=== PATIENT | male | born 1990 | race Two or more races ===

== ENCOUNTER 2018-09-15 16:57 | Inpatient (IN) | payer MEDICAID ==
[~2018-09-15] VITALS: Ht 165.1 cm; Wt 67.1 kg
[~2018-09-15 16:57] MED LIST: ACET-2605 GT; ACET650S26 GT; ALBU2.5V13 HHN; AMIN30LI4 GT; ASCO500S2 GT; BACL10TA GT; BISA-79 GT; CHLO118M MM; DOCU50LI GT; DULO60CA45 GT; ESOM40SU GT; GABA-534 GT; HEPA10009 SQ; IPRA0.2S9 HHN; LACT10SO7 GT; MAGN400O6 GT; MAGN400T6 GT; MECL-102 PO; MERO1VIA3 IV; METH12VI SQ; METO5SOL2 GT; MULT1TAB11 GT; NA P133E RC; NITR0.4T48 SL; POLY17PO4 GT; SACC250C GT; SENN8.6C5 GT
--- NOTE | 2018-09-15 17:00 | NUR ---
PT BIB PA. COMPLAINING OF "FEVER CHILLS". NO SOB NOTED. NO ACUTE DISTRESS NOTED. NO PAIN NOTED. AWAITING MD COLES.
[2018-09-15] MEDS ORDERED: ACETAMINOPHEN 650 MG/SUPP.RECT RC ONE ×2 (17:23→17:30)
[2018-09-15 17:24] LABS: BASOPHILS % (AUTO) 0.2 % (0.0-2.0); HEMATOCRIT 43 % (39-51); HEMOGLOBIN 14.3 g/dL (13.5-17.5); LYMPHOCYTES # (AUTO) 0.5 /CMM (0.8-4.8); LYMPHOCYTES % (AUTO) 1.8 % (20.0-44.0); MEAN CORPUSCULAR HGB CONC 34 g/dl (31.0-36.0); MEAN CORPUSCULAR VOLUME 91 fL (80-96); MONOCYTES # (AUTO) 1.9 /CMM (0.1-1.30); MONOCYTES % (AUTO) 6.9 % (2.0-12.0); NEUTROPHILS # (AUTO) 24.7 /CMM (1.8-8.9); NEUTROPHILS % (AUTO) 91.1 % (43.0-81.0); PLATELET COUNT (AUTO) 338 /CMM (150-450); RED BLOOD CELL COUNT(AUTO) 4.68 MIL/uL (4.5-6.0); WHITE BLOOD COUNT (AUTO) 27.1 K/uL (4.3-11.0)
[2018-09-15 17:30] VITALS: BP 125/73
[2018-09-15] MEDS ORDERED: VANCOMYCIN 1 GM in IV D5W 250 ML IV ONE (17:30)
[2018-09-15] MEDS ORDERED: ALBUTEROL FS 2.5 MG/0.5 ML VIAL.NEB NEB ONE (17:30)
[2018-09-15] MEDS ORDERED: PIPERACILLIN /TAZOBACTAM 3.375 G in IV D5W 50 ML IV ONE (17:30)
[2018-09-15] MEDS ORDERED: IV NS 0.9% 1,000 ML BAG IV ONE (17:30)
--- NOTE | 2018-09-15 17:35 | NUR ---
RT NOTE PT PLACED ON VENT PER MD ORDER. SETTINGS ENDORSED BY PARAMEDICS. ALARMS SET PER PROTOCOL AND AUDIBLE. VENT PLUGGED IN TO RED OUTLET. AMBU BAG AT BED SIDE. NO DISTRESS NOTED. PT HAS PORTEX [address]FF[address] TU[address] PLACE. CUFF INFLATED. PT AWAKE AND ALERT. RN NOTIFIED OF VENTILATOR ALARM ALARMING WHEN PATIENT SPEAKS. Addendum: 09/15/18 at 1739 by ROSALIND HERRERA RT Amended: Links added.
[2018-09-15 17:38] LABS: APPEARANCE,URINE Clear (CLEAR); BILIRUBIN,URINE Negative (NEGATIVE); BLOOD, URINE Large Ery/uL (NEGATIVE); COLOR,URINE Yellow (YELLOW); KETONES,URINE 40 (NEGATIVE); LEUKOCYTE ESTERASE ,URINE Large (NEGATIVE); NITRITE, URINE Positive (NEGATIVE); PROTEIN,URINE 100 mg/dl (NEGATIVE); UGLUCOSE Negative (NEGATIVE); UROBILINOGEN,URINE 0.2 EU/dL (0.2)
[2018-09-15 17:41] LABS: ALANINE AMINOTRANSFERASE 46 U/L (12-78); ALBUMIN 3.7 g/dL (3.4-5.0); ALKALINE PHOSPHATASE 98 U/L (46-116); ASPARTATE AMINOTRANSFERASE 22 U/L (15-37); BILIRUBIN,DIRECT 0.3 mg/dL (0.0-0.2); BILIRUBIN,TOTAL 1.2 mg/dL (0.2-1.0); CALCIUM, SERUM 8.7 mg/dL (8.5-10.1); CARBON DIOXIDE 23 mmol/L (21-32); CHLORIDE 96 mmol/L (98-107); GLUCOSE 100 mg/dL (74-106); POTASSIUM 4.6 mmol/L (3.5-5.1); SODIUM SERUM 129 mmol/L (136-145); TOTAL PROTEIN, SERUM 8.1 g/dL (6.4-8.2); UREA NITROGEN, BLOOD 17 mg/dL (7-18)
[2018-09-15 17:42] LABS: PH,URINE >9.0 (5.0-8.0)
--- NOTE | 2018-09-15 17:45 | NUR ---
LABS DRAWN. URINE COLLECTED. ATBX STARTED AND INFUSING. MRSA SWAB DONE, RAPID INFLUENZA COMPLETED. WILL CONTINUE TO MONITOR.
[2018-09-15] MEDS ORDERED: ALBUTEROL FS 2.5 MG/3 ML VIAL.NEB ONE (17:48)
--- NOTE | 2018-09-15 17:50 | NUR ---
PT TO RADIO.
[2018-09-15 17:54] LABS: BACTERIA,URINE Many /HPF (None Seen); RBC,URINE 21-50 /HPF (0-2); SQUAMOUS EPITHELIAL CELL,UR Few /HPF (None Seen); WBC,URINE 21-50 /HPF (0-3)
[2018-09-15] MEDS ORDERED: MORPHINE SULFATE INJ 4 MG/ML DISP.SYRIN ONE ×2 (18:05→18:07)
[2018-09-15] MEDS ORDERED: KETOROLAC TROMETHAMINE INJ 30 MG/ML VIAL ONE (18:05)
--- NOTE | 2018-09-15 18:17 | NUR ---
RN DF PT C/O GENRALIZED PAIN 7/10 SHIVERING, PT MEDICATED WITH MORPHINE 6MG IVP, TORADOL 30 MG IVP. PT VENTED AC MODE. WILL MONITOR FOR TOLERANCE.
[2018-09-15] MEDS ORDERED: MORPHINE SULFATE INJ 2 MG/ML DISP.SYRIN IV ONE (18:30)
[2018-09-15] MEDS ORDERED: KETOROLAC TROMETHAMINE INJ 30 MG/ML VIAL IV ONE (18:30)
--- NOTE | 2018-09-15 18:30 | NUR ---
Patient is resting comfortably in bed with eyes closed. Easily aroused. VSS
--- NOTE | 2018-09-15 19:16 | NUR ---
RECEIVED REPORT FROM SAVANNAH CARRASCO FOR ISABELLA
--- NOTE | 2018-09-15 19:17 | NUR ---
PT IS ASSIGNED TO [facility]#: [id number], DX: SEPSIS, AND ACCEPTING: LILIANA CESPEDES NP
--- NOTE | 2018-09-15 19:27 | NUR ---
GAVE REPORT TO YAMIL CARRASCO FOR ISABELLA
--- NOTE | 2018-09-15 19:42 | NUR ---
RN NOTES: RECEIVED PT FROM ER. PT ON PORTEX 7 AND VENT SETTINGS AC 12, TV 600, PEEP 5, FI02 40%. PT IS A/OX3 AND ABLE TO SPEAK AND MAKE NEEDS KNOWN. PT HAS SUPRAPUBIC CATH WITH URINE DRAINING. PT ALSO HAS A G TUBE. CURRENTLY CLAMPED. HAS BEEN FLUSHED AND AUSCULTATED WITH DISTENDED ABDOMEN. PT TO BE PLACED ON TELE BOX. PT HAS IV ON JOHN #20G AND IS PATENT AND INTACT. BED KEPT IN LOW, LOCKED POSITION, AND SIDE RAILS X 2UP. WILL CONTINUE TO MONITOR PT. Addendum: 09/15/18 at 2323 by ALETHEA CAR RN G TUBE RESIDUAL NOTED WITH 15ML. WILL CONTINUE TO MONITOR THROUGHOUT SHIFT.
--- NOTE | 2018-09-15 19:47 | NUR ---
TRANSFERRED PT PER ACLS PROTOCOL
[2018-09-15 20:00] VITALS: BP 89/50
[2018-09-15] MEDS ORDERED: ALBUTEROL FS 2.5 MG/0.5 ML VIAL.NEB NEB PRN (20:00)
[2018-09-15] MEDS ORDERED: MAG HYDROX/AL HYDROX/SIMETH 30 ML UDC PO PRN (20:00)
[2018-09-15] MEDS ORDERED: ONDANSETRON HCL/PF 4 MG/2 ML VIAL IVP PRN (20:00)
[2018-09-15] MEDS ORDERED: Z GUARD REMEDY 2 OZ OINT TP PRN (20:00)
[2018-09-15] MEDS ORDERED: IPRATROPIUM NEB FS 0.5 MG/2.5 ML AMPUL.NEB NEB PRN (20:00)
[2018-09-15] MEDS ORDERED: MAGNESIUM CITRATE 296 ML BOTTLE GT ONE (20:00)
[2018-09-15] MEDS ORDERED: ACETAMINOPHEN LIQUID 160 MG/5 ML BOTTLE GT PRN (20:00)
[2018-09-15] MEDS ORDERED: MAGNESIUM HYDROXIDE 30 ML UDC PO PRN (20:00)
[2018-09-15] MEDS: IV NS 0.9% 1,000 ML IV PRN (20:26)
[2018-09-15] MEDS ORDERED: MEROPENEM 1 G VIAL IV ONE (20:52)
[2018-09-15] MEDS: MEROPENEM 1 G in IV NS 0.9% 100 ML IV SCH (21:05)
--- NOTE | 2018-09-15 21:05 | NUR ---
CLINICAL IMPLEMENTATION SPECIALIST NOTES: CHARGE NURSE OVERRODE MERREM 1G. HAD TO MANUALLY ADMINISTER SINCE BAR GUN NOT SCANNING.
[2018-09-15 21:17] VITALS: BP 111/51
--- NOTE | 2018-09-15 21:25 | NUR ---
RN NOTES: SPOKE WITH JAMESON CESPEDES TO CLARIFY. PT IS TO GO TO [facility] HE IS TACHYCARDIC, SEPTIC, AND WILL GO TO [facility]. Addendum: 09/15/18 at 7385 by ALETHEA CAR RN NURSE CHARGE RN NOTIFIED WELL.
[2018-09-15] MEDS: ENOXAPARIN SODIUM 40 MG/0.4 ML DISP.SYRIN SQ SCH (21:30)
--- NOTE | 2018-09-15 22:06 | NUR ---
RN NOTES: SPOKE WITH JAMESON CESPEDES. INFORMED HIM THAT PT IS VERY ANXIOUS. PT STILL HAS A FEVER AND HR ELEVATED IN THE 120S. PER JAMESON FORD, HE WILL ORDER ATIVAN.
[2018-09-15 22:10] VITALS: BP 115/62
[2018-09-15] MEDS: LORAZEPAM INJ 2 MG/ML VIAL IV PRN (22:14)
[2018-09-15 22:40] VITALS: BP 104/71
--- NOTE | 2018-09-15 22:42 | NUR ---
DANILO NOTES: TRANSFERRED PT TO [facility] FLOOR IN STABLE CONDITION. Addendum: 09/15/18 at 2250 by ALETHEA CAR RN TRANSFERRED PT TO [facility] FLOOR WITH NO EVENTS PER JAMESON MONZON.
--- NOTE | 2018-09-15 22:45 | NUR ---
RN NOTES: ENDORSED TO GRAY NURSE, EDIN. VENT SETTINGS REMAIN THE SAME 2 RTS AT BEDSIDE. IV REMAINS INTACT. SUPRAPUBIC CATH REMAINS INTACT WITH YELLOW URINE DRAINING. NO EVENTS OCCURRED UPON TRANSFER.
--- NOTE | 2018-09-15 22:50 | NUR ---
GRAY RN NOTE RECEIVED PT IN [facility] ROOM 102 A/O X 4, ON TRACH/VENT PORTEX 7, AC 12 TV 600 FIO2 40% PEEP 5. TOLERATING THE SETTINGS WELL. SUCTIONED HIM SMALL AMOUNT OF THIN WHITE SECRETION NOTED. ON TELE MONITOR S T HR 121. NO DISTRESS OR DISCOMFORT NOTED. NO S/S PAIN. SL JOHN # 20 G INTACT AND PATENT. SUPRAPUBIC CATH INTACT AND PATENT DRAINING YELLOWISH COLOR URINE. SIDE RAILS UP X 3 AND CALL LIGHT WITHIN REACH. VSS. CONTINUE TO MONITOR HIM. Addendum: 09/15/18 at 2344 by EDIN MCDANIELS RN ABD DISTENDED. GT INTACT AND PATENT, CLAMPED.
[2018-09-15] MEDS: ZOLPIDEM TARTRATE 5 MG TABLET GT PRN (23:30)
[2018-09-15] MEDS: HYDROCODONE/APAP 5/325MG 1 EACH TABLET GT PRN (23:30)
--- NOTE | 2018-09-15 23:37 | NUR ---
GRAY RN NOTE PT ASKING FOR SLEEPING MED AND ALSO C/O PAIN ALL OVER 03/17. AMBIEN 5 MG FOR SLEEP AND NORCO 5/325 MG FOR PAIN VIA GT GIVEN. CONTINUE TO MONITOR HIM.
[2018-09-16] VITALS: BP 104/71
--- NOTE | 2018-09-16 00:37 | NUR ---
GRAY RN NOTE PAIN SUBSIDED 2/10 AND FALL ASLEEP, EASILY AROUSABLE. CONTINUE TO MONITOR HIM.
[2018-09-16] MEDS: HYDROCODONE/APAP 10/325MG 1 EA TABLET GT PRN ×4 (03:15→21:20)
[2018-09-16 04:00] VITALS: BP 87/48
[2018-09-16] MEDS ORDERED: MEROPENEM 1 G VIAL IV ONE (04:43)
[2018-09-16] MEDS ORDERED: VANCOMYCIN 1 GM VIAL ONE (05:26)
[2018-09-16] MEDS: MEROPENEM 1 G in IV NS 0.9% 100 ML IV SCH ×3 (05:26→20:56)
--- NOTE | 2018-09-16 06:35 | NUR ---
GRAY RN NOTE PT IN BED ASLEEP, AROUSABLE. NO DISTRESS OR DISCOMFORT NOTED. DENIES PAIN. IVF INFUSING WELL, NO S/S OF INFILTRATION NOTED. ON TELE MONITOR SR 91. SUPRAPUBIC CATH INTACT AND PATENT DRAINING WELL, YELLOWISH COLOR URINE. GT INTACT AND PATENT, CLAMPED. WILL ENDORSE TO DAY SHIFT NURSE FOR CONTINUE TO CARE.
[2018-09-16 06:55] LABS: BASOPHILS % (AUTO) 0.1 % (0.0-2.0); HEMATOCRIT 33 % (39-51); LYMPHOCYTES # (AUTO) 0.8 /CMM (0.8-4.8); LYMPHOCYTES % (AUTO) 3.4 % (20.0-44.0); MEAN CORPUSCULAR HGB CONC 34 g/dl (31.0-36.0); MEAN CORPUSCULAR VOLUME 92 fL (80-96); MONOCYTES # (AUTO) 1.9 /CMM (0.1-1.30); MONOCYTES % (AUTO) 7.7 % (2.0-12.0); NEUTROPHILS # (AUTO) 21.5 /CMM (1.8-8.9); NEUTROPHILS % (AUTO) 88.8 % (43.0-81.0); PLATELET COUNT (AUTO) 230 /CMM (150-450); RED BLOOD CELL COUNT(AUTO) 3.56 MIL/uL (4.5-6.0); WHITE BLOOD COUNT (AUTO) 24.2 K/uL (4.3-11.0)
--- NOTE | 2018-09-16 07:00 | NUR ---
RN NOTE RECEIVED PT ON BED, VENT/ TRACH DEPENDENT, TRACH CARE DONE, TOLERATING CURRENT VENT SETTING WELL, ON TELE SR HR IN 90'S. NO DISTRESS OR DISCOMFORT NOTED. L UPPER ARM IV SITE G 20 CLEAN ,DRY AND INTACT, SUPRAPUBIC CATH INTACT AND PATENT DRAINING YELLOWISH COLOR URINE. SIDE RAILS UP X 3 AND CALL LIGHT WITHIN REACH.BED LOCKED AND IN LOWEST POSITION , CONTINUE TO MONITOR.
[2018-09-16 07:14] LABS: CALCIUM, SERUM 7.8 mg/dL (8.5-10.1); CREATININE 0.8 mg/dL (0.6-1.3); PHOSPHORUS 3.1 mg/dL (2.5-4.9); POTASSIUM 4.1 mmol/L (3.5-5.1)
[2018-09-16] MEDS: VANCOMYCIN 1.25 GM in IV D5W 500 ML IV SCH ×2 (07:16→17:14)
[2018-09-16] MEDS ORDERED: FEE PK DOSING 1 MIN EA MC ONE (07:33)
[2018-09-16 08:00] VITALS: BP 97/58
--- NOTE | 2018-09-16 09:29 | NUR ---
WOUND CARE CONSULT: PT PRESENTS WITH SACRAL SCARRING WHICH EXTENDS TO BUTTOCKS, LEFT LATERAL FOOT SCAR, RT LATERAL FOOT MOLE/LESION AND CONTRACTED RT UPPER EXTREMITY, PRESENT ON ADMISSION. ABDOMEN IS LARGE AND LARGE AREAS OF SKIN REDNESS NOTED. DEFER TO MD. Xiao TUBE CLAMPED, SUPRAPUBIC CATH NOTED. RECOMMENDATIONS MADE FOR SKIN PROTECTION AND DISCUSSED WITH NURSING STAFF. FIRST STEP LOW AIRLOSS MATTRESS ORDERED. PT IS VENT-DEPENDENT. WILL SEE PRN. CURRENT KEVIN SCORE IS 12. Addendum: 09/16/18 at 0931 by ELEONORA UMANA WNDNU Amended: Links added.
[2018-09-16 12:00] VITALS: BP 100/47
[2018-09-16] MEDS: IV NS 0.9% 1,000 ML IV PRN (13:40)
[2018-09-16] MEDS: LORAZEPAM INJ 2 MG/ML VIAL IV PRN ×2 (13:46→21:16)
[2018-09-16] MEDS: ACETAMINOPHEN 650 MG/20.3 ML UDC GT PRN (14:05)
[2018-09-16 16:00] VITALS: BP 92/47
[2018-09-16] MEDS: LACTOBACILLUS RHAMNOSUS GG 1 EACH CAP.SPRINK GT SCH (16:13)
--- NOTE | 2018-09-16 18:23 | NUR ---
RN NOTES PT STABLE , TRACH CARE DONE , NS AT 125CC/HR RUNNING VIA L UPPER ARM IV , SITE CLEAN, DRY AND INTACT, WILL ENDOSE TO MINER OPERATOR NURSE FOR CONTINUITY OF CARE.
--- NOTE | 2018-09-16 19:07 | NUR ---
SUPERVISOR TILE AND MOTTLE NOTE: RECEIVED PT ON BED ALERT AND ORIENTED X3, VERBALLY RESPONSIVE. NO APPARENT DISTRESS NOTED. NO COMPLAINTS OF PAIN OR DISCOMFORT AT THIS TIME. ON [facility] VENT, SETTINGS ORDERED. NO SOB NOTED. SINUS RHYTHM HR 97 BPM ON TELE MONITOR. IV ON LEFT UPPER ARM #20 INTACT AND PATENT, WITH IVF NS RUNNING AT 125ML/HR, INFUSING WELL. KEPT CLEAN, DRY AND COMFORTABLE. SAFETY AND FALL PRECAUTIONS OBSERVED AND MAINTAINED. CALL LIGHT PLACED WITHIN REACH. WILL CONTINUE TO MONITOR PT.
[2018-09-16 20:00] VITALS: BP 117/61
[2018-09-16] MEDS: ENOXAPARIN SODIUM 40 MG/0.4 ML DISP.SYRIN SQ SCH (20:56)
[2018-09-16] MEDS: ZOLPIDEM TARTRATE 5 MG TABLET GT PRN (23:24)
[2018-09-17] VITALS: BP 117/64
[2018-09-17] MEDS: HYDROCODONE/APAP 10/325MG 1 EA TABLET GT PRN ×4 (00:40→17:02)
[2018-09-17] MEDS: IV NS 0.9% 1,000 ML IV PRN ×2 (03:30→14:14)
[2018-09-17 04:00] VITALS: BP 116/57
[2018-09-17] MEDS: MEROPENEM 1 G in IV NS 0.9% 100 ML IV SCH ×4 (04:41→22:20)
[2018-09-17] MEDS: LORAZEPAM INJ 2 MG/ML VIAL IV PRN ×4 (04:43→23:41)
[2018-09-17] MEDS: VANCOMYCIN 1.25 GM in IV D5W 500 ML IV SCH ×2 (05:32→19:51)
--- NOTE | 2018-09-17 05:40 | NUR ---
CAFETERIA ASSISTANT NOTE: RECEIVED A CALL FROM LAB REGARDING PATIENT'S BLOOD CULTURE PRELIMINARY RESULT GRAM NEGATIVE RODS. SLUBBER TENDER LILIANA CSEPEDES MADE AWARE, NO NEW ORDERS AT THIS TIME.
[2018-09-17 06:07] LABS: BASOPHILS % (AUTO) 0.1 % (0.0-2.0); EOSINOPHILS % (AUTO) 0.4 % (0.0-6.0); HEMATOCRIT 30 % (39-51); HEMOGLOBIN 10.2 g/dL (13.5-17.5); LYMPHOCYTES # (AUTO) 0.6 /CMM (0.8-4.8); LYMPHOCYTES % (AUTO) 5.3 % (20.0-44.0); MEAN CORPUSCULAR HGB CONC 34 g/dl (31.0-36.0); MEAN CORPUSCULAR VOLUME 89 fL (80-96); MONOCYTES # (AUTO) 0.9 /CMM (0.1-1.30); MONOCYTES % (AUTO) 7.3 % (2.0-12.0); NEUTROPHILS # (AUTO) 10.5 /CMM (1.8-8.9); NEUTROPHILS % (AUTO) 86.9 % (43.0-81.0); PLATELET COUNT (AUTO) 192 /CMM (150-450); RED BLOOD CELL COUNT(AUTO) 3.39 MIL/uL (4.5-6.0); WHITE BLOOD COUNT (AUTO) 12.1 K/uL (4.3-11.0)
[2018-09-17 06:21] LABS: CALCIUM, SERUM 7.9 mg/dL (8.5-10.1); CREATININE 0.5 mg/dL (0.6-1.3); MAGNESIUM 2.3 mg/dL (1.8-2.4); PHOSPHORUS 1.2 mg/dL (2.5-4.9); POTASSIUM 3.6 mmol/L (3.5-5.1)
--- NOTE | 2018-09-17 06:47 | NUR ---
RETORT ENGINEER NOTE: NO CHANGES NOTED THROUGHOUT THE SHIFT. NO APPARENT DISTRESS NOTED. DENIES PAIN AND DISCOMFORT AT THIS TIME. NO SOB NOTED. PT REFUSED BED BATH WITNESSED BY DANILO AYALA, OFFERED 3X BUT PT STILL REFUSED AND STATED "I'M TIRED AND SLEEPY RIGHT NOW. COME BACK LATER AT 0800". SUPRAPUBIC CATH INTACT AND PATENT, DRAINED 2000 ML OF CLEAR YELLOW URINE OUTPUT. KEPT CLEAN, DRY AND COMFORTABLE. WILL ENDORSE TO DAY SHIFT RN FOR CONTINUITY OF CARE.
--- NOTE | 2018-09-17 07:00 | NUR ---
RN NOTE: RECEIVED PT ON BED A/Ox3, VENT/TRACH DEPENDENT, TOLERATING CURRENT VENT SETTING WELL, TRACH CARE DONE, NO SOB NOTED, ON TELE SR HR IN 90'S , IV ON LEFT UPPER ARM #20 INTACT AND PATENT, WITH IVF NS RUNNING AT 125ML/HR, SR UP x3, CALL LIGHT WITHIN EASY REACH, BED LOCKED AND IN LOWEST POSITION, KEPT CLEAN, DRY AND COMFORTABLE. SAFETY AND FALL PRECAUTIONS OBSERVED AND MAINTAINED , CONTINUE TO MONITOR.
[2018-09-17 08:00] VITALS: BP 99/48
[2018-09-17] MEDS: LACTOBACILLUS RHAMNOSUS GG 1 EACH CAP.SPRINK GT SCH ×2 (09:19→16:30)
[2018-09-17] MEDS: ACETAMINOPHEN 650 MG/20.3 ML UDC GT PRN (11:31)
[2018-09-17 12:00] VITALS: BP 111/53
[2018-09-17] MEDS ORDERED: CALC-261 GT (14:00)
[2018-09-17] MEDS ORDERED: CRAN3875 GT (14:00)
[2018-09-17] MEDS ORDERED: LEVO750T21 GT (14:00)
[2018-09-17] MEDS ORDERED: ZOLP5TAB8 GT (14:00)
[2018-09-17] MEDS ORDERED: HYDR-4354 GT (14:00)
[2018-09-17] MEDS ORDERED: FAMO20TA8 GT (14:00)
[2018-09-17] MEDS ORDERED: HYDR-3972 GT (14:00)
[2018-09-17] MEDS ORDERED: K PHOS NEUTRAL 250 MG TABLET PO ONE ×2 (14:00→16:30)
[2018-09-17] MEDS ORDERED: METH1TAB30 GT (14:00)
[2018-09-17] MEDS ORDERED: SIME80TA15 GT (14:00)
[2018-09-17] MEDS ORDERED: LORA-259 GT (14:00)
[2018-09-17 16:00] VITALS: BP 110/67
--- NOTE | 2018-09-17 18:14 | NUR ---
RN NOTES PT STABLE, NS AT 125CC/HR RUNNING VIA L UPPER ARM IV SITE , NO COMPLICATION NOTED, TRACH SUCTION DONE, SR UP x3, CALL LIGHT WITHIN EASY REACH, BED LOCKED AND IN LOWEST POSITION, WILL ENDOSE TO RAILWAY TRACK PLANT OPERATOR NURSE FOR CONTINUITY OF CARE .
--- NOTE | 2018-09-17 18:30 | NUR ---
RN NOTES UNABLE TO OBTAIN BLOOD SAMPLE FOR VANCO LEVEL PER LAB , PT IS HARD STICK , WILL ENDOSE TO SKATES OPERATOR NURSE .
--- NOTE | 2018-09-17 19:10 | NUR ---
TELE/RN INITIAL NOTES RECEIVED PT IN BED, A/OX4, WITH INTACT TRACH PORTEX#7, TOLERATING VENT SETTINGS: AC 12; TV 600; FIO2: 40%; PEEP5. SR HR 90S. GT INTACT AND IN PLACED. HOB ELEVATED. SUPRAPUBIC CATH INTACT AND IN PLACED. WITH ONGOING IVF NS AT 125 ML/HR INFUSING WELL ON JOHN G20 IV LINE. SAFETY MEASURES IN PLACED. CALL LIGHT WITHIN EASY REACH. WILL CONT TO MONITOR PER AM SHIFT RN ENDORSEMENT, DUE 1800 VANCO TO BE GIVEN, AWAITING FOR VANCO TROUGH LEVEL FROM LAB.
--- NOTE | 2018-09-17 19:50 | NUR ---
RN NOTES RECEIVED VANCO TROUGH=20, CALLED PHARMACY IF OK TO ADMINISTER VANCO, PER KIERA OK TO ADMINISTER VANCO
[2018-09-17 20:00] VITALS: BP 113/66
[2018-09-17] MEDS: HYDROCODONE/APAP 5/325MG 1 EACH TABLET GT PRN (20:31)
[2018-09-17] MEDS: ZOLPIDEM TARTRATE 5 MG TABLET GT PRN (21:00)
[2018-09-17] MEDS: ENOXAPARIN SODIUM 40 MG/0.4 ML DISP.SYRIN SQ SCH (21:01)
[2018-09-18] VITALS: BP 114/61
[2018-09-18] MEDS: HYDROCODONE/APAP 10/325MG 1 EA TABLET GT PRN ×3 (02:36→23:15)
[2018-09-18 04:00] VITALS: BP 112/65
[2018-09-18] MEDS: IV NS 0.9% 1,000 ML IV PRN ×2 (04:02→16:54)
[2018-09-18] MEDS: MEROPENEM 1 G in IV NS 0.9% 100 ML IV SCH ×3 (04:02→21:05)
[2018-09-18] MEDS: ACETAMINOPHEN 650 MG/20.3 ML UDC GT PRN (04:03)
[2018-09-18] MEDS: VANCOMYCIN 1.25 GM in IV D5W 500 ML IV SCH (05:15)
--- NOTE | 2018-09-18 05:30 | NUR ---
DANILO NOTES RECHECKED BP=98.9 Addendum: 09/18/18 at 0648 by LUCY TIRADO RN CORRECTION RECHECKED TEMP=98.9
--- NOTE | 2018-09-18 06:57 | NUR ---
RN NOTES PT IN STABLE CONDITION. NO ACUTE CHANGES THROUGHOUT SHIFT. SAFETY MEASURES OBSERVED AT ALL TIMES. ALL NEEDS ANTICIPATED. CALL LIGHT WITHIN EASY REACH. ENDORSED TO AM SHIFT RN FOR ISABELLA
--- NOTE | 2018-09-18 07:29 | NUR ---
Received male una pt on a mechanical vent. Pt una is secure. Vent is plugged into a red outlet, alarms are set and audible, and BMV is at bedside. Addendum: 09/18/18 at 0731 by LILY ERICKSON RT Amended: Links added.
--- NOTE | 2018-09-18 07:30 | NUR ---
RN NOTES RECEIVED PT ON BED, ALERT AND ORIENTED X3, ABLE TO MAKE NEEDS KNOWN, NOT ON ANY FORM OF DISTRESS. NO COMPLAINTS OF PAIN OR DISCOMFORT AT THIS TIME. ON [facility] VENT, SETTINGS ORDERED.TOLERATING WELL, NO SOB NOTED. SATING AT 100%, ON TELEMONITOR: SINUS RHYTHM HR 67 BPM ON TELE MONITOR. IVL JOHN G20 INTACT AND IN PLACE, PATENT UPON FLUSHING, WITH ONGOING IVF OF NS AT 125ML/HR, INFUSING WELL. WITH SUPRAPUBIC CATHETER, DRAINING WELL VIA GRAVITY TO CLOUDY, YELLOW, URINE. SAFETY AND FALL PRECAUTIONS OBSERVED AND MAINTAINED. CALL LIGHT PLACED WITHIN REACH. WILL CONTINUE TO AN MONITOR PT. AND WILL ANTICIPATE NEEDS
[2018-09-18 08:00] VITALS: BP 105/64
[2018-09-18 08:12] LABS: BASOPHILS % (AUTO) 0.4 % (0.0-2.0); EOSINOPHILS % (AUTO) 1.4 % (0.0-6.0); HEMATOCRIT 31 % (39-51); HEMOGLOBIN 10.7 g/dL (13.5-17.5); LYMPHOCYTES # (AUTO) 1.2 /CMM (0.8-4.8); LYMPHOCYTES % (AUTO) 16.4 % (20.0-44.0); MEAN CORPUSCULAR HGB CONC 35 g/dl (31.0-36.0); MEAN CORPUSCULAR VOLUME 90 fL (80-96); MONOCYTES # (AUTO) 0.8 /CMM (0.1-1.30); MONOCYTES % (AUTO) 10.9 % (2.0-12.0); NEUTROPHILS # (AUTO) 5.4 /CMM (1.8-8.9); NEUTROPHILS % (AUTO) 70.9 % (43.0-81.0); PLATELET COUNT (AUTO) 191 /CMM (150-450); RED BLOOD CELL COUNT(AUTO) 3.45 MIL/uL (4.5-6.0); WHITE BLOOD COUNT (AUTO) 7.6 K/uL (4.3-11.0)
[2018-09-18 08:23] LABS: CREATININE 0.6 mg/dL (0.6-1.3); PHOSPHORUS 1.1 mg/dL (2.5-4.9)
--- NOTE | 2018-09-18 08:36 | NUR ---
RN NOTES INFORMED DR ADAIR POTASSIUM LEVEL T 2.5, AWAITING RESPONSE
[2018-09-18 08:37] LABS: POTASSIUM 2.5 mmol/L (3.5-5.1)
[2018-09-18] MEDS: LACTOBACILLUS RHAMNOSUS GG 1 EACH CAP.SPRINK GT SCH ×2 (08:38→16:51)
[2018-09-18 09:02] LABS: BAND % (MANUAL) 2 % (0.0-5.0); EOSINOPHILS % (MANUAL) 2 % (0-4); LYMPHOCYTES % (MANUAL) 14 % (16-48); MONOCYTES % (MANUAL) 10 % (0-11.0); NEUTROPHILS % (MANUAL) 72 (42-76)
[2018-09-18] MEDS ORDERED: K PHOS NEUTRAL 250 MG TABLET PO ONE (11:00)
[2018-09-18 12:00] VITALS: BP 121/68
[2018-09-18] MEDS: HYDROCODONE/APAP 5/325MG 1 EACH TABLET GT PRN (13:29)
--- NOTE | 2018-09-18 15:30 | NUR ---
RN NOTES REINFORMED DR ADAIR ABOUT POTASSIUM LEVEL AT 2.5, AWAITING RESPONSE
[2018-09-18 16:00] VITALS: BP_SYST 101; BP_SYST 121; BP_DIAS 62; BP_DIAS 68
[2018-09-18] MEDS: LORAZEPAM INJ 2 MG/ML VIAL IV PRN (16:50)
--- NOTE | 2018-09-18 19:20 | NUR ---
RN NOTES NOTED POTASSIUM ORDER FROM DR ADAIR [id number] MEQ IV AND 40 MEQ PO. ORDER NOTED AND CARRIED OUT
--- NOTE | 2018-09-18 19:26 | NUR ---
RN NOTES ENDORSED PATIENT FOR CONTINUITY OF CARE. PATIENT ON STABLE CONDITION. NO ACUTE CHANGES THROUGHOUT SHIFT. SAFETY MEASURES OBSERVED AT ALL TIMES. ALL NEEDS ANTICIPATED. CALL LIGHT WITHIN EASY REACH.
[2018-09-18] MEDS ORDERED: POTASSIUM CHLORIDE 10 MEQ/50 ML PREMIXED IVPB FOR PERIPHERAL LINE IV ONE (19:30)
--- NOTE | 2018-09-18 19:54 | NUR ---
PT RCVD TRACH PORTEX 7 ON THE VENT WITH NOTED SETTINGS. PT IS AWAKE AND ALERT. SUCTIONED SMALL AMOUNT OF YELLOW/ NATHAN THICK SECRETIONS. VENT PLUGGED INTO RED OUTLET, ALARMS ON AND AUDIBLE, AMBU BAG AT BEDSIDE. TRACH PATENT AND SECURED. NO RESPIRATORY DISTRESS NOTED AT THIS TIME. WILL CONTINUE TO MONITOR.
[2018-09-18] MEDS ORDERED: POTASSIUM CL. PREMIX PERIPHER. 50 ML ONE (19:59)
[2018-09-18 20:00] VITALS: BP 120/74
[2018-09-18] MEDS: POTASSIUM CHLORIDE 20 MEQ TAB.PRT.SR PO SCH (20:01)
[2018-09-18] MEDS: Potassium Chloride 10 MEQ in IV D5W 50 ML IV SCH ×4 (20:04→22:20)
--- NOTE | 2018-09-18 20:10 | NUR ---
GRAY/TIME BROKER PT GIVEN PO POTASSIUM FOR LOW 2.5 POTASSIUMS. ALSO CHARGE NURSE STARTED THE IV POTASSIUM WELL.
[2018-09-18] MEDS ORDERED: POTASSIUM CL. PREMIX PERIPHER. 150 ML ONE (20:50)
--- NOTE | 2018-09-18 21:10 | NUR ---
GRAY/PRESSURE DISPATCHER PT C/O OF SEVER PAIN TO LEG WHERE IV POTASSIUM IS RUNNING. CALLED ICE CREAM DISPENSER FOR PRN ORDER FOR PAIN MEDICATION, MORPHINE 1 MG GIVEN IV Q 4 HRS PRN. CHARGE NURSE AWARE OF ORDERS.
[2018-09-18] MEDS: ENOXAPARIN SODIUM 40 MG/0.4 ML DISP.SYRIN SQ SCH (21:35)
[2018-09-18] MEDS ORDERED: MORPHINE SULFATE INJ 2 MG/ML DISP.SYRIN IV PRN (22:00)
[2018-09-18] MEDS ORDERED: MORPHINE SULFATE INJ 4 MG/ML DISP.SYRIN ONE (22:26)
--- NOTE | 2018-09-18 23:16 | NUR ---
GRAY/COUNTER ROLLER PT C/O OF PAIN RATED 5/10 TO GENERALIZED AREA, GAVE NORCO 10/325 1 TAB FOR THIS. PT WAS TURNED AND REPOSITIONED FOR COMFORT AND CAR.
[2018-09-19] MEDS: LORAZEPAM INJ 2 MG/ML VIAL IV PRN ×3 (00:24→16:12)
--- NOTE | 2018-09-19 00:31 | NUR ---
GRAY/PRIVATE DUTY RN PT COMPLAINED ABOUT AGITATION, ATIVAN WAS GIVEN BY CHARGE NURSE AFTER SHE WAS NOTIFIED. PT WAS TURNED AND REPOSITIONED FOR COMFORT AND CAR.
[2018-09-19 00:33] VITALS: BP 124/70
[2018-09-19] MEDS: ZOLPIDEM TARTRATE 5 MG TABLET GT PRN (01:13)
[2018-09-19] MEDS: IV NS 0.9% 1,000 ML IV PRN (01:13)
--- NOTE | 2018-09-19 01:40 | NUR ---
GRAY/TENSION WORKER PT C/O OF NOT BEING ABLE TO SLEEP, PT HAS A SEEKING ATTITUDE. THE ATIVAN WAS GIVEN VIA G/TUBE THEN PT WAS TURNED AND REPOSTIONED FOR COMFORT AND CARE. WILL CONTINUE TO MONITOR THIS PT.
--- NOTE | 2018-09-19 03:10 | NUR ---
GRAY/HEDIS ANALYST PT REQUESTED TO BE CHANGED, DUE TO A BM. BUT REFUSED A BATH. WILL CONTINUE TO MONITOR THIS PT. PT WAS TURNED AND REPOSITIONED FOR COMFORT AND CARE.
[2018-09-19 04:00] VITALS: BP 111/60
[2018-09-19] MEDS: MEROPENEM 1 G in IV NS 0.9% 100 ML IV SCH ×2 (04:22→14:15)
--- NOTE | 2018-09-19 05:40 | NUR ---
GRAY/PNEUMATIC TOOL OPERATOR PT'S WEIGHT IS 148, PILLOWS WERE STRIP DOWN AND WEIGHT TAKEN.
--- NOTE | 2018-09-19 07:04 | NUR ---
Received awake and alert male trach pt on a mechanical vent. Pt trach is secure. Vent is plugged into a red outlet, alarms are set and audible, and BMV is at bedside. Addendum: 09/19/18 at 0806 by LILY ERICKSON RT Amended: Links added.
[2018-09-19 07:36] LABS: BASOPHILS % (AUTO) 0.5 % (0.0-2.0); EOSINOPHILS % (AUTO) 3.1 % (0.0-6.0); HEMATOCRIT 32 % (39-51); HEMOGLOBIN 11.1 g/dL (13.5-17.5); LYMPHOCYTES # (AUTO) 1.3 /CMM (0.8-4.8); LYMPHOCYTES % (AUTO) 15.8 % (20.0-44.0); MEAN CORPUSCULAR HGB CONC 35 g/dl (31.0-36.0); MEAN CORPUSCULAR VOLUME 88 fL (80-96); MONOCYTES # (AUTO) 1.3 /CMM (0.1-1.30); MONOCYTES % (AUTO) 15.1 % (2.0-12.0); NEUTROPHILS # (AUTO) 5.5 /CMM (1.8-8.9); NEUTROPHILS % (AUTO) 65.5 % (43.0-81.0); PLATELET COUNT (AUTO) 238 /CMM (150-450); RED BLOOD CELL COUNT(AUTO) 3.64 MIL/uL (4.5-6.0); WHITE BLOOD COUNT (AUTO) 8.4 K/uL (4.3-11.0)
[2018-09-19 07:45] LABS: CALCIUM, SERUM 7.9 mg/dL (8.5-10.1); CREATININE 0.5 mg/dL (0.6-1.3); MAGNESIUM 1.7 mg/dL (1.8-2.4); POTASSIUM 3.3 mmol/L (3.5-5.1)
[2018-09-19 08:00] VITALS: BP 119/64
[2018-09-19] MEDS: LACTOBACILLUS RHAMNOSUS GG 1 EACH CAP.SPRINK GT SCH ×2 (08:42→16:13)
[2018-09-19] MEDS: HYDROCODONE/APAP 10/325MG 1 EA TABLET GT PRN ×2 (08:42→12:44)
[2018-09-19] MEDS: POTASSIUM CHLORIDE 20 MEQ TAB.PRT.SR PO SCH (08:42)
[2018-09-19] MEDS ORDERED: POTASSIUM CHLORIDE 20 MEQ TAB.PRT.SR PO ONE (11:30)
[2018-09-19 12:00] VITALS: BP 130/71
[2018-09-19] MEDS ORDERED: BISACODYL SUPP (10 MG) 10 MG/SUPP.RECT SUPP.RECT RC ONE (12:00)
[2018-09-19] MEDS: Magnesium 1GM/D5W 100ML PREMIX 100 ML IV SCH ×2 (12:11→16:13)
[2018-09-19] MEDS ORDERED: MORPHINE SULFATE INJ 4 MG/ML DISP.SYRIN IV PRN (12:30)
[2018-09-19] MEDS ORDERED: MERO1VIA IV (12:41)
[2018-09-19 16:00] VITALS: BP 123/69
--- NOTE | 2018-09-19 19:30 | NUR ---
COMPUTER HARDWARE TECHNICIAN NOTE PATIENT PREPARED FOR DISCHARGE. PAPERWORK COMPLETED AND PRINTED AND SIGNED WITH CHARGE NURSE SINCE PATIENT UNABLE TO SIGN. REPORT CALLED TO DANILO JAMESON AT [facility]. PER GISELL'S REQUEST, IV SITES LEFT IN SINCE PATIENT IS A HARD STICK AND WILL CONTINUE IV ABX AT SNF. PATIENT SUPRAPUBIC CATHETER LEFT IN WELL. PICTURES TAKEN OF SKIN ISSUES AND PLACED IN CHART. ASKED PATIENT ABOUT FLU AND PNEUMONIA VACCINES. SAID HE HAS RECEIVED FLU SHOT THIS SEASON BUT FORGOT DATE. SAID HE WILL NOT WANT PNEUMONIA VACCINE RIGHT NOW. GAVE REPORT TO 2 EMT'S AND RT AT BEDSIDE. PATIENT VITAL SIGNS STABLE, NO COMPLAINT OF PAIN, NO RESPIRATORY DISTRESS NOTED. PATIENT LEFT THE FACILITY ON A GURNEY TO [facility] WITH PAPERWORK ACCOMPANIED BY RT AND 2 EMT'S IN STABLE CONDITION AT 19:10. PATIENT HAD NO BELONGINGS.
== END 2018-09-19 19:12 | DRG 720 ==
LOC: ER 17:01 → TELE 19:22 → TELE1 23:08 → TELE-TD 23:21 → TELE1 09-16 11:10
PROVIDERS: ADMIT Nurse Practitioner Acute Care; ATTEND Student in an Organized Health Care Education/Training Program
PROC: 5A1945Z Respiratory Ventilation, 24-96 Consecutive Hours (ICD-10-PCS; principal; 2018-09-15)
DX: A41.52 Sepsis due to Pseudomonas (principal); R65.21 Severe sepsis with septic shock; Z99.11 Dependence on respirator [ventilator] status; G82.50 Quadriplegia, unspecified; J96.10 Chronic respiratory failure, unspecified whether with hypoxia or hypercapnia; E44.0 Moderate protein-calorie malnutrition; R64 Cachexia; J18.9 Pneumonia, unspecified organism; J96.11 Chronic respiratory failure with hypoxia; Z93.0 Tracheostomy status; E87.1 Hypo-osmolality and hyponatremia; Z93.1 Gastrostomy status; D68.59 Other primary thrombophilia; E78.5 Hyperlipidemia, unspecified; E87.6 Hypokalemia; Z87.440 Personal history of urinary (tract) infections; Z87.442 Personal history of urinary calculi; K59.00 Constipation, unspecified; E86.1 Hypovolemia; Z68.24 Body mass index [BMI] 24.0-24.9, adult; J98.11 Atelectasis; N13.6 Pyonephrosis; N21.0 Calculus in bladder; B96.4 Proteus (mirabilis) (morganii) as the cause of diseases classified elsewhere; B95.1 Streptococcus, group B, as the cause of diseases classified elsewhere; R13.10 Dysphagia, unspecified
CPT/HCPCS: 31720; 36415; 71045-TC; 74022-TC; 80048-TC; 80076-TC; 80202-TC; 81000-TC; 83605-TC; 83735-TC; 84100-TC; 84484-TC; 85025-TC; 85730-TC; 87040-TC; 87070-TC; 87081-TC; 87086-TC; 87186-TC; 87400; 92611-TC; 94002-TC; 94003-TC; 94760-TC; 99082-TC; A4606; A6402; G0378; J1650; J1885; J2060; J2185; J2270; J2543; J3370; J3475; J3480; J7030; J7060; Z7610

== ENCOUNTER 2019-02-11 12:14 | Inpatient (IN) | payer MEDICAID ==
[~2019-02-11] VITALS: Ht 175.3 cm; Wt 65.8 kg
[~2019-02-11 12:14] MED LIST changes: -ACET-2605 GT; -AMIN30LI4 GT; -ASCO500S2 GT; +CALC-261 GT; -CHLO118M MM; +CRAN3875 GT; -DULO60CA45 GT; -ESOM40SU GT; +FAMO20TA8 GT; +HYDR-3972 GT; +HYDR-4354 GT; -LACT10SO7 GT; +LORA-259 GT; +MERO1VIA IV; -MERO1VIA3 IV; -METH12VI SQ; +METH1TAB30 GT; -METO5SOL2 GT; -MULT1TAB11 GT; -SENN8.6C5 GT; +SIME80TA15 GT; +ZOLP5TAB8 GT
--- NOTE | 2019-02-11 12:35 | NUR ---
LUKE COOK FRM [facility] FOR LEUKOCYTOSIS AND FEVER. PATIENT ON MECHANICAL VENT AND TOLERATING CURRENT SETTINGS. PATIENT A/OX2-3, ABLE TO MOUTH WORDS. PLACED ON MONITOR. WAITING FOR MD COLES.
[2019-02-11 13:04] LABS: BASOPHILS # (AUTO) 0.1 /CMM (0.0-0.2); BASOPHILS % (AUTO) 0.4 % (0.0-2.0); EOSINOPHILS % (AUTO) 0.2 % (0.0-6.0); HEMATOCRIT 31 % (39-51); HEMOGLOBIN 10.1 g/dL (13.5-17.5); LYMPHOCYTES # (AUTO) 0.5 /CMM (0.8-4.8); LYMPHOCYTES % (AUTO) 3.6 % (20.0-44.0); MEAN CORPUSCULAR HGB CONC 33 g/dl (31.0-36.0); MEAN CORPUSCULAR VOLUME 93 fL (80-96); MONOCYTES # (AUTO) 1.6 /CMM (0.1-1.30); MONOCYTES % (AUTO) 11.2 % (2.0-12.0); NEUTROPHILS # (AUTO) 12.2 /CMM (1.8-8.9); NEUTROPHILS % (AUTO) 84.6 % (43.0-81.0); PLATELET COUNT (AUTO) 198 /CMM (150-450); RED BLOOD CELL COUNT(AUTO) 3.28 MIL/uL (4.5-6.0); WHITE BLOOD COUNT (AUTO) 14.4 K/uL (4.3-11.0)
[2019-02-11] MEDS ORDERED: ASCO-340 GT (13:13)
[2019-02-11] MEDS ORDERED: BISA10SU61 RC (13:13)
[2019-02-11] MEDS ORDERED: MULT-213 GT (13:13)
[2019-02-11] MEDS ORDERED: AMIN30LI27 GT (13:13)
[2019-02-11 13:15] LABS: CALCIUM, SERUM 9.1 mg/dL (8.5-10.1); CARBON DIOXIDE 20 mmol/L (21-32); CHLORIDE 97 mmol/L (98-107); CREATININE 0.8 mg/dL (0.6-1.3); GLUCOSE 97 mg/dL (74-106); POTASSIUM 4.5 mmol/L (3.5-5.1); SODIUM SERUM 130 mmol/L (136-145); UREA NITROGEN, BLOOD 33 mg/dL (7-18)
[2019-02-11 13:21] LABS: ALANINE AMINOTRANSFERASE 35 U/L (12-78); ALBUMIN 2.7 g/dL (3.4-5.0); ALKALINE PHOSPHATASE 114 U/L (46-116); ASPARTATE AMINOTRANSFERASE 17 U/L (15-37); BILIRUBIN,DIRECT 0.2 mg/dL (0.0-0.2); BILIRUBIN,TOTAL 0.6 mg/dL (0.2-1.0); TOTAL PROTEIN, SERUM 7.6 g/dL (6.4-8.2)
[2019-02-11] MEDS ORDERED: VANCOMYCIN 1 GM in IV D5W 250 ML IV ONE (14:30)
[2019-02-11] MEDS ORDERED: PIPERACILLIN /TAZOBACTAM 3.375 G in IV D5W 50 ML IV ONE (14:30)
[2019-02-11] MEDS ORDERED: MORPHINE SULFATE INJ 10 MG/ML DISP.SYRIN ONE (15:00)
[2019-02-11] MEDS ORDERED: IV NS 0.9% 1,000 ML BAG IV ONE (15:00)
[2019-02-11] MEDS ORDERED: ONDANSETRON HCL/PF 4 MG/2 ML VIAL ONE (15:00)
[2019-02-11] MEDS ORDERED: MORPHINE SULFATE INJ 2 MG/ML DISP.SYRIN IV ONE (15:00)
[2019-02-11] MEDS ORDERED: ONDANSETRON HCL/PF 4 MG/2 ML VIAL IVP ONE (15:00)
--- NOTE | 2019-02-11 15:53 | NUR ---
PATIENT IN BED, ABLE TO MAKE NEEDS KNOWN BY MOUTHING. PATIENT'S IVF INFUSING AND TOLERATING WELL. REPORT GIVEN TO UNIQUE CARRASCO.
--- NOTE | 2019-02-11 16:24 | NUR ---
URINE CATHETER STILL EMPTY, UNABLE TO SEND UA SAMPLE AT THIS TIME, ENDORSED TO UNIQUE CARRASCO. PATIENT TRANSFERRED TO ROOM 104 VIA ACLS PROTOCOL ACCOMPANIED BY RT. PATIENT IN STABLE CONDITION.
--- NOTE | 2019-02-11 16:25 | NUR ---
BUSINESS INVESTORCHEF INSTRUCTOR NOTES RECEIVED PT FROM ER TO ROOM 104 VIA GURNEY.ALERT/ORIENTED X3.TRACH AND VENT DEPENDENT.ON TELE HR IS ST 120;S.NO SOB AND AND ACUTE DISTRESS NOTED.IV LINE IS ON LEFT AC G22 AND RIGHT FOOT G22,SL.IV SITE IS CLEAN,DRY AND INTACT.NO INFILTRATION NOTED.SKIN ASSESSMENT IS DONE AND PICTURE HAS TAKEN.PT IS CLEAN AND DRY.VITAL SIGNS ARE TAKEN .PT IS WITH G TUBE,CLAMPED AND SUPRAPUBIC CATHETER PRESENT WITH NO DRAINAGE NOTED.SAFETY IS MAINTAINED AT ALL TIMES.BED IS IN LOW POSITION AND LOCKED.WILL CONTINUE TO MONITOR THE PT CLOSELY. Addendum: 02/11/19 at 1755 by NAIDA RIVERA RN MECHANICAL VENT SETTINGS AC-12,TV-600,FIO2-40% AND PEEP-5.
[2019-02-11 16:30] VITALS: BP 137/78
[2019-02-11 17:00] VITALS: BP 137/78
--- NOTE | 2019-02-11 17:00 | NUR ---
CALL CENTER NURSE NOTES NOTED WITH TEMP 102.1 F.OFFERED HIM THE ICE PACK AND COLD COMPRESS,PT REFUSED.EXPLAINED THE RISK AND BENEFITS X3.STILL REFUSED.
--- NOTE | 2019-02-11 18:39 | NUR ---
TRIMMER TAILER CLOSING NOTES PT IS LYING ON BED.ALERT/ORIENTED X3,CAN FOLLOW COMMANDS.TRACH AND VENT DEPENDENT.ON TELE HR IS ST 125;S.NO SOB AND AND ACUTE DISTRESS NOTED.IV LINE IS ON LEFT AC G22 AND RIGHT FOOT G22,SL.IV SITE IS CLEAN,DRY AND INTACT.NO INFILTRATION NOTED.STILL REFUSING TO DO COLD COMPRESSION.NO SIGNIFICANT CHANGES NOTED IN THE SHIFT .ENDORSED TO RAG SORTER RN FOR ISABELLA.
--- NOTE | 2019-02-11 18:43 | NUR ---
CUTTER OPERATOR ASBESTOS SHINGLE NOTES CHARGE NURSE PAGED DR.TIM SQUIRES AGAIN TO GET THE MEDICATION ORDERS,WAITING FOR THE CALL BACK.
--- NOTE | 2019-02-11 19:00 | NUR ---
DRILLER OPERATOR NOTE PATIENT RECEIVED IN BED, A/O X 2-3. PATIENT ABLE TO MOUTH WORDS AND VOCALIZE COMMANDS. PATIENT C/O OF PAIN IN THE NECK TIE, GAUZE PLACED FOR COMFORT. PATIENT SKIN FEELS HOT, PATIENT REFUSES TO REMOVE THE BLANKETS. PATIENT TOLERATING VENT SETTINGS. PATIENT HR 126 ST. PATIENT DENIES CHEST PAIN. RN WILL CONTINUE TO MONITOR.
--- NOTE | 2019-02-11 19:23 | NUR ---
PATIENT RECEIVED TRACHED PORTEX 7 ON MECHANICAL VENTILATION WITH NOTED SETTINGS. PT IS ALERT AND AWAKE. AMBU BAG @ BEDSIDE. VENT PLUGGED TO RED OUTLET. ALARMS ON AND AUDIBLE. SUCTIONED SMALL AMOUNT OF WHITE THICK SECRETIONS. PATIENT STABLE AND NO RESPIRATORY DISTRESS NOTED AT THIS TIME. WILL CONTINUE TO MONITOR THE PT.
[2019-02-11] MEDS ORDERED: ALBUTEROL FS 2.5 MG/0.5 ML VIAL.NEB HHN PRN (19:30)
[2019-02-11] MEDS ORDERED: Z GUARD REMEDY 2 OZ OINT TP PRN (19:30)
[2019-02-11] MEDS ORDERED: IPRATROPIUM NEB FS 0.5 MG/2.5 ML AMPUL.NEB HHN PRN (19:30)
[2019-02-11] MEDS ORDERED: ONDANSETRON HCL/PF 4 MG/2 ML VIAL IVP PRN (19:30)
[2019-02-11] MEDS ORDERED: FEE PK DOSING 1 MIN EA MC ONE (19:46)
[2019-02-11 20:00] VITALS: BP 115/62
[2019-02-11] MEDS: MEROPENEM 1 G in IV NS 0.9% 100 ML IV SCH (20:14)
--- NOTE | 2019-02-11 20:15 | NUR ---
INDIRECT SALES EXEC NOTE PATIENT NOTED TO HAVE FEVER. PATIENT REFUSES TO HAVE COVERS DRAWN, PATIENT STATES HE IS COLD. PATIENT EDUCATED ON PURPOSE OF CHILLS. PATIENT REFUSES ICE PACKS. PATIENT GIVEN TYLENOL 650 MG THROUGH GTUBE PER MD ORDER. PATIENT REFUSES COOLING MEASURES. PATIENT GIVEN EDUCATION ON RISKS OF HIGH TEMPERATURE. WILL EVALUATE TEMP IN ONE HOUR. Addendum: 02/11/19 at 2049 by ÁLVARO SHAW RN Amended: Links added.
[2019-02-11] MEDS: HEPARIN SODIUM, PORCINE 5000 UNITS/1 ML VIAL SQ SCH (20:16)
[2019-02-11] MEDS: IV NS 0.9% 1,000 ML IV PRN (20:16)
[2019-02-11] MEDS: ACETAMINOPHEN 325 MG TABLET PO PRN (20:17)
[2019-02-11] MEDS ORDERED: MEROPENEM 1 G in IV NS 0.9% 100 ML IV SCH (21:00)
--- NOTE | 2019-02-11 21:05 | NUR ---
DOPING SUPERVISOR NOTE PARTH NOTIFIED PATIENT HAS NO GTUBE ORDER. PATIENT RECEIVING JEVITY 1.5 FROM THE SENIOR CARE. PATIENT NOTED TO HAVE DISTENDED ABDOMEN. MD AWARE. ORDER GIVEN TO HOLD FEEDING AND REFER TO MORNING.
--- NOTE | 2019-02-11 21:30 | NUR ---
BUSINESS BANKING SALES ASSISTANT NOTE FEVER RECHECKED TRENDING DOWN 101.0 PATIENT OBLIGED TO HAVING COVERS REMOVED.
[2019-02-11] MEDS: VANCOMYCIN 1.25 GM in IV D5W 500 ML IV SCH (22:05)
[2019-02-11] MEDS: ZOLPIDEM TARTRATE 5 MG TABLET GT SCH (22:05)
[2019-02-12] VITALS: BP 116/66
[2019-02-12] MEDS: HYDROCODONE/APAP 10/325MG 1 EA TABLET GT PRN ×5 (00:16→20:51)
--- NOTE | 2019-02-12 00:26 | NUR ---
SURVEILLANCE SYSTEMS ENGINEER NOTE PATIENT C/O OF PAIN AN REQUESTED NORCO, NORCO GIVEN PRN PER MD ORDER. PATIENT URINATED IN DIAPER NO OUTPUT NOTED IN SUPRAPUBIC CATHETER. BLADDER SCAN DONE 50 ML NOTED IN BLADDER. PATIENT REFUSES TO BE CHANGED. RN EXPLAINED RISKS OF LAYING IN WET DIAPER, PATIENT STILL REFUSED. RN NOTIFIED CHARGE JAVY AND MD AWARE. PATIENT C/O OF FEELING COLD, RN EXPLAINED PATIENT HAS FEVER, COOLING MEASURES ARE BEING USED TO BRING FEVER DOWN. PATIENT VERBALIZES UNDERSTANDING.
[2019-02-12] MEDS: ACETAMINOPHEN 325 MG TABLET PO PRN ×2 (03:07→20:27)
--- NOTE | 2019-02-12 03:30 | NUR ---
BAKED AND GRAPHITE INSPECTOR NOTE PATIENT CLEANED AND BATHED. PATIENT VERBAL AND TALKING EXPRESSING PAIN AND DISCOMFORT. TYLENOL GIVEN PER MD ORDER. COOLING MEASURES IMPLEMENTED. PATIENT VERBALIZES UNDERSTANDING IN FOLLOWING NURSES DIRECTIONS. PATIENT FEVER SHOWS S/S OF BREAKING, PATIENT DIAPHORETIC. BS WNL. PATIENT TURNED AND REPOSITIONED AFTER BATHING. DIAPER AND RENETTA NOTED TO BE SOAKED WITH URINE DESPITE CATHETER BAG EMPTY OF URINE. WILL ENDORSE TO AM FOR FOLLOW UP.
[2019-02-12 04:00] VITALS: BP 121/58
[2019-02-12] MEDS: MEROPENEM 1 G in IV NS 0.9% 100 ML IV SCH ×3 (04:03→21:01)
[2019-02-12] MEDS: VANCOMYCIN 1.25 GM in IV D5W 500 ML IV SCH ×3 (06:39→23:36)
--- NOTE | 2019-02-12 07:15 | NUR ---
FRAMING CARPENTER OPENING NOTES RECEIVED BEDSIDE REPORT FROM SLEEP TECH RN. PT IS ASLEEP WITH NO OBVIOUS SIGNS OF PAIN OR DISTRESS NOTED AT PRESENT TIME. ON MONITOR PT O2 SAT IS AT 100%. PT HAS TWO IV ACCESS LINE BOTH RUNNING ANTIBIOTICS. PT HAS A SUPRAPUBIC HOWEVER SLEEP TECH RN STATING THE DIAPER WAS CHANGED 3 TIMES DURING THE NIGHT. PT IS ON A VENT AND VENT SETTINGS SET BY RT. BED IS LOCKED AND IN LOWEST POSITION WITH CALL LIGHT IN REACH. WILL CONTINUE TO MONITOR.
[2019-02-12 07:58] LABS: BASOPHILS % (AUTO) 0.2 % (0.0-2.0); EOSINOPHILS % (AUTO) 0.2 % (0.0-6.0); HEMATOCRIT 32 % (39-51); HEMOGLOBIN 10.8 g/dL (13.5-17.5); LYMPHOCYTES # (AUTO) 0.7 /CMM (0.8-4.8); LYMPHOCYTES % (AUTO) 8.8 % (20.0-44.0); MEAN CORPUSCULAR HGB CONC 34 g/dl (31.0-36.0); MEAN CORPUSCULAR VOLUME 92 fL (80-96); MONOCYTES # (AUTO) 1.1 /CMM (0.1-1.30); MONOCYTES % (AUTO) 13.9 % (2.0-12.0); NEUTROPHILS % (AUTO) 76.9 % (43.0-81.0); PLATELET COUNT (AUTO) 171 /CMM (150-450); RED BLOOD CELL COUNT(AUTO) 3.48 MIL/uL (4.5-6.0); WHITE BLOOD COUNT (AUTO) 7.8 K/uL (4.3-11.0)
[2019-02-12 08:00] VITALS: BP 116/71
[2019-02-12 08:19] LABS: ALANINE AMINOTRANSFERASE 27 U/L (12-78); ALBUMIN 2.4 g/dL (3.4-5.0); ALKALINE PHOSPHATASE 107 U/L (46-116); ASPARTATE AMINOTRANSFERASE 14 U/L (15-37); BILIRUBIN,TOTAL 0.7 mg/dL (0.2-1.0); CALCIUM, SERUM 8.8 mg/dL (8.5-10.1); CARBON DIOXIDE 16 mmol/L (21-32); CHLORIDE 99 mmol/L (98-107); CREATININE 0.6 mg/dL (0.6-1.3); GLUCOSE 146 mg/dL (74-106); MAGNESIUM 1.7 mg/dL (1.8-2.4); PHOSPHORUS 1.7 mg/dL (2.5-4.9); POTASSIUM 3.2 mmol/L (3.5-5.1); SODIUM SERUM 132 mmol/L (136-145); UREA NITROGEN, BLOOD 17 mg/dL (7-18)
[2019-02-12] MEDS: FAMOTIDINE (20 MG) 20 MG TABLET GT SCH ×2 (08:31→16:42)
[2019-02-12] MEDS: SIMETHICONE 80 MG TAB.CHEW GT SCH (08:31)
[2019-02-12] MEDS: BACLOFEN (10 MG) 10 MG TABLET GT SCH ×3 (08:31→16:42)
[2019-02-12 08:32] LABS: IRON, SERUM 17 ug/dl (50-175); TOTAL IRON BINDING CAPACITY 172 ug/dl (250-450)
[2019-02-12] MEDS: GABAPENTIN 300 MG CAPSULE GT SCH ×3 (08:32→16:42)
[2019-02-12] MEDS: ACIDOPHILUS/BULGARICUS 1 EACH TAB.CHEW GT SCH ×3 (08:32→16:42)
[2019-02-12] MEDS: PROSOURCE / PROSTAT (PYXIS) 30 ML UDC GT SCH (08:34)
[2019-02-12] MEDS: HEPARIN SODIUM, PORCINE 5000 UNITS/1 ML VIAL SQ SCH ×2 (08:35→09:00)
--- NOTE | 2019-02-12 08:48 | NUR ---
WOUND CARE CONSULT: PT PRESENTS WITH SACRAL SCARRING AND BILATERAL HEEL INTACT DEEP TISSUE INJURIES, PRESENT ON ADMISSION. PT NOTED TO HAVE PROFOUND LEAKAGE AROUND SUPRAPUBIC CATH AND PT INCONTINENT OF LIQUID STOOL. UPPER EXTREMITIES CONTRACTED. RECOMMENDATIONS MADE FOR SKIN PROTECTION AND WOUND CARE. DISCUSSED WITH NURSING STAFF. FIRST STEP LOW AIRLOSS MATTRESS ORDERED. WILL SEE PRShelby. IN AGREEMENT WITH PLAN OF CARE. DEFER TO MD FOR SUPRAPUBIC CATH. CURRENT KEVIN SCORE IS 11. Addendum: 02/12/19 at 0851 by ELEONORA UMANA WNDNU Amended: Links added.
[2019-02-12 09:36] LABS: CHOLESTEROL 87 mg/dL (<200); LDL 37 mg/dL (0-99); THYROID STIMULATING HORMONE 0.185 uIU/mL (0.358-3.74); TRIGLYCERIDES 224 mg/dL (30-150)
[2019-02-12 09:44] LABS: HDL CHOLESTEROL < 10 mg/dL (40-60)
[2019-02-12] MEDS: POTASSIUM CL. PREMIX PERIPHER. 50 ML IV SCH ×2 (10:58→12:15)
[2019-02-12] MEDS: LORAZEPAM INJ 2 MG/ML VIAL IV PRN (11:17)
[2019-02-12 12:00] VITALS: BP 100/57
[2019-02-12] MEDS ORDERED: NEUTRA PHOS 1 POWD.PACKET GT ONE (12:00)
[2019-02-12] MEDS: Magnesium 1GM/D5W 100ML PREMIX 100 ML IV SCH ×2 (12:16→13:40)
[2019-02-12 16:00] VITALS: BP_SYST 110; BP_SYST 111; BP_DIAS 54; BP_DIAS 66
[2019-02-12] MEDS: SOD FERRIC GLUC 125 MG in IV NS 0.9% 100 ML IV SCH (18:42)
--- NOTE | 2019-02-12 19:22 | NUR ---
RN CLOSING NOTES REPORT GIVEN TO RADIO DIVISION LIEUTENANT NURSE. PT IS ASLEEP IN BED. NO OBVIOUS SIGNS OF PAIN OR SOB AT PRESENT TIME. BED IS LOCKED AND IN LOWEST POSITION. CONTINUITY OF CARE ENDORSED TO RADIO DIVISION LIEUTENANT RN.
--- NOTE | 2019-02-12 19:55 | NUR ---
RN INITIAL NOTES: RECEIVED REPORT FROM OUMOU CARRASCO. PT IN BED, A/O X3 ABLE TO MAKE NEEDS KNOWN, ABLE TO COMMUNICATE. MECH VENT TRACHE DEPENDENT, VENT SETTINGS TOLERATED. AMBU BAG PRESENT AT BED SIDE. TELE SINUS RHYTHM HR 98. NEEDS URINE FOR UA C&S, DAY RN UNABLE TO COLLECT. TO START WITH JEVITY 1.2 AT 20CC/HR, WILL CHECK NOURISHMENT ROOM FOR FEEDING. PT NOTED WITH ABDOMINAL DISTENTION, HARD TO TOUCH, DENIES ANY PAIN UPON PALPATION OF THE ABDOMEN, AWARE OF THE ABDL XR RESULT. ON CONTINUOUS PULSE OXIMETER. IV ACCESS PATENT AND FLUSHING WELL, ON HL. PT HAS SUPRAPUBIC CATHETER IN PLACED, NOTED LEAKING, PER REPORT DR SQUIRES NOTIFIED AND WILL FIX THE CATHETER IN AM. ALSO PER REPORT PT BEEN SPIKING FEVER, AWARE, PT ON IV ATB. BLE OFFLOADED. SAFETY PRECAUTIONS FOR FALL INITIATED, CALL LIGHT IN REACH, WILL CONTINUE MONITORING PT.
[2019-02-12 20:00] VITALS: BP 103/60
--- NOTE | 2019-02-12 20:28 | NUR ---
PRN TYLENOL: PT TEMP 101.7, COOLING MEASURES PROVIDED, REMOVED EXCESS THICK BLANKET, WILL CONTINUE TO MONITOR.
--- NOTE | 2019-02-12 20:51 | NUR ---
PRN NORCO: PT C/O 05/17 GENERALIZED PAIN, REQUESTING FOR NORCO, PRN NORCO ADMINISTERED VIA GTUBE, WILL CONTINUE TO MONITOR AND REASSESS
--- NOTE | 2019-02-12 20:58 | NUR ---
RN NOTES: PT REFUSED ICE PACK AND INSITING TO GET HIS BLANKET BACK, EDUCATE PT REGARDING COOLING MEASURES, AND HOW IT HELP IN LOWERING BODY TEMP TO NORMAL, BUT PT REFUSED, TAX MANAGER PUBLIC MADE AWARE
[2019-02-12] MEDS: IV NS 0.9% 1,000 ML IV PRN (21:04)
--- NOTE | 2019-02-12 21:17 | NUR ---
RN NOTES: PT IN BED, APPEARS COMFORTABLE. RESPIRATION EVEN AND UNLABORED. TOLERATED MECH VENT SETTING WELL. NORCO, TYLENOL AND IV ATB ADMINISTERED. REPORT GIVEN TO HARRIET CARRASCO FOR CONTINUITY OF CARE.
--- NOTE | 2019-02-12 21:30 | NUR ---
RN MILITARY NOTE: RECEIVED REPORT FROM MITZY, NO ACUTE DISTRESS NOTED. BREATHING EVEN AND UNLABORED, VENT SETTINGS IN PLACE. IV TO RIGHT FOOT IN PLACE. G-TUBE IN PLACE. BED LOCKED AND IN LOWEST POSITION, CALL LIGHT IN REACH. WILL CONTINUE TO MONITOR.
[2019-02-12] MEDS: ZOLPIDEM TARTRATE 5 MG TABLET GT SCH (22:09)
[2019-02-13] VITALS (7 sets, daily range): BP systolic 97–135; BP diastolic 56–82
[2019-02-13] MEDS: JEVITY 1.2 CAL 1,000 ML BOTTLE GT PRN (01:10)
[2019-02-13] MEDS: HYDROCODONE/APAP 10/325MG 1 EA TABLET GT PRN ×5 (01:30→21:00)
--- NOTE | 2019-02-13 01:35 | NUR ---
MS RN NOTE: PATIENT COMPLAINS OF GENERALIZED PAIN 8/10, NORCO 10/325MG VIA GT GIVEN PER MD ORDER. WILL CONTINUE TO MONITOR.
[2019-02-13] MEDS: MEROPENEM 1 G in IV NS 0.9% 100 ML IV SCH ×3 (05:07→21:00)
--- NOTE | 2019-02-13 05:45 | NUR ---
RETAIL ASSOCIATE NOTE: PATIENT COMPLAINS OF GENERALIZED PAIN 8/10, NORCO 10/325MG VIA GT GIVEN PER MD ORDER. WILL CONTINUE TO MONITOR.
--- NOTE | 2019-02-13 05:48 | NUR ---
PATIENT RECEIVED ON TRACH TO VENT WITH SETTINGS OF AC 12, 600 VT, 40%, +5. SUCTIONED WITH LAVAGE FOR MINIMAL, THIN, YELLOW SECRETIONS. AMBU BAG AT BEDSIDE. VENT AND PULSE OXIMETER ALARMS AUDIBLE AND VISIBLE. VENT PLUGGED INTO RED OUTLET. Addendum: 02/13/19 at 0550 by NICO MITCHELL RT Amended: Links added.
--- NOTE | 2019-02-13 06:05 | NUR ---
JOB SETTER NOTE: PAIENT RESTING IN BED, NO ACUTE DISTRESS NOTED. BREATHING EVEN AND UNLABORED, VENT SETTINGS IN PLACE. IV TO RIGHT FOOT IN PLACE. G-TUBE IN PLACE, INFUSING JEVITY 1.2, WITH 5ML OF RESIDUAL, FEEDING INCREASED UP TO 30ML/HR, HOB ELEVATED. FLEXISEAL IN PLACE, NO BOWEL NOTED. SUPRAPUBIC CATHETER IN PLACE, STILL LEAKING. BED LOCKED AND IN LOWEST POSITION, CALL LIGHT IN REACH. WILL ENDORSE TO DAY NURSE TO CONTINUE WITH PLAN OF CARE.
--- NOTE | 2019-02-13 07:20 | NUR ---
CUSTOM SHOEMAKER OPENING NOTES RECEIVED REPORT FROM AIR MOVING TECHNICIAN RN. PT IS RESTING IN BED ON A VENT WITH G-TUBE FEEDING RUNNING AT 30 ML/HR. PT HAS A FLEXISEAL CONNECTED AND INTACT. PT HAS A SUPRAPUBIC CATHETER STILL LEAKING WAITING ON MD TO REPLACE CATHETER. PT HAS A 22 GAUGE IV RUNNING MERREM. NO OBVIOUS SIGNS OF PAIN OR SOB AT PRESENT TIME. ON TELE MONITOR PT IS SR. WILL CONTINUE TO MONITOR.
[2019-02-13] MEDS: VANCOMYCIN 1.25 GM in IV D5W 500 ML IV SCH ×2 (07:58→16:09)
[2019-02-13] MEDS: LORAZEPAM INJ 2 MG/ML VIAL IV PRN ×2 (08:18→15:39)
[2019-02-13] MEDS: FAMOTIDINE (20 MG) 20 MG TABLET GT SCH ×2 (09:20→17:20)
[2019-02-13] MEDS: SIMETHICONE 80 MG TAB.CHEW GT SCH (09:21)
[2019-02-13] MEDS: BACLOFEN (10 MG) 10 MG TABLET GT SCH ×3 (09:21→17:21)
[2019-02-13] MEDS: ACIDOPHILUS/BULGARICUS 1 EACH TAB.CHEW GT SCH ×3 (09:21→17:21)
[2019-02-13] MEDS: GABAPENTIN 300 MG CAPSULE GT SCH ×3 (09:21→17:21)
[2019-02-13] MEDS: PROSOURCE / PROSTAT (PYXIS) 30 ML UDC GT SCH (09:22)
[2019-02-13] MEDS: HEPARIN SODIUM, PORCINE 5000 UNITS/1 ML VIAL SQ SCH ×2 (09:23→21:02)
[2019-02-13 11:05] LABS: ABG BASE EXCESS -1.4 mmol/L; ABG OXYGEN SATURATION 98.5 % (92.0-98.5); ABG PCO2 34.8 mmHg (35.0-45.0); ABG PH 7.429 (7.350-7.450); ABG PO2 125.8 mmHg (75.0-100.0); AaDO2 119.4 mmHg; COHb 0.2 % (0.5-1.5); MetHb 0.5 % (0.0-1.5); O2Hb 97.8 % (94.0-97.0); PEEP,BG 5 cm H2O; SITE, ABG Right Radial; VT, ABG 600 mL
[2019-02-13 12:58] LABS: BASOPHILS % (AUTO) 0.2 % (0.0-2.0); EOSINOPHILS % (AUTO) 0.8 % (0.0-6.0); HEMATOCRIT 30 % (39-51); HEMOGLOBIN 10.2 g/dL (13.5-17.5); LYMPHOCYTES # (AUTO) 0.8 /CMM (0.8-4.8); MEAN CORPUSCULAR HGB CONC 34 g/dl (31.0-36.0); MEAN CORPUSCULAR VOLUME 91 fL (80-96); MONOCYTES % (AUTO) 18.6 % (2.0-12.0); NEUTROPHILS # (AUTO) 7.7 /CMM (1.8-8.9); NEUTROPHILS % (AUTO) 72.4 % (43.0-81.0); PLATELET COUNT (AUTO) 240 /CMM (150-450); RED BLOOD CELL COUNT(AUTO) 3.28 MIL/uL (4.5-6.0); WHITE BLOOD COUNT (AUTO) 10.6 K/uL (4.3-11.0)
[2019-02-13 13:08] LABS: CALCIUM, SERUM 8.7 mg/dL (8.5-10.1); CREATININE 0.5 mg/dL (0.6-1.3); MAGNESIUM 1.7 mg/dL (1.8-2.4); PHOSPHORUS 1.1 mg/dL (2.5-4.9); POTASSIUM 3.1 mmol/L (3.5-5.1)
[2019-02-13 13:28] LABS: LYMPHOCYTES % (MANUAL) 12 % (16-48); MONOCYTES % (MANUAL) 15 % (0-11.0); NEUTROPHILS % (MANUAL) 73 (42-76)
[2019-02-13] MEDS ORDERED: NEUTRA PHOS 1 POWD.PACKET GT ONE (14:30)
--- NOTE | 2019-02-13 15:00 | NUR ---
RN NOTES PT REFUSING NEUTRA PHOS PACKET. MOUTHING HE DOES NOT WANT IT.
[2019-02-13] MEDS: SOD FERRIC GLUC 125 MG in IV NS 0.9% 100 ML IV SCH (18:26)
--- NOTE | 2019-02-13 18:31 | NUR ---
RT Pt received trach'd and on [facility] vent w ordered settings. Alarms are set and audible. Pt trach is secure and patent. Bvm at [facility]. Pt sx'd w no adverse reactions. No respiratory distress noted t/o shift. Addendum: 02/13/19 at 1832 by JOSÉ MATIAS RT Amended: Links added.
--- NOTE | 2019-02-13 18:47 | NUR ---
PT REFUSED FOR IV TO BE REMOVED IN LEFT HAND. PT STATING HE JUST WANTS TO SLEEP.
--- NOTE | 2019-02-13 19:13 | NUR ---
RN CLOSING NOTES GAVE BEDSIDE REPORT TO OPTICAL LABORATORY MANAGER RN. PT HAS BEEN UNCOMPLYING WITH SOME MEDICATIONS. PT IS RESTING AND NO OBVIOUS SIGNS OF SOB OR PAIN NOTED AT PRESENT TIME. BED IS LOCKED AND IN LOWEST POSITION. FLEXISEAL IS INTACT AND FILLED WITH AIR. PT IS NOT HAVING A BOWEL MOVEMENT. SUPRAPUBIC DRAINING TO GRAVITY. R FOOT IV 22 GAUGE RUNNING FERRELICIT. WILL ENDORSE CONTINUITY OF CARE TO OPTICAL LABORATORY MANAGER RN.
--- NOTE | 2019-02-13 19:54 | NUR ---
PT RCVD FOSTER'D ON MECHANICAL VENT WITH CHARTED SETTINGS. SX DONE. PT TRACH IS PATENT AND SECURE. VENT PLUGGED INTO RED OUTLET. ALARMS ARE ON AND AUDIBLE. AMBU BAG AT BEDSIDE. WILL CONTINUE TO MONITOR. Addendum: 02/13/19 at 1954 by PAMELA WASHINGTON RT Amended: Links added.
--- NOTE | 2019-02-13 20:34 | NUR ---
PUNCHER AND FASTENER INITIAL NOTES RECEIVED PT ON A VENT, WELL TOLERATED, AOX3, ABLE TO MAKE NEEDS KNOWN, WITH G-TUBE FEEDING RUNNING AT 30 ML/HR, TO REACH GOAL @ 60 CC/HR. PT HAS A FLEXISEAL CONNECTED AND INTACT. PT HAS A SUPRAPUBIC CATHETER STILL LEAKING WAITING ON MD TO REPLACE CATHETER. PT HAS A 22 GAUGE IV ,WELL SECURED. C/O PAIN WITH FACIAL GRIMANCING NO SIGN OF DISTRESS. ON TELE MONITOR PT IS SR. WILL CONTINUE TO MONITOR.
[2019-02-13] MEDS: ZOLPIDEM TARTRATE 5 MG TABLET GT SCH (21:11)
[2019-02-14] MEDS: VANCOMYCIN 1.25 GM in IV D5W 500 ML IV SCH (00:08)
[2019-02-14 00:16] VITALS: BP 99/62
[2019-02-14] MEDS: HYDROCODONE/APAP 10/325MG 1 EA TABLET GT PRN ×5 (02:38→21:14)
[2019-02-14 04:00] VITALS: BP 97/55
[2019-02-14] MEDS: LORAZEPAM INJ 2 MG/ML VIAL IV PRN ×2 (04:07→15:32)
[2019-02-14] MEDS: MEROPENEM 1 G in IV NS 0.9% 100 ML IV SCH ×3 (04:08→21:09)
[2019-02-14 05:19] LABS: APPEARANCE,URINE CLOUDY (CLEAR); BILIRUBIN,URINE NEGATIVE (NEGATIVE); BLOOD, URINE 3+ Ery/uL (NEGATIVE); COLOR,URINE YELLOW (YELLOW); KETONES,URINE NEGATIVE (NEGATIVE); LEUKOCYTE ESTERASE ,URINE 2+ (NEGATIVE); NITRITE, URINE NEGATIVE (NEGATIVE); PH,URINE 6.5 (5.0-8.0); PROTEIN,URINE 2+ mg/dl (NEGATIVE); UGLUCOSE NEGATIVE (NEGATIVE); UROBILINOGEN,URINE 0.2 EU/dL (0.2)
[2019-02-14 05:27] LABS: BACTERIA,URINE Rare /HPF (None Seen); MUCUS,URINE Few /LPF (None Seen); SQUAMOUS EPITHELIAL CELL,UR Few /HPF (None Seen); YEAST,URINE Moderate /HPF (None Seen)
[2019-02-14 05:28] LABS: URINE AMORPHOUS URATE Few /HPF (None Seen)
--- NOTE | 2019-02-14 06:16 | NUR ---
CIVIL ENGINEER'S AIDE CLOSING NOTES ENDORSED PT ON A VENT, WELL TOLERATED, AOX3, ABLE TO MAKE NEEDS KNOWN, WITH G-TUBE FEEDING RUNNING AT 40 ML/HR, TO REACH GOAL @ 60 CC/HR. FLEXISEAL OUT DURING ADL'S, WITH ABD' DISTENSION, FLATUS RELEASED, NOTED WITH FOAMED LARGE BM, UNABLE TO COLLECT FOR C-DIFF DOES NOT MEAT. PT HAS A SUPRAPUBIC CATHETER STILL LEAKING WAITING ON MD TO REPLACE CATHETER. PT HAS A 22 GAUGE IV ,WELL SECURED. C/O PAIN WITH FACIAL GRIMANCING NO SIGN OF DISTRESS. ON TELE MONITOR PT IS ST ON THE MONITOR. WILL CONTINUE TO MONITOR.
[2019-02-14 07:16] LABS: CALCIUM, SERUM 8.2 mg/dL (8.5-10.1); CREATININE 0.4 mg/dL (0.6-1.3); PHOSPHORUS 2.1 mg/dL (2.5-4.9)
--- NOTE | 2019-02-14 07:25 | NUR ---
RN OPENING NOTES RECEIVED REPORT FROM PROCESS MANUFACTURING ENGINEER RN.PT IS ON VENT SETTINGS BY RT. PT SHOWS NO OBVIOUS SIGNS OF SOB OR PAIN AT PRESENT MOMENT. PT IS ON G-TUBE FEEDING AT 40 ML/HR. PT IS RESTING IN BED WITH BED LOCKED AND IN LOWEST POSITION. HEELS ARE OFFLOADED AND PT WAS RECENTLY REPOSITIONED. PT HAS IV IN RIGHT FOOT RUNNING NS AT 100 ML/HR. WILL CONTINUE TO MONITOR.
[2019-02-14 08:00] VITALS: BP 111/50
[2019-02-14] MEDS: BACLOFEN (10 MG) 10 MG TABLET GT SCH ×3 (09:16→16:58)
[2019-02-14] MEDS: GABAPENTIN 300 MG CAPSULE GT SCH ×3 (09:16→16:58)
[2019-02-14] MEDS: PROSOURCE / PROSTAT (PYXIS) 30 ML UDC GT SCH (09:16)
[2019-02-14] MEDS: ACIDOPHILUS/BULGARICUS 1 EACH TAB.CHEW GT SCH ×3 (09:16→16:58)
[2019-02-14] MEDS: SIMETHICONE 80 MG TAB.CHEW GT SCH (09:16)
[2019-02-14] MEDS: FAMOTIDINE (20 MG) 20 MG TABLET GT SCH ×2 (09:16→16:57)
[2019-02-14] MEDS: HEPARIN SODIUM, PORCINE 5000 UNITS/1 ML VIAL SQ SCH ×2 (09:20→21:11)
--- NOTE | 2019-02-14 09:27 | NUR ---
PT RECEIVED TRACHED ON MECHANICAL VENT W/ NOTED SETTINGS PER MD. VENT IN RED OUTLET, VENT ALARMS CHECKED AND AUDIBLE. PT SX'ED AND LAVAGED PRN. TRACH TUBE PATENT, SECURED, CLEAN AND DRY. NO RESP DISTRESS NOTED. PLAN IS CONTINUE CARE UNDER CURRENT MD ORDERS AND MONITOR FOR CHANGES. Addendum: 02/14/19 at 0927 by PAUL LINN RT Amended: Links added.
[2019-02-14] MEDS: POTASSIUM CHLORIDE 20 MEQ POWDER PACKET GT SCH ×2 (10:41→11:47)
[2019-02-14 12:00] VITALS: BP 101/59
[2019-02-14] MEDS: JEVITY 1.2 CAL 1,000 ML BOTTLE GT PRN (12:58)
[2019-02-14] MEDS ORDERED: K PHOS NEUTRAL 250 MG TABLET PO ONE (13:00)
[2019-02-14] MEDS: SOD FERRIC GLUC 125 MG in IV NS 0.9% 100 ML IV SCH (14:39)
[2019-02-14 16:00] VITALS: BP 98/57
[2019-02-14] MEDS: IV NS 0.9% 1,000 ML IV PRN (18:34)
--- NOTE | 2019-02-14 18:42 | NUR ---
RN CLOSING TELE NOTES GAVE REPORT TO CHIEF LOCK OPERATOR RN.PT IS ON VENT SETTINGS BY RT. PT SHOWS NO OBVIOUS SIGNS OF SOB OR PAIN AT PRESENT MOMENT. PT IS ON G-TUBE FEEDING AT 50 ML/HR. PT IS RESTING IN BED WITH BED LOCKED AND IN LOWEST POSITION. HEELS ARE OFFLOADED AND PT WAS RECENTLY REPOSITIONED. PT HAS IV IN RIGHT FOOT RUNNING NS AT 100 ML/HR. WILL ENDORSE CONTINUITY OF CARE TO CHIEF LOCK OPERATOR RN.
--- NOTE | 2019-02-14 19:50 | NUR ---
INDUSTRIAL BOILERMAKER INITIAL NOTES RECEIVED PT ON A VENT, WELL TOLERATED, AOX3, ABLE TO MAKE NEEDS KNOWN, WITH G-TUBE FEEDING RUNNING AT 50 ML/HR, TO REACH GOAL @ 60 CC/HR. PT HAS A SUPRAPUBIC CATHETER STILL LEAKING WAITING ON MD TO REPLACE CATHETER. PT HAS A 22 GAUGE IV ,WELL SECURED. C/O PAIN WITH FACIAL GRIMANCING NO SIGN OF DISTRESS. ON TELE MONITOR PT IS SR. WILL CONTINUE TO MONITOR. Addendum: 02/14/19 at 1952 by LYLE PATEL RN INDUSTRIAL BOILERMAKER INITIAL NOTES RECEIVED PT ON A VENT, WELL TOLERATED, AOX3, ABLE TO MAKE NEEDS KNOWN, WITH G-TUBE FEEDING RUNNING AT 50 ML/HR, TO REACH GOAL @ 60 CC/HR. PT HAS A SUPRAPUBIC CATHETER IN TACT. WAITING . PT HAS A 22 GAUGE IV ,WELL SECURED. C/O PAIN WITH FACIAL GRIMANCING NO SIGN OF DISTRESS. ON TELE MONITOR PT IS SR. WILL CONTINUE TO MONITOR.
--- NOTE | 2019-02-14 19:59 | NUR ---
PT RCVD TRACH'D ON MECHANICAL VENT WITH CHARTED SETTINGS. SX DONE. PT TRACH IS PATENT AND SECURE. VENT PLUGGED INTO RED OUTLET. ALARMS ARE ON AND AUDIBLE. AMBU BAG AT BEDSIDE. WILL CONTINUE TO MONITOR. Addendum: 02/14/19 at 1958 by PAMELA WASHINGTON RT Amended: Links added.
[2019-02-14 20:22] VITALS: BP 104/54
[2019-02-14] MEDS: ZOLPIDEM TARTRATE 5 MG TABLET GT SCH (21:12)
[2019-02-15 00:30] VITALS: BP 112/79
[2019-02-15] MEDS: HYDROCODONE/APAP 10/325MG 1 EA TABLET GT PRN ×3 (02:27→14:23)
[2019-02-15] MEDS: LORAZEPAM INJ 2 MG/ML VIAL IV PRN ×2 (04:20→17:41)
[2019-02-15] MEDS: MEROPENEM 1 G in IV NS 0.9% 100 ML IV SCH ×2 (04:22→13:52)
[2019-02-15] MEDS: JEVITY 1.2 CAL 1,000 ML BOTTLE GT PRN (04:39)
[2019-02-15 06:00] VITALS: BP 108/52
--- NOTE | 2019-02-15 07:04 | NUR ---
RN CLOSING TELE NOTES: PT IS ON VENT SETTINGS BY RT. PT SHOWS NO OBVIOUS SIGNS OF SOB OR PAIN AT PRESENT MOMENT. PT IS ON G-TUBE FEEDING AT 45 ML/HR. GOAL IS 60 ML/HR. PT IS RESTING IN BED WITH BED LOCKED AND IN LOWEST POSITION. HEELS ARE OFFLOADED AND PT WAS RECENTLY REPOSITIONED. PT HAS IV IN RIGHT FOOT RUNNING NS AT 100 ML/HR. ALL MEDICATIONS GIVEN DURING MY SHIFT. COMFORT MEASURES GIVEN. ABDOMEN DISTENDED, ONE BM THROUGHOUT SHIFT. PT IS STABLE AND VITALS WNL. WILL ENDORSE CONTINUITY OF CARE TO AM SHIFT RN.
[2019-02-15 07:30] LABS: CALCIUM, SERUM 8.3 mg/dL (8.5-10.1); CREATININE 0.5 mg/dL (0.6-1.3)
--- NOTE | 2019-02-15 07:30 | NUR ---
FIELD GEOLOGIST NOTES PT IN BED, TRACH ON VENT SETTINGS MD ORDERED. SUCTIONED SMALL AMT OF CLEAR THIN SECRETIONS. PT REQUESTING WATER BY MOUTH; C/O PAIN. ON TELE SB-ST WITH ELEVATED TWAVES. PT ABLE TO COMMUNICATE NEEDS/MOUTHS WORDS. NO S/SX OF RESP DISTRESS NOTED. JEVITY RUNNING AT 45ML/HR. NO RESIDUAL. RT FOOT IV SITE #22 C/D/P/I AND RUNNING NS @100ML/HR. PT IS AFEBRILE. HEELS FLOATED. BED IN LOCKED/LOWEST POSITION. CALL LIGHT IN REACH. WILL CONT TO MONITOR.
[2019-02-15 08:00] VITALS: BP 97/69
[2019-02-15] MEDS ORDERED: VANCOMYCIN 1 GM in IV D5W 250 ML IV SCH (08:00)
[2019-02-15] MEDS: ACIDOPHILUS/BULGARICUS 1 EACH TAB.CHEW GT SCH ×3 (08:12→17:40)
[2019-02-15] MEDS: BACLOFEN (10 MG) 10 MG TABLET GT SCH ×3 (08:12→17:41)
[2019-02-15] MEDS: SIMETHICONE 80 MG TAB.CHEW GT SCH (08:13)
[2019-02-15] MEDS: GABAPENTIN 300 MG CAPSULE GT SCH ×3 (08:13→17:41)
[2019-02-15] MEDS: FAMOTIDINE (20 MG) 20 MG TABLET GT SCH ×2 (08:13→17:41)
[2019-02-15] MEDS: HEPARIN SODIUM, PORCINE 5000 UNITS/1 ML VIAL SQ SCH (08:16)
[2019-02-15] MEDS: PROSOURCE / PROSTAT (PYXIS) 30 ML UDC GT SCH (09:42)
[2019-02-15] MEDS: POTASSIUM CHLORIDE 20 MEQ TAB.PRT.SR PO SCH ×3 (09:44→18:05)
[2019-02-15 12:00] VITALS: BP 108/70
[2019-02-15] MEDS: SOD FERRIC GLUC 125 MG in IV NS 0.9% 100 ML IV SCH (14:00)
[2019-02-15] MEDS ORDERED: MERO1VIA3 IV (14:15)
--- NOTE | 2019-02-15 16:22 | NUR ---
CHRIS CARRASCO NOTES CALLED IN REPORT TO DANILO FORMAN AT [facility]. PT SCHEDULED FOR ARTIFICIAL STONE SETTER AT 1700 Addendum: 02/15/19 at 1759 by BEATRIZ WISE RN PER DANILO AT [facility]: LEAVE IV IN PLACE ON RT FOOT SINCE PT WILL BE CONTINUING IV ABX AT FACILITY.
--- NOTE | 2019-02-15 17:55 | NUR ---
PULVERIZER NOTES SPOKE TO MARCOS IN PHARMACY, REGARDING FERLICIT. PT HAS DISCHARGE ORDERS; AWAITING TRANSPORTATION. WILL NOT BE GIVING FERLICIT IN CASE AMBULANCE ARRIVES.
--- NOTE | 2019-02-15 18:22 | NUR ---
INFORMATION AND REFERRAL DIRECTOR NOTES PT DISCHARGED; IV IN PLACE, SUPRAPUBIC CATHETER IN PLACE/DRAINED, TELE BOX REMOVED. RT AT BEDSIDE. GT DISCONNECTED. ANDREW, FAMILY IN [place], CALLED AND NOTIFIED OF TRANSFER. ALL NEEDS ATTENDED TO.
== END 2019-02-15 18:26 | DRG 720 ==
LOC: ER 12:15 → TELE1 14:54
PROVIDERS: ADMIT Nurse Practitioner Acute Care; ATTEND Nurse Practitioner Acute Care
PROC: 5A1955Z Respiratory Ventilation, Greater than 96 Consecutive Hours (ICD-10-PCS; principal; 2019-02-11)
DX: A41.59 Other Gram-negative sepsis (principal); Z99.11 Dependence on respirator [ventilator] status; G82.50 Quadriplegia, unspecified; J18.9 Pneumonia, unspecified organism; J96.10 Chronic respiratory failure, unspecified whether with hypoxia or hypercapnia; E87.2 Acidosis; Z93.0 Tracheostomy status; E87.1 Hypo-osmolality and hyponatremia; E83.42 Hypomagnesemia; E83.39 Other disorders of phosphorus metabolism; E87.6 Hypokalemia; E88.09 Other disorders of plasma-protein metabolism, not elsewhere classified; R13.10 Dysphagia, unspecified; D63.8 Anemia in other chronic diseases classified elsewhere; B96.1 Klebsiella pneumoniae [K. pneumoniae] as the cause of diseases classified elsewhere; Z16.12 Extended spectrum beta lactamase (ESBL) resistance; Z87.442 Personal history of urinary calculi; Z87.891 Personal history of nicotine dependence; G62.9 Polyneuropathy, unspecified; F41.9 Anxiety disorder, unspecified; Z93.1 Gastrostomy status; K56.7 Ileus, unspecified; Z87.440 Personal history of urinary (tract) infections
CPT/HCPCS: 31720; 36415; 36600; 71045-TC; 74018; 80048-TC; 80053-TC; 80061-TC; 80076-TC; 80202-TC; 81000-TC; 82803-TC; 82962-TC; 83540-TC; 83605-TC; 83735-TC; 84100-TC; 84402; 84403; 84443-TC; 84484-TC; 85025-TC; 85730-TC; 87040-TC; 87081-TC; 87086-TC; 87186-TC; 93307-TC; 94002-TC; 94003-TC; 94760-TC; 94762-TC; 99082-TC; G0378; J1644; J2060; J2185; J2270; J2405; J2543; J2916; J3370; J3475; J3480; J7030; J7040; J7060

== ENCOUNTER 2019-04-20 05:28 | Inpatient (IN) | payer MEDICAID ==
[~2019-04-20] VITALS: Ht 175.3 cm; Wt 61.2 kg
[~2019-04-20 05:28] MED LIST changes: +AMIN30LI27 GT; +ASCO-340 GT; -LORA-259 GT; -MAGN400T6 GT; +MECL-102 GT; -MECL-102 PO; -MERO1VIA IV; +MERO1VIA3 IV; +MULT-213 GT; -POLY17PO4 GT
[2019-04-20] MEDS ORDERED: HYDROMORPHONE 1 MG/1 ML DISP.SYRIN IV ONE (06:00)
[2019-04-20] MEDS ORDERED: ONDANSETRON HCL/PF 4 MG/2 ML VIAL IVP ONE (06:00)
[2019-04-20] MEDS ORDERED: ONDANSETRON HCL/PF 4 MG/2 ML VIAL ONE (06:13)
[2019-04-20] MEDS ORDERED: HYDROMORPHONE 1 MG/1 ML DISP.SYRIN ONE ×2 (06:13→09:06)
[2019-04-20 06:17] LABS: BASOPHILS # (AUTO) 0.1 /CMM (0.0-0.2); BASOPHILS % (AUTO) 0.5 % (0.0-2.0); EOSINOPHILS % (AUTO) 2.6 % (0.0-6.0); HEMATOCRIT 39 % (39-51); HEMOGLOBIN 13.1 g/dL (13.5-17.5); LYMPHOCYTES # (AUTO) 0.9 /CMM (0.8-4.8); MEAN CORPUSCULAR HGB CONC 34 g/dl (31.0-36.0); MEAN CORPUSCULAR VOLUME 93 fL (80-96); MONOCYTES # (AUTO) 0.8 /CMM (0.1-1.30); MONOCYTES % (AUTO) 6.2 % (2.0-12.0); NEUTROPHILS # (AUTO) 11.2 /CMM (1.8-8.9); NEUTROPHILS % (AUTO) 83.7 % (43.0-81.0); PLATELET COUNT (AUTO) 429 /CMM (150-450); RED BLOOD CELL COUNT(AUTO) 4.13 MIL/uL (4.5-6.0); WHITE BLOOD COUNT (AUTO) 13.4 K/uL (4.3-11.0)
[2019-04-20 06:27] LABS: CALCIUM, SERUM 10.4 mg/dL (8.5-10.1); CARBON DIOXIDE 12 mmol/L (21-32); CHLORIDE 94 mmol/L (98-107); CREATININE 1.3 mg/dL (0.6-1.3); GLUCOSE 67 mg/dL (74-106); POTASSIUM 4.6 mmol/L (3.5-5.1); SODIUM SERUM 130 mmol/L (136-145); UREA NITROGEN, BLOOD 43 mg/dL (7-18)
[2019-04-20 06:36] LABS: APPEARANCE,URINE Cloudy (CLEAR); BILIRUBIN,URINE Negative (NEGATIVE); BLOOD, URINE Moderate Ery/uL (NEGATIVE); COLOR,URINE Yellow (YELLOW); KETONES,URINE >=160 (NEGATIVE); LEUKOCYTE ESTERASE ,URINE Small (NEGATIVE); NITRITE, URINE Negative (NEGATIVE); PH,URINE 5.5 (5.0-8.0); PROTEIN,URINE 100 mg/dl (NEGATIVE); UGLUCOSE Negative (NEGATIVE); UROBILINOGEN,URINE 0.2 EU/dL (0.2)
[2019-04-20 06:44] LABS: ALANINE AMINOTRANSFERASE 44 U/L (12-78); ALBUMIN 3.9 g/dL (3.4-5.0); ALKALINE PHOSPHATASE 115 U/L (46-116); ASPARTATE AMINOTRANSFERASE 21 U/L (15-37); BILIRUBIN,DIRECT 0.1 mg/dL (0.0-0.2); BILIRUBIN,TOTAL 0.5 mg/dL (0.2-1.0); TOTAL PROTEIN, SERUM 9.7 g/dL (6.4-8.2)
[2019-04-20] MEDS ORDERED: CEFE2VIA3 IV (07:47)
[2019-04-20] MEDS ORDERED: VIT500LI GT (07:47)
[2019-04-20] MEDS ORDERED: ACET650S26 GT (07:47)
[2019-04-20] MEDS ORDERED: LACT-96 GT (07:47)
[2019-04-20] MEDS ORDERED: HEPA50008 SQ (07:47)
[2019-04-20 07:50] LABS: BACTERIA,URINE Many /HPF (None Seen); SQUAMOUS EPITHELIAL CELL,UR Few /HPF (None Seen); WBC,URINE TOO NUMEROUS TO COUN /HPF (0-3); YEAST,URINE Moderate /HPF (None Seen)
[2019-04-20 08:22] LABS: ABG BASE EXCESS -19.6 mmol/L; ABG OXYGEN SATURATION 98.5 % (92.0-98.5); ABG PCO2 26.4 mmHg (35.0-45.0); ABG PH 7.117 (7.350-7.450); ABG PO2 171.8 mmHg (75.0-100.0); AaDO2 47.1 mmHg; COHb 0.1 % (0.5-1.5); MetHb 0.5 % (0.0-1.5); O2Hb 97.9 % (94.0-97.0); PEEP,BG 5 cm H2O; SITE, ABG Right Radial; VT, ABG 600 mL
[2019-04-20] MEDS ORDERED: IV NS 0.9% 1,000 ML BAG IV ONE (08:30)
[2019-04-20] MEDS ORDERED: VANCOMYCIN 1 GM in IV D5W 250 ML IV ONE (08:30)
[2019-04-20] MEDS ORDERED: MEROPENEM 1 G in IV NS 0.9% 100 ML IV ONE (08:30)
[2019-04-20] MEDS ORDERED: IV NS 0.9% 1,000 ML IV PRN (08:43)
[2019-04-20] MEDS ORDERED: ACETAMINOPHEN 325 MG TABLET PO PRN (09:00)
[2019-04-20] MEDS ORDERED: MAG HYDROX/AL HYDROX/SIMETH 30 ML UDC PO PRN (09:00)
[2019-04-20] MEDS ORDERED: HYDROMORPHONE INJ 0.5 MG/0.5 ML SYRINGE IV ONE (09:30)
[2019-04-20] MEDS ORDERED: LORAZEPAM INJ 2 MG/ML VIAL IV ONE (09:30)
[2019-04-20] MEDS ORDERED: LORAZEPAM 1 MG TABLET PO ONE (09:30)
[2019-04-20] MEDS ORDERED: LORAZEPAM INJ 2 MG/ML VIAL ONE (09:47)
[2019-04-20] MEDS: FLUCONAZOLE IN NS 100 MG in PREMIX 1 EA IV SCH ×2 (10:21)
[2019-04-20] MEDS: ENOXAPARIN SODIUM 40 MG/0.4 ML DISP.SYRIN SQ SCH (10:23)
[2019-04-20] MEDS ORDERED: FEE PK DOSING 1 MIN EA MC ONE (10:46)
[2019-04-20] MEDS ORDERED: VANCOMYCIN 1 GM in IV D5W 250 ML IV SCH (11:00)
[2019-04-20] MEDS: NEXIUM 40 MG VIAL IV SCH (11:23)
[2019-04-20] MEDS ORDERED: MEROPENEM 1 G in IV NS 0.9% 100 ML IV SCH (13:00)
[2019-04-20] MEDS: MEROPENEM 1 G in IV NS 0.9% 100 ML IV SCH ×2 (13:09→20:22)
[2019-04-20] MEDS: MORPHINE SULFATE INJ 2 MG/ML DISP.SYRIN IV PRN ×3 (13:22→22:40)
[2019-04-20] MEDS: LORAZEPAM 1 MG TABLET GT PRN ×2 (14:52→21:12)
[2019-04-20 16:00] VITALS: BP 118/56
[2019-04-20 20:00] VITALS: BP 108/57
[2019-04-20 20:24] VITALS: BP 108/57
[2019-04-21] VITALS (11 sets, daily range): BP systolic 101–140; BP diastolic 44–84
[2019-04-21] MEDS: MORPHINE SULFATE INJ 2 MG/ML DISP.SYRIN IV PRN ×3 (02:53→19:49)
[2019-04-21] MEDS ORDERED: KETOROLAC TROMETHAMINE 15 MG/ML VIAL IV PRN (03:30)
[2019-04-21] MEDS ORDERED: KETOROLAC TROMETHAMINE INJ 30 MG/ML VIAL IV PRN (03:34)
[2019-04-21] MEDS: MEROPENEM 1 G in IV NS 0.9% 100 ML IV SCH ×3 (04:17→21:01)
[2019-04-21] MEDS: ALBUTEROL FS 2.5 MG/0.5 ML VIAL.NEB NEB PRN (04:50)
[2019-04-21] MEDS: ENOXAPARIN SODIUM 40 MG/0.4 ML DISP.SYRIN SQ SCH (09:02)
[2019-04-21] MEDS: NEXIUM 40 MG VIAL IV SCH (09:02)
[2019-04-21] MEDS: LORAZEPAM 1 MG TABLET GT PRN ×2 (09:03→21:10)
[2019-04-21] MEDS: FLUCONAZOLE IN NS 100 MG in PREMIX 1 EA IV SCH ×2 (09:20)
[2019-04-21 09:23] LABS: CALCIUM, SERUM 9.9 mg/dL (8.5-10.1); CREATININE 1.6 mg/dL (0.6-1.3); MAGNESIUM 2.2 mg/dL (1.8-2.4); PHOSPHORUS 4.5 mg/dL (2.5-4.9); POTASSIUM 3.9 mmol/L (3.5-5.1)
[2019-04-21 09:38] LABS: BASOPHILS % (AUTO) 0.3 % (0.0-2.0); EOSINOPHILS % (AUTO) 0.3 % (0.0-6.0); HEMATOCRIT 40 % (39-51); HEMOGLOBIN 12.7 g/dL (13.5-17.5); LYMPHOCYTES # (AUTO) 0.6 /CMM (0.8-4.8); LYMPHOCYTES % (AUTO) 4.2 % (20.0-44.0); MEAN CORPUSCULAR HGB CONC 32 g/dl (31.0-36.0); MEAN CORPUSCULAR VOLUME 94 fL (80-96); MONOCYTES # (AUTO) 1.7 /CMM (0.1-1.30); MONOCYTES % (AUTO) 11.5 % (2.0-12.0); NEUTROPHILS # (AUTO) 12.3 /CMM (1.8-8.9); NEUTROPHILS % (AUTO) 83.7 % (43.0-81.0); PLATELET COUNT (AUTO) 317 /CMM (150-450); RED BLOOD CELL COUNT(AUTO) 4.19 MIL/uL (4.5-6.0); WHITE BLOOD COUNT (AUTO) 14.6 K/uL (4.3-11.0)
[2019-04-21] MEDS ORDERED: VANCOMYCIN 1 GM in IV D5W 250 ML IV SCH (10:00)
[2019-04-21 12:00] LABS: ABG BASE EXCESS -24.9 mmol/L; ABG OXYGEN SATURATION 98.9 % (92.0-98.5); ABG PCO2 17.5 mmHg (35.0-45.0); ABG PH 7.017 (7.350-7.450); ABG PO2 191.9 mmHg (75.0-100.0); AaDO2 37.3 mmHg; COHb 0.5 % (0.5-1.5); MetHb 0.4 % (0.0-1.5); SITE, ABG Left Radial
[2019-04-21] MEDS ORDERED: Z GUARD REMEDY 2 OZ OINT TP PRN (12:30)
[2019-04-21] MEDS: IV NS 0.9% 1,000 ML IV PRN (12:52)
[2019-04-21] MEDS: Z GUARD REMEDY 2 OZ OINT TP SCH (12:59)
[2019-04-21] MEDS ORDERED: SODIUM BICARBONATE SYR 50 MEQ/50 ML DISP.SYRIN IV STA (13:18)
[2019-04-21] MEDS: Sodium Acetate 150 MEQ in IV D5W 1,000 ML IV PRN ×2 (14:01→21:02)
[2019-04-21 17:19] LABS: ABG BASE EXCESS -13.8 mmol/L; ABG OXYGEN SATURATION 98.6 % (92.0-98.5); ABG PCO2 20.3 mmHg (35.0-45.0); ABG PH 7.324 (7.350-7.450); ABG PO2 183.8 mmHg (75.0-100.0); AaDO2 42.2 mmHg; COHb 0.3 % (0.5-1.5); MetHb 0.6 % (0.0-1.5); O2Hb 97.7 % (94.0-97.0); SITE, ABG Left Radial; VENT MODE, BG AC 24 600 35% +5
[2019-04-22] VITALS (24 sets, daily range): BP systolic 100–146; BP diastolic 45–89
[2019-04-22] MEDS: MORPHINE SULFATE INJ 2 MG/ML DISP.SYRIN IV PRN (03:17)
[2019-04-22] MEDS: MAGNESIUM HYDROXIDE 30 ML UDC PO PRN ×2 (03:26→21:23)
[2019-04-22] MEDS: ONDANSETRON HCL/PF 4 MG/2 ML VIAL IVP PRN ×3 (03:26→18:25)
[2019-04-22] MEDS: MEROPENEM 1 G in IV NS 0.9% 100 ML IV SCH ×2 (04:38→12:19)
[2019-04-22] MEDS: IV NS 0.9% 1,000 ML IV PRN ×2 (04:38→13:23)
[2019-04-22 04:55] LABS: ALBUMIN 2.8 g/dL (3.4-5.0); BILIRUBIN,DIRECT 0.1 mg/dL (0.0-0.2); BILIRUBIN,TOTAL 0.8 mg/dL (0.2-1.0); CALCIUM, SERUM 8.7 mg/dL (8.5-10.1); CREATININE 1.7 mg/dL (0.6-1.3)
[2019-04-22 05:03] LABS: POTASSIUM 1.9 mmol/L (3.5-5.1)
[2019-04-22 05:39] LABS: HEMOGLOBIN 10.7 g/dL (13.5-17.5); RED BLOOD CELL COUNT(AUTO) 3.38 MIL/uL (4.5-6.0); WHITE BLOOD COUNT (AUTO) 10.5 K/uL (4.3-11.0)
[2019-04-22 05:40] LABS: BASOPHILS % (AUTO) 0.4 % (0.0-2.0); EOSINOPHILS % (AUTO) 1.9 % (0.0-6.0); HEMATOCRIT 30 % (39-51); LYMPHOCYTES % (AUTO) 8.4 % (20.0-44.0); MEAN CORPUSCULAR HGB CONC 35 g/dl (31.0-36.0); MEAN CORPUSCULAR VOLUME 89 fL (80-96); MONOCYTES % (AUTO) 16.8 % (2.0-12.0); NEUTROPHILS % (AUTO) 72.5 % (43.0-81.0); PLATELET COUNT (AUTO) 303 /CMM (150-450)
[2019-04-22] MEDS: LORAZEPAM 1 MG TABLET GT PRN ×3 (06:14→21:23)
[2019-04-22] MEDS ORDERED: POTASSIUM CHLORIDE 20 MEQ POWDER PACKET GT SCH (06:30)
[2019-04-22 08:49] LABS: LYMPHOCYTES % (MANUAL) 4 % (16-48); MONOCYTES % (MANUAL) 12 % (0-11.0); NEUTROPHILS % (MANUAL) 84 (42-76)
[2019-04-22] MEDS: ENOXAPARIN SODIUM 40 MG/0.4 ML DISP.SYRIN SQ SCH (09:03)
[2019-04-22] MEDS: NEXIUM 40 MG VIAL IV SCH (09:03)
[2019-04-22] MEDS: Z GUARD REMEDY 2 OZ OINT TP SCH (09:05)
[2019-04-22] MEDS ORDERED: Magnesium 1GM/D5W 100ML PREMIX 100 ML IV SCH (09:16)
[2019-04-22] MEDS: FLUCONAZOLE IN NS 100 MG in PREMIX 1 EA IV SCH ×2 (10:27)
[2019-04-22] MEDS ORDERED: BISACODYL SUPP (10 MG) 10 MG/SUPP.RECT SUPP.RECT RC PRN (11:00)
[2019-04-22] MEDS: MORPHINE SULFATE INJ 4 MG/ML DISP.SYRIN IV PRN ×2 (11:27→18:39)
[2019-04-22] MEDS ORDERED: POTASSIUM CHLORIDE 20 MEQ POWDER PACKET GT ONE (13:00)
[2019-04-22] MEDS: SIMETHICONE 80 MG TAB.CHEW PO PRN (18:16)
[2019-04-22] MEDS: Potassium Chloride 40 MEQ in IV NS 0.9% 1,000 ML IV PRN (18:26)
[2019-04-22] MEDS: VORICONAZOLE 200 MG TABLET PO SCH (21:08)
[2019-04-23] VITALS (17 sets, daily range): BP systolic 94–127; BP diastolic 50–80
[2019-04-23] MEDS ORDERED: VANCOMYCIN 1 GM in IV D5W 250 ML IV SCH ×2
[2019-04-23] MEDS: ONDANSETRON HCL/PF 4 MG/2 ML VIAL IVP PRN (00:09)
[2019-04-23] MEDS: MORPHINE SULFATE INJ 4 MG/ML DISP.SYRIN IV PRN ×4 (00:09→18:31)
[2019-04-23] MEDS: HYDROCODONE/APAP 5/325MG 1 EACH TABLET GT PRN ×3 (02:04→20:52)
[2019-04-23] MEDS: LORAZEPAM 1 MG TABLET GT PRN ×3 (03:34→22:14)
[2019-04-23] MEDS: Potassium Chloride 40 MEQ in IV NS 0.9% 1,000 ML IV PRN ×3 (03:34→22:47)
[2019-04-23 04:57] LABS: BASOPHILS # (AUTO) 0.1 /CMM (0.0-0.2); BASOPHILS % (AUTO) 0.5 % (0.0-2.0); EOSINOPHILS % (AUTO) 2.4 % (0.0-6.0); HEMATOCRIT 24 % (39-51); HEMOGLOBIN 8.9 g/dL (13.5-17.5); LYMPHOCYTES # (AUTO) 1.6 /CMM (0.8-4.8); LYMPHOCYTES % (AUTO) 16.3 % (20.0-44.0); MEAN CORPUSCULAR HGB CONC 37 g/dl (31.0-36.0); MEAN CORPUSCULAR VOLUME 87 fL (80-96); MONOCYTES # (AUTO) 1.3 /CMM (0.1-1.30); MONOCYTES % (AUTO) 13.5 % (2.0-12.0); NEUTROPHILS # (AUTO) 6.6 /CMM (1.8-8.9); NEUTROPHILS % (AUTO) 67.3 % (43.0-81.0); PLATELET COUNT (AUTO) 264 /CMM (150-450); RED BLOOD CELL COUNT(AUTO) 2.75 MIL/uL (4.5-6.0); WHITE BLOOD COUNT (AUTO) 9.9 K/uL (4.3-11.0)
[2019-04-23 05:07] LABS: CALCIUM, SERUM 8.3 mg/dL (8.5-10.1); CREATININE 1.2 mg/dL (0.6-1.3); MAGNESIUM 1.9 mg/dL (1.8-2.4); POTASSIUM 3.5 mmol/L (3.5-5.1)
[2019-04-23] MEDS: NEXIUM 40 MG VIAL IV SCH (08:50)
[2019-04-23] MEDS: VORICONAZOLE 200 MG TABLET PO SCH ×2 (08:50→20:52)
[2019-04-23] MEDS ORDERED: POTASSIUM CHLORIDE 20 MEQ POWDER PACKET GT ONE (09:00)
[2019-04-23] MEDS: ENOXAPARIN SODIUM 40 MG/0.4 ML DISP.SYRIN SQ SCH (09:00)
[2019-04-23] MEDS: Z GUARD REMEDY 2 OZ OINT TP SCH (09:01)
[2019-04-23 09:47] LABS: ABG BASE EXCESS -5.6 mmol/L; ABG OXYGEN SATURATION 98.2 % (92.0-98.5); ABG PCO2 20.3 mmHg (35.0-45.0); ABG PH 7.512 (7.350-7.450); COHb 0.3 % (0.5-1.5); MetHb 0.6 % (0.0-1.5); O2Hb 97.3 % (94.0-97.0); PEEP,BG 5 cm H2O; SITE, ABG Right Radial; VT, ABG 600 mL
[2019-04-23] MEDS: SIMETHICONE 80 MG TAB.CHEW PO PRN (18:31)
[2019-04-24] VITALS: BP 133/81
[2019-04-24] MEDS ORDERED: TEMAZEPAM 15 MG CAPSULE PO PRN (01:30)
[2019-04-24 04:00] VITALS: BP 123/69
[2019-04-24] MEDS: HYDROCODONE/APAP 5/325MG 1 EACH TABLET GT PRN ×2 (04:46→12:30)
[2019-04-24] MEDS: ALBUTEROL FS 2.5 MG/0.5 ML VIAL.NEB NEB PRN (05:51)
[2019-04-24 06:22] LABS: BASOPHILS # (AUTO) 0.1 /CMM (0.0-0.2); BASOPHILS % (AUTO) 0.8 % (0.0-2.0); EOSINOPHILS % (AUTO) 4.3 % (0.0-6.0); HEMATOCRIT 28 % (39-51); HEMOGLOBIN 9.6 g/dL (13.5-17.5); LYMPHOCYTES # (AUTO) 1.9 /CMM (0.8-4.8); LYMPHOCYTES % (AUTO) 23.2 % (20.0-44.0); MEAN CORPUSCULAR HGB CONC 35 g/dl (31.0-36.0); MEAN CORPUSCULAR VOLUME 90 fL (80-96); MONOCYTES # (AUTO) 0.9 /CMM (0.1-1.30); MONOCYTES % (AUTO) 11.3 % (2.0-12.0); NEUTROPHILS # (AUTO) 4.9 /CMM (1.8-8.9); NEUTROPHILS % (AUTO) 60.4 % (43.0-81.0); PLATELET COUNT (AUTO) 305 /CMM (150-450); RED BLOOD CELL COUNT(AUTO) 3.07 MIL/uL (4.5-6.0); WHITE BLOOD COUNT (AUTO) 8.1 K/uL (4.3-11.0)
[2019-04-24] MEDS: Potassium Chloride 40 MEQ in IV NS 0.9% 1,000 ML IV PRN ×2 (06:29→15:19)
[2019-04-24 06:51] LABS: CALCIUM, SERUM 8.7 mg/dL (8.5-10.1); CREATININE 0.8 mg/dL (0.6-1.3); POTASSIUM 4.5 mmol/L (3.5-5.1)
[2019-04-24 08:00] VITALS: BP 112/59
[2019-04-24] MEDS: VORICONAZOLE 200 MG TABLET PO SCH (08:36)
[2019-04-24] MEDS: NEXIUM 40 MG VIAL IV SCH (08:36)
[2019-04-24] MEDS: ENOXAPARIN SODIUM 40 MG/0.4 ML DISP.SYRIN SQ SCH (08:37)
[2019-04-24] MEDS: Z GUARD REMEDY 2 OZ OINT TP SCH (08:37)
[2019-04-24] MEDS: MORPHINE SULFATE INJ 4 MG/ML DISP.SYRIN IV PRN (09:17)
[2019-04-24] MEDS ORDERED: VORI200T PO (09:44)
[2019-04-24 12:00] VITALS: BP 122/84
[2019-04-24] MEDS: LORAZEPAM 1 MG TABLET GT PRN (15:24)
[2019-04-24 16:00] VITALS: BP 129/78
== END 2019-04-24 18:55 | DRG 720 ==
LOC: ER 05:28 → TELE 09:03 → ICU 04-21 13:17 → TELE-TD 04-23 14:00 → TELE1 04-24 11:10
PROVIDERS: ADMIT Nurse Practitioner Acute Care; ATTEND Family Medicine
PROC: 5A1955Z Respiratory Ventilation, Greater than 96 Consecutive Hours (ICD-10-PCS; principal; 2019-04-20)
PROC: 05H633Z Insertion of Infusion Device into Left Subclavian Vein, Percutaneous Approach (ICD-10-PCS; 2019-04-21)
DX: A41.9 Sepsis, unspecified organism (principal); J96.20 Acute and chronic respiratory failure, unspecified whether with hypoxia or hypercapnia; N17.0 Acute kidney failure with tubular necrosis; Z99.11 Dependence on respirator [ventilator] status; R53.2 Functional quadriplegia; Z93.0 Tracheostomy status; R13.10 Dysphagia, unspecified; K59.00 Constipation, unspecified; N21.0 Calculus in bladder; Z93.1 Gastrostomy status; E83.52 Hypercalcemia; E87.2 Acidosis; J96.21 Acute and chronic respiratory failure with hypoxia; L85.3 Xerosis cutis; M21.372 Foot drop, left foot; M21.371 Foot drop, right foot; Z74.01 Bed confinement status; Z87.440 Personal history of urinary (tract) infections; Z87.442 Personal history of urinary calculi; Z87.891 Personal history of nicotine dependence; N13.6 Pyonephrosis; M24.571 Contracture, right ankle; M24.572 Contracture, left ankle; L89.610 Pressure ulcer of right heel, unstageable; B37.49 Other urogenital candidiasis; L90.5 Scar conditions and fibrosis of skin; S91.301A Unspecified open wound, right foot, initial encounter; X58.XXXA Exposure to other specified factors, initial encounter; Y93.9 Activity, unspecified; Y92.129 Unspecified place in nursing home as the place of occurrence of the external cause
CPT/HCPCS: 31720; 36415; 36600; 71045-TC; 80048-TC; 80076-TC; 80202-TC; 81000-TC; 82803-TC; 83605-TC; 83735-TC; 84100-TC; 84132-TC; 84484-TC; 85025-TC; 85730-TC; 87040-TC; 87081-TC; 87086-TC; 92526; 92611-TC; 94002-TC; 94003-TC; 94760-TC; 94762-TC; 99082-TC; A4216; A4623; A6402; A6403; A7526; G0378; J1170; J1450; J1650; J1885; J2060; J2185; J2270; J2405; J3370; J3475; J3480; J3490; J7030; J7050; J7060; J7070

== ENCOUNTER 2021-05-29 21:44 | Inpatient (IN) | payer MEDICAID ==
[~2021-05-29] VITALS: Ht 175.3 cm; Wt 53.5 kg
[~2021-05-29 21:44] MED LIST changes: -ASCO-340 GT; +CEFE2VIA3 IV; -HEPA10009 SQ; +HEPA50008 SQ; +LACT-96 GT; -MECL-102 GT; +MECL-159 GT; -MERO1VIA3 IV; -METH1TAB30 GT; +METH1TAB69 GT; +VIT500LI GT; +VORI200T PO
--- NOTE | 2021-05-29 21:50 | NUR ---
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 Pt aaox4 breathing evenly and unlabored. Upon assessment, pt has contracted upper extremities, suprapubic catheter, and gtube. Pt attached to monitor and pox. MD at bedside. pt given blanket and calllight within reach
--- NOTE | 2021-05-29 22:08 | NUR ---
urine sent to lab
--- NOTE | 2021-05-29 22:10 | NUR ---
RT NOTE PT ARRIVED TO [facility] TRACH AND VENTED. TRACH SIZE IS PORTEX 7 CUFFED. PT PLACED ON MECHANICAL VENTILATOR ON SETTINGS OF AC16 VT550 ENR217% PEEP+5. PATIENT SUCTIONED FOR SMALL,YELLOW, THICK SECRETIONS. PT IS AWAKE WITH NO SIGNS OF SOB NOTED. TRACH IS PATENT AND SECURE. ALARMS ARE SET AND AUDIBLE. VENT IS PLUGGED INTO RED OUTLET. AMBU BAG AND BACK UP TRACH AT PATIENT BEDSIDE. WAITING FOR FURTHER ORDERS. WILL CONTINUE TO MONITOR PATIENT. Addendum: 05/29/21 at 2213 by LUIS HANSEN RT Amended: Links added.
[2021-05-29 22:29] LABS: BASOPHILS # (AUTO) 0.1 K/uL (0.0-0.2); BASOPHILS % (AUTO) 0.7 % (0.0-2.0); EOSINOPHILS % (AUTO) 1.8 % (0.0-6.0); HEMATOCRIT 37 % (39-51); LYMPHOCYTES # (AUTO) 1.5 K/uL (0.8-4.8); LYMPHOCYTES % (AUTO) 9.2 % (20.0-44.0); MEAN CORPUSCULAR HGB CONC 33 g/dl (31.0-36.0); MEAN CORPUSCULAR VOLUME 89 fL (80-96); MONOCYTES # (AUTO) 0.9 K/uL (0.1-1.30); MONOCYTES % (AUTO) 5.7 % (2.0-12.0); NEUTROPHILS # (AUTO) 13.1 K/uL (1.8-8.9); NEUTROPHILS % (AUTO) 82.6 % (43.0-81.0); PLATELET COUNT (AUTO) 365 K/uL (150-450); RED BLOOD CELL COUNT(AUTO) 4.15 MIL/uL (4.5-6.0); WHITE BLOOD COUNT (AUTO) 15.9 K/uL (4.3-11.0)
[2021-05-29] MEDS ORDERED: IV NS 0.9% 1,000 ML BAG IV ONE (22:30)
[2021-05-29 22:31] LABS: BILIRUBIN,URINE NEGATIVE (NEGATIVE); COLOR,URINE YELLOW (YELLOW); LEUKOCYTE ESTERASE ,URINE MODERATE (NEGATIVE); NITRITE, URINE NEGATIVE (NEGATIVE); PROTEIN,URINE 100 mg/dl (NEGATIVE); UGLUCOSE NEGATIVE (NEGATIVE); UROBILINOGEN,URINE 0.2 EU/dL (0.2)
--- NOTE | 2021-05-29 22:33 | NUR ---
blair maharaj, sister [phone]
[2021-05-29 22:46] LABS: CALCIUM, SERUM 9.1 mg/dL (8.5-10.1); CREATININE 0.6 mg/dL (0.6-1.3); POTASSIUM 4.3 mmol/L (3.5-5.1)
[2021-05-29 23:00] LABS: BILIRUBIN,DIRECT 0.1 mg/dL (0.0-0.2); BILIRUBIN,TOTAL 0.3 mg/dL (0.2-1.0); TOTAL PROTEIN, SERUM 8.2 g/dL (6.4-8.2)
[2021-05-29 23:17] LABS: BACTERIA,URINE Many /HPF (None Seen); SQUAMOUS EPITHELIAL CELL,UR Rare /HPF (None Seen)
[2021-05-29 23:18] LABS: URINE AMORPHOUS PHOSPHATES Few /HPF (None Seen)
[2021-05-29 23:20] LABS: OCCULT BLOOD STOOL POSITIVE (NEGATIVE)
[2021-05-29] MEDS ORDERED: CEFTRIAXONE 1GM BAG (ER ONLY) 50 ML IV ONE (23:30)
[2021-05-29] MEDS ORDERED: ONDANSETRON HCL/PF 4 MG/2 ML VIAL ONE (23:33)
[2021-05-29] MEDS ORDERED: MORPHINE SULFATE INJ 4 MG/ML DISP.SYRIN ONE (23:34)
[2021-05-30] MEDS ORDERED: ONDANSETRON HCL/PF 4 MG/2 ML VIAL IV ONE
[2021-05-30] MEDS ORDERED: MORPHINE SULFATE INJ 10 MG/ML DISP.SYRIN IV ONE
--- NOTE | 2021-05-30 00:15 | NUR ---
Patient is resting comfortably in bed with eyes closed. Easily aroused. VSS
[2021-05-30] MEDS ORDERED: ONDANSETRON HCL/PF 4 MG/2 ML VIAL IVP PRN ×2 (01:30)
[2021-05-30] MEDS ORDERED: MAG HYDROX/AL HYDROX/SIMETH 30 ML UDC PO PRN ×2 (01:30)
[2021-05-30] MEDS ORDERED: Z GUARD REMEDY 2 OZ OINT TP PRN ×2 (01:30)
[2021-05-30] MEDS ORDERED: ZOLPIDEM TARTRATE 5 MG TABLET PO PRN ×2 (01:30)
[2021-05-30] MEDS ORDERED: ACETAMINOPHEN 325 MG TABLET PO PRN ×2 (01:30)
[2021-05-30] MEDS ORDERED: MAGNESIUM HYDROXIDE 30 ML UDC PO PRN ×2 (01:30)
--- NOTE | 2021-05-30 01:45 | NUR ---
[facility]SA SWAB COLLECTED AND SENT TO LAB. PATIENT'S BELONGINGS LIST DONE.
--- NOTE | 2021-05-30 02:36 | NUR ---
Patient is resting comfortably in bed with eyes closed. Easily aroused. VSS
[2021-05-30] MEDS ORDERED: ACETAMINOPHEN 325 MG TABLET ONE (04:08)
--- NOTE | 2021-05-30 04:40 | NUR ---
lab at bedside
[2021-05-30 05:29] LABS: CHOLESTEROL 116 mg/dL (<200); HDL CHOLESTEROL 38 mg/dL (40-60); LDL 56 mg/dL (0-99); TRIGLYCERIDES 170 mg/dL (30-150)
[2021-05-30] MEDS: MORPHINE SULFATE INJ 4 MG/ML DISP.SYRIN IV PRN ×4 (05:30→22:21)
[2021-05-30] MEDS ORDERED: MORPHINE SULFATE INJ 4 MG/ML DISP.SYRIN ONE (05:35)
--- NOTE | 2021-05-30 07:20 | NUR ---
PT ASSESSED ON BED AWAKE AND ALERT, NOT IN RESPIRATORY DISTRESS, V/S STABLE, KEPT RESTED AND COMFORTABLE. WILL CONTINUE TO MONITOR.
--- NOTE | 2021-05-30 07:50 | NUR ---
ROOM GIVEN 113-1
--- NOTE | 2021-05-30 08:01 | NUR ---
REPORT GIVEN TO DANILO TYLER FOR ISABELLA.
[2021-05-30] MEDS ORDERED: IPRA4AER IH ×2 (08:04)
[2021-05-30] MEDS ORDERED: HYDR-3895 GT (08:04)
[2021-05-30] MEDS ORDERED: MELA3TAB41 GT (08:04)
[2021-05-30] MEDS ORDERED: TRAZ-182 PO (08:04)
[2021-05-30] MEDS ORDERED: POLY15DR40 EACHEYE (08:04)
[2021-05-30] MEDS ORDERED: LORA-259 GT (08:04)
[2021-05-30] MEDS ORDERED: BISA10SU11 RC (08:04)
[2021-05-30] MEDS ORDERED: OMEP20CA15 GT (08:04)
[2021-05-30] MEDS ORDERED: CHLO473M5 MM (08:04)
[2021-05-30] MEDS ORDERED: CHLO118L6 TP (08:04)
[2021-05-30] MEDS ORDERED: SENN-261 GT (08:04)
[2021-05-30] MEDS ORDERED: METO-295 GT (08:04)
[2021-05-30] MEDS ORDERED: CEFEPIME 1 GM in IV D5W 50 ML IV SCH (08:30)
--- NOTE | 2021-05-30 08:30 | NUR ---
ADMISSION NOTE CACHORRO CALLED FROM ED AT 0800 AND GAVE REPORT, PT ARRIVED ON UNIT AT 0830. PT DELIVERED VIA ED MADDI, C/O 10/10 PAIN SCALE BREATHING EVEN AND UNLABORED ON TRACH ON VENT. ED STAFF TRANSFERRED PT, UNIT STAFF TO PROVIDE MICHELINE CARE AND CHANGE OF LINEN SHORTLY. ADMISSION TO START [place].
[2021-05-30] MEDS: PANTOPRAZOLE 40 MG VIAL IV SCH ×2 (08:55→20:03)
[2021-05-30] MEDS: IV NS 0.9% 1,000 ML IV PRN ×2 (08:55→22:40)
[2021-05-30] MEDS: CEFEPIME 2 GM in IV D5W 100 ML IV SCH ×2 (08:59→20:03)
[2021-05-30] MEDS ORDERED: PANTOPRAZOLE 40 MG VIAL IV SCH ×2 (09:00)
--- NOTE | 2021-05-30 11:39 | NUR ---
FOLDER AND NOTCHER COMMUNICATION RN SPOKE TO FOLDER AND NOTCHER, STATED PT IS EXPERIENCING ANXIETY. FOLDER AND NOTCHER GAVE ORDER, ATIVAN 1MG IV Q6H PRN ANXIETY. RN READ BACK ORDER TO CONFIRM AND WILL ENTER DIRECTED.
[2021-05-30 12:00] VITALS: BP 95/64
[2021-05-30] MEDS: LORAZEPAM INJ 2 MG/ML VIAL IV PRN ×2 (12:00→20:03)
[2021-05-30 16:00] VITALS: BP 100/65
--- NOTE | 2021-05-30 19:12 | NUR ---
NURSES NOTE PT FOUND IN BED DISPLAYING NO S/S OF ACUTE DISTRESS, PT CURRENTLY ENDORSES NO PAIN AND IS BREATHING EVEN AND UNLABORED ON 40% FIO2 TRACH VENT. PT IS A&OX4. SR ON MONITOR. PEG CLAMPED, SUPRAPUBIC F/C BELOW PATIENT, PATIENT AND DRAINING BY GRAVITY. SAFETY MEASURES IN PLACE, BED LOCKED AND IN LOWEST POSITION, SIDE RAILS UPX3, CALL LIGHT WITHIN REACH, BED ALARM ARMED. ALL MEDICATIONS GIVEN, CONTINUITY OF CARE ENDORSED TO NIGHT RN.
--- NOTE | 2021-05-30 19:39 | NUR ---
RN NOTE PATIENT IN BED RESTING COMFORTABLY. ALERT AND ORIENTED X4. ON TRACH TO VENT, TOLERATING SETTINGS WELL. NO SIGNS OF ACUTE RESPIRATORY DISTRESS. IV ACCESS ON LEFT HAND #20 PATENT. NO SIGNS OF INFILTRATION. DENIES ANY PAIN. NOTED WITH SUPRAPUBIC CATHETER DRAINING YELLOW URINE VIA GRAVITY. NOTED WITH CLAMPED G-TUBE. BED LOCKED AND IN LOWEST POSITION. CALL LIGHT WITHIN REACH.
[2021-05-30 20:00] VITALS: BP 92/68
[2021-05-30] MEDS ORDERED: CEFTRIAXONE 1 G in IV D5W 50 ML IV SCH (23:00)
[2021-05-31] VITALS: BP 111/70
[2021-05-31] MEDS: MORPHINE SULFATE INJ 4 MG/ML DISP.SYRIN IV PRN ×2 (03:48→19:57)
[2021-05-31 04:00] VITALS: BP 104/68
--- NOTE | 2021-05-31 06:16 | NUR ---
RT NOTE PT REC'D TRACHED ON [facility] VENT ON AC MODE. PT SHOWS NO SIGNS OF RESP DISTRESS OR SOB. Pt is awake and alert. TRACH IS PATENT AND SECURED. pt sx'd for mod amt of pale yellow secretions. ALARMS ARE SET AND AUDIBLE. VENT PLUGGED INTO RED OUTLET. AMBU BAG BEDSIDE. WILL CONTINUE TO MONITOR CLOSELY. Addendum: 05/31/21 at 0617 by CLARK ALEGRIA RT Amended: Links added.
[2021-05-31 06:39] LABS: BASOPHILS % (AUTO) 0.3 % (0.0-2.0); EOSINOPHILS % (AUTO) 0.8 % (0.0-6.0); HEMATOCRIT 29 % (39-51); HEMOGLOBIN 9.4 g/dL (13.5-17.5); LYMPHOCYTES # (AUTO) 1.7 K/uL (0.8-4.8); LYMPHOCYTES % (AUTO) 12.7 % (20.0-44.0); MEAN CORPUSCULAR HGB CONC 33 g/dl (31.0-36.0); MEAN CORPUSCULAR VOLUME 89 fL (80-96); MONOCYTES # (AUTO) 1.2 K/uL (0.1-1.30); MONOCYTES % (AUTO) 8.7 % (2.0-12.0); NEUTROPHILS # (AUTO) 10.4 K/uL (1.8-8.9); NEUTROPHILS % (AUTO) 77.5 % (43.0-81.0); PLATELET COUNT (AUTO) 264 K/uL (150-450); RED BLOOD CELL COUNT(AUTO) 3.21 MIL/uL (4.5-6.0); WHITE BLOOD COUNT (AUTO) 13.5 K/uL (4.3-11.0)
--- NOTE | 2021-05-31 06:51 | NUR ---
RN NOTE PATIENT ALERT AND ORIENTED X4. ON TRACH TO VENT, TOLERATING SETTINGS WELL. NO SIGNS OF ACUTE RESPIRATORY DISTRESS. IV ACCESS ON LEFT HAND #20 PATENT RUNNING IV NS @ 75ML/HR. DENIES ANY PAIN. SUPRAPUBIC CATHETER DRAINING YELLOW URINE VIA GRAVITY OUTPUT 550CC. G-TUBE CLAMPED. NOTED WITH MINIMAL BRIGHT BLOOD ON RECTUM LAST NIGHT. BED LOCKED AND IN LOWEST POSITION. CALL LIGHT WITHIN REACH. WILL ENDORSE TO AM SHIFT.
[2021-05-31 07:20] LABS: CALCIUM, SERUM 8.9 mg/dL (8.5-10.1); CREATININE 0.5 mg/dL (0.6-1.3); MAGNESIUM 1.8 mg/dL (1.8-2.4); PHOSPHORUS 3.3 mg/dL (2.5-4.9); POTASSIUM 3.8 mmol/L (3.5-5.1)
--- NOTE | 2021-05-31 07:30 | NUR ---
RN NOTE PATIENT AWAKE IN BED, ALERT AND ORIENTED X4 ABLE TO VERBALIZE NEEDS, PATIENT ON TRACHEOSTOMY WITH MECHANICAL VENTILATION TOLERATING WELL, O2 SAT OF 99%, PATIENT IV SITE LEFT HAND PATENT INFUSING WELL, IV NS @ 75 CC/HR, GT CLAMPED AT THIS TIME, WILL CONTINUE TO MONITOR FOR GI BLEEDING, CALL LIGHT WITHIN REACH, SAFETY MEASURES OBSERVED BED WHEELS LOCK.
--- NOTE | 2021-05-31 07:50 | NUR ---
RN NOTE MORNING LABS BLOOD SUGAR LEVEL OF 67, RECHECK WITH ACCU CHECK MACHINE BS OF 67, NOTIFIED DR. HOLLY GONZALEZ ORDERED START ON D5 NS @75CC/HR. ORDERS NOTED AND CARRIED OUT.
[2021-05-31 08:00] VITALS: BP 102/62
[2021-05-31] MEDS: LORAZEPAM INJ 2 MG/ML VIAL IV PRN ×2 (08:12→21:35)
[2021-05-31] MEDS ORDERED: IV D5/ 0.9% NACL 1,000 ML IV STA (08:15)
--- NOTE | 2021-05-31 09:34 | NUR ---
RN NOTE NOTIFIED PHARMACY THAT VIAL WAS DISPOSED BEFORE SCANNING OF ATIVAN WITNESS EDILIA CARRASCO, ADMINISTERED .5 ML ORDERED, AND DISPOSING VIAL BEFORE SCANNING
--- NOTE | 2021-05-31 09:34 | NUR ---
RN NOTE NOTIFIED PHARMACY THAT VIAL WAS DISPOSED BEFORE SCANNING OF ATIVAN WITNESSED BY OLGA LIDIA CARRASCO, ADMINISTERED .5 ML ORDERED,
[2021-05-31] MEDS: PANTOPRAZOLE 40 MG VIAL IV SCH ×2 (09:57→20:00)
[2021-05-31] MEDS: CEFEPIME 2 GM in IV D5W 100 ML IV SCH ×2 (09:57→20:01)
--- NOTE | 2021-05-31 10:29 | NUR ---
RN NOTE RECHECK BLOOD SUGAR BY ACCU CHECK BLOOD SUGAR IS GREATER THAN 90. PATIENT IS A/O X4 SEEN BY JAMESON RIVAS, UPDATED REGARDING PATIENT STATUS AND BLOOD SUGAR
[2021-05-31 12:00] VITALS: BP 110/63
--- NOTE | 2021-05-31 12:15 | NUR ---
RN NOTE EVELYN MCACLL NOTIFIED REGARDING PATIENT HGB OF 12 YESTERDAY AND 9.4 TODAY, PATIENT IS OBSERVED WITH BLACK AND BRIGHT RED BLOOD BM.
[2021-05-31 16:00] VITALS: BP 110/63
--- NOTE | 2021-05-31 16:18 | NUR ---
RN NOTE DR. BARRERA ORDERED TYPE AND SCREEN AND HEMOGRAM, INFUSE 1 UNIT PRBC IF HGB <8. ORDERS NOTED AND CLARIFIED.
[2021-05-31 18:04] LABS: HEMATOCRIT 29 % (39-51); HEMOGLOBIN 9.8 g/dL (13.5-17.5); MEAN CORPUSCULAR HGB CONC 33 g/dl (31.0-36.0); MEAN CORPUSCULAR VOLUME 89 fL (80-96); PLATELET COUNT (AUTO) 322 K/uL (150-450); RED BLOOD CELL COUNT(AUTO) 3.32 MIL/uL (4.5-6.0); WHITE BLOOD COUNT (AUTO) 16.9 K/uL (4.3-11.0)
--- NOTE | 2021-05-31 18:59 | NUR ---
RN NOTE PATIENT AWAKE IN BED, ALERT AND ORIENTED X4 ABLE TO VERBALIZE NEEDS, PATIENT ON TRACHEOSTOMY WITH MECHANICAL VENTILATION TOLERATING WELL, O2 SAT OF 99%, PATIENT IV SITE LEFT HAND PATENT INFUSING WELL, IV D5 @ 75 CC/HR, LEFT UPPER ARM MIDLINE NEWLY INSERTED, SUPRAPUBIC CATHETER DRAINING WELL NO HEMATURIA, GT CLAMPED AT THIS TIME, WILL CONTINUE TO MONITOR FOR GI BLEEDING, ON H AND H Q6H ORDERED, BLOOD TRANSFUSING <8HGB CALL LIGHT WITHIN REACH, SAFETY MEASURES OBSERVED BED WHEELS LOCK. WILL ENDORSE TO NOC SHIFT.
--- NOTE | 2021-05-31 19:30 | NUR ---
RN OPENING NOTES: RECEIVED PT A/OX4 IN BED RESTING/SLEEPING COMFORTABLY. PATIENT IN NO S/SX OF ACUTE DISTRESS AT THIS TIME. NO SOB NOTED. PATIENT'S BREATHING IS EVEN AND UNLABORED. PATIENT ON MECHANICAL VENT; SETTINGS PRESCRIBED; PT TOLERATED WELL. AMBU BAG AT BED SIDE ALARMS SET PER PROTOCOL AND AUDIBLE. VENT PLUGGED IN TO RED OUTLET. PATIENT ON TELE MONITORING READING SINUS TACHY HR IS @100s AT THE TIME OF RECEIVED. PATIENT CURRENTLY ON NPO;PT HAS G TUBE FLUSHING AND PATENT; SITE NOTED TO BE INFLAMED AND REDDISH. NOTED RESIDUAL OF 50CC OF CLOUDY WHITE FLUIDS; GTUBE CLAMPED AT THIS TIME. DRESSING IS SECURED BUT NEEDS CHANGE; DRESSING CHANGE DONE. NOTED IV SITE ON L HAND #20 AND R UA MIDLINE #18 ;BOTH PATENT, INTACT AND FLUSHING WELL; NO S/S OF INFECTION OR INFILTRATION. WITH IV FLUID RUNNING ORDERED. GROSSMAN CATH IN PLACE, MODERATE URINE OUTPUT NOTED. SAFETY MEASURES HAVE BEEN PROVIDED AND IMPLEMENTED. PATIENT BED ALARM IS ON. HEAD OF BED ELEVATED. BED IS LOCKED, IN LOWEST POSITION AND SIDE RAILS UP. CALL LIGHT WITHIN REACH OF THE PATIENT. APPLICABLE ISOLATION PRECAUTIONS IN PLACE. WILL CONTINUE TO MONITOR AND REASSESS FOR ANY CHANGES AND WILL CARRY OUT ANY ONGOING AND ACTIVE MD ORDER.
[2021-05-31 20:00] VITALS: BP 124/83
[2021-05-31 23:31] LABS: HEMATOCRIT 28 % (39-51); HEMOGLOBIN 9.5 g/dL (13.5-17.5); MEAN CORPUSCULAR HGB CONC 34 g/dl (31.0-36.0); MEAN CORPUSCULAR VOLUME 88 fL (80-96); PLATELET COUNT (AUTO) 356 K/uL (150-450); RED BLOOD CELL COUNT(AUTO) 3.18 MIL/uL (4.5-6.0); WHITE BLOOD COUNT (AUTO) 18.7 K/uL (4.3-11.0)
[2021-06-01] VITALS: BP 148/98
--- NOTE | 2021-06-01 00:12 | NUR ---
DANILO NOTES NOTED PT'S TEMP @ 100.4@000O; COOLING MEASURES DONE. INFORMED FERMIN GONZALEZ ABOUT RECENT TEMP OF PT, ADVISED MD THAT PT HAS BEEN DX FOR GI BLEED AND HAD BEEN PASSING BLOODY STOOL. FERMIN GONZALEZ SAID WE CANT GIVE TYLENOL SUPP AT THIS TIME AND JUST GIVE TYLENOL PRN VIA GTUBE. DANILO AKCNOWLEDGED. JIMMIE CARRASCO MADE AWARE. Addendum: 06/01/21 at 0118 by IHSAN HERNANDEZ RN @0115 pt's TEMP IS NOW AT 98.9 AFTER PROVIDING COOLING MEASURES. JIMMIE CARRASCO MADE AWARE. WILL CONTINUE RENDERING COOLING MEASURES AND CONTINUE TO MONITOR.
--- NOTE | 2021-06-01 00:35 | NUR ---
RN NOTES PRIMARY RN AND SUGARCANE RESEARCH TECHNICIAN @BEDSIDE , DIESEL BUS MECHANIC ADVISED THAT PT'S GTUBE WAS OUT. INFORMED ONCALL MD (DR. KIM) ABOUT CURRENT STATUS; G TUBE OUT; RESIDUAL TAKEN 70CC OF WHITE CLOUDY FLUID; WAS ADVISED TO KEEP GTUBE IN AND SECURE WITH TAPE. ORDERED KUB XRAY STAT TO CONFIRM PLACEMENT OF GTUBE. NO MEDS VIA GTUBE FOR NOW. DR. KIM ALSO MENTIONED TO DO COOLING MEASURES FOR FOR FEVER WE CANT USE GTUBE AT THIS TIME. RN ACKNOWLEDGED. WILL CONTINUE TO MONITOR AND ASSESS THROUGHOUT THE SHIFT.
[2021-06-01] MEDS ORDERED: DIATR MEGLU/DIATRIZOATE SODIUM 30 ML BOTTLE (GASTROGRAPHIN) ONE (00:56)
[2021-06-01] MEDS: MORPHINE SULFATE INJ 4 MG/ML DISP.SYRIN IV PRN ×4 (01:25→20:09)
[2021-06-01 04:00] VITALS: BP 143/87
[2021-06-01] MEDS: LORAZEPAM INJ 2 MG/ML VIAL IV PRN ×4 (05:58→23:44)
--- NOTE | 2021-06-01 07:00 | NUR ---
RN CLOSING NOTE: PATIENT REMAINS IN ROOM IN NO SIGNS OF RESPIRATORY DISTRESS, PATIENT STILL ON MECH VENT WITH SETTINGS PRESCRIBED ;TOLERATING WELL SATURATING @ >95% SP02. SAFETY MEASURES IMPLEMENTED, BED IN LOWEST POSITION, LOCKED, SIDE RAILS UP, CALL LIGHT WITHIN REACH. ALL NEEDS AND ORDERS ADDRESSED DURING THE SHIFT. IV ACCESS MAINTAINED INTACT, SECURED AND FLUSHING WELL. ALL DUE MEDS GIVEN ORDERED & SCHEDULED ; PATIENT TOLERATED WELL. PATIENT KEPT CLEAN AND COMFORTABLE WITHIN THE SHIFT. PATIENT ENDORSED TO INCOMING SHIFT RN WITH STABLE VITAL SIGN AND FOR CONTINUITY OF CARE.
[2021-06-01 07:29] LABS: BASOPHILS # (AUTO) 0.1 K/uL (0.0-0.2); BASOPHILS % (AUTO) 0.3 % (0.0-2.0); EOSINOPHILS % (AUTO) 0.5 % (0.0-6.0); HEMATOCRIT 27 % (39-51); HEMOGLOBIN 8.9 g/dL (13.5-17.5); LYMPHOCYTES # (AUTO) 1.3 K/uL (0.8-4.8); LYMPHOCYTES % (AUTO) 8.6 % (20.0-44.0); MEAN CORPUSCULAR HGB CONC 34 g/dl (31.0-36.0); MEAN CORPUSCULAR VOLUME 88 fL (80-96); MONOCYTES # (AUTO) 1.7 K/uL (0.1-1.30); MONOCYTES % (AUTO) 11.2 % (2.0-12.0); NEUTROPHILS % (AUTO) 79.4 % (43.0-81.0); PLATELET COUNT (AUTO) 288 K/uL (150-450); RED BLOOD CELL COUNT(AUTO) 3.01 MIL/uL (4.5-6.0); WHITE BLOOD COUNT (AUTO) 15.1 K/uL (4.3-11.0)
[2021-06-01 07:38] LABS: CALCIUM, SERUM 8.7 mg/dL (8.5-10.1); CREATININE 0.5 mg/dL (0.6-1.3); POTASSIUM 3.1 mmol/L (3.5-5.1)
--- NOTE | 2021-06-01 07:39 | NUR ---
RN OPENING NOTE Pt is A/O X 4, on mechanical vent, no respiratory distress, no SOB. NPO, denies any distress. Enteral feeding on hold, Left hand/JACLYN Midline in place. Safety precautions implemented, bed locked in lowest position, call light within reach.
[2021-06-01 08:00] VITALS: BP 116/54
[2021-06-01] MEDS: PANTOPRAZOLE 40 MG VIAL IV SCH ×2 (08:42→20:09)
[2021-06-01] MEDS: CEFEPIME 2 GM in IV D5W 100 ML IV SCH ×2 (08:43→20:09)
[2021-06-01] MEDS: POTASSIUM CL. PREMIX PERIPHER. 50 ML IV SCH ×4 (11:33→15:18)
[2021-06-01 12:00] VITALS: BP 109/69
[2021-06-01] MEDS ORDERED: TRAZODONE 50 MG TABLET PO PRN (13:00)
[2021-06-01] MEDS ORDERED: HYDROCODONE/APAP 5/325MG TABLET GT PRN (13:00)
[2021-06-01] MEDS ORDERED: POLYVINYL ALCOHOL 15 ML BOTTLE EACHEYE PRN (13:00)
[2021-06-01] MEDS ORDERED: HOME MED MISCELLANEOUS XX SCH ×5 (13:00)
[2021-06-01] MEDS ORDERED: MAGNESIUM HYDROXIDE 30 ML UDC GT PRN (13:00)
[2021-06-01] MEDS ORDERED: BISACODYL SUPP (10 MG) 10 MG/SUPP.RECT SUPP.RECT RC PRN (13:00)
[2021-06-01] MEDS ORDERED: ACETAMINOPHEN 650 MG/20.3 ML UDC GT PRN (13:00)
[2021-06-01] MEDS ORDERED: HYDROCODONE/APAP 10/325MG TABLET GT PRN (13:00)
[2021-06-01] MEDS ORDERED: NA PHOS,M-B/NA PHOS,DI-BA 1 EA ENEMA RC PRN (13:00)
[2021-06-01] MEDS ORDERED: ALBUTEROL FS 2.5 MG/0.5 ML VIAL.NEB NEB PRN (14:00)
[2021-06-01] MEDS ORDERED: IPRATROPIUM NEB FS 0.5 MG/2.5 ML AMPUL.NEB NEB PRN (14:00)
[2021-06-01 14:47] LABS: HEMATOCRIT 26 % (39-51); HEMOGLOBIN 8.7 g/dL (13.5-17.5); MEAN CORPUSCULAR HGB CONC 33 g/dl (31.0-36.0); MEAN CORPUSCULAR VOLUME 88 fL (80-96); PLATELET COUNT (AUTO) 251 K/uL (150-450); RED BLOOD CELL COUNT(AUTO) 2.97 MIL/uL (4.5-6.0); WHITE BLOOD COUNT (AUTO) 15.4 K/uL (4.3-11.0)
[2021-06-01] MEDS ORDERED: JEVITY 1.2 CAL 1,000 ML BOTTLE GT PRN (15:00)
[2021-06-01] MEDS: SIMETHICONE 80 MG TAB.CHEW GT SCH ×3 (15:18→20:09)
[2021-06-01 16:00] VITALS: BP 106/77
[2021-06-01] MEDS: CHLORHEXIDINE GLUCONATE 15 ML UDC MM SCH (16:29)
[2021-06-01] MEDS: MECLIZINE HCL 25 MG TABLET GT SCH (16:29)
[2021-06-01] MEDS ORDERED: METHENAMINE MANDELATE 1 GM TABLET PO SCH (17:00)
--- NOTE | 2021-06-01 19:01 | NUR ---
RN Closing notes Patient awake and alert, able to verbalize needs. Patient still on vent via trach as ordered and tolerating current vent settings well. No SOB, denies pain at this time. Patient's GTF restarted per MD's order; Jevity 1.2 @ 25ml/hr, increase by 10ml/hr Q4H with target rate of 50ml/hr as tolerated. GT meds also restarted per MD's order. Patient able to tolerate GTF at this time, no GT residuals noted, GT placement checked and verified via auscultation. Patient's IV access; Left hand and RUE midline both patent and flushing well with intact dressing. All needs met, turned and repositioned Q2H. Call light within easy reach. Will endorse care to incoming RN for continuity of care.
--- NOTE | 2021-06-01 19:45 | NUR ---
RN NOTE PATIENT IN BED ALERT AND ORIENTED X4. ABLE TO MAKE NEEDS KNOWN. ON TRACH TO VENT TOLERATING SETTINGS WELL. NO SIGNS OF ACUTE DISTRESS. ONGOING G-TUBE JEVITY @ 25ML/HR. WITH 5 CC RESIDUAL. IV ACCESS ON LEFT HAND AND LEFT UPPER ARM MIDLINE, PATENT AND INTACT. BED LOCKED AND IN LOWEST POSITION. CALL LIGHT WITHIN REACH. ALL NEEDS ANTICIPATED.
[2021-06-01 20:00] VITALS: BP 134/82
[2021-06-01] MEDS: IPRATROPIUM NEB FS 0.5 MG/2.5 ML AMPUL.NEB NEB SCH ×2 (20:06→20:08)
[2021-06-01] MEDS: ALBUTEROL FS 2.5 MG/0.5 ML VIAL.NEB NEB SCH ×2 (20:06→20:07)
[2021-06-01] MEDS ORDERED: hydrOXYzine PAMOATE 25 MG CAPSULE GT SCH (22:00)
[2021-06-01] MEDS ORDERED: SENNOSIDES 8.6 MG TABLET GT SCH (22:00)
--- NOTE | 2021-06-01 23:34 | NUR ---
ENDORSED TO SOTERO FOR CONTINUATION OF CARE.
[2021-06-02] VITALS: BP 115/75
[2021-06-02] MEDS: MORPHINE SULFATE INJ 4 MG/ML DISP.SYRIN IV PRN ×3 (01:39→15:10)
--- NOTE | 2021-06-02 01:39 | NUR ---
oyster planter Notes Patient was given 4mg of Morphine IV for 10/10 pain. Will continue to monitor the patient.
[2021-06-02] MEDS: ALBUTEROL FS 2.5 MG/0.5 ML VIAL.NEB NEB SCH ×3 (02:35→13:31)
[2021-06-02] MEDS: IPRATROPIUM NEB FS 0.5 MG/2.5 ML AMPUL.NEB NEB SCH ×3 (02:35→13:31)
[2021-06-02 04:00] VITALS: BP 115/70
[2021-06-02] MEDS: LORAZEPAM INJ 2 MG/ML VIAL IV PRN ×2 (06:01→12:35)
[2021-06-02 06:34] LABS: BASOPHILS # (AUTO) 0.1 K/uL (0.0-0.2); BASOPHILS % (AUTO) 0.5 % (0.0-2.0); EOSINOPHILS % (AUTO) 1.4 % (0.0-6.0); HEMATOCRIT 27 % (39-51); HEMOGLOBIN 9.1 g/dL (13.5-17.5); LYMPHOCYTES # (AUTO) 0.9 K/uL (0.8-4.8); LYMPHOCYTES % (AUTO) 6.6 % (20.0-44.0); MEAN CORPUSCULAR HGB CONC 34 g/dl (31.0-36.0); MEAN CORPUSCULAR VOLUME 87 fL (80-96); MONOCYTES # (AUTO) 1.5 K/uL (0.1-1.30); MONOCYTES % (AUTO) 10.6 % (2.0-12.0); NEUTROPHILS # (AUTO) 11.6 K/uL (1.8-8.9); NEUTROPHILS % (AUTO) 80.9 % (43.0-81.0); PLATELET COUNT (AUTO) 239 K/uL (150-450); RED BLOOD CELL COUNT(AUTO) 3.06 MIL/uL (4.5-6.0); WHITE BLOOD COUNT (AUTO) 14.4 K/uL (4.3-11.0)
[2021-06-02 06:49] LABS: CALCIUM, SERUM 8.3 mg/dL (8.5-10.1); CREATININE 0.5 mg/dL (0.6-1.3); POTASSIUM 3.8 mmol/L (3.5-5.1)
--- NOTE | 2021-06-02 07:42 | NUR ---
RN OPENING NOTE Pt is Awake, A/O X 4, on mechanical ventilator tolerating settings well, no respiratory distress, no SOB, tele reading sinus tach-rhytm. Enteral feeding ongoing tolerating well, HOB maintained at fowlers position. F/C in place, draining urine. safety precautions implemented, bed locked in lowest position, call light within reach.
[2021-06-02 08:00] VITALS: BP 107/57
[2021-06-02] MEDS: CHLORHEXIDINE GLUCONATE 15 ML UDC MM SCH ×2 (08:33→16:52)
[2021-06-02] MEDS: PANTOPRAZOLE 40 MG VIAL IV SCH (08:34)
[2021-06-02] MEDS: MECLIZINE HCL 25 MG TABLET GT SCH ×2 (08:35→16:52)
[2021-06-02] MEDS: SIMETHICONE 80 MG TAB.CHEW GT SCH ×3 (08:40→16:52)
[2021-06-02] MEDS: CEFEPIME 2 GM in IV D5W 100 ML IV SCH (08:44)
[2021-06-02] MEDS ORDERED: DOCUSATE SODIUM LIQ 100 MG/10 ML UDC GT SCH (09:00)
[2021-06-02] MEDS ORDERED: ASCORBIC ACID 500 MG TABLET GT SCH (09:00)
[2021-06-02] MEDS ORDERED: MULTIVITAMINS,THERAGRAN 1 UDTAB TABLET GT SCH (09:00)
[2021-06-02] MEDS ORDERED: CALCIUM CARB 250MG /VITAMIN D 1 UDTAB PO SCH (09:00)
[2021-06-02] MEDS ORDERED: CHLORHEXIDINE GLUCONATE 4% 118 ML BOTTLE TP SCH (09:00)
[2021-06-02] MEDS ORDERED: JEVITY 1.2 CAL 1,000 ML BOTTLE GT PRN (09:09)
[2021-06-02 12:00] VITALS: BP 130/79
[2021-06-02 16:00] VITALS: BP 113/69
--- NOTE | 2021-06-02 18:07 | NUR ---
PHYSICIAN SCIENTIST NOTE [place] [facility] [place] [facility], pertinent info sent, Spoke with Meg gave report. Pt is alert and oriented x 3-4, tolerating settings well, changed dressings and provided PM Care prior to departure, patient has Left hand IV and JACLYN Midline flushing well patent, will continue ABx at SNF. Gtube and f/c in place. Left in stable condition.
[2021-06-02] MEDS ORDERED: ZOLPIDEM TARTRATE 5 MG TABLET PO PRN ×2 (21:00→22:00)
== END 2021-06-02 17:50 | DRG 720 ==
LOC: ER 21:46 → TRANSITION 23:35 → TELE1 05-30 08:20
PROVIDERS: ADMIT Student in an Organized Health Care Education/Training Program; ATTEND Nurse Practitioner Acute Care
PROC: 5A1945Z Respiratory Ventilation, 24-96 Consecutive Hours (ICD-10-PCS; principal; 2021-05-29)
PROC: 05H633Z Insertion of Infusion Device into Left Subclavian Vein, Percutaneous Approach (ICD-10-PCS; 2021-05-31)
PROC: B547ZZA Ultrasonography of Left Subclavian Vein, Guidance (ICD-10-PCS; 2021-05-31)
DX: A41.9 Sepsis, unspecified organism (principal); J96.20 Acute and chronic respiratory failure, unspecified whether with hypoxia or hypercapnia; R53.2 Functional quadriplegia; Z99.11 Dependence on respirator [ventilator] status; Z93.0 Tracheostomy status; K92.2 Gastrointestinal hemorrhage, unspecified; N39.0 Urinary tract infection, site not specified; Z87.442 Personal history of urinary calculi; R13.10 Dysphagia, unspecified; Z87.891 Personal history of nicotine dependence; Z20.822 Contact with and (suspected) exposure to COVID-19; Z93.1 Gastrostomy status; Z87.440 Personal history of urinary (tract) infections; M21.371 Foot drop, right foot; M21.372 Foot drop, left foot; E87.6 Hypokalemia; N20.0 Calculus of kidney; Z74.01 Bed confinement status; G80.9 Cerebral palsy, unspecified; D64.9 Anemia, unspecified
CPT/HCPCS: 31720; 36410; 36415; 71045-TC; 74018; 80048-TC; 80061-TC; 80076-TC; 81001; 82272-TC; 83605-TC; 83735-TC; 84100-TC; 84484-TC; 85025-TC; 85027-TC; 85730-TC; 86850-TC; 87040-TC; 87081-TC; 87086-TC; 92526; 92611-TC; 94002-TC; 94003-TC; 94760-TC; 94762-TC; 94799-TC; 99082-TC; A4217; A6403; C9113; C9803; G0378; J0692; J0696; J2060; J2270; J2405; J3480; J7030; J7042; J7050; J7060; J8597; Q0177; Q9963; U0003

== ENCOUNTER 2021-08-31 16:37 | Inpatient (IN) | payer MEDICAID, OTHER ==
[~2021-08-31] VITALS: Ht 175.3 cm; Wt 58.1 kg
[~2021-08-31 16:37] MED LIST changes: -ALBU2.5V13 HHN; -AMIN30LI27 GT; -BISA-79 GT; +BISA10SU11 RC; -CEFE2VIA3 IV; +CHLO118L6 TP; +CHLO473M5 MM; -FAMO20TA8 GT; -GABA-534 GT; +HYDR-3895 GT; -IPRA0.2S9 HHN; +IPRA4AER IH; +LORA-259 GT; +MELA3TAB41 GT; +METO-295 GT; +POLY15DR40 EACHEYE; +SENN-261 GT; +TRAZ-182 GT; -VORI200T PO
--- NOTE | 2021-08-31 16:50 | NUR ---
BIB RA C/O BLOOD IN STOOL, GENERALIZED ABDOMINAL PAIN, NAUSEA X YESTERDAY. FEVER 100.0 F, TACHYCARDIC HR 118. ALL OTHER VS STABLE. AAOX4, NONAMBULATORY, QUADRIPLEGIC, ON MECHANICAL VENTILATION. ON MONITOR.
--- NOTE | 2021-08-31 16:55 | NUR ---
PT TOLERATING VENT SETTINGS WELL SATTING AT 100%: FIO2: 40% PEEP 5 TV 550 RR 16
[2021-08-31] MEDS ORDERED: ACET-2605 GT (17:05)
[2021-08-31] MEDS ORDERED: PANT40SU2 GT (17:05)
[2021-08-31] MEDS ORDERED: TRAM50TA2 GT (17:05)
--- NOTE | 2021-08-31 17:29 | NUR ---
Blood sample obtained and sent to lab
[2021-08-31] MEDS ORDERED: IV NS 0.9% 1,000 ML BAG IV ONE ×2 (17:30→18:30)
--- NOTE | 2021-08-31 17:31 | NUR ---
Unable to obtained urine sample at this time. Will try again.
--- NOTE | 2021-08-31 17:35 | NUR ---
PT TAKEN TO CT
[2021-08-31 17:41] LABS: BASOPHILS # (AUTO) 0.2 K/uL (0.0-0.2); BASOPHILS % (AUTO) 0.8 % (0.0-2.0); EOSINOPHILS % (AUTO) 0.1 % (0.0-6.0); HEMATOCRIT 34 % (39-51); LYMPHOCYTES # (AUTO) 1.9 K/uL (0.8-4.8); LYMPHOCYTES % (AUTO) 7.2 % (20.0-44.0); MEAN CORPUSCULAR HGB CONC 32 g/dl (31.0-36.0); MEAN CORPUSCULAR VOLUME 83 fL (80-96); MONOCYTES # (AUTO) 2.2 K/uL (0.1-1.30); MONOCYTES % (AUTO) 8.2 % (2.0-12.0); NEUTROPHILS # (AUTO) 22.2 K/uL (1.8-8.9); NEUTROPHILS % (AUTO) 83.7 % (43.0-81.0); PLATELET COUNT (AUTO) 453 K/uL (150-450); RED BLOOD CELL COUNT(AUTO) 4.05 MIL/uL (4.5-6.0); WHITE BLOOD COUNT (AUTO) 26.6 K/uL (4.3-11.0)
--- NOTE | 2021-08-31 17:45 | NUR ---
PT BACK FROM CT
--- NOTE | 2021-08-31 17:54 | NUR ---
IV FLUIDS RUNNING
[2021-08-31 18:03] LABS: CALCIUM, SERUM 9.4 mg/dL (8.5-10.1); CARBON DIOXIDE 21 mmol/L (21-32); CHLORIDE 94 mmol/L (98-107); CREATININE 0.5 mg/dL (0.6-1.3); GLUCOSE 103 mg/dL (74-106); SODIUM SERUM 129 mmol/L (136-145); UREA NITROGEN, BLOOD 18 mg/dL (7-18)
[2021-08-31 18:09] LABS: ALANINE AMINOTRANSFERASE 60 U/L (12-78); ALBUMIN 3.3 g/dL (3.4-5.0); ALKALINE PHOSPHATASE 152 U/L (46-116); ASPARTATE AMINOTRANSFERASE 38 U/L (15-37); BILIRUBIN,DIRECT 0.2 mg/dL (0.0-0.2); LIPASE 20 U/L (73-393); TOTAL PROTEIN, SERUM 8.9 g/dL (6.4-8.2)
[2021-08-31] MEDS ORDERED: MORPHINE SULFATE INJ 2 MG/ML DISP.SYRIN ONE ×2 (18:13→20:35)
[2021-08-31] MEDS ORDERED: PIPERACILLIN /TAZOBACTAM 3.375 G in IV D5W 50 ML IV ONE (18:30)
[2021-08-31] MEDS ORDERED: MORPHINE SULFATE INJ 2 MG/ML DISP.SYRIN IV ONE ×2 (18:30→21:00)
--- NOTE | 2021-08-31 18:38 | NUR ---
CALLED PHARMACY FOR JILLIAN
--- NOTE | 2021-08-31 18:41 | NUR ---
URINE SAMPLE OBTAINED AND SENT TO LAB
[2021-08-31 19:02] LABS: BILIRUBIN,URINE NEGATIVE (NEGATIVE); COLOR,URINE YELLOW (YELLOW); LEUKOCYTE ESTERASE ,URINE SMALL (NEGATIVE); NITRITE, URINE POSITIVE (NEGATIVE); PH,URINE 7.5 (5.0-8.0); PROTEIN,URINE 100 mg/dl (NEGATIVE); UGLUCOSE NEGATIVE (NEGATIVE); UROBILINOGEN,URINE 0.2 EU/dL (0.2)
--- NOTE | 2021-08-31 19:39 | NUR ---
COVID SWAB SENT TO LAB
[2021-08-31 19:47] LABS: BACTERIA,URINE 3+ /HPF (None Seen); SQUAMOUS EPITHELIAL CELL,UR 0-2 /HPF (None Seen); TRIPLE PHOSPHATE CRYSTAL,UR Moderate /HPF (None Seen)
--- NOTE | 2021-08-31 19:48 | NUR ---
DR. FLANAGAN ON THE PHONE WITH DR SLATER.
--- NOTE | 2021-08-31 20:05 | NUR ---
GOT BED 119-2
--- NOTE | 2021-08-31 20:34 | NUR ---
YAMILET WADDELL BROTHER UPDATE:
--- NOTE | 2021-08-31 20:49 | NUR ---
PT AFEBRILE T 98.5. SKIN WARM AND DRY TO TOUCH
--- NOTE | 2021-08-31 21:06 | NUR ---
RECTAL EXAM DONE BY DR. FLANAGAN
--- NOTE | 2021-08-31 21:53 | NUR ---
REPORT GIVEN TO JAKE CARRASCO FOR ISABELLA
[2021-08-31 22:30] VITALS: BP 105/67
--- NOTE | 2021-08-31 22:30 | NUR ---
RN ADMITTING NOTE RECEIVED PATIENT FROM ER VIA GURNEY ACCOMPANIED BY 2 ER STAFF AND TRANSFERRED TO BED VIA 2 PERSON ASSIST. PT IS AO X 4, IN NO SIGN OF ACUTE DISTRESS, RESPIRATIONS EVEN AND UNLABORED, SATURATION AT 100% ON TRACH PORTEX 7 TO MECHANICAL VENTILATOR WITH PRESCRIBED SETTINGS: AC 16, TV 550, FIO2 40%, PEEP 5. COMPREHENSIVE PHYSICAL ASSESSMENT AND PATIENT CARE DONE. REDNESS NOTED AT SACRUM AND B HEELS, AND A WOUND ON THE R BIG TOE. NOTED IV LINE AT LAC 20G, PATENT AND FLUSHING WELL, NO S/S OF INFECTION OR INFILTRATION NOTED. GTUBE IN PLACE, POSITIVE PLACEMENT NOTED. SUPRAPUBIC CATHETER CONNECTED TO URINE BAG IN PLACE, DRAINING TO A CLOUDY YELLOW OUTPUT, WITH SOME SEDIMENTS. BUE AND BLE ARE SPASTIC/CONTRACTED. SAFETY MEASURES AND ISOLATION PRECAUTION IN PLACE, CALL LIGHT WITHIN REACH OF PATIENT, BED ON LOWEST POSITION, SIDE RAILS UP X 3. WILL CONTINUE MONITOR AND ASSESS THROUGHOUT THE SHIFT. WILL CARRY OUT MD ORDERS ACCORDINGLY.
--- NOTE | 2021-08-31 22:38 | NUR ---
PT TRANSFERRED TO [facility] 119-1 VIA ACLS PROTOCOL WITH RT. ALL BELONGINGS WITH PT. VSS.
[2021-08-31] MEDS ORDERED: Z GUARD REMEDY 2 OZ OINT TP PRN (23:30)
[2021-08-31] MEDS ORDERED: MAG HYDROX/AL HYDROX/SIMETH 30 ML UDC PO PRN (23:30)
[2021-08-31] MEDS ORDERED: BISACODYL SUPP (10 MG) 10 MG/SUPP.RECT SUPP.RECT RC PRN (23:30)
[2021-08-31] MEDS ORDERED: JEVITY 1.2 CAL 1,000 ML BOTTLE GT PRN (23:30)
[2021-08-31] MEDS ORDERED: PIPERACILLIN /TAZOBACTAM 2.25 G VIAL IV ONE (23:43)
--- NOTE | 2021-08-31 23:45 | NUR ---
RN NOTE TELEPHONE CALL FROM [facility] OF LAB RELAYED CRITICAL LAB VALUE OF 2.6 FOR LACTIC ACID FROM 2.[address] KAPLAN WAS NOTIFIED, ACKNOWLEDGED WITH NO NEW ORDERS.
[2021-09-01] VITALS: BP 104/59
[2021-09-01] MEDS ORDERED: PIPERACILLIN /TAZOBACTAM 4.5 G in IV D5W 50 ML IV SCH
[2021-09-01] MEDS ORDERED: IPRATROPIUM NEB FS 0.5 MG/2.5 ML AMPUL.NEB NEB PRN
[2021-09-01] MEDS ORDERED: ALBUTEROL FS 2.5 MG/0.5 ML VIAL.NEB NEB PRN
[2021-09-01] MEDS: PIPERACILLIN /TAZOBACTAM 4.5 G in IV D5W 50 ML IV SCH ×2 (00:01→06:37)
[2021-09-01] MEDS: TRAZODONE 50 MG TABLET GT PRN (01:29)
[2021-09-01] MEDS: HYDROCODONE/APAP 5/325MG TABLET PO PRN ×3 (03:34→16:59)
[2021-09-01 04:00] VITALS: BP 91/52
[2021-09-01] MEDS ORDERED: PIPERACILLIN /TAZOBACTAM 3.375 G VIAL IV ONE (06:27)
[2021-09-01] MEDS: LORAZEPAM 1 MG TABLET GT PRN ×2 (06:43→13:01)
--- NOTE | 2021-09-01 07:46 | NUR ---
RN OPENING NOTE PATIENT RECEIVED IN BED, RESTING. PATIENT ON MECHANICAL VENTILATOR WITH 40% FIO2 WITH NO SIGNS OF LABORED BREATHING AT THIS TIME. GROSSMAN CATHETER ON, PATENT AND DRAINING URINE. G TUBE IN PLACE, NO FEEDING SCHEDULED AT THIS TIME. LEFT AC 20G IN PLACE, PATENT WITH NO SIGNS OF INFILTRATION. BED LOCKED AND IN LOWEST POSITION, CALL LIGHT WITHIN REACH, 3 SIDE RAILS UP. ALL SAFETY MEASURES IMPLEMENTED. NO SIGNS OF DISTRESS NOTED AT THIS TIME. WILL CONTINUE TO MONITOR.
[2021-09-01 08:02] LABS: BASOPHILS # (AUTO) 0.1 K/uL (0.0-0.2); BASOPHILS % (AUTO) 0.4 % (0.0-2.0); EOSINOPHILS % (AUTO) 0.8 % (0.0-6.0); HEMATOCRIT 28 % (39-51); LYMPHOCYTES # (AUTO) 2.2 K/uL (0.8-4.8); LYMPHOCYTES % (AUTO) 11.4 % (20.0-44.0); MEAN CORPUSCULAR HGB CONC 33 g/dl (31.0-36.0); MEAN CORPUSCULAR VOLUME 84 fL (80-96); MONOCYTES % (AUTO) 10.6 % (2.0-12.0); NEUTROPHILS # (AUTO) 14.7 K/uL (1.8-8.9); NEUTROPHILS % (AUTO) 76.8 % (43.0-81.0); PLATELET COUNT (AUTO) 314 K/uL (150-450); WHITE BLOOD COUNT (AUTO) 19.2 K/uL (4.3-11.0)
[2021-09-01 08:07] LABS: CALCIUM, SERUM 8.2 mg/dL (8.5-10.1); CREATININE 0.5 mg/dL (0.6-1.3); MAGNESIUM 2.2 mg/dL (1.8-2.4); PHOSPHORUS 3.1 mg/dL (2.5-4.9); POTASSIUM 4.3 mmol/L (3.5-5.1)
[2021-09-01 08:51] LABS: THYROID STIMULATING HORMONE 0.553 uIU/mL (0.358-3.74)
[2021-09-01] MEDS: HEPARIN SODIUM, PORCINE 5000 UNITS/1 ML VIAL SQ SCH ×2 (08:58→21:00)
[2021-09-01] MEDS: CHLORHEXIDINE GLUCONATE 15 ML UDC MM SCH ×2 (09:00→16:58)
[2021-09-01] MEDS: SIMETHICONE 80 MG TAB.CHEW GT SCH (09:00)
[2021-09-01] MEDS: BACLOFEN (10 MG) 10 MG TABLET GT SCH ×3 (10:02→16:59)
[2021-09-01] MEDS: PANTOPRAZOLE 40 MG/PACK PACK GT SCH ×2 (10:02→21:29)
[2021-09-01 10:52] VITALS: BP 93/53
[2021-09-01 12:00] VITALS: BP 100/59
[2021-09-01] MEDS: ZOSYN IVPB 3.375 G in IV D5W 50ml IV SCH ×3 (12:51→23:53)
[2021-09-01] MEDS ORDERED: NA PHOS,M-B/NA PHOS,DI-BA 1 EA ENEMA RC ONE (14:00)
--- NOTE | 2021-09-01 14:27 | NUR ---
RN NOTE PATIENT HAD A BLOODY BM, MD AWARE. STILL ORDERED TO PROCEED WITH THE ENEMA. WILL CONTINUE TO MONITOR.
[2021-09-01] MEDS: ACETAMINOPHEN 325 MG TABLET PO PRN ×3 (15:04→21:30)
[2021-09-01] MEDS ORDERED: ANESTHESIA TRAY IN PYXIS 1 EA TRAY MC ONE (15:14)
[2021-09-01 16:00] VITALS: BP 103/64
--- NOTE | 2021-09-01 18:31 | NUR ---
RN CLOSING NOTE PATIENT IN BED, AWAKE, A&OX4. PATIENT ON MECHANICAL VENTILATOR WITH 40% FIO2 WITH NO SIGNS OF LABORED BREATHING AT THIS TIME. GROSSMAN CATHETER ON, PATENT AND DRAINING URINE. G TUBE IN PLACE, NO FEEDING SCHEDULED AT THIS TIME. LEFT AC 20G IN PLACE, PATENT WITH NO SIGNS OF INFILTRATION. BED LOCKED AND IN LOWEST POSITION, CALL LIGHT WITHIN REACH, 3 SIDE RAILS UP. ALL SAFETY MEASURES IMPLEMENTED. NO SIGNS OF DISTRESS NOTED AT THIS TIME. ALL NEEDS ATTENDED DURING SHIFT. 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
--- NOTE | 2021-09-01 19:00 | NUR ---
RN NOTE RECEIVED PATIENT IN BED, ON SEMI WELLS'S, AO X 4, IN NO S/SX OF ACUTE DISTRESS AT THIS TIME. SATURATION AT 100% ON TRACH PORTEX 7 TO MECHANICAL VENTILATOR WITH PRESCRIBED SETTINGS: AC 16, TV 550, FIO2 40%, PEEP 5. ST ON THE MONITOR, HR IS 107. NNOTED IV LINE AT LAC 20G, PATENT AND FLUSHING WELL, NO S/S OF INFECTION OR INFILTRATION NOTED. GTUBE IN PLACE, POSITIVE PLACEMENT NOTED. SUPRAPUBIC CATHETER CONNECTED TO URINE BAG IN PLACE, DRAINING TO A CLOUDY YELLOW OUTPUT, WITH SOME SEDIMENTS. BUE AND BLE ARE SPASTIC/CONTRACTED. SAFETY MEASURES AND ISOLATION PRECAUTION IN PLACE, CALL LIGHT WITHIN REACH OF PATIENT, BED ON LOWEST POSITION, SIDE RAILS UP X 3. WILL CONTINUE MONITOR AND ASSESS THROUGHOUT THE SHIFT.
[2021-09-01 20:00] VITALS: BP 109/66
[2021-09-01] MEDS: ZOLPIDEM TARTRATE 5 MG TABLET GT SCH ×2 (21:28)
[2021-09-01] MEDS: SENNOSIDES 8.6 MG TABLET GT SCH (21:29)
[2021-09-01] MEDS ORDERED: ZOLPIDEM TARTRATE 5 MG TABLET GT SCH (22:00)
[2021-09-01] MEDS: JEVITY 1.2 CAL 1,000 ML BOTTLE GT PRN (22:54)
[2021-09-02] VITALS: BP 103/78
[2021-09-02] MEDS: TRAZODONE 50 MG TABLET GT PRN (01:57)
[2021-09-02] MEDS: ONDANSETRON HCL/PF 4 MG/2 ML VIAL IVP PRN ×3 (02:56→21:39)
[2021-09-02 04:00] VITALS: BP 105/64
[2021-09-02] MEDS: HYDROCODONE/APAP 5/325MG TABLET PO PRN ×3 (04:04→17:50)
[2021-09-02] MEDS: LORAZEPAM 1 MG TABLET GT PRN ×2 (05:02→15:02)
[2021-09-02] MEDS: ZOSYN IVPB 3.375 G in IV D5W 50ml IV SCH ×4 (05:35→23:19)
[2021-09-02] MEDS: ACETAMINOPHEN 325 MG TABLET PO PRN ×2 (05:54→21:42)
--- NOTE | 2021-09-02 07:26 | NUR ---
RN OPENING NOTE PATIENT RECEIVED IN BED, RESTING. PATIENT ON MECHANICAL VENTILATOR WITH 40% FIO2 WITH NO SIGNS OF LABORED BREATHING AT THIS TIME. GROSSMAN CATHETER ON, PATENT AND DRAINING URINE. G TUBE IN PLACE, RUNNING JEVITY 1.2 AT 50CC/HR. LEFT AC 20G IN PLACE. BED LOCKED AND IN LOWEST POSITION, CALL LIGHT WITHIN REACH, 3 SIDE RAILS UP. ALL SAFETY MEASURES IMPLEMENTED. NO SIGNS OF DISTRESS NOTED AT THIS TIME. WILL CONTINUE TO MONITOR.
[2021-09-02 08:00] VITALS: BP 100/58
[2021-09-02] MEDS: HEPARIN SODIUM, PORCINE 5000 UNITS/1 ML VIAL SQ SCH ×2 (08:37→21:00)
[2021-09-02] MEDS: SIMETHICONE 80 MG TAB.CHEW GT SCH (08:39)
[2021-09-02] MEDS: PANTOPRAZOLE 40 MG/PACK PACK GT SCH ×2 (08:39→21:42)
[2021-09-02] MEDS: BACLOFEN (10 MG) 10 MG TABLET GT SCH ×3 (08:39→17:50)
[2021-09-02] MEDS: CHLORHEXIDINE GLUCONATE 15 ML UDC MM SCH ×2 (08:39→17:50)
--- NOTE | 2021-09-02 11:28 | NUR ---
RN NOTE BLOOD CULTURE SHOWS GRAM POSITIVE COCCI IN [place], DOCTOR MANA NOTIFIED. NO NEW ORDER AT THIS TIME. WILL CONTINUE TO MONITOR.
[2021-09-02 12:00] VITALS: BP 90/54
[2021-09-02] MEDS ORDERED: DIATR MEGLU/DIATRIZOATE SODIUM 120 ML BOTTLE (GASTROGRAPHIN) ONE (15:03)
[2021-09-02] MEDS ORDERED: DIATR MEGLU/DIATRIZOATE SODIUM 30 ML BOTTLE (GASTROGRAPHIN) ONE (15:03)
[2021-09-02 16:00] VITALS: BP 102/67
[2021-09-02] MEDS ORDERED: IOHEXOL-300 100 ML VIAL IV ONE (17:18)
[2021-09-02] MEDS ORDERED: IV NS 0.9% 250 ML IV ONE (17:19)
--- NOTE | 2021-09-02 18:47 | NUR ---
RN CLOSING NOTE PATIENT IN BED, AWAKE, A&OX3. PATIENT ON MECHANICAL VENTILATOR WITH 40% FIO2 WITH NO SIGNS OF LABORED BREATHING AT THIS TIME. GROSSMAN CATHETER ON, PATENT AND DRAINING URINE. G TUBE IN PLACE. LEFT AC 20G IN PLACE. BED LOCKED AND IN LOWEST POSITION, CALL LIGHT WITHIN REACH, 3 SIDE RAILS UP. ALL SAFETY MEASURES IMPLEMENTED. NO SIGNS OF DISTRESS NOTED AT THIS TIME. ALL NEEDS ATTENDED DURING SHIFT, ALL MEDICATION ADMINISTERED IN TIME. WILL ENDORSE TO MANAGER WELDING NURSE.
--- NOTE | 2021-09-02 19:50 | NUR ---
RN OPENING NOTE REC'D PT ON SAME VENT SETTINGS BEFORE, PORTEX 7 AC 16 VT 550 FIO2 30 PEEP 5. PT TOLERATING WELL. NO DISTRESS NOTED. PT A/O X4, DENIES PAIN, AT THIS TIME. PT SINUS TACH ON LEAD SOFTWARE ENGINEER, IV SITE INTACT. FLUSHED. NO S/S OF INFILTRATION NOTED. PT GTUBE CHECKED FOR PLACEMENT, 0 RESIDUAL. FLUSHED, PT IS BED BOUND, WILL T/R Q2H AND OFFLOAD. SAFETY MEASURES IN PLACE. HOB ELEVATED SIDE RAILS UP X2, BED LOCKED IN LOWEST POSITION. WILL CONT TO MONITOR CLOSELY.
[2021-09-02 20:00] VITALS: BP 98/66
[2021-09-02] MEDS: ZOLPIDEM TARTRATE 5 MG TABLET GT SCH (21:43)
[2021-09-02] MEDS: SENNOSIDES 8.6 MG TABLET GT SCH (21:43)
[2021-09-03] VITALS: BP 90/59
[2021-09-03 04:00] VITALS: BP 98/58
[2021-09-03] MEDS: HYDROCODONE/APAP 5/325MG TABLET PO PRN ×3 (04:09→21:20)
[2021-09-03] MEDS: ONDANSETRON HCL/PF 4 MG/2 ML VIAL IVP PRN ×2 (04:18→11:08)
[2021-09-03] MEDS: ZOSYN IVPB 3.375 G in IV D5W 50ml IV SCH ×4 (05:23→23:26)
[2021-09-03 06:37] LABS: CALCIUM, SERUM 8.6 mg/dL (8.5-10.1); CREATININE 0.5 mg/dL (0.6-1.3); MAGNESIUM 1.9 mg/dL (1.8-2.4); PHOSPHORUS 2.1 mg/dL (2.5-4.9); POTASSIUM 3.3 mmol/L (3.5-5.1)
[2021-09-03] MEDS: LORAZEPAM 1 MG TABLET GT PRN ×2 (06:44→15:35)
[2021-09-03 06:53] LABS: BASOPHILS # (AUTO) 0.1 K/uL (0.0-0.2); BASOPHILS % (AUTO) 0.7 % (0.0-2.0); EOSINOPHILS % (AUTO) 2.5 % (0.0-6.0); HEMATOCRIT 24 % (39-51); HEMOGLOBIN 7.8 g/dL (13.5-17.5); LYMPHOCYTES # (AUTO) 1.4 K/uL (0.8-4.8); LYMPHOCYTES % (AUTO) 11.5 % (20.0-44.0); MEAN CORPUSCULAR HGB CONC 33 g/dl (31.0-36.0); MEAN CORPUSCULAR VOLUME 84 fL (80-96); MONOCYTES # (AUTO) 1.3 K/uL (0.1-1.30); MONOCYTES % (AUTO) 10.5 % (2.0-12.0); NEUTROPHILS # (AUTO) 9.3 K/uL (1.8-8.9); NEUTROPHILS % (AUTO) 74.8 % (43.0-81.0); PLATELET COUNT (AUTO) 415 K/uL (150-450); RED BLOOD CELL COUNT(AUTO) 2.87 MIL/uL (4.5-6.0); WHITE BLOOD COUNT (AUTO) 12.5 K/uL (4.3-11.0)
--- NOTE | 2021-09-03 07:25 | NUR ---
RN OPENING NOTES RECEIVED RESTING IN BED. AWAKE. TRACH CONNECTED TO VENT, SETTINGS: AC:16, TV: 550, FIO2: 40% AND PEEP OF 5. TOLERATING VENT SETTINGS WELL. NO SOB OR ANY S/S OF ACUTE RESPIRATORY DISTRESS NOTED. TELE MONITOR READING ST. FOR MIDLINE INSERTION. GT IN PLACE. POSITIVE PLACEMENT CHECKED BY AUSCULTATION. NO RESIDUAL. TF ON HOLD. SAFETY MEASURES IMPLEMENTED. CALL LIGHT WITHIN REACH. BED LOCKED AND IN LOWEST POSITION WITH SIDE RAILS UP X2. HOB ELEVATED, BED ALARM ON. WILL CONTINUE TO MONITOR.
--- NOTE | 2021-09-03 07:36 | NUR ---
RN CLOSING NOTE NO SIGNIFICANT CHANGES IN PT CONDITION. PT HAD BOWEL MOVEMENT, MUCOID BLOODY, PT HX NOTED. NO DISTRESS NOTED. VSS. ENDORSED TO DAY SHIFT RN FOR CONTINUATION OF CARE.
[2021-09-03 08:00] VITALS: BP 108/67
[2021-09-03] MEDS ORDERED: NEUTRA PHOS 1 POWD.PACKET GT ONE (09:00)
[2021-09-03] MEDS ORDERED: POTASSIUM CHLORIDE 20 MEQ POWDER PACKET GT SCH (09:00)
[2021-09-03] MEDS: CHLORHEXIDINE GLUCONATE 15 ML UDC MM SCH ×2 (09:02→16:32)
[2021-09-03] MEDS: PANTOPRAZOLE 40 MG/PACK PACK GT SCH ×2 (09:02→21:17)
[2021-09-03] MEDS: BACLOFEN (10 MG) 10 MG TABLET GT SCH ×3 (09:02→16:31)
[2021-09-03] MEDS: SIMETHICONE 80 MG TAB.CHEW GT SCH (09:02)
[2021-09-03 12:00] VITALS: BP 108/62
--- NOTE | 2021-09-03 15:00 | NUR ---
RN NOTES NOTED BLOODY STOOL. MADE AWARE. DC HEPARIN. ORDER CARRIED OUT.
[2021-09-03 16:00] VITALS: BP 104/52
--- NOTE | 2021-09-03 19:10 | NUR ---
RN NOTES RECEIVED REPORT FROM MORNING NURSE. PATIENT A/O X 4. NO DISTRESS NO SOB NOTED.PATIENT ON TRACH CONNECTED TO MV WITH PRESCRIBED SETTINGS. WITH IV ACCESS AT JACLYN MIDLINE PATENT FLUSHES WELL. WITH SUPRA PUBIC CATHETER PATENT CONNECTED TO URINE BAG DRAINING YELLOWISH URINE OUTPUT. WITH GT PATENT NO RESIDUAL NOTED USING FOR MRDICATION ADMINISTRATION. PATIENT REFUSED GT FEEDING MD IS AWARE. ALL SAFETY MEASURES IN PLACE, CALL LIGHT WITHIN REACH, HOB ELEVATED, WILL CONTINUE TO MONITOR.
--- NOTE | 2021-09-03 19:31 | NUR ---
RN CLOSING NOTES NO SIGNIFICANT CHANGES THROUGHOUT THE SHIFT. ALL DUE MEDS GIVEN. NEEDS ATTENDED. KEPT CLEAN AND COMFORTABLE. SAFETY MEASURES IMPLEMENTED. ENDORSED TO NIGHT RN FOR ISABELLA.
[2021-09-03 20:00] VITALS: BP 109/73
[2021-09-03] MEDS: ZOLPIDEM TARTRATE 5 MG TABLET GT SCH (22:21)
[2021-09-03] MEDS: ACETAMINOPHEN 325 MG TABLET PO PRN (22:22)
[2021-09-03] MEDS: SENNOSIDES 8.6 MG TABLET GT SCH (22:22)
[2021-09-03] MEDS: TRAZODONE 50 MG TABLET GT PRN (23:25)
[2021-09-04] VITALS: BP 109/74
[2021-09-04] MEDS: LORAZEPAM 1 MG TABLET GT PRN ×2 (02:25→17:21)
[2021-09-04] MEDS: HYDROCODONE/APAP 5/325MG TABLET PO PRN ×3 (03:26→22:57)
[2021-09-04 04:00] VITALS: BP 106/76
[2021-09-04] MEDS: ZOSYN IVPB 3.375 G in IV D5W 50ml IV SCH ×4 (05:30→23:01)
[2021-09-04] MEDS: ACETAMINOPHEN 325 MG TABLET PO PRN ×2 (06:08→21:25)
--- NOTE | 2021-09-04 06:48 | NUR ---
RN NOTES PATIENT REMAINS STABLE THE WHOLE SHIFT. NO SIGNIFICANT CHANGES IN HEALTH CONDITION. ALL DUE MEDS GIVEN ORDERED, GT FEEDING STILL ON HOLD ALL MEDICATION GIVEN VIA GT. ALL SAFETY MEASURES IN PLACE, HOB ELEVATED AT ALL TIMES. CALL LIGHT WITHIN REACH. ALL NEEDS ATTENDED. WILL ENDORSED.
[2021-09-04 08:00] VITALS: BP 94/64
[2021-09-04] MEDS: BACLOFEN (10 MG) 10 MG TABLET GT SCH ×3 (09:07→17:21)
[2021-09-04] MEDS: SIMETHICONE 80 MG TAB.CHEW GT SCH (09:07)
[2021-09-04] MEDS: PANTOPRAZOLE 40 MG/PACK PACK GT SCH ×2 (09:07→21:25)
[2021-09-04] MEDS: CHLORHEXIDINE GLUCONATE 15 ML UDC MM SCH ×2 (09:07→17:21)
[2021-09-04] MEDS ORDERED: IV NS 0.9% 250 ML IV ONE (09:47)
[2021-09-04] MEDS ORDERED: IOHEXOL-300 100 ML VIAL IV ONE (09:47)
[2021-09-04 12:00] VITALS: BP 119/71
[2021-09-04 12:05] LABS: BASOPHILS # (AUTO) 0.1 K/uL (0.0-0.2); BASOPHILS % (AUTO) 0.7 % (0.0-2.0); EOSINOPHILS % (AUTO) 1.8 % (0.0-6.0); HEMATOCRIT 22 % (39-51); HEMOGLOBIN 7.3 g/dL (13.5-17.5); LYMPHOCYTES # (AUTO) 0.9 K/uL (0.8-4.8); LYMPHOCYTES % (AUTO) 12.6 % (20.0-44.0); MEAN CORPUSCULAR HGB CONC 33 g/dl (31.0-36.0); MEAN CORPUSCULAR VOLUME 83 fL (80-96); MONOCYTES # (AUTO) 0.7 K/uL (0.1-1.30); MONOCYTES % (AUTO) 10.1 % (2.0-12.0); NEUTROPHILS # (AUTO) 5.4 K/uL (1.8-8.9); NEUTROPHILS % (AUTO) 74.8 % (43.0-81.0); PLATELET COUNT (AUTO) 383 K/uL (150-450); RED BLOOD CELL COUNT(AUTO) 2.69 MIL/uL (4.5-6.0); WHITE BLOOD COUNT (AUTO) 7.2 K/uL (4.3-11.0)
[2021-09-04 12:47] LABS: CALCIUM, SERUM 7.9 mg/dL (8.5-10.1); CREATININE 0.4 mg/dL (0.6-1.3); MAGNESIUM 1.8 mg/dL (1.8-2.4); PHOSPHORUS 2.9 mg/dL (2.5-4.9); POTASSIUM 3.1 mmol/L (3.5-5.1)
[2021-09-04 16:00] VITALS: BP 102/67
[2021-09-04 20:00] VITALS: BP 119/73
--- NOTE | 2021-09-04 20:20 | NUR ---
RN NOTE PATIENT ALERT AND ORIENTED X4. ON TRACH TO VENT, TOLERATING SETTINGS WELL. WITH SUPRAPUBIC CATH, DRAINING URINE VIA GRAVITY. G-TUBE RUNNING JEVITY 1.2 @ 50CC/HR, NO RESIDUAL NOTED. JOHN MIDLINE INTACT, FLUSHING WELL. BED LOCKED AND IN LOWEST POSITION. CALL LIGHT WITHIN REACH. ALL NEEDS ANTICIPATED.
[2021-09-04] MEDS: ZOLPIDEM TARTRATE 5 MG TABLET GT SCH (21:25)
[2021-09-04] MEDS: SENNOSIDES 8.6 MG TABLET GT SCH (21:25)
[2021-09-05] VITALS: BP 98/68
[2021-09-05] MEDS: LORAZEPAM 1 MG TABLET GT PRN ×3 (02:47→21:02)
[2021-09-05 04:00] VITALS: BP 96/63
[2021-09-05] MEDS: ZOSYN IVPB 3.375 G in IV D5W 50ml IV SCH ×4 (05:17→23:33)
--- NOTE | 2021-09-05 07:33 | NUR ---
RN NOTE PATIENT ALERT AND ORIENTED X4. ON TRACH TO VENT, TOLERATING SETTINGS WELL. WITH SUPRAPUBIC CATH, DRAINING URINE VIA GRAVITY. G-TUBE RUNNING JEVITY 1.2 @ 50CC/HR, NO RESIDUAL NOTED. JOHN MIDLINE INTACT, FLUSHING WELL. ALL DUE MEDS GIVEN ORDERED AND TOLERATED WELL. NOTED WITH X2 BLOODY MUCOID STOOL. KEPT CLEAN AND DRY.BED LOCKED AND IN LOWEST POSITION. CALL LIGHT WITHIN REACH. ENDORSED TO AM SHIFT. Addendum: 09/05/21 at 0737 by HARLAN RIVERA RN PATIENT REFUSED JEVITY 1.2 FEEDING THROUGH OUT THE NIGHT. RISKS AND BENEFITS EXPLAINED. STILL STRONGLY REFUSED.
--- NOTE | 2021-09-05 07:41 | NUR ---
RN OPENING NOTES; RECEIVED PT IN BED IN SUPINE POS. PT A/OX4, MECH VENT NOTED, WITH SETTINGS ORDERED. NO C/O PAIN AT THIS TIME. NO SOB OR DISTRESS NOTED. PT REFUSED JEVITY GTUBE FEEDING, RN WILL CONTINUE TO EDUCATE AND EXPLAIN THE BENEFITS OF FEEDING. JOHN MIDLINE NOTED, FLUSHED, PATENT WITH NO SIGNS OF INFILTRATION. ALL SAFETY MEASURES RENDERED, BED LOCKED, IN LOWEST POS. SIDE RAILS UP X3, WITH CALL LIGHT WITHIN REACH. WILL CONTINUE TO MONITOR.
[2021-09-05 08:00] VITALS: BP 110/69
[2021-09-05] MEDS: PANTOPRAZOLE 40 MG/PACK PACK GT SCH ×2 (08:07→20:39)
[2021-09-05] MEDS: HYDROCODONE/APAP 5/325MG TABLET PO PRN ×2 (08:07→16:48)
[2021-09-05] MEDS: SIMETHICONE 80 MG TAB.CHEW GT SCH (08:07)
[2021-09-05] MEDS: BACLOFEN (10 MG) 10 MG TABLET GT SCH ×3 (08:07→16:16)
[2021-09-05] MEDS: CHLORHEXIDINE GLUCONATE 15 ML UDC MM SCH ×2 (08:08→16:17)
--- NOTE | 2021-09-05 10:11 | NUR ---
RN NOTES; OFFERED JEVITY 1.2 FEEDING. PT STILL REFUSED. EDUCATION DONE, RN WILL CONTINUE TO OFFER AGAIN. WILL CONTINUE TO MONITOR.
--- NOTE | 2021-09-05 11:23 | NUR ---
WOUND CARE CONSULT: REVIEWED CHART, NURSING DOCUMENTATION AND PHOTOS WHICH INDICATE RT GREAT TOE WOUND/DISCOLORATION AND SACRAL SCARRING, PRESENT ON ADMISSION. DR PFEIFFER NOTIFIED OF DPM CONSULT REQUEST. RECOMMENDATIONS MADE FOR SKIN PROTECTION INCLUDING FIRST STEP LOW AIRLOSS MATTRESS. DISCUSSED WITH NURSING STAFF. MD IN AGREEMENT WITH PLAN OF CARE.
[2021-09-05 12:00] VITALS: BP 97/62
[2021-09-05] MEDS: ONDANSETRON HCL/PF 4 MG/2 ML VIAL IVP PRN (12:51)
[2021-09-05 16:00] VITALS: BP 108/72
[2021-09-05 16:55] LABS: BASOPHILS # (AUTO) 0.1 K/uL (0.0-0.2); BASOPHILS % (AUTO) 0.6 % (0.0-2.0); EOSINOPHILS % (AUTO) 1.5 % (0.0-6.0); HEMATOCRIT 24 % (39-51); LYMPHOCYTES # (AUTO) 1.5 K/uL (0.8-4.8); LYMPHOCYTES % (AUTO) 17.8 % (20.0-44.0); MEAN CORPUSCULAR HGB CONC 33 g/dl (31.0-36.0); MEAN CORPUSCULAR VOLUME 82 fL (80-96); MONOCYTES # (AUTO) 0.9 K/uL (0.1-1.30); MONOCYTES % (AUTO) 10.5 % (2.0-12.0); NEUTROPHILS % (AUTO) 69.6 % (43.0-81.0); PLATELET COUNT (AUTO) 531 K/uL (150-450); RED BLOOD CELL COUNT(AUTO) 2.94 MIL/uL (4.5-6.0); WHITE BLOOD COUNT (AUTO) 8.6 K/uL (4.3-11.0)
[2021-09-05 17:33] LABS: CALCIUM, SERUM 8.3 mg/dL (8.5-10.1); CREATININE 0.5 mg/dL (0.6-1.3); MAGNESIUM 1.9 mg/dL (1.8-2.4); PHOSPHORUS 2.4 mg/dL (2.5-4.9); POTASSIUM 2.9 mmol/L (3.5-5.1)
--- NOTE | 2021-09-05 18:31 | NUR ---
RN CLOSING NOTES; PT A/OX4, NO SOB NOTED, NO C/O PAIN AT THIS TIME. NO DISTRESS NOTED. PT ON [facility] VENT WITH SETTINGS ORDERED. ALL MEDICATION GIVEN AND TOLERATED WELL. PT KEPT CLEAN, DRY, AND COMFORTABLE. ALL SAFETY MEASURES RENDERED, BED IN LOWEST POS. LOCKED WITH CALL LIGHT WITHIN REACH. NO SIGNIFICANT CHANGES IN PT HEALTH STATUS DURING SHIFT. WILL ENDORSE TO EXTENSION WORKER. PT IN STABLE CONDITION.
--- NOTE | 2021-09-05 19:20 | NUR ---
RN NOTE RECEIVED PATIENT IN BED RESTING ON MECHANICAL VENT A/O X3 VERBALLY RESPONSIVE OBTUNDED BILATERAL UPPER EXTREMITIES DEFORMITIES,IV SITE IS ON LEFT UPPER ARM MIDLINE INTACT PATENT ON G-TUBE FEEDING JEVITY 1.2 50CC/HR CHECKED PLACEMENT IN PLACE NO RESIDUAL NOTED ON SUPRAPUBIC CATHETER IN PLACE URINE DRAINING YELLOW BY GRAVITY SAFETY MEASURE IMPLEMENT HEAD OF THE BED ELEVATED CALL LIGHT WITHIN REACH CONTINUE TO MONITOR.
[2021-09-05 19:28] LABS: BAND % (MANUAL) 4 % (0.0-5.0); EOSINOPHILS % (MANUAL) 1 % (0-4); LYMPHOCYTES % (MANUAL) 11 % (16-48); MONOCYTES % (MANUAL) 7 % (0-11.0); NEUTROPHILS % (MANUAL) 77 (42-76)
[2021-09-05 20:00] VITALS: BP 103/43
--- NOTE | 2021-09-05 20:00 | NUR ---
RN NOTE CHECKED LABS NOTIFIED POTASSIUM 2.[address] CURRAN AND RECEIVED ORDER POTASSIUM 40MEQ BY GT AND 20 MEQ IV NOTED AND CARRIED OUT.
[2021-09-05] MEDS: POTASSIUM CL. PREMIX PERIPHER. 50 ML IV SCH ×2 (20:39→21:32)
[2021-09-05] MEDS ORDERED: POTASSIUM CHLORIDE 20 MEQ POWDER PACKET GT ONE (21:00)
[2021-09-05] MEDS: SENNOSIDES 8.6 MG TABLET GT SCH (22:06)
[2021-09-05] MEDS: ZOLPIDEM TARTRATE 5 MG TABLET GT SCH (22:06)
[2021-09-06] VITALS: BP 101/62
[2021-09-06 04:00] VITALS: BP 153/98
[2021-09-06] MEDS: ZOSYN IVPB 3.375 G in IV D5W 50ml IV SCH ×3 (05:21→17:22)
[2021-09-06] MEDS: LORAZEPAM 1 MG TABLET GT PRN ×3 (06:43→21:22)
--- NOTE | 2021-09-06 06:56 | NUR ---
RN NOTE PATIENT REMAINS ON ALERT ORIENTED X4 ON MECHANICAL VENT BILATERAL LOWER AND UPPER EXTREMITIES CONTRACTED,NO SOB NOT ACUTE DISTRESS NOTED ALL DUE MEDS GIVEN MD ORDERED REPOSITIONED EVERY 2 HOURS KEPT CLEAN AND DRY ALL THE TIME,KEPT COMFORTABLE HEAD OF THE BED ELEVATED ENDORSE NEXT COMING SHIFT FOR CONTINUATION OF CARE.
--- NOTE | 2021-09-06 07:20 | NUR ---
RN NOTES PATIENT IS RESTING IN BED, AWAKE AND VERBALLY RESPONSIVE. ON TRACH/VENT W/ SETTINGS TOLERATED BY PATIENT. SUPRAPUBIC CATH IN PLACE DRAINING YELLOW-COLORED URINE. IV LINE INTACT AND PATENT. SAFETY MEASURES IN PLACE. WILL CONTINUE TO MONITOR.
[2021-09-06 08:00] VITALS: BP 104/71
[2021-09-06] MEDS: CHLORHEXIDINE GLUCONATE 15 ML UDC MM SCH ×2 (09:26→16:03)
[2021-09-06] MEDS: BACLOFEN (10 MG) 10 MG TABLET GT SCH ×3 (09:26→16:04)
[2021-09-06] MEDS: SIMETHICONE 80 MG TAB.CHEW GT SCH (09:26)
[2021-09-06] MEDS: PANTOPRAZOLE 40 MG/PACK PACK GT SCH ×2 (09:26→21:22)
[2021-09-06] MEDS: HYDROCODONE/APAP 5/325MG TABLET PO PRN ×2 (09:34→16:04)
--- NOTE | 2021-09-06 11:50 | NUR ---
RN NOTES PATIENT WAS SEEN BY DR. KIM W/ ORDERS NOTED; PATIENT MADE AWARE OF PLAN OF CARE.
[2021-09-06 12:00] VITALS: BP 111/62
[2021-09-06 16:00] VITALS: BP 109/65
[2021-09-06 16:31] LABS: BASOPHILS # (AUTO) 0.1 K/uL (0.0-0.2); BASOPHILS % (AUTO) 0.6 % (0.0-2.0); EOSINOPHILS % (AUTO) 1.5 % (0.0-6.0); HEMATOCRIT 26 % (39-51); HEMOGLOBIN 8.5 g/dL (13.5-17.5); LYMPHOCYTES # (AUTO) 1.8 K/uL (0.8-4.8); LYMPHOCYTES % (AUTO) 17.1 % (20.0-44.0); MEAN CORPUSCULAR HGB CONC 33 g/dl (31.0-36.0); MEAN CORPUSCULAR VOLUME 81 fL (80-96); MONOCYTES # (AUTO) 1.1 K/uL (0.1-1.30); MONOCYTES % (AUTO) 10.7 % (2.0-12.0); NEUTROPHILS # (AUTO) 7.4 K/uL (1.8-8.9); NEUTROPHILS % (AUTO) 70.1 % (43.0-81.0); PLATELET COUNT (AUTO) 635 K/uL (150-450); RED BLOOD CELL COUNT(AUTO) 3.16 MIL/uL (4.5-6.0); WHITE BLOOD COUNT (AUTO) 10.5 K/uL (4.3-11.0)
[2021-09-06 16:40] LABS: CALCIUM, SERUM 8.6 mg/dL (8.5-10.1); CREATININE 0.5 mg/dL (0.6-1.3); MAGNESIUM 1.8 mg/dL (1.8-2.4); PHOSPHORUS 2.1 mg/dL (2.5-4.9); POTASSIUM 3.1 mmol/L (3.5-5.1)
[2021-09-06] MEDS ORDERED: Sodium Phosphate 30 MMOL in IV NS 0.9% 250 ML IV SCH (17:30)
--- NOTE | 2021-09-06 18:22 | NUR ---
RN NOTES PATIENT REQUESTED FOR FEEDING TO BE OFF FOR NOW. MD MADE AWARE OF PATIENT'S BM W/ BLOODY STOOL. ORDER FOR 1PRBC NOTED.
--- NOTE | 2021-09-06 19:30 | NUR ---
RN OPENING NOTE RECEIVED PATIENT IN BED. A/OX4. ON MECHANICAL VETN PORTEX #7, AC 16, TV 550, FIO2 30% PEEP 5. NO RESP DISTRESS. NO C/O PAIN AT THIS TIME. TELE MONITOR READS SINUS RHTYHM. IN NO APPARENT DISTRESS. IV ACCESS IN JACLYN MIDLINE RUNNING NA-PHOS @43. GTUBE IS PRESENT PATIENT IS REFUSING GTUBE FEEDING D/T HE DOES NO WANT ANY MORE BLOODY BM. SUBPRAPUBIC CATH IS PRESENT, DRAINING TO GRAVITY. URINE IS YELLOW. BED IS LOW AND LOCKED, HOB ELEVATED IN SMEI WELLS, SIDE RIALS UP X2, CALL LIGHT WITHIN REACH.
[2021-09-06 20:00] VITALS: BP 101/68
[2021-09-06] MEDS: SENNOSIDES 8.6 MG TABLET GT SCH (21:23)
[2021-09-06] MEDS: ACETAMINOPHEN 325 MG TABLET PO PRN (22:55)
[2021-09-06] MEDS: ZOLPIDEM TARTRATE 5 MG TABLET GT SCH (22:56)
[2021-09-07] VITALS (13 sets, daily range): BP systolic 92–114; BP diastolic 57–84
[2021-09-07] MEDS: ZOSYN IVPB 3.375 G in IV D5W 50ml IV SCH ×4 (00:19→17:14)
--- NOTE | 2021-09-07 01:50 | NUR ---
RN NOTES, STARTED BLOOD INFUSION AT THIS TIME, WILL CONTINUE TO MONITOR CLOSELY FOR ANY S/S OF ALLERGIC REACTION.
--- NOTE | 2021-09-07 02:05 | NUR ---
RN NOTES, AFTER 15MIN THAT BLOOD INFUSING , PATIENT TOLERATED WELL NO S/S OF ANY ALLERGIC REACTION, VS STABLE, NO ABNORMALITY NOTED, WILL CONTINUE TO MONITOR CLOSELY.
--- NOTE | 2021-09-07 05:07 | NUR ---
DONE BLOOD TRANSFUSION AT 0445. NO ALLERGIC REACTIONS NOTED. VITAL SIGNS REMAIN STABLE. NO FEVER, NO RASH OR HIVES NOTED. NO CHANGE IN CONDITIONS. WILL CONTINUE TO MONITOR
[2021-09-07] MEDS: HYDROCODONE/APAP 5/325MG TABLET PO PRN ×2 (05:54→17:08)
--- NOTE | 2021-09-07 07:45 | NUR ---
RN OPENING NOTES Patient seen comfortably lying in bed, no apparent distress noted, respirations even and unlabored, no SOB, no grimacing. Call light left within reach, safety precautions in place, brakes locked, side rails up X 2, will monitor closely for any changes.
[2021-09-07] MEDS: PANTOPRAZOLE 40 MG/PACK PACK GT SCH ×2 (08:01→21:41)
[2021-09-07] MEDS: SIMETHICONE 80 MG TAB.CHEW GT SCH (08:01)
[2021-09-07] MEDS: BACLOFEN (10 MG) 10 MG TABLET GT SCH ×3 (08:01→16:02)
[2021-09-07] MEDS: CHLORHEXIDINE GLUCONATE 15 ML UDC MM SCH ×2 (08:02→16:03)
--- NOTE | 2021-09-07 08:27 | NUR ---
RN CLOSING NOTE PATIENT RESTING IN BED. A/OX4. ON MECHANICAL VENT. NO CHANGES IN SETTINGS. NO RESP DISTRESS. PRN ORCO GIVEN FOR ABDOMINAL PAIN. PATIENT IS SINUS RHTYHM. NO DISTRESS. JACLYN MIDLINE SALINE LOCKED, S/P 1 UNIT PRBC. GTUBE IS REMAINS CLAMPED. PATIENT DID HAVE ONE BRIGHT RED BLOODY BM. SUBPRAPUBIC CATH OUTPUT 250CC. BED REMAINS LOW AND LOCKED, HOB ELEVATED IN SMEI WELLS, SIDE RIALS UP X2, CALL LIGHT WITHIN REACH. WILL ENDORSE TO ONCOMING SHIFT.
[2021-09-07 08:29] LABS: BASOPHILS # (AUTO) 0.1 K/uL (0.0-0.2); BASOPHILS % (AUTO) 0.5 % (0.0-2.0); EOSINOPHILS % (AUTO) 1.4 % (0.0-6.0); HEMATOCRIT 30 % (39-51); HEMOGLOBIN 9.9 g/dL (13.5-17.5); LYMPHOCYTES # (AUTO) 1.4 K/uL (0.8-4.8); LYMPHOCYTES % (AUTO) 12.8 % (20.0-44.0); MEAN CORPUSCULAR HGB CONC 33 g/dl (31.0-36.0); MEAN CORPUSCULAR VOLUME 83 fL (80-96); NEUTROPHILS # (AUTO) 8.5 K/uL (1.8-8.9); NEUTROPHILS % (AUTO) 76.3 % (43.0-81.0); PLATELET COUNT (AUTO) 587 K/uL (150-450); RED BLOOD CELL COUNT(AUTO) 3.64 MIL/uL (4.5-6.0); WHITE BLOOD COUNT (AUTO) 11.1 K/uL (4.3-11.0)
[2021-09-07 08:42] LABS: CALCIUM, SERUM 8.4 mg/dL (8.5-10.1); CREATININE 0.5 mg/dL (0.6-1.3); POTASSIUM 2.9 mmol/L (3.5-5.1)
[2021-09-07] MEDS ORDERED: POTASSIUM CHLORIDE 20 MEQ POWDER PACKET NG ONE (11:00)
[2021-09-07] MEDS ORDERED: NEUTRA PHOS 1 POWD.PACKET NG ONE (12:00)
[2021-09-07] MEDS: LORAZEPAM 1 MG TABLET GT PRN (13:20)
--- NOTE | 2021-09-07 18:36 | NUR ---
RN CLOSING NOTES Patient lying in bed, AO X 4, respirations even and unlabored, no SOB, no dizziness, no palpitations, no apparent distress noted, denies any pain or discomfort, no grimacing. All medications given via gtube per MD order, tolerating well. Gtube remained in place, patent and intact. Placement checked before medication administration by auscultation and gastric residuals (10ml). Suprapubic catheter draining clear yellowish urine free from any sediments, no hematuria, and no unusual odor noted in urine, denies any bladder pain or discomfort, bladder non distended during shift. Patient on monitoring for blood in stool,, had one episode of having bright red blood in stool, surgery CUSTOMS APPRAISER aware, denies dizziness, skin warm to touch, no pallor or cyanosis noted. All needs anticipated, kept clean and dry, call light left within reach, safety precautions in place, brakes locked, side rails up X 2, will endorse to next shift for continuity of care.
[2021-09-07 19:08] LABS: BILIRUBIN,URINE SMALL (NEGATIVE); COLOR,URINE YELLOW (YELLOW); LEUKOCYTE ESTERASE ,URINE TRACE (NEGATIVE); NITRITE, URINE NEGATIVE (NEGATIVE); PROTEIN,URINE TRACE mg/dl (NEGATIVE); UGLUCOSE NEGATIVE (NEGATIVE); UROBILINOGEN,URINE 0.2 EU/dL (0.2)
[2021-09-07 19:15] LABS: BACTERIA,URINE 1+ /HPF (None Seen)
[2021-09-07 19:16] LABS: YEAST,URINE Moderate /HPF (None Seen)
--- NOTE | 2021-09-07 20:04 | NUR ---
RT NOTE PT RECEIVED AWAKE/ALERT TRACHED ON MECHANICAL VENTILATION. CUFF INFLATED. SUCTION DONE, TRACH SECURED AND PATENT. VENT PLUGGED TO RED OUTLET. ALARMS ON AND AUDIBLE. CONT. PULSE OX CONNECTED. NO SOB NOTED AT THIS TIME. Addendum: 09/07/21 at 2005 by JESSIKA MILLER RT Amended: Links added.
[2021-09-07] MEDS: TOBRAMYCIN SULFATE OPHTH OINT 3.5 GM TUBE LEFTEYE SCH (20:52)
[2021-09-07] MEDS: SENNOSIDES 8.6 MG TABLET GT SCH (21:41)
[2021-09-07] MEDS: ACETAMINOPHEN 325 MG TABLET PO PRN (21:41)
[2021-09-07] MEDS: ZOLPIDEM TARTRATE 5 MG TABLET GT SCH (21:42)
[2021-09-08] VITALS: BP 105/65
[2021-09-08] MEDS: ZOSYN IVPB 3.375 G in IV D5W 50ml IV SCH ×4 (00:15→17:10)
[2021-09-08] MEDS: HYDROCODONE/APAP 5/325MG TABLET PO PRN ×4 (01:35→21:14)
[2021-09-08] MEDS: TRAZODONE 50 MG TABLET GT PRN (01:36)
[2021-09-08] MEDS: LORAZEPAM 1 MG TABLET GT PRN ×3 (02:31→19:37)
[2021-09-08 04:00] VITALS: BP 104/57
[2021-09-08 08:00] VITALS: BP 100/63
--- NOTE | 2021-09-08 08:02 | NUR ---
RN OPENING NOTE PATIENT RECEIVED IN BED, RESTING. PATIENT WITH TRACHEOSTOMY TUBE IN PLACE AND VENTILATOR WITH FIO2 AT 30%. SUPRAPUBIC CATHETER IN PLACE, PATENT AND DRAINING URINE. LEFT UA MIDLINE IN PLACE, PATENT WITH NO SIGNS OF INFILTRATION. BED LOCKED AND IN LOWEST POSITION, CALL LIGHT WITHIN REACH, 3 SIDE RAILS UP. WILL CONTINUE TO MONITOR.
[2021-09-08] MEDS: TOBRAMYCIN SULFATE OPHTH OINT 3.5 GM TUBE LEFTEYE SCH ×3 (09:00→16:19)
[2021-09-08] MEDS: PANTOPRAZOLE 40 MG/PACK PACK GT SCH ×2 (09:34→21:13)
[2021-09-08] MEDS: BACLOFEN (10 MG) 10 MG TABLET GT SCH ×3 (09:34→16:19)
[2021-09-08] MEDS: CHLORHEXIDINE GLUCONATE 15 ML UDC MM SCH ×2 (09:34→16:19)
[2021-09-08] MEDS: SIMETHICONE 80 MG TAB.CHEW GT SCH (09:34)
[2021-09-08] MEDS: JEVITY 1.2 CAL 1,000 ML BOTTLE GT PRN (11:41)
[2021-09-08 12:00] VITALS: BP 103/69
[2021-09-08 16:00] VITALS: BP 88/41
[2021-09-08 16:09] LABS: BASOPHILS # (AUTO) 0.1 K/uL (0.0-0.2); BASOPHILS % (AUTO) 0.7 % (0.0-2.0); EOSINOPHILS % (AUTO) 2.3 % (0.0-6.0); HEMATOCRIT 31 % (39-51); HEMOGLOBIN 10.3 g/dL (13.5-17.5); LYMPHOCYTES # (AUTO) 1.6 K/uL (0.8-4.8); LYMPHOCYTES % (AUTO) 16.2 % (20.0-44.0); MEAN CORPUSCULAR HGB CONC 33 g/dl (31.0-36.0); MEAN CORPUSCULAR VOLUME 83 fL (80-96); MONOCYTES % (AUTO) 9.8 % (2.0-12.0); PLATELET COUNT (AUTO) 644 K/uL (150-450); RED BLOOD CELL COUNT(AUTO) 3.73 MIL/uL (4.5-6.0); WHITE BLOOD COUNT (AUTO) 9.8 K/uL (4.3-11.0)
[2021-09-08 16:19] LABS: CALCIUM, SERUM 8.2 mg/dL (8.5-10.1); CREATININE 0.5 mg/dL (0.6-1.3); PHOSPHORUS 2.4 mg/dL (2.5-4.9); POTASSIUM 3.2 mmol/L (3.5-5.1)
--- NOTE | 2021-09-08 18:52 | NUR ---
RN CLOSING NOTE PATIENT IN BED, AWAKE, A&OX4. PATIENT WITH TRACHEOSTOMY TUBE, MECHANICAL VENTILATOR ON WITH FIO2 AT 30%. SUPRAPUBIC CATHETER IN PLACE, PATENT AND DRAINING URINE. G TUBE IN PLACE, PATENT WITH RUNNING JEVITY 1.2 AT 50 CC/HR. LEFT UPPER ARM MIDLINE IN PLACE, PATENT WITH NO SIGNS OF INFILTRATION. ALL NEEDS ATTENDED DURING SHIFT. NO SIGNS OF DISTRESS NOTED AT THIS TIME. BED LOCKED AND IN LOWEST POSITION, CALL LIGHT WITHIN REACH, 3 SIDE RAILS UP. WILL ENDORSE TO THERMOSTAT MACHINE TENDER NURSE.
--- NOTE | 2021-09-08 19:40 | NUR ---
RN NOTES RECEIVED PATIENT WHILE IN BED, AWAKE, A&OX4. PATIENT WITH TRACHEOSTOMY TUBE, MECHANICAL VENTILATOR ON WITH FIO2 AT 30%. SUPRAPUBIC CATHETER IN PLACE, PATENT AND DRAINING URINE. G TUBE IN PLACE, PATENT WITH RUNNING JEVITY 1.2 AT 50 CC/HR. LEFT UPPER ARM MIDLINE IN PLACE, PATENT WITH NO SIGNS OF INFILTRATION. BED LOCKED AND IN LOWEST POSITION, CALL LIGHT WITHIN REACH, 3 SIDE RAILS UP. WILL CONTINUE TO MONITOR FOR ANY CHANGES.
[2021-09-08 20:00] VITALS: BP 121/69
[2021-09-08] MEDS: ZOLPIDEM TARTRATE 5 MG TABLET GT SCH (21:14)
[2021-09-08] MEDS: SENNOSIDES 8.6 MG TABLET GT SCH (21:16)
[2021-09-09] VITALS: BP 112/68
[2021-09-09] MEDS ORDERED: POTASSIUM PHOSPHATE MM 7.5 MMOL in IV NS 0.9% 100 ML IV SCH
[2021-09-09] MEDS: ZOSYN IVPB 3.375 G in IV D5W 50ml IV SCH ×5 (00:11→23:38)
--- NOTE | 2021-09-09 00:45 | NUR ---
0045 Dr. Worrell was notified that new order for Potassium Phosphate is not available in our [facility], asked if he wanted to change medication to GT route, per Dr. Worrell ok to give medication in AM once pharmacy in to prepare. Order noted. [facility] notified of change of time c/o Luicnda.
[2021-09-09] MEDS: HYDROCODONE/APAP 5/325MG TABLET PO PRN ×3 (02:36→20:02)
[2021-09-09] MEDS: TRAZODONE 50 MG TABLET GT PRN ×2 (02:36→22:45)
[2021-09-09 04:00] VITALS: BP 104/62
[2021-09-09] MEDS: LORAZEPAM 1 MG TABLET GT PRN ×2 (04:38→15:49)
--- NOTE | 2021-09-09 06:58 | NUR ---
RN CLOSING NOTES WILL ENDORSE TO DAY SHIFT NURSE WHILE IN BED, AWAKE, A&OX4. PATIENT WITH TRACHEOSTOMY TUBE, MECHANICAL VENTILATOR ON WITH FIO2 AT 30%. SUPRAPUBIC CATHETER IN PLACE, PATENT AND DRAINING URINE. G TUBE IN PLACE, PATENT WITH RUNNING JEVITY 1.2 AT 50 CC/HR. LEFT UPPER ARM MIDLINE IN PLACE, PATENT WITH NO SIGNS OF INFILTRATION. BED LOCKED AND IN LOWEST POSITION, CALL LIGHT WITHIN REACH, 3 SIDE RAILS UP. WILL ENDORSE TO DAY SHIFT NURSE FOR ISABELLA.
--- NOTE | 2021-09-09 07:25 | NUR ---
RN OPENING NOTES RECEIVED PT IN BED. A/O X4. TRACH OF PORTEX 7 [facility]. SETTINGS AC:16, TV:550, FIO2:30% PEEP 5, TOLERATING VENT SETTINGS WELL. NO SOB OR ANY S/SX OF ACUTE DISTRESS AT THIS TIME. SATURATION @100%. SR ON THE MONITOR. IV ACCESS JOHN MIDLINE INTACT, PATENT AND FLUSHED. SAFETY MEASURES IMPLEMENTED. CALL LIGHT WITHIN REACH. BED ALARM IS ON. BED LOCKED AND IN LOWEST POSITION WITH SIDE RAILS UP X3. WILL CONTINUE TO MONITOR.
[2021-09-09 07:51] LABS: BASOPHILS # (AUTO) 0.1 K/uL (0.0-0.2); BASOPHILS % (AUTO) 0.5 % (0.0-2.0); EOSINOPHILS % (AUTO) 3.3 % (0.0-6.0); HEMATOCRIT 34 % (39-51); LYMPHOCYTES # (AUTO) 2.7 K/uL (0.8-4.8); MEAN CORPUSCULAR HGB CONC 33 g/dl (31.0-36.0); MEAN CORPUSCULAR VOLUME 84 fL (80-96); MONOCYTES # (AUTO) 1.4 K/uL (0.1-1.30); MONOCYTES % (AUTO) 11.9 % (2.0-12.0); NEUTROPHILS # (AUTO) 7.2 K/uL (1.8-8.9); NEUTROPHILS % (AUTO) 61.3 % (43.0-81.0); PLATELET COUNT (AUTO) 674 K/uL (150-450); RED BLOOD CELL COUNT(AUTO) 3.99 MIL/uL (4.5-6.0); WHITE BLOOD COUNT (AUTO) 11.8 K/uL (4.3-11.0)
[2021-09-09 07:57] LABS: CALCIUM, SERUM 8.7 mg/dL (8.5-10.1); CREATININE 0.5 mg/dL (0.6-1.3); POTASSIUM 3.2 mmol/L (3.5-5.1)
[2021-09-09 08:00] VITALS: BP 142/75
[2021-09-09] MEDS: SIMETHICONE 80 MG TAB.CHEW GT SCH (08:45)
[2021-09-09] MEDS: CHLORHEXIDINE GLUCONATE 15 ML UDC MM SCH ×2 (08:45→17:08)
[2021-09-09] MEDS: POTASSIUM PHOSPHATE MM 7.5 MMOL in IV NS 0.9% 100 ML IV SCH ×2 (08:45→11:10)
[2021-09-09] MEDS: BACLOFEN (10 MG) 10 MG TABLET GT SCH ×3 (08:45→17:08)
[2021-09-09] MEDS: PANTOPRAZOLE 40 MG/PACK PACK GT SCH ×2 (08:45→21:35)
[2021-09-09] MEDS: TOBRAMYCIN SULFATE OPHTH OINT 3.5 GM TUBE LEFTEYE SCH ×2 (08:58→17:06)
[2021-09-09] MEDS: POTASSIUM CHLORIDE 20 MEQ POWDER PACKET GT SCH ×2 (11:10→12:05)
[2021-09-09 12:00] VITALS: BP 136/75
[2021-09-09 16:00] VITALS: BP 135/79
--- NOTE | 2021-09-09 18:55 | NUR ---
RN CLOSING NOTES NO SIGNIFICANT CHANGES THROUGHOUT THE SHIFT. NO SOB. DENIES PAIN. ALL DUE MEDS GIVEN. NEEDS ATTENDED. KEPT CLEAN AND COMFORTABLE. SAFETY MEASURES IN PLACE. CALL LIGHT WITHIN REACH. WILL ENDORSE TO NIGHT RN FOR ISABELLA.
[2021-09-09 20:00] VITALS: BP 121/72
--- NOTE | 2021-09-09 20:27 | NUR ---
RN OPENING NOTES: PATIENT RECEIVED IN BED ALERT, ORIENTED X4 AND VERBALLY RESPONSIVE. TRACHEOSTOMY TUBE ON PLACE AND CONNECTED WITH [facility] VENT SETTING ON AC:16, TV:522, FIO2:30%, PEER:5. PATIENT TOLERATED WELL. O2 SAT 100%. C/O GENERALIZED BODY PAIN, 10/10 PAIN SCALE. NORCO GIVEN VIA GTUBE. IV ACCESS ON JOHN MIDLINE INTACT AND PATENT. ALL SAFETY PROTOCOL MEASURES PROVIDED. BED IN LOW POSITION AND LOCKED. SIDE RAILS ARE UP. PLACE CALL LIGHT WITH IN REACH. WILL CONTINUE TO MONITOR Addendum: 09/09/21 at 2233 by NAT GRIFFITH RN ADDENDUM PATIENT'S GTUBE FEEDING IS OFF. OFFER TO THE PATIENT TO TURN ON BUT REFUSED. RISK AND BENEFIT EXPLAINED TO THE PATIENT. HE MENTIONED THAT HE WANT TO TURN ON THE FEEDING TUBE LATER. WILL CONTINUE TO OFFER. Addendum: 09/10/21 at 0416 by NAT GRIFFITH RN ADDENDUM VENT RATE: AC: 16, TV: 550, FIO2: 30%, PEEP:5.
[2021-09-09] MEDS: ZOLPIDEM TARTRATE 5 MG TABLET GT SCH (21:35)
[2021-09-09] MEDS: SENNOSIDES 8.6 MG TABLET GT SCH (21:50)
--- NOTE | 2021-09-09 22:50 | NUR ---
RN NOTES: PATIENT RECEIVED HIS ROUTINE AMBIEN 5 MG 2 TABS FOR INSOMNIA BUT STILL C/O UNABLE TO SLEEP. TRAZADONE 50 MG TAB GIVEN PRN ORDER PER PATIENT'S REQUEST
[2021-09-09] MEDS: ACETAMINOPHEN 325 MG TABLET PO PRN (23:37)
--- NOTE | 2021-09-09 23:43 | NUR ---
RN NOTES: TYLENOL 325 MG 2 TABS GIVEN FOR C/O MILD GENERALIZED BODY PAIN VIA GTUBE. PATIENT TOLERATED WELL
[2021-09-10] VITALS: BP 92/59
[2021-09-10] MEDS: LORAZEPAM 1 MG TABLET GT PRN ×3 (01:39→19:46)
--- NOTE | 2021-09-10 01:49 | NUR ---
RN OTES: C/O RESTLESSNESS, ATIVAN 1 MG TAB GIVEN PER PRN ORDER. PATIENT TOLERATED WELL. NO FACIAL GRIMACING NOTED. NO RESPIRATORY DISTRESS
[2021-09-10 04:00] VITALS: BP 95/62
[2021-09-10] MEDS: ZOSYN IVPB 3.375 G in IV D5W 50ml IV SCH ×3 (05:22→17:12)
[2021-09-10] MEDS: HYDROCODONE/APAP 5/325MG TABLET PO PRN ×2 (06:36→17:12)
--- NOTE | 2021-09-10 07:25 | NUR ---
RN CLOSING NOTES: PATIENT IN BED ALERT, ORIENTED X4 AND VERBALLY RESPONSIVE. TRACH TUBE ON PLACE AND CONNECTED WITH [facility] VENT SETTING ON AC:16, TV:550, FIO2:30%, PEER:5. O2 SAT 100%. C/O GENERALIZED BODY PAIN, 7/10 PAIN SCALE. NORCO GIVEN AT 6:36 AM VIA GTUBE. FLUSHED EXTRA FLUID TO INCREASE FLUID INTAKE. ALL DUE MEDS GIVEN. ZOSYN GIVEN TWICE VIA JOHN MIDLINE. STILL REFUSING THE GTUBE FEEDING. REQUEST HIM SEVERAL TIME BUT STRONGLY REFUSED. MENTIONED HE WILL WAIT UNTIL MORNING. ALL SAFETY PROTOCOL MEASURES PROVIDED. BED IN LOW POSITION AND LOCKED. ALL SIDE RAILS ARE UP TO PREVENT ANY INJURY. . PLACE CALL LIGHT WITH IN REACH. WILL ENDORSE TO MORNING SHIFT RN.
[2021-09-10 07:53] LABS: CREATININE 0.5 mg/dL (0.6-1.3); POTASSIUM 3.4 mmol/L (3.5-5.1)
[2021-09-10 08:00] VITALS: BP 115/65
[2021-09-10] MEDS ORDERED: POTASSIUM CHLORIDE 20 MEQ POWDER PACKET GT ONE (09:00)
[2021-09-10] MEDS: CHLORHEXIDINE GLUCONATE 15 ML UDC MM SCH ×2 (09:48→17:12)
[2021-09-10] MEDS: BACLOFEN (10 MG) 10 MG TABLET GT SCH ×3 (09:48→17:12)
[2021-09-10] MEDS: SIMETHICONE 80 MG TAB.CHEW GT SCH (09:48)
[2021-09-10] MEDS: PANTOPRAZOLE 40 MG/PACK PACK GT SCH ×2 (09:48→21:28)
[2021-09-10] MEDS: TOBRAMYCIN SULFATE OPHTH OINT 3.5 GM TUBE LEFTEYE SCH ×2 (09:49→17:11)
[2021-09-10 12:00] VITALS: BP 103/56
[2021-09-10 16:00] VITALS: BP 106/63
[2021-09-10 17:25] LABS: HEMATOCRIT 35 % (39-51); MEAN CORPUSCULAR HGB CONC 31 g/dl (31.0-36.0); MEAN CORPUSCULAR VOLUME 85 fL (80-96); PLATELET COUNT (AUTO) 686 K/uL (150-450); RED BLOOD CELL COUNT(AUTO) 4.12 MIL/uL (4.5-6.0)
[2021-09-10 20:00] VITALS: BP 97/62
--- NOTE | 2021-09-10 20:19 | NUR ---
RT NOTE PT RECEIVED TRACHED WITH PORTEX 7 CUFFED. CUFF DEFLATED, PT RECEIVING ADEQUATE VOLUMES. VENT PLUGGED TO RED OUTLET. ALARMS ON AND AUDIBLE. PT CONNECTED TO CONT. PULSE OX. NO RESPIRATORY DISTRESS NOTED AT THIS TIME. WILL CONTINUE TO MONITOR CLOSELY. Addendum: 09/10/21 at 2020 by JESSIKA MILLER RT Amended: Links added.
[2021-09-10] MEDS: SENNOSIDES 8.6 MG TABLET GT SCH (21:27)
[2021-09-10] MEDS: ZOLPIDEM TARTRATE 5 MG TABLET GT SCH (21:29)
[2021-09-10] MEDS: ACETAMINOPHEN 325 MG TABLET PO PRN (21:34)
[2021-09-11] VITALS: BP 93/66
[2021-09-11] MEDS: HYDROCODONE/APAP 5/325MG TABLET PO PRN ×2 (02:18→11:23)
[2021-09-11] MEDS: ZOSYN IVPB 3.375 G in IV D5W 50ml IV SCH ×5 (02:18→23:59)
[2021-09-11] MEDS: TRAZODONE 50 MG TABLET GT PRN ×2 (02:18→23:58)
[2021-09-11 04:00] VITALS: BP 99/75
[2021-09-11] MEDS: LORAZEPAM 1 MG TABLET GT PRN ×3 (05:26→22:32)
[2021-09-11] MEDS: JEVITY 1.2 CAL 1,000 ML BOTTLE GT SCH (05:27)
--- NOTE | 2021-09-11 07:25 | NUR ---
RN NOTE PATIENT OBSERVED IN BED AWAKE, ALERT AND ORIENTED X 4, ABLE TO VERBALIZE NEEDS, ON TRACHEOSTOMY WITH MECHANICAL VENTILATOR TOLERATING WELL, ON TELEMONITOR AT THIS TIME, G-TUBE NOTED PATENT UPON ASSESSMENT, LEFT UPPER ARM MIDLINE PATENT FLUSHING WELL, SAFETY MEASURES OBSERVED CALL LIGHT WITHIN REACH, WILL CONTINUE TO MONITOR.
[2021-09-11 08:00] VITALS: BP 106/67
[2021-09-11 08:37] LABS: BASOPHILS # (AUTO) 0.1 K/uL (0.0-0.2); BASOPHILS % (AUTO) 0.5 % (0.0-2.0); EOSINOPHILS % (AUTO) 1.9 % (0.0-6.0); HEMATOCRIT 33 % (39-51); HEMOGLOBIN 11.3 g/dL (13.5-17.5); LYMPHOCYTES # (AUTO) 1.6 K/uL (0.8-4.8); MEAN CORPUSCULAR HGB CONC 34 g/dl (31.0-36.0); MEAN CORPUSCULAR VOLUME 82 fL (80-96); MONOCYTES % (AUTO) 10.8 % (2.0-12.0); NEUTROPHILS # (AUTO) 6.7 K/uL (1.8-8.9); NEUTROPHILS % (AUTO) 69.8 % (43.0-81.0); PLATELET COUNT (AUTO) 648 K/uL (150-450); RED BLOOD CELL COUNT(AUTO) 4.09 MIL/uL (4.5-6.0); WHITE BLOOD COUNT (AUTO) 9.7 K/uL (4.3-11.0)
[2021-09-11 08:47] LABS: CALCIUM, SERUM 8.6 mg/dL (8.5-10.1); CREATININE 0.5 mg/dL (0.6-1.3); POTASSIUM 3.4 mmol/L (3.5-5.1)
[2021-09-11 08:49] LABS: THYROID STIMULATING HORMONE 0.754 uIU/mL (0.358-3.74)
[2021-09-11] MEDS: CHLORHEXIDINE GLUCONATE 15 ML UDC MM SCH ×2 (09:12→16:56)
[2021-09-11] MEDS: PANTOPRAZOLE 40 MG/PACK PACK GT SCH ×2 (09:12→21:36)
[2021-09-11] MEDS: BACLOFEN (10 MG) 10 MG TABLET GT SCH ×3 (09:12→16:56)
[2021-09-11] MEDS: SIMETHICONE 80 MG TAB.CHEW GT SCH (09:12)
[2021-09-11] MEDS: TOBRAMYCIN SULFATE OPHTH OINT 3.5 GM TUBE LEFTEYE SCH ×2 (09:12→16:56)
[2021-09-11] MEDS ORDERED: POTASSIUM CHLORIDE 20 MEQ POWDER PACKET GT ONE (10:00)
--- NOTE | 2021-09-11 11:20 | NUR ---
RN NOTE PER MD OK TO GIVE NORCO 1 TAB NOW.
[2021-09-11 12:00] VITALS: BP 108/67
--- NOTE | 2021-09-11 13:00 | NUR ---
RN NOTE 1 EPISODE OF BRIGHT RED BM. CBC ORDERED BUSINESS SALES CONSULTANT MALIK PERAZA.
--- NOTE | 2021-09-11 14:12 | NUR ---
RN NOTES PT A/O X4, ABLE TO MAKE OWN DECISION, UNABLE TO SIGN, VERBALLY GIVEN CONSENT FOR CT GUIDED NEEDLE OF SIGMOID COLON
[2021-09-11 14:20] LABS: BASOPHILS % (AUTO) 0.4 % (0.0-2.0); EOSINOPHILS % (AUTO) 1.1 % (0.0-6.0); HEMATOCRIT 34 % (39-51); LYMPHOCYTES # (AUTO) 1.6 K/uL (0.8-4.8); LYMPHOCYTES % (AUTO) 14.4 % (20.0-44.0); MEAN CORPUSCULAR HGB CONC 33 g/dl (31.0-36.0); MEAN CORPUSCULAR VOLUME 82 fL (80-96); MONOCYTES # (AUTO) 1.2 K/uL (0.1-1.30); MONOCYTES % (AUTO) 10.3 % (2.0-12.0); NEUTROPHILS # (AUTO) 8.4 K/uL (1.8-8.9); NEUTROPHILS % (AUTO) 73.8 % (43.0-81.0); PLATELET COUNT (AUTO) 666 K/uL (150-450); RED BLOOD CELL COUNT(AUTO) 4.09 MIL/uL (4.5-6.0); WHITE BLOOD COUNT (AUTO) 11.4 K/uL (4.3-11.0)
[2021-09-11 16:00] VITALS: BP 99/61
--- NOTE | 2021-09-11 18:45 | NUR ---
RN NOTE PATIENT OBSERVED IN BED AWAKE, ALERT AND ORIENTED X 4, ABLE TO VERBALIZE NEEDS, ON TRACHEOSTOMY WITH MECHANICAL VENTILATOR TOLERATING WELL, ON TELEMONITOR SR AT THIS TIME, G-TUBE NOTED PATENT UPON ASSESSMENT, VERBAL CONSENT FOR CT GUIDED NEEDLE BIOPSY OF THE SIGMOID COLON, NPO POST MIDNIGHT, ON ATB THERAPY NO ASE NOTED, LEFT UPPER ARM MIDLINE PATENT FLUSHING WELL, SAFETY MEASURES OBSERVED CALL LIGHT WITHIN REACH, ENDORSE TO NOC SHIFT.
--- NOTE | 2021-09-11 19:40 | NUR ---
RN OPENING NOTES RECEIVED PATIENT IN BED ALERT AND VERBALLY RESPONSIVE, A/O X 4, RESPIRATORY EVEN AND UNLABORED, NO SOB NOTED AT THIS TIME. ON TRACHEOSTOMY WITH MECHANICAL VENTILATOR TOLERATING WELL. NOTED WITH GTUBE, INPLACED PATENT NO RESIDUAL NOTED AND FLUSHED. NOTED WITH JOHN MIDLINE, PATENT AND FLUSHING WELL, NO S/S OF INFECTION OR INFILTRATION. SAFETY MEASURES IMPLEMENTED. PATIENT BED ALARM IS ON. HEAD OF BED ELEVATED. BED IS LOCKED, IN LOWEST POSITION AND SIDE RAILS UP. CALL LIGHT WITHIN REACH OF THE PATIENT.
[2021-09-11 20:00] VITALS: BP 115/67
[2021-09-11] MEDS: ZOLPIDEM TARTRATE 5 MG TABLET GT SCH (21:35)
[2021-09-11] MEDS: ACETAMINOPHEN 325 MG TABLET PO PRN (21:35)
[2021-09-11] MEDS: SENNOSIDES 8.6 MG TABLET GT SCH (21:36)
[2021-09-12] VITALS: BP 113/68
[2021-09-12] MEDS: HYDROCODONE/APAP 5/325MG TABLET PO PRN ×4 (00:42→22:08)
[2021-09-12 04:00] VITALS: BP 124/80
[2021-09-12] MEDS: ZOSYN IVPB 3.375 G in IV D5W 50ml IV SCH ×4 (06:05→23:58)
--- NOTE | 2021-09-12 07:09 | NUR ---
RN CLOSING NOTES PATIENT SLEEPING IN BED ALERT AND VERBALLY RESPONSIVE, A/O X 4, RESPIRATORY EVEN AND UNLABORED, NO SOB NOTED AT THIS TIME. ON TRACHEOSTOMY WITH MECHANICAL VENTILATOR TOLERATING WELL. PT. NPO POST MID NIGHT FOR CT GUIDED NEEDLE BIOPSY OF THE SIGMOID COLON. SAFETY MEASURES IMPLEMENTED. PATIENT BED ALARM IS ON. HEAD OF BED ELEVATED. BED IS LOCKED, IN LOWEST POSITION AND SIDE RAILS UP. CALL LIGHT WITHIN REACH OF THE PATIENT.
--- NOTE | 2021-09-12 07:58 | NUR ---
RN NOTES PATIENT RECEIVED AWAKE IN BED ALERT AND VERBALLY RESPONSIVE, A/O X 4, RESPIRATORY EVEN AND UNLABORED, NO SOB NOTED AT THIS TIME. SINUS RHYTHM, ON TRACHEOSTOMY WITH MECHANICAL VENTILATOR TOLERATING WELL. PT. NPO POST MID NIGHT FOR CT GUIDED NEEDLE BIOPSY OF THE SIGMOID COLON. SAFETY MEASURES OBSERVED. PATIENT BED ALARM IS ON. HEAD OF BED ELEVATED. BED IS LOCKED, IN LOWEST POSITION AND SIDE RAILS UP. CALL LIGHT WITHIN REACH OF THE PATIENT. WILL CONTINUE TO ASSESS, MONITOR AND ISABELLA
[2021-09-12 08:00] VITALS: BP 121/77
[2021-09-12 08:06] LABS: IMMUNOGLOBULIN A, SERUM 354 mg/dL (90-386); IMMUNOGLOBULIN G, SERUM 1193 mg/dL (603-1613); IMMUNOGLOBULIN M, SERUM 114 mg/dL (20-172)
[2021-09-12] MEDS: TOBRAMYCIN SULFATE OPHTH OINT 3.5 GM TUBE LEFTEYE SCH ×2 (08:22→17:22)
[2021-09-12 08:25] LABS: BASOPHILS # (AUTO) 0.1 K/uL (0.0-0.2); BASOPHILS % (AUTO) 0.6 % (0.0-2.0); EOSINOPHILS % (AUTO) 1.6 % (0.0-6.0); HEMATOCRIT 34 % (39-51); HEMOGLOBIN 11.3 g/dL (13.5-17.5); LYMPHOCYTES # (AUTO) 1.7 K/uL (0.8-4.8); LYMPHOCYTES % (AUTO) 15.2 % (20.0-44.0); MEAN CORPUSCULAR HGB CONC 33 g/dl (31.0-36.0); MEAN CORPUSCULAR VOLUME 83 fL (80-96); MONOCYTES # (AUTO) 1.4 K/uL (0.1-1.30); MONOCYTES % (AUTO) 12.5 % (2.0-12.0); NEUTROPHILS # (AUTO) 7.7 K/uL (1.8-8.9); NEUTROPHILS % (AUTO) 70.1 % (43.0-81.0); PLATELET COUNT (AUTO) 605 K/uL (150-450); RED BLOOD CELL COUNT(AUTO) 4.13 MIL/uL (4.5-6.0)
[2021-09-12 08:38] LABS: CALCIUM, SERUM 8.7 mg/dL (8.5-10.1); CREATININE 0.4 mg/dL (0.6-1.3); POTASSIUM 3.8 mmol/L (3.5-5.1)
[2021-09-12] MEDS: PANTOPRAZOLE 40 MG/PACK PACK GT SCH ×2 (08:44→21:04)
[2021-09-12] MEDS: BACLOFEN (10 MG) 10 MG TABLET GT SCH ×3 (08:44→17:22)
[2021-09-12] MEDS: SIMETHICONE 80 MG TAB.CHEW GT SCH (08:44)
[2021-09-12] MEDS: CHLORHEXIDINE GLUCONATE 15 ML UDC MM SCH ×2 (09:27→17:22)
[2021-09-12] MEDS: LORAZEPAM INJ 2 MG/ML VIAL IV PRN ×2 (11:04→19:42)
[2021-09-12 12:00] VITALS: BP 119/78
--- NOTE | 2021-09-12 14:07 | NUR ---
RN NOTE PATIENT RETURNED FROM CT, PER CT RN, UNABLE TO PERFORM CT GUIDED NEEDLE BIOPSY, NO MASS FOUND ON THE ABDOMEN. Addendum: 09/12/21 at 1409 by EDILIA MORALES RN RN NOTE PATIENT RETURNED FROM CT, PER CT RN, UNABLE TO PERFORM CT GUIDED NEEDLE BIOPSY, NO MASS FOUND ON THE ABDOMEN. DR. KIM NOTIFIED.
[2021-09-12 16:00] VITALS: BP 125/79
--- NOTE | 2021-09-12 19:02 | NUR ---
RN NOTE PATIENT OBSERVED IN BED AWAKE, ALERT AND ORIENTED X 4, ABLE TO VERBALIZE NEEDS, ON TRACHEOSTOMY WITH MECHANICAL VENTILATOR TOLERATING WELL, ON TELEMONITOR SR AT THIS TIME, G-TUBE NOTED PATENT UPON ASSESSMENT, CT GUIDED NEEDLE BIOPSY NOT DONE NO VISIBLE MASS, VERBAL CONSENT FOR CT ABDOMEN AND PELVIC WITH CONTRAST, NPO POST MIDNIGHT, ON ATB THERAPY NO ASE NOTED, LEFT UPPER ARM MIDLINE PATENT FLUSHING WELL, SAFETY MEASURES OBSERVED CALL LIGHT WITHIN REACH, ENDORSE TO NOC SHIFT.
--- NOTE | 2021-09-12 19:30 | NUR ---
INFORMATION RESOURCE CONSULTANT OPENING NOTES: RECEIVED PATIENT FROM DAY SHIFT, PATIENT IN BED, A/O X4, ON VENTILATOR: TRACH # P7, AC: 16, TV: 550, FIO2: 30, PEEP: 5. TELE MONITOR SHOWS NSR, PATIENT NPO PAST MIDNIGHT, JEVITY 1.2 60 CC/HR ON HOLD, JACLYN MIDLINE PATENT AND INTACT, NO SIGNS OF SOB, NO DISTRESS NOTED, BED AT LOWEST POSITION, BRAKES LOCKED AND IN PLACE, SIDE RAILS UP X2, CALL LIGHT WITHIN REACH, WILL CONTINUE TO MONITOR AND IMPLEMENT NURSING INTERVENTIONS NECESSARY.
[2021-09-12 20:00] VITALS: BP 103/72
[2021-09-12] MEDS: ZOLPIDEM TARTRATE 5 MG TABLET GT SCH (21:03)
[2021-09-12] MEDS: SENNOSIDES 8.6 MG TABLET GT SCH (21:03)
[2021-09-12] MEDS: ACETAMINOPHEN 325 MG TABLET PO PRN (21:03)
[2021-09-12] MEDS: ONDANSETRON HCL/PF 4 MG/2 ML VIAL IVP PRN (21:08)
[2021-09-12] MEDS: TRAZODONE 50 MG TABLET GT PRN (22:08)
[2021-09-13] VITALS: BP 106/81
[2021-09-13] MEDS: HYDROCODONE/APAP 5/325MG TABLET PO PRN ×3 (02:53→19:29)
[2021-09-13 04:00] VITALS: BP 103/67
[2021-09-13] MEDS: ZOSYN IVPB 3.375 G in IV D5W 50ml IV SCH (05:24)
[2021-09-13 06:22] LABS: *SPE A/G RATIO 0.8 (0.7-1.7); *SPE ALPHA-1-GLOBULIN 0.4 g/dL (0.0-0.4); *SPE ALPHA-2-GLOBULIN 0.9 g/dL (0.4-1.0); *SPE BETA GLOBULIN 1.1 g/dL (0.7-1.3); *SPE M-SPIKE Not Observed g/dL (Not Observed)
--- NOTE | 2021-09-13 07:06 | NUR ---
[facility] CLOSING NOTES: PATIENT IN BED, A/O X4, ON VENTILATOR SETTINGS: TRACH # P7, AC: 16, tv; 550, FIO2: 30, PEEP: 5, SATURATING 99%, PATIENT NPO FOR PROCEDURE SINCE MIDNIGHT, JEVITY 1.2 @ 60 CC/HR WAS PAUSED, JACLYN MIDLINE IS PATENT AND INTACT, BED AT LOWEST POSITION, BRAKES LOCKED AND IN PLACE, SIDE RAILS UP X2, CALL LIGHT WITHIN REACH, WILL CONTINUE TO MONITOR AND ENDORSE TO DAY SHIFT NURSE.
--- NOTE | 2021-09-13 07:29 | NUR ---
RN OPENING NOTE. RECEIVE REPORT FROM PIEROGI MAKER NURSE. PATIENT IN STABLE CONDITION AT TIME OF REPORT. PATIENT ON VENT. SETTING: AC 16, TV550, FIO2 30, PEEP 5. A/O X4. PATIENT IS BEDBOUND AND SACRAL WOUND PRESENT. WILL FOLLOW UP WITH AM LABS AND DOCTOR ORDERS. PROPER ISOLATION PRECAUTION IN PLACE. ALL SAFETY MEASURE IN PLACE. BED ON LOWEST POSITION WITH HOB ELEVATED. CALL LIGHT WITHIN REACH. WILL CONTINUE TO MONITOR.
[2021-09-13] MEDS: LORAZEPAM INJ 2 MG/ML VIAL IV PRN ×2 (07:56→16:44)
[2021-09-13 08:00] VITALS: BP 122/70
[2021-09-13 09:03] LABS: BASOPHILS % (AUTO) 0.4 % (0.0-2.0); EOSINOPHILS % (AUTO) 0.6 % (0.0-6.0); HEMATOCRIT 37 % (39-51); HEMOGLOBIN 12.3 g/dL (13.5-17.5); LYMPHOCYTES # (AUTO) 1.3 K/uL (0.8-4.8); LYMPHOCYTES % (AUTO) 11.9 % (20.0-44.0); MEAN CORPUSCULAR HGB CONC 33 g/dl (31.0-36.0); MEAN CORPUSCULAR VOLUME 82 fL (80-96); MONOCYTES # (AUTO) 1.3 K/uL (0.1-1.30); MONOCYTES % (AUTO) 11.8 % (2.0-12.0); NEUTROPHILS # (AUTO) 8.1 K/uL (1.8-8.9); NEUTROPHILS % (AUTO) 75.3 % (43.0-81.0); PLATELET COUNT (AUTO) 610 K/uL (150-450); RED BLOOD CELL COUNT(AUTO) 4.53 MIL/uL (4.5-6.0); WHITE BLOOD COUNT (AUTO) 10.8 K/uL (4.3-11.0)
[2021-09-13] MEDS: FERROUS SULFATE UDC 300 MG/5 ML UDC GT SCH (09:20)
[2021-09-13] MEDS: PANTOPRAZOLE 40 MG/PACK PACK GT SCH ×2 (09:21→21:01)
[2021-09-13] MEDS: SIMETHICONE 80 MG TAB.CHEW GT SCH (09:21)
[2021-09-13] MEDS: BACLOFEN (10 MG) 10 MG TABLET GT SCH ×3 (09:21→16:05)
[2021-09-13] MEDS: TOBRAMYCIN SULFATE OPHTH OINT 3.5 GM TUBE LEFTEYE SCH ×2 (09:22→16:12)
[2021-09-13] MEDS: CHLORHEXIDINE GLUCONATE 15 ML UDC MM SCH ×2 (09:22→16:05)
[2021-09-13 09:50] LABS: CALCIUM, SERUM 9.4 mg/dL (8.5-10.1); CREATININE 0.5 mg/dL (0.6-1.3); POTASSIUM 3.6 mmol/L (3.5-5.1)
[2021-09-13] MEDS: FLUCONAZOLE (100 MG) 100 MG TABLET PO SCH (11:11)
[2021-09-13] MEDS ORDERED: IOHEXOL-300 100 ML VIAL IV ONE (11:35)
[2021-09-13] MEDS ORDERED: IV NS 0.9% 250 ML IV ONE (11:35)
[2021-09-13 12:00] VITALS: BP 123/62
[2021-09-13 16:00] VITALS: BP 116/70
[2021-09-13] MEDS: JEVITY 1.2 CAL 1,000 ML BOTTLE GT SCH (16:11)
--- NOTE | 2021-09-13 19:17 | NUR ---
RN CLOSING NOTE PATIENT REMAIN IN STABLE CONDITION WITH NO SIGN OF DISTRESS THROUGH OUT SHIFT. HAD CT WITH CONTRAST DONE TO VERIFY COLON SHALINI. NO MASS WAS PRESENT. DOCTOR BELIEVE IT WAS HEMATOMA THAT HAVE RESOLVE. PATIENT HAVE BEEN STARTED ON TUBE FEEDING WITH 1.2 JEVITY AT 60ML/HR. PROPER PRECAUTION IN PLACE. ALL SAFETY MEASURE IN PLACE. BED ON LOWEST POSITION WITH HOB ELEVATED. 3 SIDE RAIL UP. CALL LIGHT WITHIN REACH. WILL CONTINUE TO MONITOR AND GIVE REPORT TO COMPUTER ENGINEERING TECHNOLOGIST NURSE.
--- NOTE | 2021-09-13 19:20 | NUR ---
RECEIVED PT ON BED AWAKE ON TRACH/VENT SETTING PER MD FIO2 30% PEEP 5 SPO2 98% NO SIGN OF RESPIRATORY DISTRESS, PT IS ALERT ORIENTED X3 CAN VERBALIZED NEEDS, TELE MONITOR READS SINUS TACHY 100'S HAVE GTUBE ON PLACE WITH ONGOING JEVITY @ 60ML/HR 0 RESIDUAL, HAVE SUPRAPUBIC CATHETER WITH YELLOW URINE DRAINING VIA GRAVITY, BED ON LOWEST POSITION AND LOCKED SIDE RAILS UP X2 CALL LIGHT WITHIN REACH WILL CONT TO MONITOR
[2021-09-13 20:00] VITALS: BP 90/63
[2021-09-13] MEDS: ACETAMINOPHEN 325 MG TABLET PO PRN (21:01)
[2021-09-13] MEDS: SENNOSIDES 8.6 MG TABLET GT SCH (21:02)
[2021-09-13] MEDS: ZOLPIDEM TARTRATE 5 MG TABLET GT SCH (21:02)
[2021-09-13] MEDS: TRAZODONE 50 MG TABLET GT PRN (22:23)
--- NOTE | 2021-09-13 23:02 | NUR ---
trazodone wasted due to pt is already sleeping he requested to me to give him trazodone but when i come back to his room he is already sleeping charge nurse made aware
--- NOTE | 2021-09-13 23:05 | NUR ---
REPORT GIVEN TO TELLY CARRASCO FOR ISABELLA
--- NOTE | 2021-09-13 23:10 | NUR ---
RECEIVED PT ON BED AWAKE ON TRACH/VENT SETTING PER MD FIO2 30% PEEP 5 SPO2 98% NO SIGN OF RESPIRATORY DISTRESS, PT IS ALERT ORIENTED X4 CAN VERBALIZED NEEDS, TELE MONITOR READS SINUS TACHY 100'S HAS GTUBE IN PLACE WITH ONGOING JEVITY @ 60ML/HR 0 RESIDUAL, JEVITY PAUSED, HAS SUPRAPUBIC CATHETER WITH YELLOW URINE DRAINING VIA GRAVITY, BED ON LOWEST POSITION AND LOCKED SIDE RAILS UP X2 CALL LIGHT WITHIN REACH WILL CONT TO MONITOR
[2021-09-14] VITALS: BP 90/67
[2021-09-14] MEDS: LORAZEPAM INJ 2 MG/ML VIAL IV PRN ×3 (01:37→20:41)
[2021-09-14] MEDS: HYDROCODONE/APAP 5/325MG TABLET PO PRN ×2 (01:53→09:22)
[2021-09-14 04:00] VITALS: BP_SYST 107; BP_SYST 108; BP_DIAS 69; BP_DIAS 72
--- NOTE | 2021-09-14 06:49 | NUR ---
CABLE TOOL OPERATOR CLOSING NOTES: PATIENT IN BED, A/O X4, TELE MONITOR SHOWS NSR, ON VENT: SETTINGS - TRACH # [id number], AC: 16, TV: 550, FIO2: 30, PEEP: 5, SATURATING 99%, JACLYN MIDLINE PATENT AND INTACT, NO SOB, NO DISTRESS NOTED, BED AT LOWEST POSITION, BRAKES LOCKED AND IN POSITION, SIDE RAILS UP X2, CALL LIGHT WITHIN REACH, WILL CONTINUE TO MONITOR AND IMPLEMENT NURSING INTERVENTIONS, WILL ENDORSE TO DAY SHIFT NURSE.
--- NOTE | 2021-09-14 07:19 | NUR ---
RN OPENING NOTE PATIENT IN STABLE CONDITION AT TIME OF REPORT WITH NO SIGN OF DISTRESS. VENT SETTING: TRACH #P7, AC 16, TV 550, FIO2 30, PEEP 5. O2 SAT 99%. WILL FOLLOW UP DOCTORS ORDERS. PROPER ISOLATION PRECAUTION IN PLACE. ALL SAFETY MEASURE IN PLACE. BED IN LOWEST POSITION WITH HOB ELEVATED AND 3 SIDE RAIL UP. CALL LIGHT WITHIN REACH. WILL CONTINUE TO MONITOR.
[2021-09-14 08:00] VITALS: BP 124/70
[2021-09-14 08:55] LABS: BASOPHILS # (AUTO) 0.1 K/uL (0.0-0.2); BASOPHILS % (AUTO) 0.6 % (0.0-2.0); EOSINOPHILS % (AUTO) 1.5 % (0.0-6.0); HEMATOCRIT 40 % (39-51); LYMPHOCYTES # (AUTO) 2.1 K/uL (0.8-4.8); LYMPHOCYTES % (AUTO) 18.8 % (20.0-44.0); MEAN CORPUSCULAR HGB CONC 33 g/dl (31.0-36.0); MEAN CORPUSCULAR VOLUME 82 fL (80-96); MONOCYTES # (AUTO) 1.4 K/uL (0.1-1.30); MONOCYTES % (AUTO) 12.4 % (2.0-12.0); NEUTROPHILS # (AUTO) 7.5 K/uL (1.8-8.9); NEUTROPHILS % (AUTO) 66.7 % (43.0-81.0); PLATELET COUNT (AUTO) 609 K/uL (150-450); RED BLOOD CELL COUNT(AUTO) 4.85 MIL/uL (4.5-6.0); WHITE BLOOD COUNT (AUTO) 11.2 K/uL (4.3-11.0)
[2021-09-14 09:01] LABS: CALCIUM, SERUM 9.2 mg/dL (8.5-10.1); CREATININE 0.5 mg/dL (0.6-1.3); MAGNESIUM 2.1 mg/dL (1.8-2.4); PHOSPHORUS 3.5 mg/dL (2.5-4.9)
[2021-09-14] MEDS: BACLOFEN (10 MG) 10 MG TABLET GT SCH ×3 (09:07→17:31)
[2021-09-14] MEDS: FERROUS SULFATE UDC 300 MG/5 ML UDC GT SCH (09:07)
[2021-09-14] MEDS: SIMETHICONE 80 MG TAB.CHEW GT SCH (09:07)
[2021-09-14] MEDS: PANTOPRAZOLE 40 MG/PACK PACK GT SCH ×2 (09:07→21:10)
[2021-09-14] MEDS: CHLORHEXIDINE GLUCONATE 15 ML UDC MM SCH ×2 (09:07→17:31)
[2021-09-14] MEDS: TOBRAMYCIN SULFATE OPHTH OINT 3.5 GM TUBE LEFTEYE SCH (09:08)
[2021-09-14] MEDS: FLUCONAZOLE (100 MG) 100 MG TABLET PO SCH (09:08)
[2021-09-14] MEDS: MAGNESIUM HYDROXIDE 30 ML UDC PO PRN (09:27)
[2021-09-14] MEDS: JEVITY 1.2 CAL 1,000 ML BOTTLE GT SCH (11:23)
[2021-09-14 12:00] VITALS: BP 115/59
[2021-09-14 16:00] VITALS: BP 108/69
--- NOTE | 2021-09-14 18:40 | NUR ---
RN CLOSING NOTE PATIENT HAD NO SIGNIFICANT CHANGES THROUGHOUT THE SHIFT. NO SOB OR ANY DISTRESS NOTED. TUBE FEEDING RUNNING WITH 1.2 JEVITY AT 60ML/HR, PATIENT TOLERATING WELL. ALL NEEDS MET. BED IN LOWEST POSITION, BED LOCKED WITH HOB ELEVATED. 3 SIDE RAIL UP. CALL LIGHT WITHIN REACH. WILL CONTINUE TO MONITOR AND GIVE REPORT TO EARTH OBSERVATIONS CHIEF SCIENTIST NURSE.
--- NOTE | 2021-09-14 19:20 | NUR ---
RN NOTES RECEIVED PATIENT WHILE IN BED, AWAKE, A&OX4. PATIENT WITH TRACHEOSTOMY TUBE, MECHANICAL VENTILATOR ON WITH FIO2 AT 30%, O2 SAT AT THIS TIME IS 100%. SUPRAPUBIC CATHETER IN PLACE, PATENT AND DRAINING URINE. G TUBE IN PLACE, PATENT WITH RUNNING JEVITY 1.2 AT 60 CC/HR. LEFT UPPER ARM MIDLINE IN PLACE, PATENT WITH NO SIGNS OF INFILTRATION. NO SIGNIFICANT FINDINGS UPON INITIAL NURSING ASSESSMENTS. BED LOCKED AND IN LOWEST POSITION, CALL LIGHT WITHIN REACH, 3 SIDE RAILS UP. WILL CONTINUE TO MONITOR FOR ANY CHANGES.
--- NOTE | 2021-09-14 19:56 | NUR ---
RT NOTE PT RECEIVED TRACHED ON MECHANICAL VENTILATION. PORTEX [address] CUFF DEFLATED, PT STILL RECEIVING ADEQUATE VOLUMES. AMBU BAG @ BEDSIDE. CONT. PULSE OX CONNECTED. VENT PLUGGED TO RED OUTLET. SUCTION DONE, SMALL THICK WHITE SECRETIONS NOTED. NO RESPIRATORY DISTRESS NOTED AT THIS TIME. WILL CONTINUE TO MONITOR. Addendum: 09/14/21 at 8 by JESSIKA MILLER RT Amended: Links added.
[2021-09-14 20:00] VITALS: BP 109/68
[2021-09-14] MEDS: SENNOSIDES 8.6 MG TABLET GT SCH (21:09)
[2021-09-14] MEDS: ACETAMINOPHEN 325 MG TABLET PO PRN (21:10)
[2021-09-14] MEDS: ZOLPIDEM TARTRATE 5 MG TABLET GT SCH (21:10)
[2021-09-15] VITALS: BP_SYST 108; BP_SYST 90; BP_DIAS 50; BP_DIAS 68
[2021-09-15] MEDS: HYDROCODONE/APAP 5/325MG TABLET PO PRN ×3 (00:11→19:59)
[2021-09-15] MEDS: TRAZODONE 50 MG TABLET GT PRN ×2 (00:11→23:01)
[2021-09-15 04:00] VITALS: BP 99/67
[2021-09-15] MEDS: ONDANSETRON HCL/PF 4 MG/2 ML VIAL IVP PRN ×2 (06:04→19:59)
[2021-09-15] MEDS: LORAZEPAM INJ 2 MG/ML VIAL IV PRN ×3 (06:05→23:24)
--- NOTE | 2021-09-15 07:00 | NUR ---
RN CLOSING NOTES WILL ENDORSE TO DAY SHIFT NURSE WHILE PATIENT IS IN BED, AWAKE, A&OX4. PATIENT WITH TRACHEOSTOMY TUBE, MECHANICAL VENTILATOR ON WITH FIO2 AT 30%, O2 SAT AT THIS TIME IS 100%. SUPRAPUBIC CATHETER IN PLACE, PATENT AND DRAINING URINE. G TUBE IN PLACE, PATENT, JEVITY 1.2 AT 60 CC/HR HAS BEEN STOPPED PER PATIENT'S WHISHES. LEFT UPPER ARM MIDLINE IN PLACE, PATENT WITH NO SIGNS OF INFILTRATION. NO SIGNIFICANT FINDINGS UPON ALL NURSING ASSESSMENTS. BED LOCKED AND IN LOWEST POSITION, CALL LIGHT WITHIN REACH, 3 SIDE RAILS UP. WILL ENDORSE TO DAY SHIFT NURSE FOR ISABELLA.
--- NOTE | 2021-09-15 07:40 | NUR ---
CLERK OPERATOR NOTE PATIENT IN BED , ALERT ORIENTED, WITH TRACH TO VENT SETTING ORDERED, WITH G TUBE FEEDING ORDERED, JOHN, NO SOB NOTED AT THIS WITH GROSSMAN CATH TO GRAVITY WITH YELLOW COLOR URINE NOTED ,BED IN LOWEST AND LOCKED POSITION , WILL CONT TO MONITOR TIME , Addendum: 09/15/21 at 0919 by DUYEN SOMERS RN CORRECTION WITH SUPRAPUBIC CATH IN PLACE
[2021-09-15 08:00] VITALS: BP 128/65
[2021-09-15] MEDS: FERROUS SULFATE UDC 300 MG/5 ML UDC GT SCH (08:38)
[2021-09-15] MEDS: PANTOPRAZOLE 40 MG/PACK PACK GT SCH ×2 (08:39→21:26)
[2021-09-15] MEDS: FLUCONAZOLE (100 MG) 100 MG TABLET PO SCH (08:39)
[2021-09-15] MEDS: BACLOFEN (10 MG) 10 MG TABLET GT SCH ×3 (08:40→16:33)
[2021-09-15] MEDS: SIMETHICONE 80 MG TAB.CHEW GT SCH (08:40)
[2021-09-15] MEDS: CHLORHEXIDINE GLUCONATE 15 ML UDC MM SCH ×2 (08:40→16:33)
--- NOTE | 2021-09-15 09:30 | NUR ---
OPERATING ROOM SURGICAL TECHNOLOGIST NOTE ST AT BEDSIDE, PER ST NOT NEED PMV VALVE PATIENT STATED TOLERATE TO EAT WELL
--- NOTE | 2021-09-15 10:00 | NUR ---
ROSE GRADER NOTE ROUND MADE ALL NEEDS ATTENDED TURN REPOSITION, NOT IN DISTRESS
[2021-09-15 12:00] VITALS: BP 122/71
--- NOTE | 2021-09-15 12:29 | NUR ---
TRUCK HOP NOT SILK WORKER AT BEDSIDE PATINT HAVE LUNCH ABLE TO EAT SOFT DIET
--- NOTE | 2021-09-15 14:32 | NUR ---
telephone collector note feels anxious bp 105/70 saturation 96% Ativan 10 mg ivp given as ordered
--- NOTE | 2021-09-15 15:00 | NUR ---
telephone solicitor note dr fish at bedside undated patient condition
[2021-09-15 15:16] LABS: BASOPHILS # (AUTO) 0.1 K/uL (0.0-0.2); BASOPHILS % (AUTO) 0.7 % (0.0-2.0); EOSINOPHILS % (AUTO) 1.7 % (0.0-6.0); HEMATOCRIT 34 % (39-51); HEMOGLOBIN 11.1 g/dL (13.5-17.5); LYMPHOCYTES # (AUTO) 1.4 K/uL (0.8-4.8); LYMPHOCYTES % (AUTO) 17.9 % (20.0-44.0); MEAN CORPUSCULAR HGB CONC 33 g/dl (31.0-36.0); MEAN CORPUSCULAR VOLUME 83 fL (80-96); MONOCYTES % (AUTO) 12.6 % (2.0-12.0); NEUTROPHILS # (AUTO) 5.2 K/uL (1.8-8.9); NEUTROPHILS % (AUTO) 67.1 % (43.0-81.0); PLATELET COUNT (AUTO) 536 K/uL (150-450); RED BLOOD CELL COUNT(AUTO) 4.14 MIL/uL (4.5-6.0); WHITE BLOOD COUNT (AUTO) 7.8 K/uL (4.3-11.0)
[2021-09-15] MEDS: JEVITY 1.2 CAL 1,000 ML BOTTLE GT SCH (15:26)
[2021-09-15 15:35] LABS: CALCIUM, SERUM 8.4 mg/dL (8.5-10.1); CREATININE 0.6 mg/dL (0.6-1.3); PHOSPHORUS 2.3 mg/dL (2.5-4.9); POTASSIUM 4.1 mmol/L (3.5-5.1)
[2021-09-15 16:00] VITALS: BP 101/61
--- NOTE | 2021-09-15 19:29 | NUR ---
RN NOTES RECEIVED PATIENT WHILE IN BED, AWAKE, A&OX4. PATIENT IS ABLE TO VERBALIZE NEEDS. PATIENT WITH TRACHEOSTOMY TUBE, MECHANICAL VENTILATOR ON WITH FIO2 AT 30%, O2 SAT AT THIS TIME IS 99%. SUPRAPUBIC CATHETER IN PLACE, PATENT AND DRAINING URINE. G TUBE IN PLACE, PATENT WITH RUNNING JEVITY 1.2 AT 60 CC/HR. LEFT UPPER ARM MIDLINE IN PLACE, PATENT WITH NO SIGNS OF INFILTRATION. NO SIGNIFICANT FINDINGS UPON INITIAL NURSING ASSESSMENTS. BED LOCKED AND IN LOWEST POSITION, CALL LIGHT WITHIN REACH, 3 SIDE RAILS UP. WILL CONTINUE TO MONITOR FOR ANY CHANGES.
--- NOTE | 2021-09-15 19:56 | NUR ---
PT RECEIVED TRACHED PORTEX 7 WITH CUFF DEFLATED ON MECHANICAL VENTILATION WITH THE SETTINGS OF AC 16,VT 550,FIO2 30% PEEP 5. PT STILL RECEIVING SUFFICIENT VOLUMES. AMBU BAG @ BEDSIDE. CONT. PULSE OX CONNECTED. VENT PLUGGED TO RED OUTLET. SUCTION DONE, SMALL THICK WHITE SECRETIONS NOTED. NO RESPIRATORY DISTRESS NOTED AT THIS TIME. WILL CONTINUE TO MONITOR T/O SHIFT.
[2021-09-15 20:00] VITALS: BP 129/78
[2021-09-15] MEDS: ZOLPIDEM TARTRATE 5 MG TABLET GT SCH (21:25)
[2021-09-15] MEDS: MAGNESIUM HYDROXIDE 30 ML UDC PO PRN (21:25)
[2021-09-15] MEDS: SENNOSIDES 8.6 MG TABLET GT SCH (21:26)
[2021-09-16] VITALS: BP 108/68
[2021-09-16] MEDS: HYDROCODONE/APAP 5/325MG TABLET PO PRN ×3 (02:23→19:46)
[2021-09-16 04:00] VITALS: BP 113/68
--- NOTE | 2021-09-16 06:28 | NUR ---
RN NOTES WILL ENDORSE PATIENT TO DAY SHIFT NURSE WHILE PATIENT IS AWAKE, A&OX4. PATIENT IS ABLE TO VERBALIZE NEEDS. PATIENT WITH TRACHEOSTOMY TUBE, MECHANICAL VENTILATOR ON WITH FIO2 AT 30%, O2 SAT AT THIS TIME IS 100%. SUPRAPUBIC CATHETER IN PLACE, PATENT AND DRAINING URINE, 180 ML OF URINE OUTPUT FOR THE SHIFT. G TUBE IN PLACE, PATENT, JEVITY 1.2 AT 60 CC/HR WAS STOPPED AT 2215 PER PATIENTS WISHES. LEFT UPPER ARM MIDLINE IN PLACE, PATENT WITH NO SIGNS OF INFILTRATION. NO SIGNIFICANT FINDINGS UPON ALL NURSING ASSESSMENTS. BED LOCKED AND IN LOWEST POSITION, CALL LIGHT WITHIN REACH, 3 SIDE RAILS UP. WILL ENDORSE TO DAY SHIFT NURSE FOR ISABELLA.
[2021-09-16 07:39] LABS: BASOPHILS # (AUTO) 0.1 K/uL (0.0-0.2); BASOPHILS % (AUTO) 0.6 % (0.0-2.0); EOSINOPHILS % (AUTO) 1.5 % (0.0-6.0); HEMATOCRIT 37 % (39-51); HEMOGLOBIN 11.7 g/dL (13.5-17.5); LYMPHOCYTES # (AUTO) 1.5 K/uL (0.8-4.8); LYMPHOCYTES % (AUTO) 12.2 % (20.0-44.0); MEAN CORPUSCULAR HGB CONC 32 g/dl (31.0-36.0); MEAN CORPUSCULAR VOLUME 83 fL (80-96); MONOCYTES # (AUTO) 1.3 K/uL (0.1-1.30); MONOCYTES % (AUTO) 10.3 % (2.0-12.0); NEUTROPHILS # (AUTO) 9.3 K/uL (1.8-8.9); NEUTROPHILS % (AUTO) 75.4 % (43.0-81.0); PLATELET COUNT (AUTO) 483 K/uL (150-450); RED BLOOD CELL COUNT(AUTO) 4.39 MIL/uL (4.5-6.0); WHITE BLOOD COUNT (AUTO) 12.4 K/uL (4.3-11.0)
--- NOTE | 2021-09-16 07:44 | NUR ---
RN OPENING NOTE RECEIVE REPORT FROM SUPERVISOR VARNISH NURSE. PATIENT IN STABLE CONDITION AT TIME OF REPORT WITH NO SIGN OF DISTRESS. ON VENT, SETTINGS; TRACH# P7, AC 16, TV 550, FIO2 30%, PEEP 5. JOHN MIDLINE FLUSH AND HEP LOCK. TUBE FEEDING WAS STOP PER SUPERVISOR VARNISH DUE TO PATIENT COMPLAIN OF FEELING PRESSURE IN ABDOMEN. WILL ASSES ABDOMEN BEFORE RESTARTING TUBE FEEDING. PROPER ISOLATION PRECAUTION IN PLACE. ALL SAFETY MEASURE IN PLACE. BED ON LOWEST POSITION WITH HOB ELEVATED AND 3 SIDE RAIL UP. CALL LIGHT WITHIN REACH. WILL CONTINUE TO MONITOR.
[2021-09-16 08:00] VITALS: BP 115/69
[2021-09-16 08:02] LABS: CREATININE 0.4 mg/dL (0.6-1.3); MAGNESIUM 2.2 mg/dL (1.8-2.4); PHOSPHORUS 2.7 mg/dL (2.5-4.9); POTASSIUM 4.4 mmol/L (3.5-5.1)
[2021-09-16] MEDS: PANTOPRAZOLE 40 MG/PACK PACK GT SCH ×2 (08:45→20:56)
[2021-09-16] MEDS: FLUCONAZOLE (100 MG) 100 MG TABLET PO SCH (08:47)
[2021-09-16] MEDS: SIMETHICONE 80 MG TAB.CHEW GT SCH (08:47)
[2021-09-16] MEDS: BACLOFEN (10 MG) 10 MG TABLET GT SCH ×3 (08:48→16:28)
[2021-09-16] MEDS: FERROUS SULFATE UDC 300 MG/5 ML UDC GT SCH (08:48)
[2021-09-16] MEDS: CHLORHEXIDINE GLUCONATE 15 ML UDC MM SCH ×2 (08:48→16:28)
[2021-09-16 12:00] VITALS: BP 117/55
[2021-09-16] MEDS: LORAZEPAM INJ 2 MG/ML VIAL IV PRN ×2 (12:37→22:31)
[2021-09-16 16:00] VITALS: BP 117/75
--- NOTE | 2021-09-16 16:30 | NUR ---
RN NOTE RECHECK TEMPERATURE: 98.9
--- NOTE | 2021-09-16 19:08 | NUR ---
RN CLOSING NOTE PATIENT IN STABLE CONDITION WITH NO SIGN OF DISTRESS THROUGH OUT SHIFT. REMAIN ON SAME VENT SETTING. O2 SAT 98% AND ABOVE. PATIENT WAS CLEAN AND REPOSITION PER PROTOCOL. BISACODYL SUPP WAS GIVEN. PATIENT HAD 1 LARGE BOWEL MOVEMENT. PROPER ISOLATION PRECAUTION IN PLACE. ALL SAFETY MEASURE IN PLACE. BED ON LOWEST POSITION WITH HOB ELEVATED AND 3 SIDE RAIL UP. CALL LIGHT WITHIN REACH. WILL CONTINUE TO MONITOR AND GIVE REPORT TO SAP TECHNICAL DEVELOPER NURSE.
--- NOTE | 2021-09-16 19:30 | NUR ---
TELE/RN OPENING NOTE RECEIVED PATIENT RESTING IN BED. AWAKE, ALERT AND ORIENTED X 4. ABLE TO MAKE NEEDS KNOWN. C/O PAIN TO AURELIA. SHOULDERS AND NECK - WILL ADMINISTER PRN PAIN MEDICATION PER ORDERS. CONTINUES ON MECHANICAL VENT WITH PORTEX 7 TRACH. [facility] VENT SETTINGS ARE AC 16, TV 550, FI02 30%, PEEP 5. PATIENT TOLERATING SETTINGS WELL WITH NO S/SX OF RESPIRATORY DISTRESS NOTED. IV ACCESS TO LEFT UPPER ARM MIDLINE #18G INTACT, PATENT AND SALINE LOCKED. G-TUBE IN PLACE WITH DRESSING C/D/I. NO RESIDUAL NOTED AT THIS TIME. PATIENT STATES HIS ABDOMEN FEELS BETTER AFTER LARGE BM, BUT PATIENT CONTINUES TO REFUSE TUBE FEEDING. STATES HE DOES NOT WANT IT AT THIS TIME. CONTINUES ON MECHANICAL SOFT DIET WITH NO S/SX OF ASPIRATION NOTED. SUPRAPUBIC GROSSMAN CATH IN PLACE DRAINING CLEAR, YELLOW URINE TO GRAVITY. CALL LIGHT WITHIN REACH. ASPIRATION, FALL AND SAFETY PRECAUTIONS MAINTAINED. WILL CONTINUE TO MONITOR.
[2021-09-16 20:00] VITALS: BP 105/78
[2021-09-16] MEDS: ZOLPIDEM TARTRATE 5 MG TABLET GT SCH (21:12)
[2021-09-16] MEDS: SENNOSIDES 8.6 MG TABLET GT SCH (21:13)
--- NOTE | 2021-09-16 23:00 | NUR ---
TELE/RN NOTE ATTEMPTED TO RESTART TUBE FEED BUT PATIENT CONTINUES TO REFUSED STATING "I DON'T WANT IT". PATIENT CONTINUES ON MECHANICAL SOFT DIET FOR ORAL GRATIFICATION . WILL CONTINUE TO MONITOR.
[2021-09-16] MEDS: TRAZODONE 50 MG TABLET GT PRN (23:52)
[2021-09-17] VITALS: BP 102/81
[2021-09-17 04:00] VITALS: BP 97/79
[2021-09-17] MEDS: HYDROCODONE/APAP 5/325MG TABLET PO PRN ×3 (05:30→16:29)
--- NOTE | 2021-09-17 06:40 | NUR ---
TELE/RN CLOSING NOTE PATIENT CURRENTLY RESTING IN BED. AWAKE, ALERT AND ORIENTED X 4. ABLE TO MAKE NEEDS KNOWN. DENIES PAIN AT THIS TIME. CONTINUES ON MECHANICAL VENT WITH PORTEX 7 TRACH. [facility] VENT SETTINGS ARE AC 16, TV 550, FI02 30%, PEEP 5. PATIENT TOLERATING SETTINGS WELL WITH NO S/SX OF RESPIRATORY DISTRESS NOTED. IV ACCESS TO LEFT UPPER ARM MIDLINE #18G INTACT, PATENT AND SALINE LOCKED. G-TUBE IN PLACE WITH DRESSING C/D/I. NO RESIDUAL NOTED AT THIS TIME. PATIENT CONTINUES TO REFUSED TUBE FEEDING. CONTINUES ON MECHANICAL SOFT DIET FOR ORAL GRATIFICATION WITH NO S/SX OF ASPIRATION NOTED. SUPRAPUBIC GROSSMAN CATH IN PLACE DRAINING CLEAR, YELLOW URINE TO GRAVITY. CALL LIGHT WITHIN REACH. ASPIRATION, FALL AND SAFETY PRECAUTIONS MAINTAINED. WILL ENDORSE PLAN OF CARE TO ONCOMING SHIFT.
[2021-09-17 07:30] LABS: BASOPHILS # (AUTO) 0.1 K/uL (0.0-0.2); BASOPHILS % (AUTO) 0.8 % (0.0-2.0); HEMATOCRIT 30 % (39-51); LYMPHOCYTES # (AUTO) 1.7 K/uL (0.8-4.8); LYMPHOCYTES % (AUTO) 18.5 % (20.0-44.0); MEAN CORPUSCULAR HGB CONC 33 g/dl (31.0-36.0); MEAN CORPUSCULAR VOLUME 83 fL (80-96); MONOCYTES # (AUTO) 1.2 K/uL (0.1-1.30); MONOCYTES % (AUTO) 12.4 % (2.0-12.0); NEUTROPHILS # (AUTO) 6.2 K/uL (1.8-8.9); NEUTROPHILS % (AUTO) 65.3 % (43.0-81.0); PLATELET COUNT (AUTO) 435 K/uL (150-450); RED BLOOD CELL COUNT(AUTO) 3.59 MIL/uL (4.5-6.0); WHITE BLOOD COUNT (AUTO) 9.4 K/uL (4.3-11.0)
[2021-09-17 07:32] LABS: CREATININE 0.5 mg/dL (0.6-1.3); PHOSPHORUS 3.3 mg/dL (2.5-4.9); POTASSIUM 4.3 mmol/L (3.5-5.1)
--- NOTE | 2021-09-17 07:46 | NUR ---
RN OPENING NOTE RECEIVE PT AWAKE IN BED, VERBALLY RESPONSIVE. PATIENT IN STABLE CONDITION WITH NO SIGN OF DISTRESS. ON VENT WITH SETTINGS, TRACH# P7, AC 16, TV 550, FIO2 30%, PEEP 5. JOHN MIDLINE IN PLACE. GT IN PLACE WITH TUBE FEEDING OFF REQUESTED BY PT FOR ABD DISCOMFORT. WILL FURTHER ASSESS ABD. ALL SAFETY MEASURE FOLLOWED. BED ON LOWEST POSITION WITH HOB ELEVATED AND 3 SIDE RAIL UP. CALL LIGHT WITHIN REACH. WILL CONTINUE TO MONITOR.
[2021-09-17 08:00] VITALS: BP 108/70
[2021-09-17] MEDS: FLUCONAZOLE (100 MG) 100 MG TABLET PO SCH (08:43)
[2021-09-17] MEDS: FERROUS SULFATE UDC 300 MG/5 ML UDC GT SCH (08:43)
[2021-09-17] MEDS: CHLORHEXIDINE GLUCONATE 15 ML UDC MM SCH ×2 (08:43→16:25)
[2021-09-17] MEDS: SIMETHICONE 80 MG TAB.CHEW GT SCH (08:43)
[2021-09-17] MEDS: BACLOFEN (10 MG) 10 MG TABLET GT SCH ×3 (08:43→16:25)
[2021-09-17] MEDS: PANTOPRAZOLE 40 MG/PACK PACK GT SCH (08:43)
[2021-09-17] MEDS: LORAZEPAM INJ 2 MG/ML VIAL IV PRN ×2 (08:59→18:29)
[2021-09-17 12:00] VITALS: BP 102/74
[2021-09-17 16:00] VITALS: BP 116/73
[2021-09-17 18:59] LABS: BILIRUBIN,URINE NEGATIVE (NEGATIVE); COLOR,URINE YELLOW (YELLOW); LEUKOCYTE ESTERASE ,URINE SMALL (NEGATIVE); NITRITE, URINE NEGATIVE (NEGATIVE); PROTEIN,URINE NEGATIVE (NEGATIVE); UGLUCOSE NEGATIVE (NEGATIVE)
--- NOTE | 2021-09-17 19:10 | NUR ---
RN NOTES RECEIVED REPORT FROM MORNING RN. PATIENT IS A/O X4. NOT IN DISTRESS NO SOB AT THIS TIME. PATIENT ON TRACH SHILEY # 7 INTACT CONNECTED TO MV WITH PRECRIBED SETTINGS TOLERATING WELL SATING AT 98%. WITH GT INTACT FLUSHES WELL. WITH SUPRA PUBIC CATHETER PATENT DRAINING YELLOWISH URINE OUTPUT. VITAL SIGNS TAKEN AND RECORDED. AFEBRILE. ALL SAFETY MEASURES IN PLACE AT ALL TIMES. CALL LIGHT WITHIN REACH. HOB ELEVATED. BED ON LOWEST POSITION AND LOCKED. FOR POSSIBLE D/C TONIGHT.
[2021-09-17 19:29] LABS: BACTERIA,URINE 3+ /HPF (None Seen); SQUAMOUS EPITHELIAL CELL,UR 0-2 /HPF (None Seen)
[2021-09-17 19:30] LABS: YEAST,URINE Few /HPF (None Seen)
[2021-09-17 20:00] VITALS: BP 132/76
--- NOTE | 2021-09-17 20:30 | NUR ---
RN NOTES PATIENT D/C BACK TO [facility]. REPORT GIVEN TO EMT AND RT. PAPER WORKS GIVEN ALL BELONGINGS GIVEN TO PATIENT. PATIENT TRANSFER TO [facility]. RT CONNECTED TO [employer] WITH PRESCRIBE SETTINGS. PATIENT REMAINS STABLE. LEFT AT THE FACILITY @ 2044.
== END 2021-09-17 20:44 | DRG 246 ==
LOC: ER 16:41 → TELE1 22:00
PROVIDERS: ATTEND Student in an Organized Health Care Education/Training Program
PROC: 5A1955Z Respiratory Ventilation, Greater than 96 Consecutive Hours (ICD-10-PCS; 2021-08-31)
PROC: 0DBN8ZX Excision of Sigmoid Colon, Via Natural or Artificial Opening Endoscopic, Diagnostic (ICD-10-PCS; principal; 2021-09-01)
PROC: 05H633Z Insertion of Infusion Device into Left Subclavian Vein, Percutaneous Approach (ICD-10-PCS; 2021-09-03)
PROC: B547ZZA Ultrasonography of Left Subclavian Vein, Guidance (ICD-10-PCS; 2021-09-03)
PROC: 0HBRXZZ Excision of Toe Nail, External Approach (ICD-10-PCS; 2021-09-07)
PROC: 30233N1 Transfusion of Nonautologous Red Blood Cells into Peripheral Vein, Percutaneous Approach (ICD-10-PCS; 2021-09-07)
DX: K55.9 Vascular disorder of intestine, unspecified (principal); J96.10 Chronic respiratory failure, unspecified whether with hypoxia or hypercapnia; E87.2 Acidosis; R53.2 Functional quadriplegia; E87.1 Hypo-osmolality and hyponatremia; E83.39 Other disorders of phosphorus metabolism; D63.8 Anemia in other chronic diseases classified elsewhere; Z99.11 Dependence on respirator [ventilator] status; Z93.0 Tracheostomy status; R65.10 Systemic inflammatory response syndrome (SIRS) of non-infectious origin without acute organ dysfunction; Z20.822 Contact with and (suspected) exposure to COVID-19; Z93.1 Gastrostomy status; Z93.59 Other cystostomy status; E86.1 Hypovolemia; Z87.891 Personal history of nicotine dependence; M21.372 Foot drop, left foot; M21.371 Foot drop, right foot; B37.49 Other urogenital candidiasis; E87.6 Hypokalemia; F41.9 Anxiety disorder, unspecified; Z87.442 Personal history of urinary calculi; Z87.440 Personal history of urinary (tract) infections; R13.10 Dysphagia, unspecified; N21.0 Calculus in bladder; N26.1 Atrophy of kidney (terminal); L60.0 Ingrowing nail; R58 Hemorrhage, not elsewhere classified; D64.9 Anemia, unspecified; N13.6 Pyonephrosis; D75.839 Thrombocytosis, unspecified; E88.09 Other disorders of plasma-protein metabolism, not elsewhere classified; J98.11 Atelectasis; N31.9 Neuromuscular dysfunction of bladder, unspecified; Z74.01 Bed confinement status; M79.674 Pain in right toe(s); M24.571 Contracture, right ankle; M24.572 Contracture, left ankle; K29.70 Gastritis, unspecified, without bleeding; Q63.8 Other specified congenital malformations of kidney
CPT/HCPCS: 31720; 36410; 36415; 45330; 71045-TC; 71260-TC; 80048-TC; 80061-TC; 80076-TC; 81001; 82378; 82728-TC; 82784; 83540-TC; 83605-TC; 83615-TC; 83690-TC; 83735-TC; 84100-TC; 84155; 84165; 84443-TC; 84484-TC; 85025-TC; 85027-TC; 85610-TC; 85730-TC; 86334; 86706; 86803; 86850-TC; 87040-TC; 87081-TC; 87086-TC; 87186-TC; 87340; 88305-TC; 92526; 92611-TC; 94003-TC; 94760-TC; 94762-TC; 94799-TC; 99082-TC; A4623; A6253; A6403; A7526; A9563; G0378; J2060; J2270; J2405; J2543; J2704; J3480; J3490; J7030; J7050; J7060; P9016; Q9963; Q9967; U0003

== ENCOUNTER 2021-10-23 17:58 | Inpatient (IN) | payer OTHER ==
[~2021-10-23] VITALS: Ht 175.3 cm; Wt 56.7 kg
[~2021-10-23 17:58] MED LIST changes: +ACET-2605 GT; -CRAN3875 GT; -DOCU50LI GT; -HYDR-3895 GT; -HYDR-3972 GT; -HYDR-4354 GT; -MAGN400O6 GT; -MELA3TAB41 GT; -METH1TAB69 GT; -METO-295 GT; -NITR0.4T48 SL; +PANT40SU2 GT; -POLY15DR40 EACHEYE; -SACC250C GT; +TRAM50TA2 GT
--- NOTE | 2021-10-23 18:00 | NUR ---
JOVANY 76 FROM [facility] C/O FEVER X 7 DAYS, BLOOD IN THE STOOL AND LOW BP 90 SYSTOLIC. FAMILY READINESS SUPPORT ASSISTANT TRACH; ON VENT SETTINGS: RR 16, TV 550, FIO2 40%. PEAK FLOW 70 AT SPO2 100%. PT A/OX3. GT INTACT. SUPRAPUBIC F/C INTACT AND DRAINING YELLOW URINE. FAMILY READINESS SUPPORT ASSISTANT JOHN PICCLINE #18G S/L; PATENT AND INTACT. CONNECTED PT TO POX AND MONITOR.
--- NOTE | 2021-10-23 18:16 | NUR ---
BLOOD DRAWN AND GIVEN TO LAB
--- NOTE | 2021-10-23 18:17 | NUR ---
KELSEY GONZALEZ AT PT'S BEDSIDE
[2021-10-23] MEDS ORDERED: LACT-209 GT (18:19)
[2021-10-23] MEDS ORDERED: CRAN3875 GT (18:19)
[2021-10-23] MEDS ORDERED: MAG30ORA GT (18:19)
[2021-10-23] MEDS ORDERED: FERR300L GT (18:19)
[2021-10-23] MEDS ORDERED: HYDR-3972 GT (18:19)
[2021-10-23] MEDS ORDERED: ASCO-352 GT (18:19)
[2021-10-23] MEDS ORDERED: MAGN400O6 GT (18:19)
[2021-10-23] MEDS ORDERED: CEFTRIAXONE 1GM BAG (ER ONLY) 50 ML IV ONE ×2 (18:29→18:30)
[2021-10-23] MEDS ORDERED: IV NS 0.9% 1,000 ML BAG IV ONE (18:30)
--- NOTE | 2021-10-23 18:31 | NUR ---
SEWING PATTERN LAYOUT TECHNICIAN AT PT'S BEDSIDE
[2021-10-23 18:48] LABS: CARBON DIOXIDE 18 mmol/L (21-32); CHLORIDE 99 mmol/L (98-107); CREATININE 0.6 mg/dL (0.6-1.3); GLUCOSE 144 mg/dL (74-106); UREA NITROGEN, BLOOD 11 mg/dL (7-18)
--- NOTE | 2021-10-23 18:49 | NUR ---
COVID SWABS DONE AND SENT TO LAB
[2021-10-23 18:50] LABS: POTASSIUM 2.8 mmol/L (3.5-5.1)
[2021-10-23 18:51] LABS: SODIUM SERUM 132 mmol/L (136-145)
[2021-10-23 18:54] LABS: ALANINE AMINOTRANSFERASE 32 U/L (12-78); ALBUMIN 2.3 g/dL (3.4-5.0); ALKALINE PHOSPHATASE 86 U/L (46-116); ASPARTATE AMINOTRANSFERASE 39 U/L (15-37); BILIRUBIN,DIRECT 0.2 mg/dL (0.0-0.2); BILIRUBIN,TOTAL 0.4 mg/dL (0.2-1.0); TOTAL PROTEIN, SERUM 6.1 g/dL (6.4-8.2)
[2021-10-23] MEDS ORDERED: ACETAMINOPHEN 650 MG/20.3 ML UDC ONE (18:59)
[2021-10-23] MEDS ORDERED: IV PREMIX D5 1/2NS + KCL 1,000 ML IV ONE ×2 (18:59→19:00)
[2021-10-23] MEDS: ACETAMINOPHEN 650 MG/20 ML UDC- SA PATIENTS-FEVER ONLY GT PRN (19:15)
[2021-10-23 19:34] LABS: BILIRUBIN,URINE NEGATIVE (NEGATIVE); COLOR,URINE YELLOW (YELLOW); LEUKOCYTE ESTERASE ,URINE MODERATE (NEGATIVE); NITRITE, URINE POSITIVE (NEGATIVE); PH,URINE 6.5 (5.0-8.0); PROTEIN,URINE TRACE mg/dl (NEGATIVE); UGLUCOSE NEGATIVE (NEGATIVE); UROBILINOGEN,URINE 0.2 EU/dL (0.2)
[2021-10-23 19:46] LABS: BASOPHILS % (AUTO) 0.6 % (0.0-2.0); EOSINOPHILS % (AUTO) 2.1 % (0.0-6.0); HEMATOCRIT 22 % (39-51); HEMOGLOBIN 7.3 g/dL (13.5-17.5); LYMPHOCYTES # (AUTO) 0.8 K/uL (0.8-4.8); LYMPHOCYTES % (AUTO) 11.7 % (20.0-44.0); MEAN CORPUSCULAR HGB CONC 32 g/dl (31.0-36.0); MEAN CORPUSCULAR VOLUME 84 fL (80-96); MONOCYTES # (AUTO) 1.1 K/uL (0.1-1.30); MONOCYTES % (AUTO) 16.9 % (2.0-12.0); NEUTROPHILS # (AUTO) 4.6 K/uL (1.8-8.9); NEUTROPHILS % (AUTO) 68.7 % (43.0-81.0); PLATELET COUNT (AUTO) 360 K/uL (150-450); RED BLOOD CELL COUNT(AUTO) 2.68 MIL/uL (4.5-6.0); WHITE BLOOD COUNT (AUTO) 6.6 K/uL (4.3-11.0)
[2021-10-23 20:05] LABS: BACTERIA,URINE 4+ /HPF (None Seen); SQUAMOUS EPITHELIAL CELL,UR 0-2 /HPF (None Seen); WBC,URINE 21-50 /HPF (0-3)
[2021-10-23 20:18] LABS: BAND % (MANUAL) 12 % (0.0-5.0); EOSINOPHILS % (MANUAL) 3 % (0-4); LYMPHOCYTES % (MANUAL) 12 % (16-48); MONOCYTES % (MANUAL) 16 % (0-11.0); NEUTROPHILS % (MANUAL) 57 (42-76)
[2021-10-23] MEDS ORDERED: MAGNESIUM HYDROXIDE 30 ML UDC PO PRN (22:30)
[2021-10-23] MEDS ORDERED: Z GUARD REMEDY 4 OZ OINT TP PRN (22:30)
[2021-10-23] MEDS ORDERED: Medication Not On Formulary EA (Ipratropium/Albuterol Sulfate (Combivent Respimat 20-100 IH PRN (22:30)
[2021-10-23] MEDS ORDERED: NA PHOS,M-B/NA PHOS,DI-BA 1 EA ENEMA RC PRN (22:30)
[2021-10-23] MEDS ORDERED: MAGNESIUM HYDROXIDE 30 ML UDC GT PRN (22:30)
[2021-10-23] MEDS ORDERED: BISACODYL SUPP (10 MG) 10 MG/SUPP.RECT SUPP.RECT RC PRN (22:30)
[2021-10-23] MEDS ORDERED: MAG HYDROX/AL HYDROX/SIMETH 30 ML UDC GT PRN (22:30)
[2021-10-23] MEDS ORDERED: ACETAMINOPHEN ES 500 MG TABLET GT PRN (22:30)
[2021-10-23] MEDS ORDERED: ZOLPIDEM TARTRATE 5 MG TABLET PO PRN (22:30)
[2021-10-23] MEDS ORDERED: MAG HYDROX/AL HYDROX/SIMETH 30 ML UDC PO PRN (22:30)
[2021-10-23] MEDS ORDERED: ACETAMINOPHEN 325 MG TABLET PO PRN (22:30)
[2021-10-23] MEDS ORDERED: ZOLPIDEM TARTRATE 5 MG TABLET GT SCH (22:48)
[2021-10-23] MEDS ORDERED: HYDROCODONE/APAP 5/325MG TABLET ONE (22:58)
[2021-10-23] MEDS: IV NS 0.9% 1,000 ML IV SCH (23:24)
[2021-10-23] MEDS: HYDROCODONE/APAP 5/325MG TABLET GT PRN (23:25)
[2021-10-23] MEDS ORDERED: VANCOMYCIN 1 GM in IV D5W 250ml IV ONE (23:30)
[2021-10-23] MEDS ORDERED: ZOLPIDEM TARTRATE 10 MG TABLET ONE (23:39)
[2021-10-24] MEDS ORDERED: Medication Not On Formulary EA (Ipratropium/Albuterol Sulfate (Combivent Respimat 20-100 IH SCH
[2021-10-24] MEDS ORDERED: VANCOMYCIN 1 GM VIAL ONE (00:20)
[2021-10-24] MEDS ORDERED: LORAZEPAM 1 MG TABLET ONE ×2 (01:55→10:58)
[2021-10-24] MEDS ORDERED: ACETAMINOPHEN 325 MG TABLET ONE (01:55)
[2021-10-24] MEDS: ACETAMINOPHEN 650 MG/20 ML UDC- SA PATIENTS-FEVER ONLY GT PRN (02:02)
[2021-10-24] MEDS: LORAZEPAM 1 MG TABLET GT PRN ×3 (02:02→18:32)
--- NOTE | 2021-10-24 03:59 | NUR ---
PATIENT HAD A LARGE BM. CHANGED AND PUT A DIAPER
[2021-10-24] MEDS ORDERED: MEROPENEM 1 G in IV NS 0.9% 100 ML IV SCH (05:00)
[2021-10-24] MEDS ORDERED: MEROPENEM 1 G VIAL IV ONE (05:01)
[2021-10-24] MEDS ORDERED: IPRATROPIUM NEB FS 0.5 MG/2.5 ML AMPUL.NEB NEB PRN (07:30)
[2021-10-24] MEDS ORDERED: ALBUTEROL FS 2.5 MG/0.5 ML VIAL.NEB NEB PRN (07:30)
--- NOTE | 2021-10-24 07:30 | NUR ---
ASSESSED PT ON BED ASLEEP, EASILY AROUSABLE, ON VENT VIA TRACH, V/S STABLE, KEPT RESTED AND COMFORTABLE. WILL CONTINUE TO MONITOR.
[2021-10-24 07:50] LABS: BASOPHILS % (AUTO) 0.3 % (0.0-2.0); EOSINOPHILS % (AUTO) 0.1 % (0.0-6.0); HEMATOCRIT 23 % (39-51); HEMOGLOBIN 7.5 g/dL (13.5-17.5); LYMPHOCYTES # (AUTO) 0.6 K/uL (0.8-4.8); LYMPHOCYTES % (AUTO) 6.3 % (20.0-44.0); MEAN CORPUSCULAR HGB CONC 32 g/dl (31.0-36.0); MEAN CORPUSCULAR VOLUME 83 fL (80-96); MONOCYTES # (AUTO) 1.8 K/uL (0.1-1.30); MONOCYTES % (AUTO) 18.5 % (2.0-12.0); NEUTROPHILS # (AUTO) 7.2 K/uL (1.8-8.9); NEUTROPHILS % (AUTO) 74.8 % (43.0-81.0); PLATELET COUNT (AUTO) 391 K/uL (150-450); RED BLOOD CELL COUNT(AUTO) 2.81 MIL/uL (4.5-6.0); WHITE BLOOD COUNT (AUTO) 9.6 K/uL (4.3-11.0)
[2021-10-24 07:54] LABS: CALCIUM, SERUM 7.9 mg/dL (8.5-10.1); CREATININE 0.5 mg/dL (0.6-1.3); MAGNESIUM 1.5 mg/dL (1.8-2.4); PHOSPHORUS 1.7 mg/dL (2.5-4.9)
[2021-10-24] MEDS ORDERED: IPRATROPIUM NEB FS 0.5 MG/2.5 ML AMPUL.NEB ONE ×2 (07:58→14:39)
[2021-10-24] MEDS ORDERED: ALBUTEROL FS 2.5 MG/0.5 ML VIAL.NEB ONE ×2 (07:58→14:39)
--- NOTE | 2021-10-24 07:58 | NUR ---
RT AT BEDSIDE FOR BREATHING TX.
[2021-10-24] MEDS: IPRATROPIUM NEB FS 0.5 MG/2.5 ML AMPUL.NEB NEB SCH ×2 (08:05→14:40)
[2021-10-24] MEDS: ALBUTEROL FS 2.5 MG/0.5 ML VIAL.NEB NEB SCH ×2 (08:05→14:40)
[2021-10-24 08:09] LABS: POTASSIUM 2.7 mmol/L (3.5-5.1)
[2021-10-24] MEDS ORDERED: ACETAMINOPHEN 650 MG/20.3 ML UDC ONE (08:21)
[2021-10-24] MEDS ORDERED: HYDROCODONE/APAP 5/325MG TABLET ONE (08:22)
[2021-10-24] MEDS: HYDROCODONE/APAP 5/325MG TABLET GT PRN ×2 (08:35→17:16)
[2021-10-24] MEDS: ACETAMINOPHEN 650 MG/20.3 ML UDC GT PRN ×2 (08:36→20:48)
[2021-10-24] MEDS ORDERED: Medication Not On Formulary EA (Cran/Vitc/Mannose/Inulin/Brom (Uti-Stat Liquid) 3,875 MG GT SCH (09:00)
[2021-10-24] MEDS: BACLOFEN (10 MG) 10 MG TABLET GT SCH ×3 (09:00→17:16)
[2021-10-24] MEDS: FERROUS SULFATE UDC 300 MG/5 ML UDC GT SCH (09:00)
[2021-10-24] MEDS ORDERED: PANTOPRAZOLE 40 MG/PACK PACK GT SCH (09:00)
[2021-10-24] MEDS ORDERED: MULTIVITAMIN LIQ 5 ML UDC GT SCH (09:00)
[2021-10-24] MEDS: ASCORBIC ACID 500 MG TABLET GT SCH (09:00)
[2021-10-24] MEDS: MULTIVITAMINS,THERAGRAN 1 UDTAB TABLET GT SCH (09:00)
[2021-10-24] MEDS: SIMETHICONE 80 MG TAB.CHEW GT SCH (09:00)
[2021-10-24] MEDS: HEPARIN SODIUM, PORCINE 5000 UNITS/1 ML VIAL SQ SCH ×2 (09:05→20:50)
[2021-10-24] MEDS: VANCOMYCIN HCL 0.75 GM in IV D5W 250 ML IV SCH ×2 (09:09→18:11)
[2021-10-24] MEDS: IV NS 0.9% 1,000 ML IV SCH ×2 (09:09→18:37)
[2021-10-24] MEDS: CHLORHEXIDINE GLUCONATE 15 ML UDC MM SCH ×2 (09:15→17:16)
[2021-10-24] MEDS ORDERED: BACLOFEN (10 MG) 10 MG TABLET ONE ×2 (09:27→13:21)
[2021-10-24] MEDS ORDERED: HEPARIN SODIUM, PORCINE 5000 UNITS/1 ML VIAL ONE (09:27)
[2021-10-24] MEDS ORDERED: MULTIVIT W/MINERALS 1 TAB TABLET ONE (09:27)
[2021-10-24] MEDS ORDERED: FERROUS SULFATE UDC 300 MG/5 ML UDC ONE (09:27)
[2021-10-24] MEDS ORDERED: PANTOPRAZOLE 40 MG/PACK PACK ONE (09:28)
[2021-10-24] MEDS ORDERED: SIMETHICONE 80 MG TAB.CHEW ONE (09:28)
[2021-10-24] MEDS ORDERED: ASCORBIC ACID 500 MG TABLET ONE (09:28)
[2021-10-24] MEDS ORDERED: ONDANSETRON HCL/PF 4 MG/2 ML VIAL ONE (09:51)
[2021-10-24] MEDS: ONDANSETRON HCL/PF 4 MG/2 ML VIAL IVP PRN (09:58)
[2021-10-24] MEDS ORDERED: POTASSIUM CL. PREMIX PERIPHER. 200 ML ONE (10:53)
[2021-10-24] MEDS: POTASSIUM CHLORIDE 10 MEQ/50 ML PREMIXED IVPB FOR PERIPHERAL LINE IV SCH ×6 (11:06→16:00)
[2021-10-24 11:35] LABS: BAND % (MANUAL) 10 % (0.0-5.0); LYMPHOCYTES % (MANUAL) 10 % (16-48); METAMYELOCYTES % 1 % (0-0); MONOCYTES % (MANUAL) 15 % (0-11.0); MYELOCYTES % 1 % (0-0); NEUTROPHILS % (MANUAL) 63 (42-76)
[2021-10-24] MEDS: MEROPENEM 1 G in IV NS 0.9% 100 ML IV SCH ×2 (13:00→20:48)
[2021-10-24] MEDS ORDERED: K PHOS NEUTRAL 250 MG TABLET PO ONE (13:00)
[2021-10-24] MEDS ORDERED: K PHOS NEUTRAL 250 MG TABLET ONE (13:20)
[2021-10-24] MEDS ORDERED: MAGNESIUM OXIDE 400 MG TABLET PO ONE (14:00)
--- NOTE | 2021-10-24 14:00 | NUR ---
EPISODE OF BLOODY STOOL. MD AWARE.
[2021-10-24] MEDS ORDERED: POTASSIUM CL. PREMIX PERIPHER. 50 ML ONE (14:09)
[2021-10-24] MEDS ORDERED: ALBUTEROL SULFATE 8 GM HFA.AER.AD IH PRN (15:30)
[2021-10-24] MEDS ORDERED: IPRATROPIUM BROMIDE 14 GM INHALER (or 12.9 GM) IH PRN (15:30)
--- NOTE | 2021-10-24 16:00 | NUR ---
REPORT GIVEN TO DANILO ROCHA FOR ISABELLA. WITH ONGOING IVF NORMAL SALIN AND POTASSIUM 10MEQ DRIP INFUSING WELL.
--- NOTE | 2021-10-24 16:40 | NUR ---
RN ADMITTING NOTES RECEIVED PATIENT FROM ED. PATIENT ON VENT/TRACH TOLERATING WELL SETTINGS: TV-550, FIO2-40% PEEP 5 RATE 16. BREATHING EVEN AND UNLABORED. VITAL SIGNS 100.2, HH-117, RR-16, O2-100%, BP-100/61. NO SOB OR ANY ACUTE DISTRESS NOTED. PICC LINE ON JOHN PATENT AND INTACT. PATIENT ON GT, PATENT AND INTACT. PATIENT HAS SUPRAPUBIC PATENT AND DRAINING WELL. NOTED WITH WOUND/ INGROWN NAIL ON RIGHT BIG TOE AND BRUISE ON RIGHT FOOT, PHOTO TAKEN AND PUT IN CHART. ALL APPLICABLE ISOLATION PRECUATIONS IN PLACE. ALL SAFETY MEASURES IN PLACE. HOB ELEVATED BED LOCKED AND IN LOWEST POSITION CALL LIGHT WITH REACH. SIDERAILS UP. WILL CONTINUE TO MONITOR PATIENT ACCORDINGLY. Addendum: 10/24/21 at 195 by HANNAH NETTLES RN REPORT RECEIVED FROM ИРИНА. PER ИРИНА, HE HUNG LAST DOSE OF POTASSIUM, JUST NEEDS TO LET IT INFUSE.
[2021-10-24] MEDS: ALBUTEROL SULFATE 8 GM HFA.AER.AD IH SCH (19:30)
[2021-10-24] MEDS: IPRATROPIUM BROMIDE 14 GM INHALER (or 12.9 GM) IH SCH (19:30)
--- NOTE | 2021-10-24 19:54 | NUR ---
RN OPENING NOTES RECEIVED PATIENT WHILE PATIENT IN BED, A/O X4 ABLE TO VERBALIZE NEEDS THROUGH FACIAL EXPRESSIONS AND "YES OR NO" QUESTIONS. PATIENT ON VENT/TRACH TOLERATING WELL SETTINGS: TV-550, FIO2-40% PEEP 5 RATE 16. BREATHING EVEN AND UNLABORED. PICC LINE ON JOHN PATENT, INTACT. PATIENT ON GT, PATENT AND INTACT. PATIENT HAS SUPRAPUBIC PATENT AND DRAINING WELL. ALL APPLICABLE ISOLATION PRECAUTIONS IN PLACE. ALL SAFETY MEASURES IN PLACE. WILL CONTINUE TO MONITOR PATIENT.
[2021-10-24 20:00] VITALS: BP 110/59
--- NOTE | 2021-10-24 20:05 | NUR ---
RN CLOSING NOTES PATIENT REMAINS AT STABLE CONDITION THROUGHOUT SHIFT. ON VENT/TRACH, TOLERATING SETTINGS WELL. BREATHING EVEN AND UNLABORED. NO SOB OR ANY ACUTE DISTRESS NOTED. IV ACCESS ON JOHN PICC LINE PATENT AND INTACT INFUSING NS AT 100 ML/HR. ALL DUE MEDS GIVEN ORDERED. ALL NEEDS ATTENDED. KEPT PATIENT CLEAN, DRY AND COMFORTABLE. ALL APPLICABLE ISOLATION PRECAUTIONS MAINTAINED. ALL SAFETY MEASURES MAINTAINED. HOB ELEVATED BED LOCKED AND IN LOWEST POSITION WITH SIDERAILS UP CALL LIGHT WITHIN REACH. ENDORSED TO ONCOMING NURSE FOR ISABELLA.
--- NOTE | 2021-10-24 20:45 | NUR ---
RN NOTES PATIENT NOTED WITH BLOODY STOOL IN MODERATE AMOUNTS. NO DISTRESS NOTED ON THE PATIENT. VITAL SIGNS WITHIN NORMAL LIMITS: BP 112/68, HR 117, TEMP 98.3, O2 SAT 99%. DR. KIM WAS MADE AWARE, DECIDED TO PROCEED WITH SCHEDULED HEPARIN SQ ADMINISTRATION. NO BLEEDING NOTED ON SITE. WILL CONTINUE TO MONITOR PATIENT.
[2021-10-24] MEDS: PANTOPRAZOLE 40 MG VIAL IV SCH (20:48)
[2021-10-24] MEDS: TRAZODONE 50 MG TABLET GT PRN (20:48)
[2021-10-24] MEDS: ZOLPIDEM TARTRATE 10 MG TABLET GT SCH (22:35)
[2021-10-24] MEDS: SENNOSIDES 8.6 MG TABLET GT SCH (22:35)
[2021-10-25] VITALS: BP 96/58
[2021-10-25] MEDS: HYDROCODONE/APAP 5/325MG TABLET GT PRN ×5 (00:21→23:54)
[2021-10-25] MEDS: IPRATROPIUM BROMIDE 14 GM INHALER (or 12.9 GM) IH SCH ×4 (01:30→20:09)
[2021-10-25] MEDS: ALBUTEROL SULFATE 8 GM HFA.AER.AD IH SCH ×4 (01:30→20:10)
[2021-10-25] MEDS: VANCOMYCIN HCL 0.75 GM in IV D5W 250 ML IV SCH ×3 (01:44→17:00)
[2021-10-25] MEDS: LORAZEPAM 1 MG TABLET GT PRN ×3 (02:53→20:38)
[2021-10-25 04:00] VITALS: BP 100/60
[2021-10-25] MEDS: IV NS 0.9% 1,000 ML IV SCH ×2 (04:45→14:19)
[2021-10-25] MEDS: MEROPENEM 1 G in IV NS 0.9% 100 ML IV SCH ×3 (05:51→20:38)
[2021-10-25] MEDS: FERROUS SULFATE UDC 300 MG/5 ML UDC GT SCH (08:10)
[2021-10-25] MEDS: SIMETHICONE 80 MG TAB.CHEW GT SCH (08:11)
[2021-10-25] MEDS: ASCORBIC ACID 500 MG TABLET GT SCH (08:11)
[2021-10-25] MEDS: BACLOFEN (10 MG) 10 MG TABLET GT SCH ×3 (08:13→16:06)
[2021-10-25] MEDS: CHLORHEXIDINE GLUCONATE 15 ML UDC MM SCH ×2 (08:13→16:07)
[2021-10-25] MEDS: PANTOPRAZOLE 40 MG VIAL IV SCH ×2 (08:14→20:38)
[2021-10-25] MEDS: HEPARIN SODIUM, PORCINE 5000 UNITS/1 ML VIAL SQ SCH ×2 (08:15→21:00)
[2021-10-25] MEDS: MULTIVITAMINS,THERAGRAN 1 UDTAB TABLET GT SCH (08:15)
[2021-10-25 08:21] LABS: BASOPHILS % (AUTO) 0.2 % (0.0-2.0); EOSINOPHILS % (AUTO) 0.3 % (0.0-6.0); HEMATOCRIT 22 % (39-51); HEMOGLOBIN 7.3 g/dL (13.5-17.5); LYMPHOCYTES # (AUTO) 0.9 K/uL (0.8-4.8); LYMPHOCYTES % (AUTO) 14.6 % (20.0-44.0); MEAN CORPUSCULAR HGB CONC 33 g/dl (31.0-36.0); MEAN CORPUSCULAR VOLUME 83 fL (80-96); MONOCYTES # (AUTO) 0.7 K/uL (0.1-1.30); MONOCYTES % (AUTO) 12.1 % (2.0-12.0); NEUTROPHILS # (AUTO) 4.4 K/uL (1.8-8.9); NEUTROPHILS % (AUTO) 72.8 % (43.0-81.0); PLATELET COUNT (AUTO) 382 K/uL (150-450); RED BLOOD CELL COUNT(AUTO) 2.67 MIL/uL (4.5-6.0); WHITE BLOOD COUNT (AUTO) 6.1 K/uL (4.3-11.0)
[2021-10-25 08:28] LABS: CALCIUM, SERUM 7.9 mg/dL (8.5-10.1); CREATININE 0.4 mg/dL (0.6-1.3); MAGNESIUM 1.9 mg/dL (1.8-2.4); PHOSPHORUS 1.8 mg/dL (2.5-4.9)
--- NOTE | 2021-10-25 08:30 | NUR ---
RN CLOSING NOTES ENDORSED PATIENT WHILE PATIENT IN BED, A/O X4 ABLE TO VERBALIZE NEEDS THROUGH FACIAL EXPRESSIONS AND "YES OR NO" QUESTIONS, CONGOLESE SPEAKING BUT UNDERSTAND A LITTLE MEXICAN. PATIENT ON VENT/TRACH TOLERATING SETTINGS WELL: TV-550, FIO2-50% PEEP 5 RATE 16. BREATHING EVEN AND UNLABORED. PICC LINE ON JOHN PATENT, INTACT. PATIENT ON GT, PATENT AND INTACT. PATIENT HAS SUPRAPUBIC GROSSMAN, PATENT AND DRAINING WELL. ALL APPLICABLE ISOLATION PRECAUTIONS IN PLACE. ALL SAFETY MEASURES IN PLACE. ALL DUE MEDS GIVEN AND ALL NEEDS ATTENDED TO. ENDORSED TO AM NURSE FOR ISABELLA.
--- NOTE | 2021-10-25 09:07 | NUR ---
WOUND CARE CONSULT: REVIEWED CHART, NURSING DOCUMENTATION AND PHOTOS WHICH INDICATE DISCOLORATION TO RT FOOT AND GREAT TOE, PRESENT ON ADMISSION. DR PFEIFFER CALLED FOR DPM CONSULT. RECOMMENDATIONS MADE FOR SKIN PROTECTION. DISCUSSED WITH NURSING STAFF. MD IN AGREEMENT WITH PLAN OF CARE.
[2021-10-25 10:00] VITALS: BP 101/58
--- NOTE | 2021-10-25 10:09 | NUR ---
patient positve bleeding in stool,pt. refused to get his heparin shot, notified.
--- NOTE | 2021-10-25 10:09 | NUR ---
unable to give vanco ,lab still pending vanco through level still pending.
[2021-10-25 10:34] LABS: POTASSIUM 2.5 mmol/L (3.5-5.1)
--- NOTE | 2021-10-25 10:46 | NUR ---
k 2.5 md notified ,awaits k replacement.
[2021-10-25] MEDS: POTASSIUM CL. PREMIX PERIPHER. 50 ML IV SCH ×4 (11:47→14:17)
[2021-10-25] MEDS: JEVITY 1.2 CAL 1,000 ML BOTTLE GT SCH (12:07)
--- NOTE | 2021-10-25 12:12 | NUR ---
unable to start gtube no pump available.
[2021-10-25 12:22] VITALS: BP 100/60
[2021-10-25] MEDS ORDERED: K PHOS NEUTRAL 250 MG TABLET PO ONE (13:00)
[2021-10-25 16:04] VITALS: BP 106/65
--- NOTE | 2021-10-25 16:25 | NUR ---
patient bloody stool again md notified.
--- NOTE | 2021-10-25 17:40 | NUR ---
no acute distress,vss,send stool to lab for ob.
--- NOTE | 2021-10-25 19:38 | NUR ---
RN OPENING NOTES RECEIVED CARE OF PATIENT, PATIENT IN DISTRESS. PATIENT IS AGGITATED AND EXPRESSES SEVERE PAIN. WILL ADMINISTER ATIVAN PRN AND WILL CLOSELY MONITOR PATIENT. NO SIGNIFICANT FINDINGS UPON INITIAL NURSING ASSESSMENTS. ALL APPLICABLE ISOLATION PRECAUTIONS IN PLACE. ALL SAFETY MEASURES IN PLACE.
[2021-10-25 20:00] VITALS: BP 101/62
[2021-10-25 20:02] LABS: OCCULT BLOOD STOOL POSITIVE (NEGATIVE)
[2021-10-25] MEDS: ZOLPIDEM TARTRATE 10 MG TABLET GT SCH (21:09)
[2021-10-25] MEDS: SENNOSIDES 8.6 MG TABLET GT SCH (21:10)
[2021-10-25] MEDS: ACETAMINOPHEN 650 MG/20.3 ML UDC GT PRN (21:10)
--- NOTE | 2021-10-25 21:15 | NUR ---
2115 CRITICAL BLOOD CULTURE RESULT POSITIVE FOR GRAM POSITIVE COCCI REPORTED TO DR. ADAIR WITH NO ORDER MADE.
[2021-10-26] VITALS (13 sets, daily range): BP systolic 97–131; BP diastolic 51–68
[2021-10-26] MEDS: IV NS 0.9% 1,000 ML IV SCH ×3 (01:04→21:25)
[2021-10-26] MEDS: TRAZODONE 50 MG TABLET GT PRN ×2 (01:21→23:28)
[2021-10-26] MEDS: VANCOMYCIN HCL 0.75 GM in IV D5W 250 ML IV SCH ×3 (01:22→16:16)
[2021-10-26] MEDS: ACETAMINOPHEN 650 MG/20.3 ML UDC GT PRN ×2 (02:52→23:29)
[2021-10-26] MEDS: IPRATROPIUM BROMIDE 14 GM INHALER (or 12.9 GM) IH SCH ×4 (03:56→20:07)
[2021-10-26] MEDS: ALBUTEROL SULFATE 8 GM HFA.AER.AD IH SCH ×4 (03:56→20:07)
[2021-10-26] MEDS: HYDROCODONE/APAP 5/325MG TABLET GT PRN ×4 (04:05→21:29)
[2021-10-26] MEDS: MEROPENEM 1 G in IV NS 0.9% 100 ML IV SCH ×3 (05:35→23:28)
[2021-10-26] MEDS: LORAZEPAM 1 MG TABLET GT PRN ×3 (05:35→13:34)
--- NOTE | 2021-10-26 06:46 | NUR ---
RN CLOSING NOTES WILL ENDORSE PATIENT WHILE PATIENT IN BED, A/O X4. PATIENT EXPRESSED SEVERE PAIN AND DISCOMFORT THROUGHOUT THE NIGHT, PRN NORCO AND ATIVAN ADMINISTERED FOR PAIN CONTROL AND Q1H REPOSITIONED PATIENT FOR COMFORT. ON VENT/TRACH TOLERATING SETTINGS WELL: TV-550, FIO2-50% PEEP 5 RATE 16. BREATHING EVEN AND UNLABORED, O2 SAT 97%. PATIENT HAD TWO BLOODY STOOLS, NO SIGNS OF DISTRESS NOTED ON PATIENT. ALL APPLICABLE ISOLATION PRECAUTIONS IN PLACE. ALL SAFETY MEASURES IN PLACE. ALL DUE MEDS GIVEN AND ALL NEEDS ATTENDED TO. WILL ENDORSE TO AM NURSE FOR ISABELLA.
[2021-10-26] MEDS: HEPARIN SODIUM, PORCINE 5000 UNITS/1 ML VIAL SQ SCH ×2 (09:00→21:00)
[2021-10-26] MEDS: PANTOPRAZOLE 40 MG VIAL IV SCH ×2 (09:28→21:29)
[2021-10-26] MEDS: SIMETHICONE 80 MG TAB.CHEW GT SCH (09:29)
[2021-10-26] MEDS: CHLORHEXIDINE GLUCONATE 15 ML UDC MM SCH ×2 (09:29→16:12)
[2021-10-26] MEDS: BACLOFEN (10 MG) 10 MG TABLET GT SCH ×3 (09:29→16:12)
[2021-10-26] MEDS: MULTIVITAMINS,THERAGRAN 1 UDTAB TABLET GT SCH (09:29)
[2021-10-26] MEDS: ASCORBIC ACID 500 MG TABLET GT SCH (09:29)
[2021-10-26] MEDS: FERROUS SULFATE UDC 300 MG/5 ML UDC GT SCH (09:29)
--- NOTE | 2021-10-26 10:29 | NUR ---
PER [facility] COVID NEGATIVE.
[2021-10-26 13:36] LABS: BASOPHILS % (AUTO) 0.1 % (0.0-2.0); EOSINOPHILS % (AUTO) 0.2 % (0.0-6.0); LYMPHOCYTES # (AUTO) 0.6 K/uL (0.8-4.8); LYMPHOCYTES % (AUTO) 5.1 % (20.0-44.0); MEAN CORPUSCULAR HGB CONC 33 g/dl (31.0-36.0); MEAN CORPUSCULAR VOLUME 81 fL (80-96); MONOCYTES # (AUTO) 0.8 K/uL (0.1-1.30); MONOCYTES % (AUTO) 6.7 % (2.0-12.0); NEUTROPHILS % (AUTO) 87.9 % (43.0-81.0); PLATELET COUNT (AUTO) 465 K/uL (150-450); RED BLOOD CELL COUNT(AUTO) 2.48 MIL/uL (4.5-6.0); WHITE BLOOD COUNT (AUTO) 11.4 K/uL (4.3-11.0)
[2021-10-26] MEDS: JEVITY 1.2 CAL 1,000 ML BOTTLE GT SCH (13:48)
[2021-10-26 13:55] LABS: CALCIUM, SERUM 7.5 mg/dL (8.5-10.1); CREATININE 0.3 mg/dL (0.6-1.3); MAGNESIUM 1.6 mg/dL (1.8-2.4); PHOSPHORUS 1.9 mg/dL (2.5-4.9)
[2021-10-26 13:56] LABS: POTASSIUM 2.4 mmol/L (3.5-5.1)
[2021-10-26] MEDS ORDERED: JEVITY 1.2 CAL 1,000 ML BOTTLE GT PRN (14:00)
[2021-10-26 14:41] LABS: HEMOGLOBIN 6.5 g/dL (13.5-17.5)
[2021-10-26 14:42] LABS: HEMATOCRIT 20 % (39-51)
[2021-10-26] MEDS: POTASSIUM CL. PREMIX PERIPHER. 50 ML IV SCH ×3 (15:16→18:52)
[2021-10-26] MEDS ORDERED: NEUTRA PHOS 1 POWD.PACKET GT ONE (16:00)
--- NOTE | 2021-10-26 19:24 | NUR ---
RN CLOSING NOTES WILL ENDORSE PATIENT WHILE PATIENT IN BED, A/O X4. PATIENT EXPRESSED SEVERE PAIN AND DISCOMFORT THROUGHOUT THE SHIFT, PRN NORCO AND ATIVAN ADMINISTERED FOR PAIN CONTROL AND Q1H REPOSITIONED PATIENT FOR COMFORT. ON VENT/TRACH TOLERATING SETTINGS WELL: TV-550, FIO2-50% PEEP 5 RATE 16. BREATHING EVEN AND UNLABORED, O2 SAT 97%. PATIENT HAD ONE BLOODY STOOLS. START JAVITY 1.2 FEEDING AT 10CC/HR PER MD ORDER. POTASSIUM REPLACED, ALL APPLICABLE ISOLATION PRECAUTIONS IN PLACE. ALL SAFETY MEASURES IN PLACE. ALL DUE MEDS GIVEN AND ALL NEEDS ATTENDED TO. WILL ENDORSE TO NIGHT NURSE FOR ISABELLA.
--- NOTE | 2021-10-26 19:30 | NUR ---
RN OPENING NOTES RECEIVED CARE OF PATIENT WHILE PATIENT IN BED, A/O X4, ABLE TO EXPRESS NEEDS THROUGH FACIAL EXPRESSIONS. PATIENT EXPRESSED SEVERE PAIN AND DISCOMFORT, REPOSITIONED PATIENT FOR COMFORT. ON VENT/TRACH TOLERATING SETTINGS WELL: TV-550, FIO2-50% PEEP 5 RATE 16. BREATHING EVEN AND UNLABORED, O2 SAT 99%. JEVITY 1.2 FEEDING AT 10CC/HR PER MD ORDER, TOLERATING WELL. BLOOD IS READY FOR PICKUP AT BLOOD BANK, PATIENT WILL RECEIVE BLOOD TRANSFUSION DUE TO 6.5 Hgb LEVEL. PATIENT VITAL SIGNS ARE WITHIN EXPECTED RANGES, NO SIGNIFICANT FINDINGS UPON INITIAL NURSING ASSESSMENTS. ALL SAFETY MEASURES IN PLACE. WILL CONTINUE TO MONITOR PATIENT.
--- NOTE | 2021-10-26 20:55 | NUR ---
RN NOTES BLOOD TRANSFUSION BEGAN AT 2049, PATIENT A/O X4, NO SINGS OF DISTRESS NOTED. VITAL SIGNS PRIOR TO STAR OF TRANSFUSION: TEMP: 99, HR 113, SPO2 99%, BP 111/57. ALL HOSPITAL PROTOCOLS FOLLOWED. BLOOD VERIFIED BY TWO RN'S PRIOR TO TRANSFUSION. WILL CLOSELY MONITOR PATIENT.
[2021-10-26] MEDS: ZOLPIDEM TARTRATE 10 MG TABLET GT SCH (21:28)
[2021-10-26] MEDS: SENNOSIDES 8.6 MG TABLET GT SCH (21:29)
--- NOTE | 2021-10-26 23:45 | NUR ---
RN NOTES BLOOD FULLY TRANSFUSED AT 2340, NO SIGNS OF COMPLICATIONS THROUGHOUT TRANSFUSION. VITAL SIGNS STAYED WITHIN EXPECTED RANGES THROUGHOUT TRANSFUSION. PATIENT EXPRESSES NO SIGNS OF DISTRESS. HOSPITAL PROTOCOLS FOLLOWED THROUGHOUT TRANSFUSION. WILL CONTINUE TO MONITOR PATIENT POST TRANSFUSION PERIOD.
[2021-10-27] VITALS: BP 96/50
[2021-10-27] MEDS ORDERED: POTASSIUM CL. PREMIX PERIPHER. 50 ML ONE (00:18)
[2021-10-27] MEDS: POTASSIUM CL. PREMIX PERIPHER. 50 ML IV SCH ×6 (00:18→15:32)
[2021-10-27] MEDS: IPRATROPIUM BROMIDE 14 GM INHALER (or 12.9 GM) IH SCH ×4 (01:43→20:08)
[2021-10-27] MEDS: ALBUTEROL SULFATE 8 GM HFA.AER.AD IH SCH ×4 (01:43→20:08)
[2021-10-27] MEDS: VANCOMYCIN HCL 0.75 GM in IV D5W 250 ML IV SCH ×3 (02:07→17:00)
[2021-10-27] MEDS: LORAZEPAM 1 MG TABLET GT PRN ×2 (02:07→13:52)
[2021-10-27 04:00] VITALS: BP 97/46
[2021-10-27] MEDS: HYDROCODONE/APAP 5/325MG TABLET GT PRN ×3 (05:05→18:12)
[2021-10-27] MEDS: MEROPENEM 1 G in IV NS 0.9% 100 ML IV SCH ×3 (05:05→20:55)
[2021-10-27] MEDS: ACETAMINOPHEN 650 MG/20.3 ML UDC GT PRN ×3 (06:33→21:26)
[2021-10-27] MEDS: IV NS 0.9% 1,000 ML IV SCH ×2 (06:34→16:52)
--- NOTE | 2021-10-27 07:01 | NUR ---
RN CLOSING NOTES WILL ENDORSE CARE OF PATIENT WHILE PATIENT IN BED, A/O X4, ABLE TO EXPRESS NEEDS THROUGH FACIAL EXPRESSIONS. PATIENT EXPRESSED SEVERE PAIN AND DISCOMFORT THROUGHOUT SHIFT, REPOSITIONED PATIENT FOR COMFORT AND ADMINISTERED NORCO AND ATIVAN PRN. ON VENT/TRACH TOLERATING SETTINGS WELL: TV-550, FIO2-50% PEEP 5 RATE 16. BREATHING EVEN AND UNLABORED, O2 SAT 98%. JEVITY 1.2 FEEDING AT 10CC/HR PER MD ORDER, TOLERATING WELL. ALL NEEDS ATTENDED TO. ALL SAFETY MEASURES IN PLACE. WILL ENDORSE TO AM NURSE FOR ISABELLA.
[2021-10-27 07:18] LABS: BASOPHILS % (AUTO) 0.2 % (0.0-2.0); EOSINOPHILS % (AUTO) 0.5 % (0.0-6.0); HEMATOCRIT 27 % (39-51); HEMOGLOBIN 8.7 g/dL (13.5-17.5); LYMPHOCYTES # (AUTO) 1.1 K/uL (0.8-4.8); LYMPHOCYTES % (AUTO) 7.8 % (20.0-44.0); MEAN CORPUSCULAR HGB CONC 33 g/dl (31.0-36.0); MEAN CORPUSCULAR VOLUME 81 fL (80-96); MONOCYTES # (AUTO) 1.1 K/uL (0.1-1.30); MONOCYTES % (AUTO) 7.3 % (2.0-12.0); NEUTROPHILS # (AUTO) 12.2 K/uL (1.8-8.9); NEUTROPHILS % (AUTO) 84.2 % (43.0-81.0); PLATELET COUNT (AUTO) 467 K/uL (150-450); RED BLOOD CELL COUNT(AUTO) 3.27 MIL/uL (4.5-6.0); WHITE BLOOD COUNT (AUTO) 14.5 K/uL (4.3-11.0)
--- NOTE | 2021-10-27 07:40 | NUR ---
SPIDER ASSEMBLER OPENING NOTE Patient in bed, asleep. A/O x 4. On mechanical ventilator, tolerating settings well. IV access on JOHN midline infusing NS at 100 ml/hr. G-tube in place running Jevity 1.2 At 10 cc/hr. Sarabia catheter in place draining to a yellow colored urine. Safety measures in place: bed in low, locked position; siderails up x 2; call light within reach. Will continue to monitor.
[2021-10-27 08:00] VITALS: BP 99/48
[2021-10-27 08:17] LABS: CALCIUM, SERUM 7.4 mg/dL (8.5-10.1); CREATININE 0.3 mg/dL (0.6-1.3); MAGNESIUM 1.7 mg/dL (1.8-2.4); PHOSPHORUS 2.1 mg/dL (2.5-4.9)
[2021-10-27 08:18] LABS: POTASSIUM 2.6 mmol/L (3.5-5.1)
[2021-10-27] MEDS ORDERED: IV NS 0.9% 500 ML IV ONE ×2 (08:30→18:00)
[2021-10-27] MEDS: HEPARIN SODIUM, PORCINE 5000 UNITS/1 ML VIAL SQ SCH (09:00)
[2021-10-27] MEDS: FERROUS SULFATE UDC 300 MG/5 ML UDC GT SCH (09:27)
[2021-10-27] MEDS: PANTOPRAZOLE 40 MG VIAL IV SCH ×2 (09:28→20:55)
[2021-10-27] MEDS: ASCORBIC ACID 500 MG TABLET GT SCH (09:28)
[2021-10-27] MEDS: BACLOFEN (10 MG) 10 MG TABLET GT SCH ×3 (09:28→16:52)
[2021-10-27] MEDS: CHLORHEXIDINE GLUCONATE 15 ML UDC MM SCH ×2 (09:28→16:52)
[2021-10-27] MEDS: SIMETHICONE 80 MG TAB.CHEW GT SCH (09:28)
[2021-10-27] MEDS: MULTIVITAMINS,THERAGRAN 1 UDTAB TABLET GT SCH (09:28)
--- NOTE | 2021-10-27 09:30 | NUR ---
RN NOTE Held Heparin, low H&H.
--- NOTE | 2021-10-27 10:00 | NUR ---
RN NOTE Patient's potassium level is 2.6. Carmen Bryant NP notified and gave order to replace potassium.
[2021-10-27] MEDS ORDERED: K PHOS NEUTRAL 250 MG TABLET PO ONE (11:00)
[2021-10-27] MEDS: Magnesium 1GM/D5W 100ML PREMIX 100 ML IV SCH ×2 (11:31→12:29)
[2021-10-27 12:00] VITALS: BP 98/50
[2021-10-27 15:49] LABS: BILIRUBIN,URINE NEGATIVE (NEGATIVE); COLOR,URINE YELLOW (YELLOW); LEUKOCYTE ESTERASE ,URINE TRACE (NEGATIVE); NITRITE, URINE NEGATIVE (NEGATIVE); PROTEIN,URINE NEGATIVE (NEGATIVE); UGLUCOSE NEGATIVE (NEGATIVE)
[2021-10-27 16:00] VITALS: BP 94/53
[2021-10-27 16:30] LABS: BACTERIA,URINE RARE /HPF (None Seen)
[2021-10-27 16:31] LABS: MUCUS,URINE Few /LPF (None Seen); SQUAMOUS EPITHELIAL CELL,UR 0-2 /HPF (None Seen); YEAST,URINE Few /HPF (None Seen)
--- NOTE | 2021-10-27 17:33 | NUR ---
RN NOTE Patient's Vancomycin trough is 24, held Vancomycin due at 1700.
--- NOTE | 2021-10-27 18:06 | NUR ---
RN NOTE Patient's BP still low at 94/53, Carmen Bryant NP notified and ordered NS bolus 500 ml.
--- NOTE | 2021-10-27 18:46 | NUR ---
NURSE ORTHOPAEDIC CLOSING NOTE Patient in bed, resting comfortably. A/O x 4, able to verbalize needs. On mechanical ventilator, tolerating settings well. IV access on JOHN midline infusing NS at 100 ml/hr. G-tube in place running Jevity 1.2 At 30 cc/hr. Sarabia catheter in place draining to a yellow colored urine with an output of 900 cc. All needs attended to. Due meds given. Patient kept clean and dry. Safety measures maintained: bed in low, locked position; siderails up x 2; call light within reach. Will endorse to medical dermatologist nurse for ISABELLA.
--- NOTE | 2021-10-27 19:35 | NUR ---
RN OPENING NOTES, RECEIVED PATIENT IN BED SLEEPING BUT EASILY AROUSABLE, ALERT, ORIENTED X4 AND VERBALLY RESPONSIVE. ON MECHANICAL VENT SETTING, WELL TOLERATED. IV ACCESS ON JOHN MIDLINE INFUSING NS AT 100CC/HR. NO S/S OF INFILTRATIONS. ON GTUBE FEEDING WITH JEVITY 1.2 AT 30CC/HR. NO C/O N/V. GTUBE SITE INTACT AND PATENT. NO C/O PAIN OR DISCOMFORT. NO ACUTE DISTRESS. GROSSMAN CATHETER INTACT WITH YELLOWISH URINE. ALL SAFETY MEASURE IN PLACE. BED IN LOW POSITION AND LOCKED. SIDE RAILS UP X3, PLACE CALL LIGHT WITH IN REACH. WILL CONTINUE TO MONITOR
[2021-10-27 20:00] VITALS: BP 103/62
[2021-10-27] MEDS: SENNOSIDES 8.6 MG TABLET GT SCH (21:26)
[2021-10-27] MEDS: ZOLPIDEM TARTRATE 10 MG TABLET GT SCH (21:26)
[2021-10-27] MEDS: ONDANSETRON HCL/PF 4 MG/2 ML VIAL IVP PRN (21:27)
--- NOTE | 2021-10-27 21:45 | NUR ---
RN NOTES; PT C/O GENERALIZED BODY PAIN 3/10 PAIN SCALE. TYLENOL 650 MG/20.3 ML GIVEN. ALSO C/O NAUSEA, ZOFRAN GIVEN. PT TOLERATED WELL. WILL CONTINUE TO MONITOR
[2021-10-27] MEDS: TRAZODONE 50 MG TABLET GT PRN (22:51)
--- NOTE | 2021-10-27 23:19 | NUR ---
RN NOTES: AMBIEN GIVEN PER ROUTINE ORDER. STILL INSOMNIA DIDN'T SOLVE. PT WANTS TRAZODONE. GIVEN PRN ORDER. WILL CONTINUE TO MONITOR
[2021-10-28] VITALS: BP 96/55
[2021-10-28] MEDS: IV NS 0.9% 1,000 ML IV SCH (02:37)
[2021-10-28] MEDS: LORAZEPAM 1 MG TABLET GT PRN ×2 (02:53→13:28)
--- NOTE | 2021-10-28 02:59 | NUR ---
RN NOTES: PT C/O ANXIETY, FEELING RESTLESSNESS. WANTS ATIVAN. ATIVAN GIVEN PER PRN ORDER. WILL CONTINUE TO MONITOR FOR ANY CHANGES.
[2021-10-28] MEDS: IPRATROPIUM BROMIDE 14 GM INHALER (or 12.9 GM) IH SCH ×3 (03:27→14:36)
[2021-10-28] MEDS: ALBUTEROL SULFATE 8 GM HFA.AER.AD IH SCH ×3 (03:27→13:30)
[2021-10-28 04:00] VITALS: BP 99/59
[2021-10-28] MEDS: MEROPENEM 1 G in IV NS 0.9% 100 ML IV SCH ×2 (04:17→13:24)
[2021-10-28] MEDS: HYDROCODONE/APAP 5/325MG TABLET GT PRN ×3 (05:01→16:26)
--- NOTE | 2021-10-28 05:04 | NUR ---
RN NOTES: PT C/O SEVERE GENERALIZED BODY PAIN 9/10 PAIN SCALE. NORCO5/325 MG TAB GIVEN PER PRN ORDER AND PT TOLERATED WELL. WILL CONTINUE TO MONITOR
--- NOTE | 2021-10-28 06:20 | NUR ---
RN CLOSING NOTES, PATIENT IN BED ALERT, ORIENTED X4 AND VERBALLY RESPONSIVE. ON MECHANICAL VENT SETTING, WELL TOLERATED. O2 SAT 97%. IV ACCESS ON JOHN MIDLINE INFUSING NS AT 100CC/HR. NO S/S OF INFILTRATIONS. ON GTUBE FEEDING WITH JEVITY 1.2 AT 30CC/HR. FLUSHED FLUID TO INCREASE FLUID INTAKE. NO C/O N/V AT THIS MOMENT. GTUBE SITE INTACT AND PATENT. NO C/O PAIN OR DISCOMFORT. NO ACUTE DISTRESS. ALL DUE AND PRN MEDS GIVEN ORDERED. GROSSMAN CATHETER INTACT WITH YELLOWISH URINE. HAD 2X BOWEL MOVEMENT WITH SCANT AMOUNT OF BLEEDING. ALL SAFETY MEASURE IN PLACE. BED IN LOW POSITION AND LOCKED. SIDE RAILS UP X3, PLACE CALL LIGHT WITH IN REACH. WILL ENDORSE TO MORNING SHIFT NURSE.
[2021-10-28 07:20] LABS: BASOPHILS % (AUTO) 0.3 % (0.0-2.0); EOSINOPHILS % (AUTO) 1.3 % (0.0-6.0); HEMATOCRIT 25 % (39-51); HEMOGLOBIN 8.4 g/dL (13.5-17.5); LYMPHOCYTES % (AUTO) 9.5 % (20.0-44.0); MEAN CORPUSCULAR HGB CONC 33 g/dl (31.0-36.0); MEAN CORPUSCULAR VOLUME 83 fL (80-96); MONOCYTES # (AUTO) 0.9 K/uL (0.1-1.30); NEUTROPHILS # (AUTO) 8.2 K/uL (1.8-8.9); NEUTROPHILS % (AUTO) 79.9 % (43.0-81.0); PLATELET COUNT (AUTO) 498 K/uL (150-450); RED BLOOD CELL COUNT(AUTO) 3.08 MIL/uL (4.5-6.0); WHITE BLOOD COUNT (AUTO) 10.3 K/uL (4.3-11.0)
[2021-10-28 07:49] LABS: CALCIUM, SERUM 7.7 mg/dL (8.5-10.1); CREATININE 0.4 mg/dL (0.6-1.3); MAGNESIUM 2.6 mg/dL (1.8-2.4); PHOSPHORUS 2.5 mg/dL (2.5-4.9); POTASSIUM 3.1 mmol/L (3.5-5.1)
[2021-10-28 08:00] VITALS: BP 98/60
[2021-10-28] MEDS ORDERED: VANCOMYCIN 0.75 GM in IV D5W 250 ML IV SCH (09:00)
[2021-10-28] MEDS: FERROUS SULFATE UDC 300 MG/5 ML UDC GT SCH (09:28)
[2021-10-28] MEDS: CHLORHEXIDINE GLUCONATE 15 ML UDC MM SCH ×2 (09:28→16:17)
[2021-10-28] MEDS: MULTIVITAMINS,THERAGRAN 1 UDTAB TABLET GT SCH (09:28)
[2021-10-28] MEDS: PANTOPRAZOLE 40 MG VIAL IV SCH (09:28)
[2021-10-28] MEDS: BACLOFEN (10 MG) 10 MG TABLET GT SCH ×3 (09:28→16:17)
[2021-10-28] MEDS: SIMETHICONE 80 MG TAB.CHEW GT SCH (09:28)
[2021-10-28] MEDS: ASCORBIC ACID 500 MG TABLET GT SCH (09:28)
[2021-10-28] MEDS ORDERED: POTASSIUM CHLORIDE 20 MEQ POWDER PACKET GT SCH ×2 (10:00→12:00)
[2021-10-28] MEDS ORDERED: IV NS 0.9% 500 ML IV ONE (10:00)
[2021-10-28 12:00] VITALS: BP 96/58
[2021-10-28] MEDS ORDERED: MERO1VIA23 IV (13:12)
[2021-10-28] MEDS: ACETAMINOPHEN 650 MG/20.3 ML UDC GT PRN (13:28)
--- NOTE | 2021-10-28 15:06 | NUR ---
patient refused to have discharge photo taken.
[2021-10-28 16:00] VITALS: BP 96/58
--- NOTE | 2021-10-28 18:18 | NUR ---
[employer] MECHANIC NOTES PATIENT WAS SEEN BY DR. ROMERO AND ORDERED PATIENT FOR DISCHARGE TO SNF. PROVIDED INSTRUCTION AND EDUCATION ON DISCHARGE AND MEDICATIONS. PATIENT ON MECHANICAL VENT TOLERATING WELL. GIVEN REPORT TO [facility] TO NURSE MARSHA. WITH LEFT UPPER ARM MIDLINE AND GROSSMAN CATH IN PLACED. PATIENT WAS PICKED UP BY AMBULANCE PERSONNEL IN STABLE CONDITION. MD AND CHARGE NURSE ARE AWARE OF THE DISCHARGE.
== END 2021-10-28 18:41 | DRG 720 ==
LOC: ER 18:10 → TRANSITION 22:30 → TELE1 10-24 15:29
PROVIDERS: ADMIT Family Medicine; ATTEND Registered Nurse
PROC: 5A1955Z Respiratory Ventilation, Greater than 96 Consecutive Hours (ICD-10-PCS; principal; 2021-10-23)
PROC: 30233N1 Transfusion of Nonautologous Red Blood Cells into Peripheral Vein, Percutaneous Approach (ICD-10-PCS; 2021-10-26)
DX: A41.9 Sepsis, unspecified organism (principal); J96.20 Acute and chronic respiratory failure, unspecified whether with hypoxia or hypercapnia; N17.0 Acute kidney failure with tubular necrosis; E43 Unspecified severe protein-calorie malnutrition; R53.2 Functional quadriplegia; E87.2 Acidosis; D68.59 Other primary thrombophilia; D63.8 Anemia in other chronic diseases classified elsewhere; E83.39 Other disorders of phosphorus metabolism; J90 Pleural effusion, not elsewhere classified; Z99.11 Dependence on respirator [ventilator] status; Z93.0 Tracheostomy status; E87.1 Hypo-osmolality and hyponatremia; N13.6 Pyonephrosis; Z68.1 Body mass index [BMI] 19.9 or less, adult; Z20.822 Contact with and (suspected) exposure to COVID-19; Z93.1 Gastrostomy status; R13.10 Dysphagia, unspecified; K59.00 Constipation, unspecified; Z79.51 Long term (current) use of inhaled steroids; Z79.01 Long term (current) use of anticoagulants; Z79.899 Other long term (current) drug therapy; N39.0 Urinary tract infection, site not specified; E87.6 Hypokalemia; N21.0 Calculus in bladder; M21.371 Foot drop, right foot; M21.372 Foot drop, left foot; Z74.01 Bed confinement status; N20.0 Calculus of kidney; E86.1 Hypovolemia; Z87.442 Personal history of urinary calculi; Z87.891 Personal history of nicotine dependence; Z87.440 Personal history of urinary (tract) infections; Z93.59 Other cystostomy status; Z91.51 Personal history of suicidal behavior; Z87.39 Personal history of other diseases of the musculoskeletal system and connective tissue; E83.42 Hypomagnesemia; E88.09 Other disorders of plasma-protein metabolism, not elsewhere classified; F15.90 Other stimulant use, unspecified, uncomplicated; Z87.19 Personal history of other diseases of the digestive system; J98.11 Atelectasis; N31.9 Neuromuscular dysfunction of bladder, unspecified; L89.616 Pressure-induced deep tissue damage of right heel; M62.562 Muscle wasting and atrophy, not elsewhere classified, left lower leg; M62.561 Muscle wasting and atrophy, not elsewhere classified, right lower leg; Z74.09 Other reduced mobility
CPT/HCPCS: 31720; 36415; 71045-TC; 76770-TC; 80048-TC; 80076-TC; 80202-TC; 81001; 82272-TC; 83605-TC; 83735-TC; 84100-TC; 84132-TC; 84484-TC; 85025-TC; 85730-TC; 86850-TC; 87040-TC; 87081-TC; 87086-TC; 94003-TC; 94640; 94760-TC; 94762-TC; 94799-TC; A4217; A4623; C9113; C9803; G0378; J0696; J1644; J2185; J2405; J3370; J3475; J3480; J3490; J7030; J7040; J7050; J7060; P9016; U0003

== ENCOUNTER 2021-12-28 09:59 | Inpatient (IN) | payer OTHER ==
[~2021-12-28] VITALS: Ht 172.7 cm; Wt 47.2 kg
[2021-12-28] VITALS (15 sets, daily range): BP systolic 80–120; BP diastolic 44–77
[~2021-12-28 09:59] MED LIST changes: +ASCO-352 GT; -CALC-261 GT; -CHLO118L6 TP; +CRAN3875 GT; +FERR300L GT; -HEPA50008 SQ; +HYDR-3972 GT; +LACT-209 GT; -LACT-96 GT; +MAG30ORA GT; +MAGN400O6 GT; -MECL-159 GT; +MERO1VIA23 IV; -TRAM50TA2 GT; -VIT500LI GT
--- NOTE | 2021-12-28 10:05 | NUR ---
[facility] C/O SOB AND CHEST PAIN STARTED 30 MINS TAPROOM ATTENDANT. PER EMS SOB STARTED FIRST THEN CHEST PAIN D/T SOB 82% ON VENT. PLACED PATIENT COMFORTABLY IN BED. TRANSFERRED TO HOSPITAL VENTILATOR. VITALS CHECKED. PATIENT IS ALERT, ORIENTED X4 ABLE TO MAKE NEEDS KNOWN. PATIENT HAS GTUBE, SUPRAPUBIC CATH AND WITH UPPER AND LOWER EXTREMITIES CONTRACTURE.
--- NOTE | 2021-12-28 10:45 | NUR ---
IV CANNULA G22 INSERTED ON LEFT HAND. BLOOD DRAWN AND GIVEN TO [facility] ATTORNEY.
--- NOTE | 2021-12-28 11:00 | NUR ---
CXR AT BEDSIDE DONE
[2021-12-28 11:14] LABS: BASOPHILS % (AUTO) 0.3 % (0.0-2.0); EOSINOPHILS % (AUTO) 1.5 % (0.0-6.0); HEMATOCRIT 31 % (39-51); HEMOGLOBIN 9.7 g/dL (13.5-17.5); LYMPHOCYTES % (AUTO) 7.5 % (20.0-44.0); MEAN CORPUSCULAR HGB CONC 32 g/dl (31.0-36.0); MEAN CORPUSCULAR VOLUME 90 fL (80-96); MONOCYTES # (AUTO) 0.8 K/uL (0.1-1.30); MONOCYTES % (AUTO) 6.1 % (2.0-12.0); NEUTROPHILS # (AUTO) 11.3 K/uL (1.8-8.9); NEUTROPHILS % (AUTO) 84.6 % (43.0-81.0); PLATELET COUNT (AUTO) 727 K/uL (150-450); RED BLOOD CELL COUNT(AUTO) 3.41 MIL/uL (4.5-6.0); WHITE BLOOD COUNT (AUTO) 13.3 K/uL (4.3-11.0)
--- NOTE | 2021-12-28 11:28 | NUR ---
CALLED [facility]ORACIC DR. SAL [phone] WILL BE PAGED.
--- NOTE | 2021-12-28 11:30 | NUR ---
COVID ANTIGEN SWAB DONE AND SENT TO LAB. URINE SPECIMEN SENT TO LAB
[2021-12-28 11:34] LABS: CALCIUM, SERUM 8.5 mg/dL (8.5-10.1); CARBON DIOXIDE 28 mmol/L (21-32); CHLORIDE 102 mmol/L (98-107); CREATININE 0.3 mg/dL (0.6-1.3); GLUCOSE 135 mg/dL (74-106); POTASSIUM 3.8 mmol/L (3.5-5.1); SODIUM SERUM 134 mmol/L (136-145); UREA NITROGEN, BLOOD 13 mg/dL (7-18)
--- NOTE | 2021-12-28 11:38 | NUR ---
RT RECEIVED PT IN ER W/ SOB, PT TRACHED PORTEX 7, DESATTING, INFLATED CUFF AND O2 SAT INCREASED. ON [facility] VENT WITH AC 20 VT500 +5 40%. VENT PLUGGED INTO RED OUTLET, BAGMASK HOB. PT DOES NOT WANT SX AT THE MOMENT. WILL CONTINUE TO MONITOR. Addendum: 12/28/21 at 1141 by ISABEL SLATER RT Amended: Links added.
[2021-12-28 11:48] LABS: ALANINE AMINOTRANSFERASE 14 U/L (12-78); ALBUMIN 2.1 g/dL (3.4-5.0); ALKALINE PHOSPHATASE 130 U/L (46-116); ASPARTATE AMINOTRANSFERASE 14 U/L (15-37); BILIRUBIN,DIRECT 0.1 mg/dL (0.0-0.2); BILIRUBIN,TOTAL 0.2 mg/dL (0.2-1.0); TOTAL PROTEIN, SERUM 6.6 g/dL (6.4-8.2)
[2021-12-28] MEDS ORDERED: HYDROMORPHONE 1 MG/1 ML DISP.SYRIN IV ONE (12:00)
[2021-12-28] MEDS ORDERED: HYDROMORPHONE 1 MG/1 ML DISP.SYRIN ONE (12:01)
[2021-12-28] MEDS ORDERED: MECL-159 PO (12:04)
[2021-12-28] MEDS ORDERED: LACT-96 GT (12:04)
[2021-12-28] MEDS ORDERED: HEPA100D33 SUBCUT (12:04)
[2021-12-28] MEDS ORDERED: AMIN887L GT (12:04)
--- NOTE | 2021-12-28 13:13 | NUR ---
[facility] CALLED SUBSTITUTE NURSE PAGED.
--- NOTE | 2021-12-28 13:14 | NUR ---
CALLED [facility] DR. SAL [phone] OPTION 1, 3. SPEAKING WITH DR. SLATER.
[2021-12-28] MEDS ORDERED: MAGNESIUM HYDROXIDE 30 ML UDC GT PRN (13:30)
[2021-12-28] MEDS ORDERED: MAG HYDROX/AL HYDROX/SIMETH 30 ML UDC GT PRN (13:30)
[2021-12-28] MEDS ORDERED: NA PHOS,M-B/NA PHOS,DI-BA 1 EA ENEMA RC PRN (13:30)
[2021-12-28] MEDS ORDERED: Z GUARD REMEDY 4 OZ OINT TP PRN (13:30)
[2021-12-28] MEDS ORDERED: BISACODYL SUPP (10 MG) 10 MG/SUPP.RECT SUPP.RECT RC PRN (13:30)
--- NOTE | 2021-12-28 13:52 | NUR ---
BED 253 PER NURSING SUP, ADMITTING DEPT NOTIFIED.
--- NOTE | 2021-12-28 14:32 | NUR ---
REPORT GIVEN TO DANILO B[place]MINGHAM.
[2021-12-28 14:33] LABS: BILIRUBIN,URINE NEGATIVE (NEGATIVE); COLOR,URINE YELLOW (YELLOW); LEUKOCYTE ESTERASE ,URINE MODERATE (NEGATIVE); NITRITE, URINE NEGATIVE (NEGATIVE); PH,URINE 8.5 (5.0-8.0); PROTEIN,URINE 100 mg/dl (NEGATIVE); UGLUCOSE NEGATIVE (NEGATIVE); UROBILINOGEN,URINE 0.2 EU/dL (0.2)
--- NOTE | 2021-12-28 15:20 | NUR ---
ICU ADMISSION NOTES: ADMITTED PATIENT FROM ER, ALERT AND AWAKE, ABLE TO FOLLOW COMMANDS; ON MECH. VENT.; SINUS TACHY =113, RR=18; BP=95/58; O2 SAT. AT 97%; TEMP. ORAL= 98.8F. PATIENT ON BED COMFORTABLY, CALL LIGHT IN REACH. BED IN LOCKED POSITION; BED AT LOWEST LEVEL FOR SAFETY. WILL CONTINUE TO MONITOR.
[2021-12-28 15:25] LABS: BACTERIA,URINE 2+ /HPF (None Seen); SQUAMOUS EPITHELIAL CELL,UR Few /HPF (None Seen)
[2021-12-28 15:26] LABS: TRIPLE PHOSPHATE CRYSTAL,UR Few /HPF (None Seen)
--- NOTE | 2021-12-28 15:43 | NUR ---
RT PATIENT REC'D TRANSFER FRO ER. PATIENT TRACHED ON [facility] VENT NOMAN WELL. PATIENT AWAKE, RESPONSIVE, NO COMPLAINTS OF SOB. BACK UP TRACH AND DEAN BAG AT HOB Addendum: 12/28/21 at 1544 by GHAZALA ARAUJO RT Amended: Links added.
[2021-12-28] MEDS: LORAZEPAM 1 MG TABLET GT PRN (15:48)
[2021-12-28] MEDS: HEPARIN SODIUM, PORCINE 5000 UNITS/1 ML VIAL SQ SCH (15:51)
[2021-12-28] MEDS: MECLIZINE HCL 25 MG TABLET PO SCH (16:07)
[2021-12-28] MEDS: BACLOFEN (10 MG) 10 MG TABLET GT SCH (16:07)
[2021-12-28] MEDS: CHLORHEXIDINE GLUCONATE 15 ML UDC MM SCH (16:08)
[2021-12-28] MEDS: FERROUS SULFATE UDC 300 MG/5 ML UDC GT SCH (16:09)
--- NOTE | 2021-12-28 17:10 | NUR ---
DR. MASON VISITED PT. AND WITH NEW VERBAL ORDER FOR DIETARY CONSULT TO DETERMINE TUBE FDG. FORMULA AND RATE.
[2021-12-28] MEDS: MORPHINE SULFATE INJ 2 MG/ML DISP.SYRIN IV PRN (17:24)
[2021-12-28] MEDS: IPRATROPIUM/ALBUTEROL INHALER IH SCH ×2 (18:00→23:23)
[2021-12-28] MEDS ORDERED: CEFTRIAXONE 1 G VIAL IM SCH (18:00)
[2021-12-28] MEDS: CEFTRIAXONE 1 G in IV D5W 50 ML IV SCH (18:35)
--- NOTE | 2021-12-28 19:00 | NUR ---
END OF SHIFT NOTES: PT. ON BED COMFORTABLY; ABLE TO MAKE NEEDS KNOWN; ALL DUE MEDS GIVEN ORDERED; NEEDS ATTENDED; ENDORSED TO NIGHT RN FOR CONTINUITY OF CARE.
[2021-12-28] MEDS: TRAZODONE 50 MG TABLET GT PRN (19:55)
[2021-12-28] MEDS: ACETAMINOPHEN 325 MG TABLET PO PRN (19:55)
[2021-12-28] MEDS ORDERED: ZOLPIDEM TARTRATE 10 MG TABLET PO PRN (20:30)
[2021-12-28] MEDS: PANTOPRAZOLE 40 MG/PACK PACK GT SCH (20:35)
[2021-12-28] MEDS: ZOLPIDEM TARTRATE 5 MG TABLET PO PRN (20:36)
--- NOTE | 2021-12-28 21:25 | NUR ---
SCALLOP RAKER. INITIAL ASSESSMENT. RECEIVED THE PT REST IN BED. TRACH TO VENT CONNECTED, INFANTRY WEAPONS OFFICER SHOWING S TACH. GT INTACT, SUPRA PUBIC CATH INTACT. HOB ELEVATED. TEMPERATURE IS 100.3. REMAINING SAME VENT SETTINGS TOLERATED WELL. SAT 98%. NO ACUTE DISTRESS NOTED. WILL CONTINUE TO MONITOR VITALS,
[2021-12-28] MEDS: SENNOSIDES 8.6 MG TABLET GT SCH (22:12)
[2021-12-29] VITALS (25 sets, daily range): BP systolic 89–118; BP diastolic 51–85
--- NOTE | 2021-12-29 01:07 | NUR ---
staff nurse icu resource team. pt is sleeping. no changes
--- NOTE | 2021-12-29 03:54 | NUR ---
curriculum development coordinator. am care given. remaining same vent settings tolerated well. sat 98%, no acute distress noted. laundry tub maker showing nsr, hob elevated, turn and reposition q2h.fc patent. urine draining.
[2021-12-29] MEDS: MORPHINE SULFATE INJ 2 MG/ML DISP.SYRIN IV PRN ×5 (04:41→21:55)
[2021-12-29] MEDS: HEPARIN SODIUM, PORCINE 5000 UNITS/1 ML VIAL SQ SCH ×2 (04:41→15:25)
[2021-12-29 05:13] LABS: BASOPHILS # (AUTO) 0.2 K/uL (0.0-0.2); BASOPHILS % (AUTO) 1.3 % (0.0-2.0); EOSINOPHILS % (AUTO) 0.9 % (0.0-6.0); HEMATOCRIT 31 % (39-51); HEMOGLOBIN 10.2 g/dL (13.5-17.5); LYMPHOCYTES # (AUTO) 2.1 K/uL (0.8-4.8); LYMPHOCYTES % (AUTO) 13.9 % (20.0-44.0); MEAN CORPUSCULAR HGB CONC 33 g/dl (31.0-36.0); MEAN CORPUSCULAR VOLUME 88 fL (80-96); MONOCYTES # (AUTO) 1.3 K/uL (0.1-1.30); MONOCYTES % (AUTO) 8.8 % (2.0-12.0); NEUTROPHILS # (AUTO) 11.4 K/uL (1.8-8.9); NEUTROPHILS % (AUTO) 75.1 % (43.0-81.0); PLATELET COUNT (AUTO) 824 K/uL (150-450); RED BLOOD CELL COUNT(AUTO) 3.54 MIL/uL (4.5-6.0); WHITE BLOOD COUNT (AUTO) 15.2 K/uL (4.3-11.0)
[2021-12-29 05:29] LABS: ALBUMIN 2.3 g/dL (3.4-5.0); BILIRUBIN,TOTAL 0.5 mg/dL (0.2-1.0); CALCIUM, SERUM 8.4 mg/dL (8.5-10.1); CREATININE 0.4 mg/dL (0.6-1.3); MAGNESIUM 1.5 mg/dL (1.8-2.4); PHOSPHORUS 3.3 mg/dL (2.5-4.9); POTASSIUM 3.7 mmol/L (3.5-5.1)
[2021-12-29] MEDS: IPRATROPIUM/ALBUTEROL INHALER IH SCH ×3 (06:00→19:25)
--- NOTE | 2021-12-29 07:30 | NUR ---
OPENING NOTE: REPORT RECEIVED FROM MARCY CARRASCO. PER REPORT NO SIGNIFICANT EVENTS OVERNIGHT. CHRONIC TRACH/VENT PATIENT, NPO EXCEPT MEDS. SP CATH NOTED. PT CHECKED ON HOURLY AND PRN BY NURSING STAFF.
[2021-12-29] MEDS: LORAZEPAM 1 MG TABLET GT PRN ×2 (08:15→23:23)
[2021-12-29] MEDS: CHLORHEXIDINE GLUCONATE 15 ML UDC MM SCH ×2 (08:30→17:24)
[2021-12-29] MEDS: FERROUS SULFATE UDC 300 MG/5 ML UDC GT SCH (08:30)
[2021-12-29] MEDS: PANTOPRAZOLE 40 MG/PACK PACK GT SCH ×2 (08:31→20:33)
[2021-12-29] MEDS: BACLOFEN (10 MG) 10 MG TABLET GT SCH ×3 (08:31→17:23)
[2021-12-29] MEDS: MULTIVIT W/MINERALS 1 TAB TABLET GT SCH (08:31)
[2021-12-29] MEDS: SIMETHICONE 80 MG TAB.CHEW GT SCH (08:31)
[2021-12-29] MEDS: ASCORBIC ACID 500 MG TABLET GT SCH (08:31)
[2021-12-29] MEDS: MECLIZINE HCL 25 MG TABLET PO SCH ×2 (08:31→17:24)
[2021-12-29] MEDS ORDERED: PROSTAT (PYXIS) 30 ML UDC GT SCH (09:00)
[2021-12-29] MEDS: Magnesium 1GM/D5W 100ML PREMIX 100 ML IV SCH ×2 (09:33→11:49)
[2021-12-29] MEDS: CEFTRIAXONE 1 G in IV D5W 50 ML IV SCH (17:23)
--- NOTE | 2021-12-29 18:57 | NUR ---
END OF SHIFT NOTE: LEFT UPPER CHEST PIG TAIL CHEST TUBE INSERTED TODAY PER MD ORDERS OR PNEUMOTHORAX. POST INSERTION LEFT LUNG EXPANDED WITHOUT DIFFICULTY. NO FLUID OUT FROM CHEST TUBE EXPECTED. PEG TUBE HOOKED TO SUCTION PER MD ORDERS FOR ABD DISTENTION, NO OUTPUT FROM PEG TUBE THIS SHIFT. SUPRAPUBIC CATHETER OUTPUT 200ML THIS SHIFT. PT MAINTAINED POSITIVE, PLEASANT ATTITUDE ALL DAY. PT HAD 1 BM THIS SHIFT. PT CHECKED ON HOURLY AND PRN BY NURSING STAFF.
[2021-12-29] MEDS: ACETAMINOPHEN 325 MG TABLET PO PRN (19:39)
[2021-12-29] MEDS: TRAZODONE 50 MG TABLET GT PRN (19:57)
[2021-12-29] MEDS: ZOLPIDEM TARTRATE 5 MG TABLET PO PRN (20:33)
--- NOTE | 2021-12-29 21:12 | NUR ---
BLUNGER TAMIKO AND TRAZODONE GIVEN PER PT REQUEST
[2021-12-29] MEDS: SENNOSIDES 8.6 MG TABLET GT SCH (22:00)
--- NOTE | 2021-12-29 22:09 | NUR ---
COIN MACHINE COLLECTOR SUPERVISOR PT REQUESTED MORPHINE AND ATIVAN TO BE GIVEN AT THE SAME TIME; EXPLAINED TO PT ONLY ONE CAN BE GIVEN AT A TIME; PT PREVIOUSLY RECEIVED AMBIEN AND TRAZODONE. PT GIVEN MORPHINE FOR CHEST PAIN R/T TO CHEST TUBE SITE 06/17. WILL ASSESS IN ONE HOUR FOR ATIVAN TO BE GIVEN.
--- NOTE | 2021-12-29 23:33 | NUR ---
SCRIP CLERK ATIVAN GIVEN PER PT REQUEST
[2021-12-30] VITALS (16 sets, daily range): BP systolic 91–108; BP diastolic 52–67
[2021-12-30] MEDS: MORPHINE SULFATE INJ 2 MG/ML DISP.SYRIN IV PRN ×5 (02:09→21:06)
--- NOTE | 2021-12-30 02:12 | NUR ---
LACING STRING CUTTER PT GIVEN MORPHINE FOR CHEST PAIN R/T TO CHEST TUBE SITE 05/17.
[2021-12-30] MEDS: HEPARIN SODIUM, PORCINE 5000 UNITS/1 ML VIAL SQ SCH ×2 (03:25→15:44)
[2021-12-30] MEDS: ACETAMINOPHEN 325 MG TABLET PO PRN ×4 (03:55→23:44)
[2021-12-30] MEDS: IPRATROPIUM/ALBUTEROL INHALER IH SCH ×4 (06:00→23:52)
--- NOTE | 2021-12-30 06:15 | NUR ---
CERTIFIED PEDORTHOTIST PT GIVEN MORPHINE FOR CHEST PAIN R/T TO CHEST TUBE SITE 05/17.
--- NOTE | 2021-12-30 07:10 | NUR ---
RN NOTES RECEIVED PT IN BED. A/O X4. ABLE TO MOUTH WORDS. ON TRACH CONNECTED TO MECH VENT. TOLERATING VENT SETTINGS WELL. G TUBE CONNECTED TO SUCTION FOR DISTENTION. SUPRAPUBIC CATH IN PLACE DRAINING TO YELLOW COLORED URINE. PIGTAIL CHEST TUBE IN PLACE. SAFETY MEASURES IN PLACE. CALL LIGHT WITHIN REACH. BED LOCKED AND IN LOWEST POSITION WITH SIDE RAILS UP X3. WILL CONTINUE TO MONITOR.
[2021-12-30 08:21] LABS: BASOPHILS # (AUTO) 0.1 K/uL (0.0-0.2); BASOPHILS % (AUTO) 0.5 % (0.0-2.0); EOSINOPHILS % (AUTO) 0.7 % (0.0-6.0); HEMATOCRIT 30 % (39-51); HEMOGLOBIN 9.5 g/dL (13.5-17.5); LYMPHOCYTES # (AUTO) 1.4 K/uL (0.8-4.8); MEAN CORPUSCULAR HGB CONC 32 g/dl (31.0-36.0); MEAN CORPUSCULAR VOLUME 90 fL (80-96); MONOCYTES # (AUTO) 1.6 K/uL (0.1-1.30); MONOCYTES % (AUTO) 11.3 % (2.0-12.0); NEUTROPHILS # (AUTO) 10.6 K/uL (1.8-8.9); NEUTROPHILS % (AUTO) 77.5 % (43.0-81.0); PLATELET COUNT (AUTO) 852 K/uL (150-450); RED BLOOD CELL COUNT(AUTO) 3.35 MIL/uL (4.5-6.0); WHITE BLOOD COUNT (AUTO) 13.7 K/uL (4.3-11.0)
[2021-12-30 08:40] LABS: BILIRUBIN,TOTAL 0.4 mg/dL (0.2-1.0); CALCIUM, SERUM 8.5 mg/dL (8.5-10.1); CREATININE 0.4 mg/dL (0.6-1.3); POTASSIUM 3.9 mmol/L (3.5-5.1); TOTAL PROTEIN, SERUM 6.4 g/dL (6.4-8.2)
[2021-12-30] MEDS: MEROPENEM 1 G in IV NS 0.9% 100 ML IV SCH ×2 (09:14→18:08)
[2021-12-30] MEDS: CHLORHEXIDINE GLUCONATE 15 ML UDC MM SCH ×2 (09:15→18:07)
[2021-12-30] MEDS: BACLOFEN (10 MG) 10 MG TABLET GT SCH ×3 (09:24→18:08)
[2021-12-30] MEDS: FERROUS SULFATE UDC 300 MG/5 ML UDC GT SCH (09:24)
[2021-12-30] MEDS: MULTIVIT W/MINERALS 1 TAB TABLET GT SCH (09:24)
[2021-12-30] MEDS: SIMETHICONE 80 MG TAB.CHEW GT SCH (09:24)
[2021-12-30] MEDS: PANTOPRAZOLE 40 MG/PACK PACK GT SCH ×2 (09:24→20:35)
[2021-12-30] MEDS: ASCORBIC ACID 500 MG TABLET GT SCH (09:24)
[2021-12-30] MEDS: Potassium Chloride 30 MEQ in IV D5/0.45 NACL 1,000 ML IV SCH ×2 (09:24→20:21)
[2021-12-30] MEDS: MECLIZINE HCL 25 MG TABLET PO SCH ×2 (09:24→18:08)
--- NOTE | 2021-12-30 13:30 | NUR ---
RN NOTES TRANSFERRED PT TO GRAY ROOM 103 PER PROTOCOL. VS STABLE. REPORT GIVEN TO ANDRÉS CARRASCO FOR ISABELLA.
--- NOTE | 2021-12-30 13:35 | NUR ---
RN NOTE RECEIVED PATIENT IN STABLE CONDITION PLACE IN ROOM 103-1 TD.
--- NOTE | 2021-12-30 16:05 | NUR ---
RN NOTE PATIENT NOTED TO HAVE TEMP OF 100.2. PRN TYLENOL ADMINISTERED
--- NOTE | 2021-12-30 19:00 | NUR ---
RN CLOSING NOTES PT IN BED. A/O X4. ABLE TO MOUTH WORDS. ON TRACH CONNECTED TO MECH VENT. TOLERATING VENT SETTINGS WELL. G TUBE CONNECTED TO SUCTION FOR DISTENTION. SUPRAPUBIC CATH IN PLACE DRAINING TO YELLOW COLORED URINE. PIGTAIL CHEST TUBE IN PLACE. SAFETY MEASURES IN PLACE. CALL LIGHT WITHIN REACH. BED LOCKED AND IN LOWEST POSITION WITH SIDE RAILS UP X3. WILL CONTINUE TO MONITOR. WILL ENDORSE TO NIGHT NURSE FOR ISABELLA.
--- NOTE | 2021-12-30 20:30 | NUR ---
RN NOTE RECEIVED PT IN BED, AWAKE. AOX4. ABLE TO MOUTH WORDS. WITH TRACH ON VENT. O2 SAT AT 99%. DENIES ANY SOB OR ANY PAIN AT THIS TIME. PT WITH L PIGTAIL CHEST TUBE CONNECTED TO SUCTION. GT CONNECTED TO SUCTION WELL FOR DISTENTION. ST ON TELE MONITOR. SUPRAPUBIC CATH IN PLACE DRAINING DARK YELLOW URINE. ALL SAFETY MEASURES IN PLACE, WILL CONTINUE TO MONITOR
[2021-12-30] MEDS: ZOLPIDEM TARTRATE 5 MG TABLET PO PRN (20:35)
[2021-12-30] MEDS: SENNOSIDES 8.6 MG TABLET GT SCH (22:00)
[2021-12-30] MEDS: LORAZEPAM 1 MG TABLET GT PRN (22:24)
[2021-12-31] VITALS: BP 102/63
[2021-12-31] MEDS: MEROPENEM 1 G in IV NS 0.9% 100 ML IV SCH ×3 (00:47→17:11)
[2021-12-31] MEDS: HEPARIN SODIUM, PORCINE 5000 UNITS/1 ML VIAL SQ SCH ×2 (03:36→14:35)
[2021-12-31] MEDS: MORPHINE SULFATE INJ 2 MG/ML DISP.SYRIN IV PRN ×5 (03:48→21:31)
[2021-12-31 04:00] VITALS: BP 116/61
[2021-12-31] MEDS: IPRATROPIUM/ALBUTEROL INHALER IH SCH ×3 (06:09→18:00)
[2021-12-31] MEDS: ACETAMINOPHEN 325 MG TABLET PO PRN (06:12)
--- NOTE | 2021-12-31 06:50 | NUR ---
RN NOTE CALLED PHARMACY FOR FOR KCL IN D5 1/2NS REFIILL. PER PHARMACY THEY WILL SEND IT. WILL ENDORSE TO NEXT SHIFT NURSE.
--- NOTE | 2021-12-31 07:15 | NUR ---
RN NOTE PT TOLERATES VENT SETTINGS. NOT IN ANY DISTRESS, NO CHANGES IN LOC. ABLE TO MAKE NEEDS KNOWN. REMAIN NPO. GT CONNECTED TO SUCTION WITH ABOUT 10 ML DRAINAGE. CHEST TUBE IN PLACE, 5ML SEROSANGUINEOUS DRAINAGE. DENIES PAIN AT THIS TIME. NO SOB. SR ON TELE MONITOR WITH HR OF 93. PT LATEST TEMP 99.1. ALL NEEDS ATTENDED. ENDORSED TO NEXT SHIFT NURSE FOR ISABELLA.
--- NOTE | 2021-12-31 07:30 | NUR ---
RN MORNING NOTE PT OBSERVED IN BED WITH HOB 30 DEGREES. PT IS ON MECHANICAL VENT WITH ALL PRESCRIBED SETTINGS TOLERATING WELL WITH NO SIGNS OF DISTRESS OR LABORED BREATHING O2 SAT 100%. PT IS A/OX4. PT IS NPO AND GTUBE IS IN PLACE AND CONNECTED TO SUCTION FOR GASEOUS DISTENTION. PT HAS SUPRAPUBIC CATH IN PLACE. IV ACCESS L UA ML AND L ROBLERO 22G. BED IS LOCKED IN LOWEST POSITION X2 GUARD RAILS UP AND ALL HOSPITAL SAFETY MEASURES ARE IN PLACE. WILL CONTINUE TO MONITOR THIS SHIFT.
[2021-12-31 07:50] LABS: BASOPHILS % (AUTO) 0.4 % (0.0-2.0); EOSINOPHILS % (AUTO) 1.5 % (0.0-6.0); HEMATOCRIT 28 % (39-51); HEMOGLOBIN 9.1 g/dL (13.5-17.5); LYMPHOCYTES # (AUTO) 1.4 K/uL (0.8-4.8); LYMPHOCYTES % (AUTO) 13.3 % (20.0-44.0); MEAN CORPUSCULAR HGB CONC 33 g/dl (31.0-36.0); MEAN CORPUSCULAR VOLUME 89 fL (80-96); MONOCYTES # (AUTO) 1.3 K/uL (0.1-1.30); MONOCYTES % (AUTO) 12.4 % (2.0-12.0); NEUTROPHILS # (AUTO) 7.9 K/uL (1.8-8.9); NEUTROPHILS % (AUTO) 72.4 % (43.0-81.0); PLATELET COUNT (AUTO) 613 K/uL (150-450); RED BLOOD CELL COUNT(AUTO) 3.08 MIL/uL (4.5-6.0); WHITE BLOOD COUNT (AUTO) 10.9 K/uL (4.3-11.0)
[2021-12-31] MEDS: Potassium Chloride 30 MEQ in IV D5/0.45 NACL 1,000 ML IV SCH ×2 (07:58→20:09)
[2021-12-31 08:00] VITALS: BP 104/62
[2021-12-31] MEDS: ASCORBIC ACID 500 MG TABLET GT SCH (08:53)
[2021-12-31] MEDS: PANTOPRAZOLE 40 MG/PACK PACK GT SCH ×2 (08:53→21:30)
[2021-12-31] MEDS: MULTIVIT W/MINERALS 1 TAB TABLET GT SCH (08:53)
[2021-12-31] MEDS: MECLIZINE HCL 25 MG TABLET PO SCH ×2 (08:53→17:11)
[2021-12-31] MEDS: CHLORHEXIDINE GLUCONATE 15 ML UDC MM SCH ×2 (08:53→17:11)
[2021-12-31] MEDS: PROSOURCE / PROSTAT (PYXIS) 30 ML UDC GT SCH (08:54)
[2021-12-31] MEDS: BACLOFEN (10 MG) 10 MG TABLET GT SCH ×3 (08:54→17:11)
[2021-12-31] MEDS: FERROUS SULFATE UDC 300 MG/5 ML UDC GT SCH (08:54)
[2021-12-31] MEDS: SIMETHICONE 80 MG TAB.CHEW GT SCH (08:54)
[2021-12-31 11:41] LABS: ALBUMIN 1.7 g/dL (3.4-5.0); BILIRUBIN,TOTAL 0.4 mg/dL (0.2-1.0); CALCIUM, SERUM 8.5 mg/dL (8.5-10.1); CREATININE 0.4 mg/dL (0.6-1.3); MAGNESIUM 1.6 mg/dL (1.8-2.4); PHOSPHORUS 2.9 mg/dL (2.5-4.9); POTASSIUM 3.6 mmol/L (3.5-5.1); TOTAL PROTEIN, SERUM 5.6 g/dL (6.4-8.2)
[2021-12-31 12:00] VITALS: BP 108/62
[2021-12-31 16:00] VITALS: BP 106/57
[2021-12-31] MEDS ORDERED: MAGNESIUM OXIDE 400 MG TABLET PO ONE (16:00)
--- NOTE | 2021-12-31 18:32 | NUR ---
RN CLOSING NOTE PT IS IN BED WITH HOB 35 DEGREES. PT IS ON MECHANICAL VENT WITH ALL PRESCRIBED SETTINGS TOLERATING WELL WITH NO SIGNS OF DISTRESS OR LABORED BREATHING O2 SAT 100%. PT IS A/OX4. PT IS NPO AND GTUBE IS IN PLACE AND CONNECTED TO INTERMITTENT SUCTION FOR GASEOUS DISTENTION -50ML. PT HAS SUPRAPUBIC CATH IN PLACE. IV ACCESS L UA ML AND L ROBLERO 22G. BED IS LOCKED IN LOWEST POSITION X2 GUARD RAILS UP AND ALL HOSPITAL SAFETY MEASURES ARE IN PLACE. WILL ENDORSE TO OPTICAL ENGINEERING TECHNICIAN NURSE FOR ISABELLA.
--- NOTE | 2021-12-31 19:30 | NUR ---
RN NOTES RECEIVED PT FOR CONTINUITY OF CARE. PATIENT A/OX4 IN NO S/SX OF ACUTE DISTRESS AT THIS TIME; CURRENTLY ON MECHANICAL VENT; SETTING PRESCRIBED, WITH 02 SAT >95% AT THIS TIME. ON NPO AND GTUBE IS IN PLACE AND CONNECTED TO INTERMITTENT SUCTION FOR GASEOUS DISTENTION. WITH IV ACCESS INTACT, PATENT AND FLUSHING WELL WITH INFUSING IV FLUID ORDERED. PT WITH L PIGTAIL CHEST TUBE CONNECTED TO SUCTION. SUPRAPUBIC CATH IN PLACE DRAINING DARK YELLOW URINE. WILL ENSURE SAFETY MEASURES WITHIN THE SHIFT. PATIENT BED ALARM IS ON. HEAD OF BED ELEVATED. BED IS LOCKED, IN LOWEST POSITION AND SIDE RAILS UP. CALL LIGHT WITHIN REACH OF THE PATIENT. APPLICABLE ISOLATION PRECAUTIONS IN PLACE. WILL CONTINUE TO MONITOR AND REASSESS FOR ANY CHANGES AND WILL CARRY OUT ANY ONGOING AND ACTIVE MD ORDER.
[2021-12-31 20:00] VITALS: BP 105/68
[2021-12-31] MEDS: SENNOSIDES 8.6 MG TABLET GT SCH (21:30)
[2021-12-31] MEDS: TRAZODONE 50 MG TABLET GT PRN (22:21)
[2021-12-31] MEDS: LORAZEPAM 1 MG TABLET GT PRN (23:54)
[2022-01-01] VITALS: BP 95/58
[2022-01-01] MEDS: IPRATROPIUM/ALBUTEROL INHALER IH SCH ×4 (00:02→17:25)
[2022-01-01] MEDS: MEROPENEM 1 G in IV NS 0.9% 100 ML IV SCH ×3 (00:02→17:08)
[2022-01-01] MEDS: MORPHINE SULFATE INJ 2 MG/ML DISP.SYRIN IV PRN ×6 (01:39→22:23)
[2022-01-01] MEDS: Potassium Chloride 30 MEQ in IV D5/0.45 NACL 1,000 ML IV SCH ×3 (01:49→21:52)
[2022-01-01] MEDS: HEPARIN SODIUM, PORCINE 5000 UNITS/1 ML VIAL SQ SCH ×2 (02:47→14:52)
[2022-01-01 04:00] VITALS: BP 108/68
--- NOTE | 2022-01-01 04:00 | NUR ---
RN NOTES PATIENT REMAINED TO BE IN NO SIGNS OF ACUTE RESPIRATORY DISTRESS, VITAL SIGNS STABLE AT THIS TIME. REGULAR TURNING AND REPOSITIONING DONE Q2H, SUCTIONING RENDERED AND PATIENT CARE DONE. WILL CONTINUE TO MONITOR AND REASSESS FOR ANY CHANGES THROUGHOUT THE SHIFT.
--- NOTE | 2022-01-01 06:42 | NUR ---
RN CLOSING NOTE: PATIENT REMAINS IN ROOM IN NO SIGNS OF RESPIRATORY DISTRESS, PATIENT STILL ON MECH VENT; SETTINGS PRESCRIBED;TOLERATING WELL SATURATING @ >95% SP02. SAFETY MEASURES IMPLEMENTED, BED IN LOWEST POSITION, LOCKED, SIDE RAILS UP, CALL LIGHT WITHIN REACH. ALL NEEDS AND ORDERS ADDRESSED DURING THE SHIFT. IV ACCESS MAINTAINED INTACT, SECURED AND FLUSHING WELL. ALL DUE MEDS GIVEN ORDERED & SCHEDULED ; PATIENT TOLERATED WELL. PATIENT KEPT CLEAN AND COMFORTABLE WITHIN THE SHIFT. PATIENT ENDORSED TO INCOMING SHIFT RN WITH STABLE VITAL SIGN AND FOR CONTINUITY OF CARE.
--- NOTE | 2022-01-01 07:41 | NUR ---
midlevel provider opening notes: midlevel provider opening notes: received patient in bed awake alert and oriented x 4 with trach Portex 7 to mechanical vent setting as ordered. breathing even and unlabored,satting 98%.IV on left upper arm midline and left hand saline lock gauge 22, on IV fluid KCL D51/2 ns at 100ml/hr. GT feeding on hold at this time due to abdominal distension and GT connected to suction no draining noted at this time. patient with chest tube connected to intermittent suction with no discharge at this time,head of bed elevated,S/P cath in place patent with yellow clear urine . bed remained locked and lowest position,call light within reach at all times.will continue to monitor and reassess for any changes and will carry out any ongoing and active MD orders
[2022-01-01 08:00] VITALS: BP 104/65
[2022-01-01] MEDS: SIMETHICONE 80 MG TAB.CHEW GT SCH (08:03)
[2022-01-01] MEDS: MULTIVIT W/MINERALS 1 TAB TABLET GT SCH (08:03)
[2022-01-01] MEDS: PANTOPRAZOLE 40 MG/PACK PACK GT SCH ×2 (08:03→21:45)
[2022-01-01] MEDS: FERROUS SULFATE UDC 300 MG/5 ML UDC GT SCH (08:03)
[2022-01-01] MEDS: CHLORHEXIDINE GLUCONATE 15 ML UDC MM SCH ×2 (08:03→17:10)
[2022-01-01] MEDS: ACETAMINOPHEN 325 MG TABLET PO PRN ×2 (08:04→17:08)
[2022-01-01] MEDS: BACLOFEN (10 MG) 10 MG TABLET GT SCH ×3 (08:04→17:10)
[2022-01-01] MEDS: MECLIZINE HCL 25 MG TABLET PO SCH ×2 (08:04→17:10)
[2022-01-01] MEDS: PROSOURCE / PROSTAT (PYXIS) 30 ML UDC GT SCH (08:06)
[2022-01-01 08:24] LABS: BASOPHILS % (AUTO) 0.3 % (0.0-2.0); EOSINOPHILS % (AUTO) 0.8 % (0.0-6.0); HEMATOCRIT 27 % (39-51); HEMOGLOBIN 8.9 g/dL (13.5-17.5); LYMPHOCYTES # (AUTO) 0.8 K/uL (0.8-4.8); LYMPHOCYTES % (AUTO) 7.9 % (20.0-44.0); MEAN CORPUSCULAR HGB CONC 33 g/dl (31.0-36.0); MEAN CORPUSCULAR VOLUME 89 fL (80-96); MONOCYTES # (AUTO) 1.2 K/uL (0.1-1.30); MONOCYTES % (AUTO) 11.6 % (2.0-12.0); NEUTROPHILS # (AUTO) 8.6 K/uL (1.8-8.9); NEUTROPHILS % (AUTO) 79.4 % (43.0-81.0); PLATELET COUNT (AUTO) 535 K/uL (150-450); RED BLOOD CELL COUNT(AUTO) 3.05 MIL/uL (4.5-6.0); WHITE BLOOD COUNT (AUTO) 10.8 K/uL (4.3-11.0)
[2022-01-01 08:35] LABS: ALBUMIN 1.7 g/dL (3.4-5.0); BILIRUBIN,TOTAL 0.4 mg/dL (0.2-1.0); CALCIUM, SERUM 7.9 mg/dL (8.5-10.1); CREATININE 0.3 mg/dL (0.6-1.3); TOTAL PROTEIN, SERUM 5.5 g/dL (6.4-8.2)
[2022-01-01] MEDS: ASCORBIC ACID 500 MG TABLET GT SCH (09:28)
--- NOTE | 2022-01-01 11:00 | NUR ---
lori rn note placed chest tube to water seal drainage ,will do chest x benson in 2 hour ,per hat parts cutter machine order will f\u
[2022-01-01] MEDS ORDERED: MAGNESIUM OXIDE 400 MG TABLET GT ONE (11:30)
[2022-01-01 12:00] VITALS: BP 93/59
--- NOTE | 2022-01-01 12:08 | NUR ---
tele rnnnote dr radha schulz at bedside ok to stop g tube to suction ok to start g tube feeding
[2022-01-01] MEDS: IPRATROPIUM/ALBUTEROL INHALER IH PRN (12:52)
[2022-01-01] MEDS: JEVITY 1.2 CAL 1,000 ML BOTTLE GT PRN (13:00)
--- NOTE | 2022-01-01 13:22 | NUR ---
lori rn note called to oval or circular glass cutter notified chest x benson result stated to cont chest tube to water seal over night til morning ,will cont to monitor
--- NOTE | 2022-01-01 13:43 | NUR ---
GRAY RN NOTE MORPHINE IV PGIVE BP 107/60 SATURATION 100%, WILL CONT TO MONITOR
[2022-01-01] MEDS: LORAZEPAM 1 MG TABLET GT PRN (15:35)
--- NOTE | 2022-01-01 15:35 | NUR ---
lori rn note ativan1 mg via g tube give ,patient verbalize anxiety,bp 105/52 saturation 96% ,will cont to monitor
--- NOTE | 2022-01-01 15:54 | NUR ---
lori hutson note Flakito flush done large amount bowel and some gas was out, still distended, cont g tube feeding as ordered Addendum: 01/01/22 at 1718 by DUYEN SOMERS RN family at bedside all needs attended
[2022-01-01 16:00] VITALS: BP 105/66
--- NOTE | 2022-01-01 18:38 | NUR ---
GRAY RN closing notes PT IN BED. A/O X4. ABLE TO MOUTH WORDS. ON TRACH [facility]. TOLERATING VENT SETTINGS WELL. G TUBE feeding was resumed as per DR Arthur Garcia order well tolerated.. SUPRAPUBIC CATH IN PLACE DRAINING TO YELLOW COLORED URINE. PIGTAIL CHEST TUBE IN PLACE connected to water seal as per the seat cover installer, no chest tube drainage all shift. SAFETY MEASURES IN PLACE. CALL LIGHT WITHIN REACH. BED LOCKED AND IN LOWEST POSITION WITH SIDE RAILS UP X3. WILL CONTINUE TO MONITOR. WILL ENDORSE TO NIGHT NURSE FOR ISABELLA.
[2022-01-01 20:00] VITALS: BP 95/54
[2022-01-01] MEDS: SENNOSIDES 8.6 MG TABLET GT SCH (21:45)
[2022-01-01] MEDS: ZOLPIDEM TARTRATE 5 MG TABLET PO PRN (23:07)
[2022-01-02] VITALS: BP 90/60
[2022-01-02] MEDS: MEROPENEM 1 G in IV NS 0.9% 100 ML IV SCH ×3 (01:00→16:06)
[2022-01-02 04:00] VITALS: BP 110/76
[2022-01-02] MEDS: HEPARIN SODIUM, PORCINE 5000 UNITS/1 ML VIAL SQ SCH ×2 (04:03→14:22)
[2022-01-02] MEDS: MORPHINE SULFATE INJ 2 MG/ML DISP.SYRIN IV PRN ×5 (04:19→21:49)
[2022-01-02] MEDS: IPRATROPIUM/ALBUTEROL INHALER IH SCH ×4 (06:00→17:59)
--- NOTE | 2022-01-02 07:30 | NUR ---
RN NOTES, PT IN BED. A/O X4, ON MECHANICAL VENTILATOR, TOLERATED SETTINGS WELL, NO SOB/ACUTE DISTRESS NOTED, ABLE TO MOUTH WORDS, PIGTAIL CHEST TUBE IN PLACE CONNECTED TO WATER SEAL, WILL HAVE CXR THIS MORNING, WITH POSSIBILITY TO REMOVE CHEST TUBE TODAY PER B2B MANAGED SERVICE SALES EXEC, NO DRAINAGE NOTED DURING THE NIGHT, OTHERWISE NO SIGNIFICANT CHANGE IN CONDITION DURING THE NIGHT, CALL LIGHT WITHIN REACH.BED LOCKED AND IN LOWEST POSITION WITH SIDE RAILS UP X3, ENDORSED TO SHER CARRASCO FOR ISABELLA.
[2022-01-02 07:37] LABS: HEMATOCRIT 29 % (39-51); HEMOGLOBIN 9.3 g/dL (13.5-17.5); RED BLOOD CELL COUNT(AUTO) 3.21 MIL/uL (4.5-6.0); WHITE BLOOD COUNT (AUTO) 6.5 K/uL (4.3-11.0)
[2022-01-02 07:38] LABS: BASOPHILS % (AUTO) 0.4 % (0.0-2.0); EOSINOPHILS % (AUTO) 2.5 % (0.0-6.0); LYMPHOCYTES # (AUTO) 1.5 K/uL (0.8-4.8); LYMPHOCYTES % (AUTO) 23.4 % (20.0-44.0); MEAN CORPUSCULAR HGB CONC 32 g/dl (31.0-36.0); MEAN CORPUSCULAR VOLUME 90 fL (80-96); MONOCYTES # (AUTO) 0.9 K/uL (0.1-1.30); MONOCYTES % (AUTO) 14.2 % (2.0-12.0); NEUTROPHILS # (AUTO) 3.9 K/uL (1.8-8.9); NEUTROPHILS % (AUTO) 59.5 % (43.0-81.0); PLATELET COUNT (AUTO) 577 K/uL (150-450)
[2022-01-02 07:56] LABS: CALCIUM, SERUM 8.2 mg/dL (8.5-10.1); CREATININE 0.4 mg/dL (0.6-1.3); POTASSIUM 4.4 mmol/L (3.5-5.1)
[2022-01-02 08:00] VITALS: BP 97/59
[2022-01-02 08:03] LABS: ALBUMIN 1.7 g/dL (3.4-5.0); BILIRUBIN,TOTAL 0.2 mg/dL (0.2-1.0); TOTAL PROTEIN, SERUM 5.7 g/dL (6.4-8.2)
--- NOTE | 2022-01-02 08:51 | NUR ---
RN Opening notes 0700 Patient endorsed by outgoing nurse for continuity of care. Received patient in bed locked at lowest position with upper side rails raised and call light within reach. Patient A&O X3. Patient is verbalized. No sign of distress or SOB noted, breathing is even and unlabored. Regular heart rhythm and sometimes tacky. Patient has left upper arm midline IV and left hand 22 Omar. Patient is non-ambulatory, incontinent GI, Bowel sounds present in all quadrants, soft and non distended. incontinent. Encourage call light use and reinforced unit policies. Patient questions and concerns addressed. Will continue to monitor changes and conditions, and patient safety.
--- NOTE | 2022-01-02 08:56 | NUR ---
WOUND CARE CONSULT: PT PRESENTS WITH SACRAL INTACT DEEP TISSUE INJURY OVER PREVIOUS SCARRING. THERE IS SCARRING TO RT BUTTOCK WITH AREA OF DISCOLORATION. PT NOTED TO HAVE WATERY STOOL WITH BLEEDING. DISCUSSED WITH GUM SCORING MACHINE OPERATOR. RECOMMENDATIONS MADE FOR SKIN PROTECTION AND WOUND CARE. DISCUSSED WITH NURSING STAFF. FIRST STEP LOW AIRLOSS MATTRESS IS ON ORDER. PT IS VERY THIN AND BONY. MD IN AGREEMENT WITH PLAN OF CARE. Addendum: 01/02/22 at 0902 by ELEONORA COLVINU PT NOTED TO HAVE MULTIPLE CO-MORBIDITIES INCLUDING SPINAL CORD INFARCT WITH QUADRIPARESIS, G I BLEED, RENAL FAILURE AND VASCULAR NEUROPATHY. PT HAS CHEST TUBE AT THIS TIME. DUE TO MULTIPLE CO-MORBIDITIES, FURTHER SKIN BREAKDOWN MAY BE UNAVOIDABLE.
[2022-01-02] MEDS: MULTIVIT W/MINERALS 1 TAB TABLET GT SCH (09:18)
[2022-01-02] MEDS: SIMETHICONE 80 MG TAB.CHEW GT SCH (09:18)
[2022-01-02] MEDS: PANTOPRAZOLE 40 MG/PACK PACK GT SCH ×2 (09:18→21:10)
[2022-01-02] MEDS: CHLORHEXIDINE GLUCONATE 15 ML UDC MM SCH ×2 (09:18→16:07)
[2022-01-02] MEDS: FERROUS SULFATE UDC 300 MG/5 ML UDC GT SCH (09:18)
[2022-01-02] MEDS: BACLOFEN (10 MG) 10 MG TABLET GT SCH ×3 (09:18→16:06)
[2022-01-02] MEDS: MECLIZINE HCL 25 MG TABLET PO SCH ×2 (09:18→16:06)
[2022-01-02] MEDS: ASCORBIC ACID 500 MG TABLET GT SCH (09:18)
[2022-01-02] MEDS: Potassium Chloride 30 MEQ in IV D5/0.45 NACL 1,000 ML IV SCH ×2 (09:20→17:51)
[2022-01-02] MEDS: PROSOURCE / PROSTAT (PYXIS) 30 ML UDC GT SCH (10:47)
[2022-01-02 12:00] VITALS: BP 118/66
[2022-01-02 16:00] VITALS: BP 98/61
[2022-01-02] MEDS: ACETAMINOPHEN 325 MG TABLET PO PRN (16:46)
--- NOTE | 2022-01-02 18:40 | NUR ---
RN Closing Notes Patient is resting comfortably and is in no acute distress. Call light and tray table with personal belongings within reach. Patient was monitored throughout shift and vitals remained in patient's baseline. Interventions were completed as needed. All of the patient's needs have been met. Assistance was provided as needed. All due medications given per MD orders. Will endorsed to oncoming nurse.
--- NOTE | 2022-01-02 19:44 | NUR ---
RN OPENING NOTES, RECEIVED PT IN BED, AWAKE, A/O X4, RESPONSIVE TO PAINFUL STIMULI. ABLE TO USE MOUTH WORDS. ON TRACH TO MECHANICAL VENTILATOR SETTINGS TOLERATED WELL, NO SOB NOTED. BREATHING EVEN AND UNLABORED. IV ACCESS ON JOHN MIDLINE AND LT HAND WITH 22G. NO S/S OF INFILTRATIONS. NO FACIAL GRIMACING NOTED. NO ACUTE DISTRESS. PIGTAIL CHEST TUBE IN PLACE CONNECTED TO WATER SEAL. PLACE CALL LIGHT WITHIN REACH. BED IN LOWEST POSITION AND LOCKED. SIDE RAILS UP X3. WILL CONTINUE TO MONITOR
[2022-01-02 20:00] VITALS: BP 97/52
[2022-01-02] MEDS: ZOLPIDEM TARTRATE 5 MG TABLET PO PRN (21:11)
[2022-01-02] MEDS: SENNOSIDES 8.6 MG TABLET GT SCH (21:12)
--- NOTE | 2022-01-02 21:15 | NUR ---
RN NOTES: PT C/O UNABLE TO SLEEP. AMBIEN 10 MG 2 TABS GIVEN. PT TOLERATED WELL. STRONGLY REFUSED SENNA. EXPLAINED THE RISK AND BENEFIT BUT STILL REFUSED. WILL CONTINUE TO MONITOR
--- NOTE | 2022-01-02 21:58 | NUR ---
RN NOTES: PT C/O PAIN ON THE LEFT SIDE OF THE CHEST, DUE TO CHEST TUBE, 9/10 PAIN SCALE. MORPHINE GIVEN PRN ORDER. WILL CONTINUE TO MONITOR
[2022-01-02] MEDS: TRAZODONE 50 MG TABLET GT PRN (22:23)
--- NOTE | 2022-01-02 22:29 | NUR ---
RN NOTES: PT STILL C/O UNABLE TOSLEEP, TRAZODONE 50 MG TAB GIVEN PRN ORDERED VIA GTUBE. PT TOLERATED WELL. WILL CONTINUE TO MONITOR
[2022-01-02] MEDS: LORAZEPAM 1 MG TABLET GT PRN (23:51)
--- NOTE | 2022-01-02 23:53 | NUR ---
RN NOTES: PT C/O FEELING ANXIETY. ATIVAN 1 MG TAB GIVEN PRN ORDER VIA GTUBE. WILL CONTINUE TO MONITOR
[2022-01-03] VITALS: BP 94/59
[2022-01-03] MEDS: MEROPENEM 1 G in IV NS 0.9% 100 ML IV SCH ×3 (00:40→16:53)
[2022-01-03] MEDS: IPRATROPIUM/ALBUTEROL INHALER IH SCH ×3 (01:57→23:11)
[2022-01-03] MEDS: HEPARIN SODIUM, PORCINE 5000 UNITS/1 ML VIAL SQ SCH ×2 (02:08→08:21)
[2022-01-03] MEDS: MORPHINE SULFATE INJ 2 MG/ML DISP.SYRIN IV PRN ×6 (02:10→20:00)
--- NOTE | 2022-01-03 02:17 | NUR ---
RN NOTES: PT STILL C/O PAIN ON THE LEFT SIDE OF THE CHEST, DUE TO CHEST TUBE, 9/10 PAIN SCALE. MORPHINE GIVEN PRN ORDER. PT TOLERATED WELL. WILL CONTINUE TO MONITOR
[2022-01-03 04:00] VITALS: BP 92/56
[2022-01-03] MEDS: Potassium Chloride 30 MEQ in IV D5/0.45 NACL 1,000 ML IV SCH (04:12)
[2022-01-03] MEDS: JEVITY 1.2 CAL 1,000 ML BOTTLE GT PRN (06:25)
--- NOTE | 2022-01-03 06:42 | NUR ---
RN CLOSING NOTES, PT IN BED, AWAKE, A/O X4, RESPONSIVE TO PAINFUL STIMULI. ABLE TO USE MOUTH WORDS. ON TRACH TO MECHANICAL VENTILATOR SETTINGS TOLERATED WELL, O2 SAT 100%. NO SOB NOTED. BREATHING EVEN AND UNLABORED. IV ACCESS ON JOHN MIDLINE AND LT HAND WITH 22G. NO S/S OF INFILTRATIONS. MORPHINE GIVEN FOR LEFT CHEST PAIN DUE TO CHEST TUBE. PT TOLERATED WELL. PIGTAIL CHEST TUBE IN PLACE CONNECTED TO WATER SEAL. SUPRAPUBIC CATHETER IN PLACE WITH YELLOWISH/CLEAR URINE. ALL DUE MEDS AND PRN MEDS GIVEN ORDERED. ALL SAFETY MEASURES IN PLACE. BED IN LOWEST POSITION AND LOCKED. SIDE RAILS UP X3. PLACE CALL LIGHT WITHIN REACH. WILL ENDORSE TO MORNING SHIFT NURSE.
--- NOTE | 2022-01-03 07:26 | NUR ---
0700 Patient edorsed by outgoing nurse for continuity of care. Received patient in bed licked at lowest position with upper side rails raised and call ligh within reach. Patient A&OX$, Patient is verbalized and vesper due to to track inflated. No sign of SOB or distress noted; breathing is even and unlabored, on ventilator. Regular heart rhythm. Patient has Left upper midline. left hand # 22 ana IV. Non Ambulatory. incontinent GI bowel sound present in all quadrants, soft not distended. supra pubic cath. Encouraged call lightuse and reinforced unit policies. Will Continue to monitor. Addendum: 01/03/22 at 0753 by SARAI MCCOY RN RN opening Note 0700 Patient endorsed by outgoing nurse for continuity of care. Received patient in bed licked at lowest position with upper side rails raised and call light within reach. Patient A&OX4, Patient is verbalized and vesper due to to track inflated. No sign of SOB or distress noted; breathing is even and unlabored, on ventilator. Sinus Tacky rhythm. Patient has Left upper midline. left hand # 22 ana IV. Non Ambulatory. incontinent GI bowel sound present in all quadrants, soft not distended. supra pubic cath. Encouraged call light use and reinforced unit policies. Will Continue to monitor.
[2022-01-03 07:35] LABS: BASOPHILS % (AUTO) 0.2 % (0.0-2.0); EOSINOPHILS % (AUTO) 2.1 % (0.0-6.0); HEMATOCRIT 26 % (39-51); HEMOGLOBIN 8.7 g/dL (13.5-17.5); LYMPHOCYTES # (AUTO) 1.4 K/uL (0.8-4.8); LYMPHOCYTES % (AUTO) 13.5 % (20.0-44.0); MEAN CORPUSCULAR HGB CONC 33 g/dl (31.0-36.0); MEAN CORPUSCULAR VOLUME 90 fL (80-96); MONOCYTES # (AUTO) 1.5 K/uL (0.1-1.30); NEUTROPHILS # (AUTO) 7.5 K/uL (1.8-8.9); NEUTROPHILS % (AUTO) 70.2 % (43.0-81.0); PLATELET COUNT (AUTO) 585 K/uL (150-450); RED BLOOD CELL COUNT(AUTO) 2.93 MIL/uL (4.5-6.0); WHITE BLOOD COUNT (AUTO) 10.7 K/uL (4.3-11.0)
[2022-01-03 08:00] VITALS: BP 94/55
[2022-01-03 08:03] LABS: ALBUMIN 1.6 g/dL (3.4-5.0); BILIRUBIN,TOTAL 0.2 mg/dL (0.2-1.0); CREATININE 0.4 mg/dL (0.6-1.3); POTASSIUM 4.4 mmol/L (3.5-5.1); TOTAL PROTEIN, SERUM 5.2 g/dL (6.4-8.2)
[2022-01-03] MEDS: FERROUS SULFATE UDC 300 MG/5 ML UDC GT SCH (08:17)
[2022-01-03] MEDS: SIMETHICONE 80 MG TAB.CHEW GT SCH (08:18)
[2022-01-03] MEDS: BACLOFEN (10 MG) 10 MG TABLET GT SCH ×3 (08:18→16:53)
[2022-01-03] MEDS: MECLIZINE HCL 25 MG TABLET PO SCH ×2 (08:18→16:53)
[2022-01-03] MEDS: PANTOPRAZOLE 40 MG/PACK PACK GT SCH ×2 (08:18→20:54)
[2022-01-03] MEDS: CHLORHEXIDINE GLUCONATE 15 ML UDC MM SCH ×2 (08:18→16:53)
[2022-01-03] MEDS: ASCORBIC ACID 500 MG TABLET GT SCH (08:18)
[2022-01-03] MEDS: MULTIVIT W/MINERALS 1 TAB TABLET GT SCH (08:19)
[2022-01-03] MEDS: PROSOURCE / PROSTAT (PYXIS) 30 ML UDC GT SCH (09:13)
--- NOTE | 2022-01-03 09:25 | NUR ---
RN NOTE CHEST TUBE REMOVED BY DR WATTS. NO S/SX OF HEMORRHAGE OR SOB/ACUTE DISTRESS. CHEST TUBE SITE COVERED WITH XEROFORM AND GAUZE. NO SATURATION NOTED. STAT CXR ORDERED PER MD. PATIENT RESPIRATORY STATUS REMAINED STABLE. WILL CONTINUE TO MONITOR.
[2022-01-03 12:00] VITALS: BP 114/67
[2022-01-03] MEDS: ACETAMINOPHEN 325 MG TABLET PO PRN ×2 (12:20→21:54)
--- NOTE | 2022-01-03 13:28 | NUR ---
RN NOTE STOPPED D5 1/2NS WITH 30 MEQ POTASSIUM DUE TO CURRENT POTASSIUM LEVEL OF 4.4. OK TO STOP PER MD ADAIR. SWITCH TO NS @ 100ML/HR PER MD ADAIR. WILL CONTINUE TO MONITOR.
[2022-01-03] MEDS: IV NS 0.9% 1,000 ML IV PRN (13:47)
[2022-01-03 16:00] VITALS: BP 108/55
[2022-01-03] MEDS: IPRATROPIUM/ALBUTEROL INHALER IH PRN (16:57)
--- NOTE | 2022-01-03 18:22 | NUR ---
RN closing Note Patient is resting comfortably and is in no acute distress. Call light and tray table with personal belongings within reach. Patient was monitored throughout shift and vitals remained in patient's base line. Interventions were completed as needed. All of the patient's needs have been met. Assistance was provided as needed. Pain medications were administered as needed per MD orders. Will endorse to incoming nurse.
--- NOTE | 2022-01-03 19:46 | NUR ---
RN NOTE PATIENT ALERT AND ORIENTED X4, ABLE TO MAKE NEEDS KNOWN. ON TRACH TO VENT, TOLERATING SETTINGS WELL. GROSSMAN CATH IN PLACE, DRAINING VIA GRAVITY. JEVITY @ 30CC/HR, NO RESIDUAL NOTED. JOHN MIDLINE AND LEFT HAND #22 PATENT AND INTACT. BED LOCKED AND IN LOWEST POSITION. CALL LIGHT WITHIN REACH. ALL NEEDS ANTICIPATED. Addendum: 01/04/22 at 0636 by HARLAN RIVERA RN PATIENT NOTED WITH SUPRAPUBIC CATH.
[2022-01-03 20:00] VITALS: BP 107/73
--- NOTE | 2022-01-03 20:00 | NUR ---
RN NOTE COMPLAINED OF SEVERE ABD PAIN WITH FACIAL GRIMMACING AND PATIENT REQUESTING FOR MORPHINE. ADMINISTERED MORPHINE PRN ORDERED.
[2022-01-03] MEDS: TRAZODONE 50 MG TABLET GT PRN (20:54)
[2022-01-03] MEDS: ZOLPIDEM TARTRATE 5 MG TABLET PO PRN (21:26)
[2022-01-03] MEDS: SENNOSIDES 8.6 MG TABLET GT SCH (21:26)
--- NOTE | 2022-01-03 21:54 | NUR ---
RN NOTE PATIENT NOTED WITH HR 140'S AND TEMPERATURE OF 100.3. ADMINISTERED TYLENOL ORDERED. COOLING MEASURES PROVIDED.
[2022-01-04] VITALS: BP 91/63
[2022-01-04] MEDS: MEROPENEM 1 G in IV NS 0.9% 100 ML IV SCH ×3 (01:13→16:53)
[2022-01-04] MEDS: MORPHINE SULFATE INJ 2 MG/ML DISP.SYRIN IV PRN ×7 (01:34→23:39)
[2022-01-04] MEDS: IV NS 0.9% 1,000 ML IV PRN ×2 (01:34→15:20)
--- NOTE | 2022-01-04 01:34 | NUR ---
RN NOTE PATIENT COMPLAINED OF SEVERE CHEST PAIN FROM PREVIOUS CHEST TUBE SITE. REQUESTING FOR MORPHINE. ADMINISTERED MORPHINE PRN ORDERED.
[2022-01-04] MEDS: HEPARIN SODIUM, PORCINE 5000 UNITS/1 ML VIAL SQ SCH (03:07)
[2022-01-04] MEDS: LORAZEPAM 1 MG TABLET GT PRN ×2 (03:23→21:52)
[2022-01-04 04:00] VITALS: BP 103/63
[2022-01-04] MEDS: ACETAMINOPHEN 325 MG TABLET PO PRN ×4 (04:03→22:20)
[2022-01-04] MEDS: IPRATROPIUM/ALBUTEROL INHALER IH SCH ×3 (05:59→18:19)
--- NOTE | 2022-01-04 05:59 | NUR ---
RN NOTE PATIENT COMPLAINED OF SEVERE PAIN ON CHEST, REQUESTING FOR MORPHINE. MORPHINE PRN GIVEN ORDERED.
--- NOTE | 2022-01-04 06:36 | NUR ---
RN NOTE PATIENT RESTING IN BED, HEAD OF BED ELEVATED. ON TRACH TO VENT, TOLERATING SETTINGS WELL. SUPRAPUBIC CATH OUTPUT 600CC URINE. JEVITY @ 40CC/HR, 10CC RESIDUAL NOTED. JOHN MIDLINE AND LEFT HAND #22 PATENT AND INTACT. IVF INFUSING NS @ 100CC/HR. NOTED WITH X2 BM, KEPT CLEAN AND DRY. BED LOCKED AND IN LOWEST POSITION. CALL LIGHT WITHIN REACH. WILL ENDORSE TO AM SHIFT.
[2022-01-04 07:23] LABS: BASOPHILS # (AUTO) 0.1 K/uL (0.0-0.2); BASOPHILS % (AUTO) 0.6 % (0.0-2.0); EOSINOPHILS % (AUTO) 3.9 % (0.0-6.0); HEMATOCRIT 28 % (39-51); HEMOGLOBIN 9.2 g/dL (13.5-17.5); LYMPHOCYTES # (AUTO) 1.4 K/uL (0.8-4.8); LYMPHOCYTES % (AUTO) 15.5 % (20.0-44.0); MEAN CORPUSCULAR HGB CONC 33 g/dl (31.0-36.0); MEAN CORPUSCULAR VOLUME 89 fL (80-96); MONOCYTES # (AUTO) 1.8 K/uL (0.1-1.30); MONOCYTES % (AUTO) 20.2 % (2.0-12.0); NEUTROPHILS # (AUTO) 5.4 K/uL (1.8-8.9); NEUTROPHILS % (AUTO) 59.8 % (43.0-81.0); PLATELET COUNT (AUTO) 553 K/uL (150-450); RED BLOOD CELL COUNT(AUTO) 3.15 MIL/uL (4.5-6.0)
--- NOTE | 2022-01-04 07:59 | NUR ---
RN OPENING NOTE PATIENT RESTING IN BED UPON ASSESSMENT. PATIENT ALERT AND ORIENTED X4, ABLE TO MAKE NEEDS KNOWN. ON TRACH TO VENT, TOLERATING SETTINGS WELL. GROSSMAN CATH IN PLACE, DRAINING VIA GRAVITY. JEVITY @ 40CC/HR, NO RESIDUAL NOTED. JOHN MIDLINE AND LEFT HAND #22 PATENT AND INTACT. BED LOCKED AND IN LOWEST POSITION. CALL LIGHT WITHIN REACH. WILL CONTINUE TO MONITOR.
[2022-01-04 08:00] VITALS: BP 107/65
[2022-01-04 08:11] LABS: ALBUMIN 1.5 g/dL (3.4-5.0); BILIRUBIN,TOTAL 0.4 mg/dL (0.2-1.0); CALCIUM, SERUM 7.9 mg/dL (8.5-10.1); CREATININE 0.4 mg/dL (0.6-1.3); MAGNESIUM 1.6 mg/dL (1.8-2.4); PHOSPHORUS 3.3 mg/dL (2.5-4.9); POTASSIUM 3.9 mmol/L (3.5-5.1); TOTAL PROTEIN, SERUM 4.9 g/dL (6.4-8.2)
[2022-01-04] MEDS: SIMETHICONE 80 MG TAB.CHEW GT SCH (08:49)
[2022-01-04] MEDS: ASCORBIC ACID 500 MG TABLET GT SCH (08:49)
[2022-01-04] MEDS: FERROUS SULFATE UDC 300 MG/5 ML UDC GT SCH (08:49)
[2022-01-04] MEDS: CHLORHEXIDINE GLUCONATE 15 ML UDC MM SCH ×2 (08:49→16:19)
[2022-01-04] MEDS: MECLIZINE HCL 25 MG TABLET PO SCH ×2 (08:49→16:18)
[2022-01-04] MEDS: PANTOPRAZOLE 40 MG/PACK PACK GT SCH ×2 (08:49→20:49)
[2022-01-04] MEDS: MULTIVIT W/MINERALS 1 TAB TABLET GT SCH (08:49)
[2022-01-04] MEDS: BACLOFEN (10 MG) 10 MG TABLET GT SCH ×3 (08:50→16:18)
[2022-01-04] MEDS: PROSOURCE / PROSTAT (PYXIS) 30 ML UDC GT SCH (08:51)
[2022-01-04] MEDS: Magnesium 1GM/D5W 100ML PREMIX 100 ML IV SCH ×2 (10:17→11:25)
[2022-01-04 12:00] VITALS: BP 107/56
[2022-01-04] MEDS ORDERED: MERO1PIG IV (15:39)
[2022-01-04 16:00] VITALS: BP 104/62
[2022-01-04] MEDS: ONDANSETRON HCL/PF 4 MG/2 ML VIAL IVP PRN ×2 (16:08→22:20)
[2022-01-04 18:03] LABS: BAND % (MANUAL) 11 % (0.0-5.0); EOSINOPHILS % (MANUAL) 3 % (0-4); LYMPHOCYTES % (MANUAL) 14 % (16-48); MONOCYTES % (MANUAL) 15 % (0-11.0); NEUTROPHILS % (MANUAL) 57 (42-76)
--- NOTE | 2022-01-04 18:41 | NUR ---
RN CLOSING NOTE PATIENT REMAINED STABLE THROUGHOUT SHIFT. PATIENT RESTING IN BED. PATIENT ALERT AND ORIENTED X4, ABLE TO MAKE NEEDS KNOWN. ON TRACH TO VENT, TOLERATING SETTINGS WELL WITH SPO2 OF 97%. SUPRAPUBIC CATH IN PLACE INTACT AND PATENT, DRAINING VIA GRAVITY. GTUBE INTACT AND PATENT. NO RESIDUAL NOTED. JOHN MIDLINE AND LEFT HAND #22 PATENT AND INTACT. BED LOCKED AND IN LOWEST POSITION. CALL LIGHT WITHIN REACH. WILL ENDORSE TO MAINTENANCE MECHANIC TELEPHONE.
--- NOTE | 2022-01-04 19:30 | NUR ---
RN OPENING NOTE RECEIVED CARE OF PATIENT WHILE PATIENT IN BED, A/O X4, ABLE TO VERBALIZE NEEDS. PATIENT EXPRESSES PAIN AND DISCOMFORT AT THIS TIME. REPOSITIONED PATIENT AND WILL ADMINISTER MORPHINE PRN FOR PAIN MANAGEMENT. PATIENT NOTED WITH TRACH ON MECHANICAL VENTILATION WITH ORDERED SETTINGS, TOLERATING WELL, NO SOB NOTED, NO SIGNS OF RESPIRATORY COMPROMISE NOTED. PATIENT ON TELE MONITOR SHOWING SINUS TACH WITH HR OF 120, NO SIGNS OF DISTRESS NOTED. GROSSMAN CATH IN PLACE, DRAINING VIA GRAVITY. JEVITY @ 30CC/HR, NO RESIDUAL NOTED. JOHN MIDLINE AND LEFT HAND #22 PATENT AND INTACT. BED LOCKED AND IN LOWEST POSITION. CALL LIGHT WITHIN REACH. WILL CONTINUE TO MONITOR.
[2022-01-04 20:00] VITALS: BP 94/49
[2022-01-04] MEDS: TRAZODONE 50 MG TABLET GT PRN (20:48)
[2022-01-04] MEDS: SENNOSIDES 8.6 MG TABLET GT SCH (21:03)
[2022-01-04] MEDS: ZOLPIDEM TARTRATE 5 MG TABLET PO PRN (21:03)
[2022-01-05] VITALS: BP 98/58
[2022-01-05] MEDS: MEROPENEM 1 G in IV NS 0.9% 100 ML IV SCH (00:41)
[2022-01-05] MEDS: MORPHINE SULFATE INJ 2 MG/ML DISP.SYRIN IV PRN ×2 (03:09→06:52)
[2022-01-05 04:00] VITALS: BP 96/50
[2022-01-05] MEDS: ACETAMINOPHEN 325 MG TABLET PO PRN (04:53)
[2022-01-05] MEDS: JEVITY 1.2 CAL 1,000 ML BOTTLE GT PRN (06:00)
[2022-01-05] MEDS: IPRATROPIUM/ALBUTEROL INHALER IH SCH ×2 (06:00)
[2022-01-05] MEDS: IV NS 0.9% 1,000 ML IV PRN (06:00)
[2022-01-05] MEDS: LORAZEPAM 1 MG TABLET GT PRN (06:03)
[2022-01-05] MEDS: ONDANSETRON HCL/PF 4 MG/2 ML VIAL IVP PRN (06:04)
--- NOTE | 2022-01-05 06:58 | NUR ---
RN CLOSING NOTES WILL ENDORSE CARE OF PATIENT WHILE PATIENT IN BED, SLEEPING, WAKES TO NAME. A/O X4. ALL PATIENT NEEDS MET THROUGHOUT SHIFT. NO SIGNIFICANT FINDINGS UPON ALL NURSING ASSESSMENTS. ALL DUE MEDS GIVEN. SAFETY PRECAUTIONS IMPLEMENTED PER HOSPITAL PROTOCOLS. WILL ENDORSE TO AM NURSE FOR ISABELLA.
--- NOTE | 2022-01-05 07:34 | NUR ---
brewery representative opening notes: received patient in bed awake alert and oriented x 4 with trach Portex 7 to mechanical vent setting as ordered. breathing even and unlabored,satting 98%.IV on left upper arm midline and left hand saline lock gauge 22, on IV fluid ns at 100ml/hr. GT feeding on hold at this time DUE TO ABDOMINAL DISTENSION . ,head of bed elevated,S/P cath in place patent with yellow clear urine . bed remained locked and lowest position,call light within reach at all times.will continue to monitor and reassess for any changes and will carry out any ongoing and active MD orders
--- NOTE | 2022-01-05 08:14 | NUR ---
RN NOTE PATIENT DISCHARGED ORDER. PATIENT MEDICALLY STABLE AT TIME OF DISCHARGE, TO GO BACK TO [facility]. PATIENT LEFT FACILITY VIA AMBULANCE. REPORT GIVEN.
== END 2022-01-05 08:17 | DRG 130 ==
LOC: ER 10:04 → ICU 14:24 → TELE-TD 12-30 13:21 → TELE1 01-03 11:42
PROVIDERS: ADMIT Internal Medicine; ATTEND Student in an Organized Health Care Education/Training Program
PROC: 05HA33Z Insertion of Infusion Device into Left Brachial Vein, Percutaneous Approach (ICD-10-PCS; 2021-12-28)
PROC: 5A1955Z Respiratory Ventilation, Greater than 96 Consecutive Hours (ICD-10-PCS; principal; 2021-12-29)
PROC: 0W9B30Z Drainage of Left Pleural Cavity with Drainage Device, Percutaneous Approach (ICD-10-PCS; 2021-12-29)
DX: J15.9 Unspecified bacterial pneumonia (principal); E43 Unspecified severe protein-calorie malnutrition; J96.21 Acute and chronic respiratory failure with hypoxia; G93.1 Anoxic brain damage, not elsewhere classified; R53.2 Functional quadriplegia; R64 Cachexia; L89.156 Pressure-induced deep tissue damage of sacral region; J93.9 Pneumothorax, unspecified; E88.09 Other disorders of plasma-protein metabolism, not elsewhere classified; Z93.0 Tracheostomy status; N39.0 Urinary tract infection, site not specified; Z87.442 Personal history of urinary calculi; Z93.1 Gastrostomy status; R13.10 Dysphagia, unspecified; Z99.11 Dependence on respirator [ventilator] status; F41.9 Anxiety disorder, unspecified; Z20.822 Contact with and (suspected) exposure to COVID-19; N20.0 Calculus of kidney; Z86.19 Personal history of other infectious and parasitic diseases; N31.9 Neuromuscular dysfunction of bladder, unspecified; D75.839 Thrombocytosis, unspecified; Z87.440 Personal history of urinary (tract) infections; Z87.891 Personal history of nicotine dependence; Z68.1 Body mass index [BMI] 19.9 or less, adult; B96.1 Klebsiella pneumoniae [K. pneumoniae] as the cause of diseases classified elsewhere; B96.4 Proteus (mirabilis) (morganii) as the cause of diseases classified elsewhere
CPT/HCPCS: 31720; 36410; 36415; 71045-TC; 71250-TC; 74018; 80048-TC; 80053-TC; 80076-TC; 81001; 83605-TC; 83735-TC; 84100-TC; 84484-TC; 85025-TC; 85730-TC; 87040-TC; 87081-TC; 87086-TC; 87186-TC; 92526; 92611-TC; 94002-TC; 94003-TC; 94640; 94760-TC; 94762-TC; 94799-TC; 97110-TC; 97112-TC; 99082-TC; A4217; A4623; A7526; C9803; G0378; J0696; J1170; J1644; J2185; J2270; J2405; J3475; J3480; J3490; J7030; J7050; J7060; J8597

== ENCOUNTER 2022-02-05 22:19 | Inpatient (IN) | payer OTHER ==
[~2022-02-05] VITALS: Ht 162.6 cm; Wt 50.8 kg
[~2022-02-05 22:19] MED LIST changes: +AMIN887L GT; +HEPA100D33 SUBCUT; -LACT-209 GT; +LACT-96 GT; +MECL-159 PO; +MERO1PIG IV; -MERO1VIA23 IV
--- NOTE | 2022-02-05 22:24 | NUR ---
[id number] FROM [facility] C/O SOB X 9 HOURS O2 SAT 86% HIGHEST ON TRACH VIA AMBUBAG AT 15LPM. PT A/OX3. GTUBE PATENT AND INTACT. SUPRAPUBIC F/C INTACT AND DRAINING URINE. CONNECTED PT TO POX AND MONITOR.
--- NOTE | 2022-02-05 22:37 | NUR ---
RT AT PT'S BEDSIDE SETTING PT UP TO VENT. FIO2 100%
--- NOTE | 2022-02-05 22:44 | NUR ---
WELDER SHIELDED METAL ARC AT PT'S BEDSIDE
[2022-02-05] MEDS ORDERED: MORPHINE SULFATE INJ 2 MG/ML DISP.SYRIN IV ONE (23:00)
--- NOTE | 2022-02-05 23:05 | NUR ---
L HAND #20G S/L; PATENT AND INTACT.
[2022-02-05] MEDS ORDERED: MORPHINE SULFATE INJ 2 MG/ML DISP.SYRIN ONE (23:07)
--- NOTE | 2022-02-05 23:09 | NUR ---
BLOOD AND COVID ANTIGEN SWAB COLLECTED AND SENT TO LAB
[2022-02-05 23:57] LABS: BASOPHILS % (AUTO) 0.2 % (0.0-2.0); EOSINOPHILS % (AUTO) 0.3 % (0.0-6.0); HEMATOCRIT 33 % (39-51); HEMOGLOBIN 10.6 g/dL (13.5-17.5); LYMPHOCYTES # (AUTO) 1.5 K/uL (0.8-4.8); LYMPHOCYTES % (AUTO) 11.5 % (20.0-44.0); MEAN CORPUSCULAR HGB CONC 32 g/dl (31.0-36.0); MEAN CORPUSCULAR VOLUME 89 fL (80-96); MONOCYTES # (AUTO) 1.3 K/uL (0.1-1.30); MONOCYTES % (AUTO) 9.7 % (2.0-12.0); NEUTROPHILS # (AUTO) 10.2 K/uL (1.8-8.9); NEUTROPHILS % (AUTO) 78.3 % (43.0-81.0); PLATELET COUNT (AUTO) 584 K/uL (150-450); RED BLOOD CELL COUNT(AUTO) 3.76 MIL/uL (4.5-6.0)
[2022-02-06] VITALS (36 sets, daily range): BP systolic 59–166; BP diastolic 33–132
[2022-02-06 00:10] LABS: CALCIUM, SERUM 8.2 mg/dL (8.5-10.1); CARBON DIOXIDE 26 mmol/L (21-32); CHLORIDE 102 mmol/L (98-107); CREATININE 0.3 mg/dL (0.6-1.3); GLUCOSE 112 mg/dL (74-106); SODIUM SERUM 136 mmol/L (136-145); UREA NITROGEN, BLOOD 21 mg/dL (7-18)
[2022-02-06 00:13] LABS: POTASSIUM 2.7 mmol/L (3.5-5.1)
--- NOTE | 2022-02-06 00:13 | NUR ---
POTASSIUM 2.7
--- NOTE | 2022-02-06 00:26 | NUR ---
PT RETURNED ER BED [address] VIA ACLS PROTOCOL WITH RT
--- NOTE | 2022-02-06 00:30 | NUR ---
TOBIAS DO FOR CT READING
[2022-02-06] MEDS ORDERED: VANCOMYCIN 1 GM VIAL ONE (00:47)
[2022-02-06] MEDS ORDERED: CEFEPIME 1 GM VIAL ONE (00:47)
[2022-02-06] MEDS ORDERED: POTASSIUM CL. PREMIX PERIPHER. 100 ML ONE (00:47)
--- NOTE | 2022-02-06 00:58 | NUR ---
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
[2022-02-06] MEDS ORDERED: CEFEPIME 1 GM in IV D5W 50 ML IV ONE (01:00)
[2022-02-06] MEDS ORDERED: VANCOMYCIN 1 GM in IV D5W 250 ML IV ONE (01:00)
--- NOTE | 2022-02-06 01:15 | NUR ---
TOBIAS DO FOR CT READING
[2022-02-06] MEDS ORDERED: diphenhydrAMINE HCL 50 MG/ML VIAL ONE (01:39)
[2022-02-06] MEDS ORDERED: EPINEPHRINE (1:1000) 1 MG/ML AMPUL ONE (01:47)
[2022-02-06] MEDS ORDERED: FAMOTIDINE/PF INJ 20 MG/2 ML VIAL IV ONE ×2 (01:51→02:00)
[2022-02-06] MEDS ORDERED: methylPREDNISolone SOD SUCC 125 MG/2ML VIAL ONE (01:51)
--- NOTE | 2022-02-06 01:55 | NUR ---
S/P ADMINISTRATION CEFEPIME; POSSIBLE ALLERGIC REACTION. PT NOTED WITH RASH TO LFA, DIAPHORESIS, DESATTING TO 85% VENT SETTHINGS FIO2 ON 100%. NOTIFIED. DR TRIPP. ROCK LOADER CALLED AT 0155
--- NOTE | 2022-02-06 01:56 | NUR ---
RAPID RESPONSE: RT AT PT'S BEDSIDE ORAL TEMP 98.5
[2022-02-06] MEDS ORDERED: EPINEPHRINE (1:1000) MDV 30 MG/30ML VIAL SUBCUT ONE (02:00)
[2022-02-06] MEDS ORDERED: methylPREDNISolone SOD SUCC 125 MG/2ML VIAL IV ONE (02:00)
[2022-02-06] MEDS ORDERED: diphenhydrAMINE HCL 50 MG/ML VIAL IV ONE (02:00)
--- NOTE | 2022-02-06 02:03 | NUR ---
TOBIAS DO FOR CT/ X RAY READING
--- NOTE | 2022-02-06 02:04 | NUR ---
NGT PLACED TO R NARE AT 70CM. POLICE CADET AT PT'S BEDSIDE FOR PLACEMENT
--- NOTE | 2022-02-06 02:14 | NUR ---
CHEST TUBE PLACEMENT: DR. TRIPP,RT, RN AT PT'S BEDSIDE. CHEST TUBE PLACED TO PT'S LEFT LUNG. SEE DR. TRIPP'S NOTE
--- NOTE | 2022-02-06 03:01 | NUR ---
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 DR. TRIPP ON THE PHONE WITH DR. SAL.
[2022-02-06] MEDS ORDERED: HYDROMORPHONE 1 MG/1 ML DISP.SYRIN ONE (03:20)
--- NOTE | 2022-02-06 03:20 | NUR ---
RT AT PT'S BEDSIDE FOR ABG
--- NOTE | 2022-02-06 03:21 | NUR ---
NGT REMOVED PER DR. MESA ORDERS.
--- NOTE | 2022-02-06 03:22 | NUR ---
SENIOR MARKET INTELLIGENCE CONSULTANT AT PT'S BEDSIDE
[2022-02-06] MEDS ORDERED: HYDROMORPHONE 1 MG/1 ML DISP.SYRIN IV ONE (03:30)
--- NOTE | 2022-02-06 03:32 | NUR ---
URINE COLLECTED AND SENT TO LAB
--- NOTE | 2022-02-06 03:42 | NUR ---
Male trach patient awake and alert received in ER. Portex 7 cuffed on room air short of breath, vent dependent. Per previous md orders settings, was placed on vent AC 16 450 %40 +5 Vent plugged into red outlet, alarms on and audible. Backup trach at bedsid/ Addendum: 02/06/22 at 0353 by JOSÉ ORELLANA RT Amended: Links added.
--- NOTE | 2022-02-06 03:54 | NUR ---
Male trach awake and alert patient received in ER. Portex 7 cuffed, tube is mid line and airway patent, Camein ER on no ocy Vent plugged outlet,julee alonso
--- NOTE | 2022-02-06 04:05 | NUR ---
CHEST TUBE REPOSITIONING: DR. TRIPP, RN, & RT AT PT'S BEDSIDE CHEST TUBE 32FR TO L LUNG REPOSITIONED TO 4CM. PT SATTING FROM 88% TO 97% ON VENT FIO2 100%. WATER SEAL CHEST TUBE NOTED WITH BUBBLING, ON CONTINUIOUS SUCTION AT 80MMHG.
--- NOTE | 2022-02-06 04:10 | NUR ---
E COMMERCE ARCHITECT AT PT'S BEDSIDE TO RECHECK POSITION OF L CHEST TUBE
--- NOTE | 2022-02-06 04:31 | NUR ---
VENT SETTINGS: FIO2 100 VT 40 RR 18 SATTING AT 99%
--- NOTE | 2022-02-06 04:32 | NUR ---
Male trach patient awake and alert received in ER. Portex 7 cuffed on room air short of breath, vent dependent. Per previous md orders settings, was placed on vent AC 16 450 %40 +5 Vent plugged into red outlet, alarms on and audible. Backup trach at bedside Addendum: 02/06/22 at 0434 by JOSÉ ORELLANA RT Amended: Links added.
[2022-02-06] MEDS: POTASSIUM CL. PREMIX PERIPHER. 50 ML IV SCH ×4 (04:36→07:38)
[2022-02-06] MEDS ORDERED: MEROPENEM IV SCH (05:00)
[2022-02-06] MEDS ORDERED: MAG HYDROX/AL HYDROX/SIMETH 30 ML UDC GT PRN (05:00)
[2022-02-06] MEDS ORDERED: BISACODYL SUPP (10 MG) 10 MG/SUPP.RECT SUPP.RECT RC PRN (05:00)
[2022-02-06] MEDS ORDERED: NA PHOS,M-B/NA PHOS,DI-BA 1 EA ENEMA RC PRN (05:00)
[2022-02-06] MEDS ORDERED: Z GUARD REMEDY 4 OZ OINT TP PRN (05:00)
[2022-02-06] MEDS ORDERED: MEROPENEM 1 G in IV NS 0.9% 100 ML IV SCH (05:00)
[2022-02-06] MEDS ORDERED: Medication Not On Formulary EA (Ipratropium/Albuterol Sulfate (Combivent Respimat 20-100 IH PRN (05:00)
[2022-02-06] MEDS ORDERED: ACETAMINOPHEN 650 MG/20.3 ML UDC GT PRN (05:00)
[2022-02-06] MEDS ORDERED: POTASSIUM CL. PREMIX PERIPHER. 50 ML IV SCH ×2 (05:00→08:00)
[2022-02-06] MEDS ORDERED: TRAZODONE 50 MG TABLET GT PRN (05:00)
[2022-02-06] MEDS ORDERED: MAGNESIUM HYDROXIDE 30 ML UDC PO PRN (05:00)
[2022-02-06] MEDS ORDERED: LORAZEPAM 1 MG TABLET GT PRN (05:00)
[2022-02-06] MEDS ORDERED: SODIUM CHLORIDE IV SCH (05:00)
[2022-02-06] MEDS ORDERED: ONDANSETRON HCL/PF 4 MG/2 ML VIAL IVP PRN (05:00)
[2022-02-06] MEDS ORDERED: ACETAMINOPHEN ES 500 MG TABLET GT PRN (05:00)
[2022-02-06] MEDS ORDERED: MAGNESIUM HYDROXIDE 30 ML UDC GT PRN (05:00)
[2022-02-06] MEDS ORDERED: ZOLPIDEM TARTRATE 5 MG TABLET PO PRN (05:00)
[2022-02-06] MEDS ORDERED: IV 1/2NS 1000 ML 1,000 ML IV PRN (05:00)
[2022-02-06] MEDS ORDERED: ACETAMINOPHEN 325 MG TABLET PO PRN (05:00)
[2022-02-06] MEDS ORDERED: ZOLPIDEM TARTRATE 5 MG TABLET GT PRN (05:00)
[2022-02-06] MEDS ORDERED: [UNRECOGNIZED DRUG - OTHER] IV SCH (05:00)
[2022-02-06] MEDS ORDERED: MAG HYDROX/AL HYDROX/SIMETH 30 ML UDC PO PRN (05:00)
[2022-02-06] MEDS ORDERED: POTASSIUM CL. PREMIX PERIPHER. 50 ML ONE ×2 (05:29→07:21)
[2022-02-06] MEDS ORDERED: Medication Not On Formulary EA (Ipratropium/Albuterol Sulfate (Combivent Respimat 20-100 IH SCH (06:00)
--- NOTE | 2022-02-06 06:45 | NUR ---
SMALL BM NOTED. CLEANED AND REPOSITIONED PT. SACRAL REDNESS NOTED.
[2022-02-06 06:53] LABS: ABG PH 7.203 (7.350-7.450); ABG PO2 63.6 mmHg (75.0-100.0); COHb 0.2 % (0.5-1.5); MetHb 0.1 % (0.0-1.5); SITE, ABG Left Radial; VENT MODE, BG AC 18 400 100% +0; VT, ABG 400 mL
[2022-02-06] MEDS ORDERED: HYDROCODONE/APAP 5/325MG TABLET ONE (06:54)
[2022-02-06] MEDS: HYDROCODONE/APAP 5/325MG TABLET GT PRN ×2 (07:00→16:11)
--- NOTE | 2022-02-06 07:01 | NUR ---
ADMINISTERED PRN NORCO 5-325MG GT ORDERED. PT C/O OF CHEST TUBE & GEN PAIN. WILL REASSESS IN 30 MINUTES.
--- NOTE | 2022-02-06 07:20 | NUR ---
ASSESSED PT ON BED AWAKE AND ALERT, ON VENT VIA TRACH, HOOKED TO V/S MONITOR, KEPT RESTED AND COMFORTABLE. AWAITING ROOM FOR ADMISSION.
--- NOTE | 2022-02-06 07:35 | NUR ---
RT NOTE; REC. PT. TRACH PORTEX # 7 CUFFED ON VENT AND FOUND WITH NOTED SETTINGS (AC , RR18, VT400, FIO2 100%, PEEP ZERO) ALARMS ARE SET AND FUNCTIONAL, PT. REMAIN ALERT AND AWAKE EXTRA TRACH & AMBU BAG REMAIN AT THE BEDSIDE. CONTINUE TO MONITOR. RN AT THE BEDSIDE. Addendum: 02/06/22 at 1800 by MARY FELIPE RT Amended: Links added.
[2022-02-06] MEDS: MEROPENEM 1 G in IV NS 0.9% 100 ML IV SCH ×2 (07:58→16:22)
--- NOTE | 2022-02-06 08:12 | NUR ---
VENT SETTINGS MODE: A/C PRVC FIO2: 100% VT: 400 RATE: 18 TINSP: 1.0 PEEP: OFF PMIN: 2
--- NOTE | 2022-02-06 08:19 | NUR ---
PT ADMITTED AND ASSIGNED TO 256.
[2022-02-06] MEDS ORDERED: ALBUTEROL FS 2.5 MG/0.5 ML VIAL.NEB NEB PRN (08:30)
[2022-02-06] MEDS ORDERED: IPRATROPIUM NEB FS 0.5 MG/2.5 ML AMPUL.NEB NEB PRN (08:30)
[2022-02-06] MEDS ORDERED: PROSOURCE / PROSTAT (PYXIS) 30 ML UDC GT SCH (09:00)
[2022-02-06] MEDS ORDERED: Medication Not On Formulary EA (Cran/Vitc/Mannose/Inulin/Brom (Uti-Stat Liquid) 30 ML) GT SCH (09:00)
[2022-02-06] MEDS ORDERED: ASCORBIC ACID 500 MG TABLET GT SCH (09:00)
[2022-02-06] MEDS ORDERED: MULTIVIT W/MINERALS 1 TAB TABLET GT SCH (09:00)
[2022-02-06] MEDS ORDERED: PANTOPRAZOLE 40 MG/PACK PACK GT SCH (09:00)
[2022-02-06] MEDS ORDERED: SIMETHICONE 80 MG TAB.CHEW GT SCH (09:00)
--- NOTE | 2022-02-06 09:12 | NUR ---
REPORT GIVEN TO SAM FOR ISABELLA
--- NOTE | 2022-02-06 09:45 | NUR ---
RN NOTES PATIENT ADMITTED FROM ER 31Y/OLD MALE ON Dx OF PNEUMOTHORAX. PATIENT TRACHEA/VENT DEPENDENT SETTINGS ARE AC-18, PEEP-0, TV-400, FIO2-70. BEDSIDE MONITOR SHOWS ST-119, PATIENT A/A/O X2/3 ABLE TO EXPRESS SELF LIP MOUTH THE WORD. PATIENT HAS RIGHT UPPER CHEST PNEUMOTHORAX -20, WAS INSERTED ON ER, WITH INTERMITTED SUCTION. PATIENT QUADRIPLEGIC WITH LOWER AND UPPER EXTREMITIES CONTRACTED.PATIENT HAS UROSTOMY DRAINING LIGHT YELLOW OUTPUT,SKIN ASSESSMENT DONE, REDNESS ON SACRAL AREA, PICTURE TAKEN GT INTACT, DUE MEDICATION ADMINISTERED, PATIENT WAS COMPLAINING OF PAIN GENERALIZED 3/10 PER PAIN SCALE. IV ACCESS ON LEFT AND RIGHT WRIST INTACT INFUSING 1/2 NS @75ML/HR, AND MERREM 33.33 ML.HR. CALL LIGHT WITHIN TO REACH. WILL FOLLOW UP.
--- NOTE | 2022-02-06 09:45 | NUR ---
PT TRANSPORTED TO ICU WITH ACLS PROTOCOLS IN PLACE ACCOMPANIED BY RT.
[2022-02-06] MEDS: BACLOFEN (10 MG) 10 MG TABLET GT SCH ×3 (10:41→16:53)
[2022-02-06] MEDS: FERROUS SULFATE UDC 300 MG/5 ML UDC GT SCH ×3 (10:41→16:52)
[2022-02-06] MEDS: MECLIZINE HCL 25 MG TABLET PO SCH ×2 (10:41→16:53)
[2022-02-06] MEDS: CHLORHEXIDINE GLUCONATE 15 ML UDC MM SCH ×2 (10:42→16:53)
[2022-02-06] MEDS ORDERED: VANCOMYCIN 0.75 GM in IV D5W 250 ML IV SCH (13:00)
[2022-02-06] MEDS ORDERED: IPRATROPIUM NEB FS 0.5 MG/2.5 ML AMPUL.NEB NEB SCH (13:30)
[2022-02-06] MEDS ORDERED: ALBUTEROL FS 2.5 MG/0.5 ML VIAL.NEB NEB SCH (13:30)
--- NOTE | 2022-02-06 14:15 | NUR ---
RN NOTES ADMINISTERED ATIVAN 1 MG VIA GT PER ANXIETY PER PATIENTS REQUEST BP- 115/76, P-119.
--- NOTE | 2022-02-06 16:11 | NUR ---
RN NOTES ADMINISTERED NARCO 5/325 MG VIA GT PRN FOR PATIENTS REQUEST LEFT CHEST 6/10 PER PAIN SCALE.
[2022-02-06] MEDS ORDERED: JEVITY 1.2 CAL 1,000 ML BOTTLE GT PRN (18:00)
--- NOTE | 2022-02-06 18:51 | NUR ---
rn notes administered Tylenol 650 ml via gt for chest pain per patient request, patients abdomen distended, HR-150, bp 136/95. suction, and reposition. endorsed oncoming nurse follow zainab.
--- NOTE | 2022-02-06 19:20 | NUR ---
RN NOTES PATIENT WAS COMPLAINING OF CHEST PAIN, HR INCREASED 170, MEDICATION WERE ADMINISTERED FOR PAIN NOT EFFECTIVE CALLED HOSPITALIST EVELYN MCCALL, AND GET ORDER DILAUDID 1 MG/ML IV PUSH Q6 HR FOR SEVERE PAIN. ORDER TAKEN AND CARRIED OUT. ONCOMING NURSE WILL FOLLOW UP.
--- NOTE | 2022-02-06 19:21 | NUR ---
RN NOTE RECEIVED CARE OF PATIENT WHILE PATIENT IN BED, A/O X4, VERBAL WHEN RT DEFLATES TRACH BALLOON. PATIENT RESTLESS, WITH SEVERE PAIN OF 10/10, PATIENT HAS ALREADY BEEN GIVEN PRN PAIN MEDS BY DAY SHIFT NURSE WHICH WERE NOT EFFECTIVE. PATIENT WITH TRACH AND MECHANICAL VENTILATION WITH ORDERED SETTINGS, O2 SAT 92%, WITH LABORED BREATHING. RESPIRATORY THERAPIST MADE AWARE. PATIENT ON TELE MONITOR SHOWING SINUS TACH WITH HR OF 168. COW PUNCHER EVELYN MCCALL MADE AWARE BY AM NURSE. PATIENT STATUS POST CHEST TUBE INSERTION FOR LEFT PNEUMOTHORAX, DRAINING DARK RED BLOOD, CHEST TUBE CHAMBER WITHOUT COMPLICATIONS. ALL SAFETY MEASURES IMPLEMENTED PER HOSPITAL PROTOCOLS. WILL CLOSELY MONITOR PATIENT.
--- NOTE | 2022-02-06 19:30 | NUR ---
RN NOTE RESPIRATORY THERAPIST AT BEDSIDE
[2022-02-06] MEDS ORDERED: HYDROMORPHONE 1 MG/1 ML DISP.SYRIN IV PRN (20:00)
--- NOTE | 2022-02-06 20:30 | NUR ---
RN NOTES PATIENT'S BLOOD PRESSURE DECREASED TO 79/50 WITH HEART RATE OF 171. CHARGE NURSE MADE AWARE.
--- NOTE | 2022-02-06 20:35 | NUR ---
RN NOTES CHARGE NURSE AND PATIENT'S ASSIGNED NURSE IN PATIENT'S ROOM. REASSESSING PATIENT'S ABNORMAL VITAL SIGNS AND MONITORING PATIENT'S CONDITION.
--- NOTE | 2022-02-06 20:45 | NUR ---
RN NOTES CHARGE NURSE AT BEDSIDE, PATIENT NOTED BRADYCARDIC ON MONITOR WITH HEART RATE IN THE 60'S, HEART RATE CONTINUE TO DECLINE, PATIENT BECAME PULSELESS ON MONITOR X2 LEADS, ACLS INITIATED, CODE BLUE ACTIVATED. SEE CODE BLUE SHEET.
[2022-02-06] MEDS ORDERED: EPINEPHRINE (1:10,000) SYRINGE 1 MG/10 ML DISP.SYRIN IVP ONE ×2 (20:46→20:49)
--- NOTE | 2022-02-06 21:00 | NUR ---
RN NOTES PATIENT PRONOUNCED BY ER DR. HERRERA AT 2046. NOTIFIED FAMILY AND WOODWORK SALVAGE INSPECTOR DOCTOR. POST MORTEM CARE DONE.
[2022-02-06] MEDS ORDERED: SENNOSIDES 8.6 MG TABLET GT SCH (22:00)
== END 2022-02-06 20:47 | DRG 137 ==
LOC: ER 22:21 → TRANSITION 02-06 07:06 → ICU 02-06 08:23
PROVIDERS: ADMIT Internal Medicine; ATTEND Nurse Practitioner Acute Care
PROC: 5A1935Z Respiratory Ventilation, Less than 24 Consecutive Hours (ICD-10-PCS; principal; 2022-02-06)
PROC: 0W9B30Z Drainage of Left Pleural Cavity with Drainage Device, Percutaneous Approach (ICD-10-PCS; 2022-02-06)
DX: J69.0 Pneumonitis due to inhalation of food and vomit (principal); J96.21 Acute and chronic respiratory failure with hypoxia; J93.0 Spontaneous tension pneumothorax; G82.50 Quadriplegia, unspecified; J47.0 Bronchiectasis with acute lower respiratory infection; Z93.0 Tracheostomy status; Z99.11 Dependence on respirator [ventilator] status; N39.0 Urinary tract infection, site not specified; R13.10 Dysphagia, unspecified; Z87.442 Personal history of urinary calculi; I46.9 Cardiac arrest, cause unspecified; Z93.1 Gastrostomy status; K52.9 Noninfective gastroenteritis and colitis, unspecified; Z87.440 Personal history of urinary (tract) infections; Z87.820 Personal history of traumatic brain injury; Z20.822 Contact with and (suspected) exposure to COVID-19; T14.8XXS Other injury of unspecified body region, sequela; X58.XXXS Exposure to other specified factors, sequela; Z87.891 Personal history of nicotine dependence
CPT/HCPCS: 31720; 36415; 36600; 71045-TC; 71250-TC; 80048-TC; 82962-TC; 83605-TC; 83735-TC; 84484-TC; 85025-TC; 87040-TC; 87081-TC; 94002-TC; 94003-TC; 94799-TC; 99082-TC; A6403; C9803; G0378; J0171; J0692; J1170; J1200; J2185; J2270; J2930; J3370; J3480; J3490; J7030; J7050; J7060; J8597